=== PATIENT | female | born 1965 | race Caucasian/White ===

== ENCOUNTER 2017-12-28 12:05 | Outpatient (CLI) | payer OTHER | END 2017-12-28 12:06 | disposition home or self-care (01) | LOC: BICMAMMO 12:05 | PROVIDERS: ATTEND Family Medicine | DX: Z12.31 Encounter for screening mammogram for malignant neoplasm of breast (principal); R92.1 Mammographic calcification found on diagnostic imaging of breast | CPT/HCPCS: 77067 ==

== ENCOUNTER → 2018-02-04 | Day surgery (SDC) | payer OTHER ==
[2018-02-03 13:23] VITALS: BMI 43.4
[~2018-02-04] MED LIST: Lorazepam 1 MG TAB ONE
[2018-02-04 09:00] VITALS: TEMP 98.4
--- NOTE | 2018-02-04 09:45 | RAD ---
LATERAL NEUTRAL FLEXION AND EXTENSION RADIOGRAPHS LUMBAR SPINE: 02/04/2018 HISTORY: Lumbar radiculopathy. FINDINGS: A dorsal column stimulator is present, leads terminating over the T12 level. The neutral lateral ysabel ging demonstrates normal vertebral body height and alignment. At T12-L1, L1-L2, and L2-L3, there is disk space narrowing with mild anterior osteophyte formation. No anterolisthesis or retrolisthesis i s seen on the neutral, flexion, or extension lateral views. No acute osseous abnormality is noted. IMPRESSION: Degenerative changes. No anterolisthesis or retrolisthesis seen. POS: [facility]
--- NOTE | 2018-02-04 11:00 | RAD ---
LUMBAR SPINE MYELOGRAM: 02/04/2018 HISTORY: Lumbar radiculopathy. COMPARISON: None. EXPOSURE DATA: Fluoroscopic time 1.2 minutes with 367.1 mGy per m2. TECHNIQUE/FINDINGS: Informed consent for lumbar myelogram obtained prior to the procedure. The skin overlying the lumbar spine is prepped and draped in the normal sterile fashion. The skin at the L2-L3 level is anesthetized with 1% buffered Lidocaine. With intermittent fluoroscopic guidance , a 22 gauge spinal needle is advanced into the thecal sac, and removal of the stylet yields clear ce rebrospinal fluid. Approximately 10 mL of iodinated contrast media was injected, outlining the nerve roots of the cauda equina and filling the thecal sac. The needle was removed. The patient tolerated the procedure well. The patient was sent to the CT scanner for CT myelogram of the lumbar spine. IMPRESSION: Successful lumbar spine myelogram. POS: [facility]
--- NOTE | 2018-02-04 11:14 | CT ---
CT MYELOGRAM LUMBAR SPINE: 02/04/2018 HISTORY: Lumbar radiculopathy. COMPARISON: None. TECHNIQUE: Serial axial CT imaging at 2.5 mm intervals, from the lower thoracic spine through the lower sacrum, with iodinated intrathecal contrast media. Coronal and sagittal reformatted imaging obtained. FINDINGS: Incomplete assessment of the abdomen and pelvis demonstrates a gastric suture line. There are chino us stones within both kidneys. This includes stones measuring up to 8 mm on the right and 4 mm on th e left. Scattered atherosclerotic calcification of the infrarenal abdominal aorta noted. Dorsal column stimulators are present, inserted at the L1-L2 level, terminating at the T12-L1 level. T12-L1: No central canal or neural foraminal stenosis. L2-L3: Mild anterior osteophyte formation and vacuum disk formation. No central canal or neural for aminal stenosis. L3-L4: No significant central canal or neural foraminal stenosis. L4-L5: Mild bilateral facet hypertrophy and hypertrophy of the ligamentum flavum. No centra canal o r neural foraminal stenosis. L5-S1: Mild facet hypertrophy with no significant central canal or neural foraminal stenosis. No anterolisthesis or retrolisthesis. No focal bone lesion. No acute osseous abnormality. There is strength change involving the bilateral sacroiliac joints, left greater than right. IMPRESSION: 1. No significant central canal or neural foraminal stenosis within the lumbar spine. 2. Multiple bilateral nonobstructing renal calculi. POS: [facility]
== END ==
LOC: RAD 08:32
PROVIDERS: ATTEND Neurological Surgery
PROC: B01B1ZZ Fluoroscopy of Spinal Cord using Low Osmolar Contrast (ICD-10-PCS; principal; 2018-02-04)
DX: M54.16 Radiculopathy, lumbar region (principal); Z79.1 Long term (current) use of non-steroidal anti-inflammatories (NSAID); Z79.899 Other long term (current) drug therapy
CPT/HCPCS: 62304; 72100; 72132

== ENCOUNTER 2018-03-08 08:40 | Outpatient (CLI) | payer OTHER ==
[2018-03-08 09:40] LABS: Hemoglobin 10.5 g/dL (12.0-16.0); Mean Corpuscular HGB CONC 31.2 g/dL (32.0-36.0); Mean Corpuscular Hemoglobin 24.4 pg (27.0-31.0); Mean Corpuscular Volume 78.2 fl (81.0-99.0); Mean Platelet Volume 6.7 fL (7.4-10.4); Platelet Count 410 thou/uL (130-400)
[2018-03-08 10:00] LABS: Anion Gap 12 mmol/L (10-20); BUN (Urea Nitrogen) 14 mg/dL (9.8-20.1); Calc. Creatinine Clearance 0 mL/min (70-130); Calcium 9.3 mg/dL (7.8-10.44); Carbon Dioxide 24 mmol/L (22-29); Chloride 107 mmol/L (98-107); Estimated GFR-MDRD 72; Glucose 92 mg/dL (70-105); Sodium 139 mmol/L (136-145)
--- NOTE | 2018-03-08 15:50 | EKG ---
Test Reason : Blood Pressure : / mmHG Vent. Rate : 083 BPM Atrial Rate : 083 BPM P-R Int : 140 ms QRS Dur : 084 ms QT Int : 362 ms P-R-T Axes : 024 001 026 degrees QTc Int : 425 ms Normal sinus rhythm Possible Anterior infarct , age undetermined Abnormal ECG No previous ECGs available Confirmed by RANDY HIDALGO ([id number]) on 03/08/2018 3:49:54 PM Referred By: JUHI Confirmed By:RANDY HIDALGO
== END 2018-03-08 08:41 | disposition home or self-care (01) ==
LOC: LABBT 08:40
PROVIDERS: ATTEND Neurological Surgery
DX: Z01.818 Encounter for other preprocedural examination (principal)
CPT/HCPCS: 80048; 85027; 93005; 93010

== ENCOUNTER 2018-03-14 07:23 | Day surgery (SDC) | payer OTHER ==
[2018-03-08 09:00] VITALS: BMI 43.4
[2018-03-14] MEDS ORDERED: CEFAZOLIN/Water 2 GM/20 ML SYRINGE ONE (08:17)
[2018-03-14] MEDS ORDERED: Sodium Chloride 0.9% 10 ML ONE (09:17)
[2018-03-14] MEDS ORDERED: Bupivacaine HCl 0.5%/Epinephrine 1:200,000/PF 30 ml Vial ONE (09:17)
[2018-03-14] MEDS ORDERED: Fentanyl 100 MCG/2 ML VIAL ONE ×2 (09:37→12:00)
[2018-03-14] MEDS ORDERED: Midazolam HCl 2 mg/2 ml Vial ONE (10:30)
[2018-03-14] MEDS ORDERED: HYDROmorphone 0.5 MG/0.5 ML SYRINGE ONE ×3 (11:04→11:35)
[2018-03-14] MEDS ORDERED: Promethazine HCl 25 MG/ML VIAL ONE (11:22)
--- NOTE | 2018-03-14 12:03 | OP ---
DATE OF PROCEDURE: 03/14/2018 SURGEON: Dell Chrales M.D. [employer] OPERATOR: Radha Lui PROCEDURES PERFORMED: Removal of electrode paddle array spinal stimulator, removal of pulse generato r spinal stimulator. PROCEDURE IN DETAIL: The patient was brought into the operating room and intubated. She was rolled in the prone position on gel-filled chest rolls. Incision over the previous battery pack was reopene d and the battery pack easily removed. We then made the incision over the thoracolumbar fascia and i dentified the anchoring spots of the stimulator leads, removed the anchors. We then next explored th e leads down to the electrode paddle array and this was quite stuck in the epidural space. We did steele ve performed a small laminectomy and ultimately they were able to remove the instrumentation entirely . The wound was then extensively irrigated, immaculate hemostasis was secured. Vancomycin powder wa s applied and the wounds were closed in anatomic layers.
[2018-03-14] MEDS ORDERED: Morphine 4 MG/ML VIAL ONE (12:57)
[2018-03-14] MEDS ORDERED: HYDROcodone/Acetaminophen 5/325 mg Tablet ONE (13:58)
== END 2018-03-14 14:50 | disposition home or self-care (01) ==
LOC: SDC 07:23
PROVIDERS: ATTEND Neurological Surgery
PROC: 0JPT0MZ Removal of Stimulator Generator from Trunk Subcutaneous Tissue and Fascia, Open Approach (ICD-10-PCS; principal; 2018-03-14)
PROC: 00PU0MZ Removal of Neurostimulator Lead from Spinal Canal, Open Approach (ICD-10-PCS; principal; 2018-03-14)
DX: Z46.2 Encounter for fitting and adjustment of other devices related to nervous system and special senses (principal); G90.59 Complex regional pain syndrome I of other specified site; Z79.890 Hormone replacement therapy; Z79.1 Long term (current) use of non-steroidal anti-inflammatories (NSAID); Z79.899 Other long term (current) drug therapy
CPT/HCPCS: 76001; 96374; 96375; A4216; J0670; J1170; J2250; J2270; J2550; J3010; J3370; J3490

== ENCOUNTER 2018-04-08 15:41 | Outpatient (CLI) | payer MEDICAID ==
--- NOTE | 2018-04-08 16:27 | RAD ---
LEFT HIP TWO VIEWS: HISTORY: Left hip pain (M25.552). COMPARISON: None. FINDINGS: No fracture. No malalignment. Mild enthesopathic changes at the greater trochanter. Phleboliths in the pelvis. IMPRESSION: Mild degenerative changes. No acute abnormality. POS: [facility]
--- NOTE | 2018-04-08 16:28 | RAD ---
TWO VIEWS RIGHT HIP: HISTORY: Pain. COMPARISON: None. FINDINGS: The joint space is preserved. The contour of the femoral head is maintained. No fracture. The visu alized bony pelvis is unremarkable. IMPRESSION: Unremarkable two view right hip. POS: [facility]
== END 2018-04-08 15:42 | disposition home or self-care (01) ==
LOC: SCSRAD 15:41
PROVIDERS: ATTEND Family Medicine
DX: M25.552 Pain in left hip (principal)

== ENCOUNTER 2018-06-20 10:51 | Outpatient (CLI) | payer OTHER ==
[~2018-06-20 10:51] MED LIST changes: +Iopamidol 370 76% 100 ML VIAL ONE; -Lorazepam 1 MG TAB ONE
--- NOTE | 2018-06-20 16:23 | CT ---
CT ABDOMEN AND PELVIS WITH ORAL AND IV CONTRAST: History: 53-year-old female with left upper quadrant pain. Patient has had multiple surgeries includi ng gastric bypass, hysterectomy, appendectomy, cholecystectomy. Liver biopsy. Spinal stimulator leads placed and removed. FINDINGS: Lung bases are unremarkable. The liver, spleen, pancreas and adrenal glands are normal. There are pos t op changes of gastric bypass, cholecystectomy, hysterectomy, appendectomy, spinal stimulator leads removal. There are calculi in the kidneys on either side. Low density lesions are likely cyst. No hydrouretero nephrosis noted on the either side. No calculi noted in the ureters or urinary bladder. The small loops are not abnormally dilated. There are vascular calcifications without evidence of ane urysmal dilatation of the abdominal aorta. Degenerative changes are present in the spine. IMPRESSION: 1. Non obstructing bilateral renal calculi. 2. Post op changes in the abdomen and pelvis. POS: [facility]
== END 2018-06-20 10:52 | disposition home or self-care (01) ==
LOC: SCSCT 10:51
PROVIDERS: ATTEND Internal Medicine
DX: R10.12 Left upper quadrant pain (principal); D50.9 Iron deficiency anemia, unspecified; N20.0 Calculus of kidney; Z98.890 Other specified postprocedural states
CPT/HCPCS: 74177

== ENCOUNTER 2018-08-17 08:58 | Inpatient (IN) | payer OTHER ==
[2018-08-17 09:43] LABS: INR-International Normal Ratio 1.1; PTT 24.9 SEC (22.9-36.1); Prothrombin Time 13.9 SEC (12.0-14.7)
[2018-08-17 09:46] LABS: Hemoglobin 6.7 g/dL (12.0-16.0); Mean Corpuscular HGB CONC 31.3 g/dL (32.0-36.0); Mean Corpuscular Hemoglobin 24.7 pg (27.0-31.0); Mean Corpuscular Volume 79.1 fL (78.0-98.0); Mean Platelet Volume 7.3 fL (7.4-10.4); Platelet Count 418 thou/uL (130-400); RBC Distribution Width 16.4 % (11.5-14.5); Red Blood Cell (RBC) Count 2.72 mill/uL (4.20-5.40); White Blood Cell (WBC) Count 12.7 thou/uL (4.8-10.8)
[2018-08-17] MEDS ORDERED: Pantoprazole 40 MG VIAL ONE (09:59)
[2018-08-17 10:00] LABS: ALT (SGPT) 11 U/L (8-55); AST (SGOT) 14 U/L (5-34); Albumin 3.2 g/dL (3.5-5.0); Alkaline Phosphatase 73 U/L (40-150); Anion Gap 11 mmol/L (10-20); BUN (Urea Nitrogen) 36 mg/dL (9.8-20.1); Bilirubin, Total 0.3 mg/dL (0.2-1.2); Calc. Creatinine Clearance 0 mL/min (70-130); Calcium 8.3 mg/dL (7.8-10.44); Carbon Dioxide 22 mmol/L (22-29); Chloride 110 mmol/L (98-107); Estimated GFR-MDRD 68; Globulin 2.6 g/dL (2.4-3.5); Glucose 160 mg/dL (70-105); Lipase 26 U/L (8-78); Potassium 3.8 mmol/L (3.5-5.1); Protein, Total 5.8 g/dL (6.0-8.3); Sodium 139 mmol/L (136-145)
[2018-08-17 10:04] LABS: CKMB 0.6 ng/mL (0-6.6); Troponin I Less than 0.010 ng/mL (< 0.028)
[2018-08-17 10:15] LABS: Band 16 % (5-11); Lymphocytes 10 % (21-51); MDiff Complete? YES; Metamyelocyte 2 % (0-0); Myelocyte 1 % (0-0); Neutrophil 70 % (42-75); Reactive Lymphocytes 1 % (0-10)
--- NOTE | 2018-08-17 10:22 | RAD ---
AP CHEST: Indication: 53-year-old female with vomiting, diarrhea, and blackout episode yesterday. Comparison: None. FINDINGS: No consolidation is evident. There are vascular calcifications involving the thoracic aorta. Heart si ze is normal. No acute osseous abnormality is noted. IMPRESSION: No definite acute cardiopulmonary abnormality demonstrated. POS: [facility]
[2018-08-17 14:52] LABS: Bilirubin Negative (Negative); Blood, Urine Negative (Negative); Clarity CLEAR (Clear); Glucose, Urine (Dipstick) Negative (Negative); Leukocyte Negative (Negative); Nitrite Negative (Negative); Protein, Urine (Dipstick) Negative (Neg-Trace); Specific Gravity, Urine 1.012 (1.002-1.036); Urobilinogen 0.2 mg/dL (0.2-1.0)
[2018-08-17] MEDS ORDERED: Ondansetron PF 4 MG/2 ML Vial IVP PRN ×2 (15:16→17:59)
[2018-08-17] MEDS ORDERED: Acetaminophen 325 MG TAB PO PRN ×2 (15:16→17:59)
[2018-08-17] MEDS ORDERED: Ondansetron ODT 4 MG TAB SL PRN (15:16)
[2018-08-17] MEDS ORDERED: HYDROcodone/Acetaminophen 5/325 mg Tablet PO PRN ×2 (15:16)
[2018-08-17] MEDS ORDERED: Sodium Chloride 0.9% 1,000 ML IV SCH (15:30)
--- NOTE | 2018-08-17 17:17 | CON ---
DATE OF CONSULTATION: 08/17/2018 REASON FOR CONSULTATION: Severe anemia and passing out. HISTORY: Mrs. Perdomo is a 53-year-old female, who was brought to the emergency room after having a syncopal episode at home and a presenting hemoglobin of 6.7 g/dL. The patient has been followed by Dr. Barclay as an outpatient for workup of her iron deficiency anemia. She had a gastrojejunostomy bypass surgery in 2006 in [place]. Over the last 2 years , she has been having episodic severe upper abdominal pain associated with nausea and some dry heaves. These episodes are fairly short acting, however, they have been more frequent in the last several months. Yesterday, she had an intense episode of upper abdominal pain in a band-like distribution, but without any other radiation. She had severe nausea and some dry heavings. There was no altered bowel function. There was no fever. Because of severe pain, she missed her appointment to see a GI doctor. Later in the afternoon, she became more diaphoretic and very weak. She felt lightheaded and dizzy with positional change. In the evening, she reportedly passed out in her restroom with complete loss of consciousness. Early this morning, she began passing black tarry stool. Currently, she is without any abdominal pain. Her vitals is fairly stable at the present time. Her outpatient GI workup included EGD and colonoscopy in April of this year. Her colonoscopy was normal. EGD showed a small gastric pouch. A 100 cm of the jejunum was explored, although the enteroanastomosis was not reached. That exam was normal. She subsequently had a small bowel capsule study last month that was normal without any identifiable source of bleeding. Her hemoglobin last year was 12 g/dL. Earlier this year, it dropped down to 10 g/dL. This is the first time that she had evidence of GI bleeding. PAST MEDICAL HISTORY: 1. Hypertension. 2. Anxiety, depression. 3. Status post appendectomy. 4. Status post cholecystectomy. 5. Gastrojejunostomy, bariatric surgery. 6. . 7. Hysterectomy. 8. Status post left total knee replacement. ALLERGIES: None. MEDICATIONS: At home include losartan 50 mg q. day, amlodipine 5 mg q. day, nortriptyline 75 mg at bedtime, meloxicam 15 mg q. day, gabapentin 600 mg 2 tablets t.i.d., fluoxetine 20 mg q. day, and pantoprazole 40 mg q. day. SOCIAL HISTORY: Patient is , has 3 children, recently moved from [place] a year ago. Denies any tobacco or alcohol usage. FAMILY HISTORY: Negative for any known GI problem, liver disease, or GI malignancy. REVIEW OF SYSTEMS: Ten-point review of systems did not show any other pertinent positive or negative. PHYSICAL EXAMINATION: VITAL SIGNS: Temperature is 97.8, blood pressure 138/72, pulse of 110. GENERAL: She is alert, very pale, but in no severe distress. HEENT: Shows anicteric sclerae. Oropharynx clear. NECK: Supple. HEART: Normal S1, S2, regular rate and rhythm, slight tachycardic. CHEST: Shows breath sounds. ABDOMEN: Protuberant but soft, nontender to palpation. No distention, no tympany. She has active bowel sounds. EXTREMITIES: Shows no edema. LABORATORY DATA: WBC is 12.7, hemoglobin 6.7, hematocrit 21.5%, platelet count of 418. Electrolytes within normal range, creatinine 0.87, bilirubin 0.3, AST 14, ALT 11, alkaline phosphatase 73, lipase of 26. ASSESSMENT: 1. Acute on chronic anemia, acute drop is likely from gastrointestinal blood loss, manifesting as melenic stools. She did have a normal upper endoscopy with 100 cm jejunum explored in January of this year. However, at that time, she did not have any signs of bleeding. A small bowel capsule endoscopy last month was done revealing ulcer. 2. Periodic abdominal pain, reason and unknown. EGD/colonoscopy and CT in June of this year were normal. Suspect possible afferent loop syndrome or intermittent RECOMMENDATIONS: 1. Transfusion support today to hemoglobin above 7. 2. Once she feels better and clinically more stable, we will proceed with upper endoscopy. We will attempt to use longer scope suggest colonoscope to go further down if standard upper endoscope is unrevealing. 3. I have discussed this plan with patient. All questions answered. SHASHA
[2018-08-17 17:47] LABS: Hemoglobin 7.8 g/dL (12.0-16.0)
[2018-08-17] MEDS ORDERED: Ondansetron ODT 4 MG TAB PO PRN (17:59)
[2018-08-17] MEDS: Sodium Chloride 0.9% 1,000 ML IV SCH (18:34)
[2018-08-17] MEDS: Pantoprazole 80 MG, Admixture Fee 1 EACH in Sodium Chloride 0.9% 100 ML IVP SCH (19:24)
[2018-08-17] MEDS: Gabapentin 300 MG CAP PO SCH (20:16)
[2018-08-17] MEDS: Nortriptyline HCl 25 MG CAP PO SCH (20:17)
[2018-08-17] MEDS: HYDROcodone/Acetaminophen 5/325 mg Tablet PO PRN (20:17)
[2018-08-17] MEDS ORDERED: Heparin 1,000 UNITS/ML VIAL ONE (20:56)
[2018-08-17 21:42] LABS: Hemoglobin 7.5 g/dL (12.0-16.0)
--- NOTE | 2018-08-17 23:12 | HP ---
DATE OF ADMISSION: 08/17/2018 ADMITTING PHYSICIAN: Boni Keys MD HISTORY OF PRESENT ILLNESS: The patient is a 53-year-old female who apparently is a patient of Dr. Demarco smith. There was confusion in the ER, she apparently was admitted to the hospitalist service. Derek Keys has not been available. We are now resuming the care. The patient was in her normal state of health until she began developing weakness, dizziness. She st ates she passed out. She has been followed for chronic abdominal pain, apparently has been seen by Derek Barclay. She has had a status post gastric bypass surgery. She has developed episodic abdominal laurel n. She states she recently underwent EGD with capsule camera, reported all findings were normal. As noted today, she developed weakness, fainting, dizziness, developed melena. She was seen and evalua cyndie in the ER, found to have melena and a hemoglobin of 6.7. She has not noted any chest pain, short ness of breath, no nausea, vomiting, diarrhea, no fever has been reported. As noted, she had an EGD and colonoscopy in April of this year which was apparently normal by report a nd it was noted her hemoglobin approximately one year ago was 12 and apparently dropped down to 10 ea rlier this year. Otherwise, no other medical complaints are noted. ALLERGIES: She has no known allergies. CURRENT MEDICATIONS: Include losartan, amlodipine, nortriptyline, Meloxicam, gabapentin, fluoxetine, and pantoprazole. PAST MEDICAL HISTORY: Hypertension, depression. PAST SURGICAL HISTORY: Positive for appendectomy, cholecystectomy, gastric bypass, hysterectomy, lef t total knee replacement. SOCIAL/PERSONAL HISTORY: She is . She does not smoke. She drinks alcohol. REVIEW OF SYSTEMS: Otherwise negative. PHYSICAL EXAMINATION: VITAL SIGNS: Temperature 98.4, pulse 97, respirations 16, O2 sats 100%, blood pressure 163/91. GENERAL: She is alert, active, in no distress. HEENT: Normocephalic, atraumatic. Sclerae and conjunctivae clear. NECK: Supple, full range of motion, no masses. LUNGS: Clear. HEART: Regular rate and rhythm without murmurs, gallops or rubs. ABDOMEN: Soft, nontender, bowel sounds are present and active. No hepatosplenomegaly is noted. No evidence of rebound or guarding otherwise noted. EXTREMITIES: Reveal trace edema bilaterally, but no evidence of any venous stasis disease otherwise noted. Pulses are full and intact bilaterally. LABORATORY DATA: Her initial hemoglobin 6.7, hematocrit 21.5, white blood count of 12.7. Electrolyt es: Sodium 139, potassium 3.8, chloride 110, CO2 is 22, BUN 36, creatinine 0.87. Urinalysis clear. Repeat hemoglobin after 1 unit of blood is 7.8 and 24.1. IMPRESSION: This is a 53-year-old female with apparent gastrointestinal bleed. PLAN: 1. Apparently, GI has already been consulted to see her in the ER. There is a plan evidently to josette e her for EGD tomorrow. 2. She has been placed on IV Protonix. 3. We will check CBC in the morning. I do not feel she needs a transfusion tonight. Discussed the findings with the patient. We will notify Dr. Keys of admission.
[2018-08-18] MEDS: HYDROcodone/Acetaminophen 5/325 mg Tablet PO PRN ×2 (01:49→18:17)
[2018-08-18] MEDS: Sodium Chloride 0.9% 1,000 ML IV SCH ×2 (01:50→14:51)
[2018-08-18] MEDS: Pantoprazole 80 MG, Admixture Fee 1 EACH in Sodium Chloride 0.9% 100 ML IVP SCH ×2 (03:05→16:06)
[2018-08-18 05:10] LABS: Anion Gap 10 mmol/L (10-20); BUN (Urea Nitrogen) 16 mg/dL (9.8-20.1); Calc. Creatinine Clearance 147 mL/min (70-130); Calcium 8.4 mg/dL (7.8-10.44); Carbon Dioxide 19 mmol/L (22-29); Chloride 114 mmol/L (98-107); Estimated GFR-MDRD 82; Glucose 93 mg/dL (70-105); Potassium 3.9 mmol/L (3.5-5.1); Sodium 139 mmol/L (136-145)
[2018-08-18 05:12] LABS: #Basophils 0.1 thou/uL (0.0-0.2); #Eosinphils 0.3 thou/uL (0.0-0.7); #Lymphocytes 2.7 thou/uL (1.20-3.40); #Monocytes 0.7 thou/uL (0.11-0.59); #Neutrophils 4.1 thou/uL (1.40-6.50); %Basophils 0.8 % (0.0-1.0); %Eosinophils 3.7 % (0.0-10.0); %Lymphocytes 34.4 % (21.0-51.0); %Monocytes 9.1 % (0.0-10.0); %Neutrophils 52.1 % (42.0-75.0); Hemoglobin 7.5 g/dL (12.0-16.0); Mean Corpuscular HGB CONC 31.2 g/dL (32.0-36.0); Mean Corpuscular Hemoglobin 26.3 pg (27.0-31.0); Mean Corpuscular Volume 84.2 fL (78.0-98.0); Mean Platelet Volume 7.5 fL (7.4-10.4); Platelet Count 319 thou/uL (130-400); RBC Distribution Width 16.6 % (11.5-14.5); Red Blood Cell (RBC) Count 2.86 mill/uL (4.20-5.40); White Blood Cell (WBC) Count 7.9 thou/uL (4.8-10.8)
--- NOTE | 2018-08-18 08:02 | PRG ---
DATE OF SERVICE: 08/18/2018 HISTORY OF PRESENT ILLNESS: The patient denies any further bleeding overnight. She is currently n.p .o. awaiting EGD and possible colonoscopy to follow with Gastroenterology. The patient received 1 un it of PRBCs and denies any transfusion reaction. No acute complaints other than some lasting right k nee pain following her prior collapse prior to presenting to the hospital, currently taking [place] for pain. PHYSICAL EXAMINATION: VITAL SIGNS: Blood pressure 127/78, temperature of 97.6, pulse of 86, respiratory rate of 15, oxygen saturation of 98% on room air. LABORATORY: This a.m., white blood cell count 7.9, hemoglobin 7.5, platelet count of 319. INR from yesterday 1.1. Sodium 139, potassium of 3.9, chloride of 114, creatinine of 0.74, glucose of 93, monique cium of 8.4. Troponin yesterday of less than 0.01. Urinalysis is normal. Specific gravity 1.01. GENERAL: The patient is alert and oriented, in no acute distress. HEENT: Head is normocephalic, atraumatic. Extraocular movements are intact. Sclerae are clear. Or al mucosa is moist. HEART: Slightly tachycardic, but regular rate, no murmurs. LUNGS: Clear to auscultation bilaterally. No rubs or wheezes. ABDOMEN: General tenderness, without rebound or guarding. EXTREMITIES: Lower extremities without cyanosis or edema. NEUROLOGIC: The patient alert and oriented x3, no focal deficits. Speech is normal. ASSESSMENT AND PLAN: Gastrointestinal bleed, symptomatic anemia, chronic pain. The patient is curre ntly on Protonix drip following transfusion with appropriate rise in hemoglobin. The patient has no further episodes of bleeding, currently stable. Awaiting scope procedure with Gastroenterology. We will follow up with their recommendations. We will ensure the patient's discontinued all NSAIDs on a n outpatient basis including home Meloxicam for her chronic pain. Continuing gabapentin and nortript yline as per the patient's pain regimen from home. Continuing the patient's home blood pressure medi cations for hypertension, currently controlled this a.m. Sequential compression devices when the francisco ent in bed have been ordered. No anticoagulation secondary to gastrointestinal bleed.
[2018-08-18] MEDS ORDERED: Ondansetron HCl/PF 4 MG/2 ML Vial IVP PRN (11:59)
[2018-08-18] MEDS ORDERED: Promethazine HCl 25 MG/ML VIAL IM PRN (11:59)
[2018-08-18] MEDS ORDERED: Promethazine HCl 25 MG/ML VIAL SLOW IVP PRN (11:59)
[2018-08-18] MEDS ORDERED: Fentanyl 100 MCG/2 ML VIAL ONE ×2 (12:09→12:57)
[2018-08-18 12:10] LABS: Hemoglobin 8.1 g/dL (12.0-16.0)
--- NOTE | 2018-08-18 12:38 | OP ---
DATE OF PROCEDURE: 08/18/2018 SURGEON: Dr. Adam Blas PROCEDURE: Enteroscopy with control of hemorrhage. PREOPERATIVE DIAGNOSIS: Anemia of acute gastrointestinal blood loss PROCEDURE IN DETAIL: Informed consent was obtained from the patient. She was sedated with total int ravenous anesthesia. The bite block was placed and the colonoscope was advanced well into the jejunu m. The esophagus was normal. The GE junction was normal. The stomach pouch was unremarkable. Ther e were a few shallow 6 mm erosions at the gastrojejunostomy anastomosis. The small bowel mucosa appe ared normal. The colonoscope was advanced down to the jejunojejunal anastomosis and then advanced re trograde through the biliopancreatic limb up into the stomach remnant. There was a large amount of b lood clot in the stomach remnant which was fresh. There was a 3 cm ulcer around the area of the stap le line in the stomach remnant. There was an adherent clot in the base of this. Epinephrine 1:10,00 0 was injected in four quadrants with 4 mL. The clot was then dislodged with a gold probe. A large visible vessel was identified in the base of the ulcer. This was cauterized with a 10-[place] gold pr obe. Even after cautery there was still pulse dilatation of the raised area at the vessel site. A H emoclip was attempted to be placed over the site; however, this just slid over the fibrotic base of t he ulcer and would not hold adequately. The procedure was completed at this point and the air was peters ctioned from the stomach and duodenum. She has a hemoglobin of 7.5 following transfusion. However, due to transfusion reaction we were having trouble getting additional units of blood ready for immedi ate transfusion. Following the procedure, there is good hemostasis confirmed. However, I do think t his is a high risk for repeat bleeding. IMPRESSION: 1. Shallow 6 mm erosions at the gastrojejunostomy anastomosis. 2. The esophagus and stomach pouch were unremarkable. The small bowel mucosa was normal. 3. The scope was advanced retrograde into the biliopancreatic limb and into the gastric remnant. Th ere was a large 3 cm ulcer around an area of yg in the gastric remnant. There was a large visib le vessel in the base of this which was injected with epinephrine and cauterized with a 10-[place] gol d probe. Good hemostasis was confirmed at the end of the procedure; however, there was still a sligh t protrusion and pulsation of the cauterized area which is concerning for a high risk for repeat blee ding still. RECOMMENDATIONS: 1. Proton pump inhibitor drip. 2. Transfuse as soon as the blood is available. 3. If there are any further overt bleeding, then she will need surgery for resection of the stomach remnant.
[2018-08-18] MEDS ORDERED: Lidocaine 1% PF 5 ML VIAL ONE (12:55)
[2018-08-18] MEDS ORDERED: PHENYLEPHRINE-NS 100 MCG/ML 10 ML SYRINGE ONE (12:55)
[2018-08-18] MEDS ORDERED: PROPOFOL 200 MG/20 ML VIAL ONE (12:55)
[2018-08-18] MEDS: Gabapentin 300 MG CAP PO SCH ×4 (14:50→21:23)
[2018-08-18] MEDS: FLUoxetine HCl 20 MG CAP PO SCH (14:50)
--- NOTE | 2018-08-18 17:59 | RAD ---
ACUTE ABDOMINAL SERIES: 08/18/18 HISTORY: Vomiting and diarrhea. Blackout episode one day ago. Evaluate for perforation. CHEST X-RAY: The cardiac silhouette and pulmonary vasculature are within normal limits. The lungs are clear. Free intraperitoneal air is seen beneath the hemidiaphragms on this upright chest x-ray. The osseous struc tures are intact. Vascular calcifications are seen in the thoracic aorta. There has been no interval change from study on 08/17/18. DECUBITUS AND SUPINE VIEWS OF THE ABDOMEN: Postsurgical changes are seen in the epigastric region with radiopaque suture material and surgical c lips present. Surgical clips are also seen in the right upper quadrant as well as overlying the lower abdomen. There are calcifications overlying the renal shadows bilaterally related to multiple renal calculi which were seen on CT abdomen on 06/20/18. Multiple calcifications also overlie the pelvis shown to represent multiple phleboliths on prior CT e xam. Surgical clips also overlie the pelvis bilaterally. Bowel gas pattern is nonspecific. Decubitus views demonstrate no evidence of free intraperitoneal gas . Minimal degenerative changes are seen in the spine. IMPRESSION: 1. Nonspecific bowel gas pattern. 2. No free intraperitoneal gas is seen on the upright chest x-ray or on the decubitus views of t he abdomen. 3. Postsurgical changes of the abdomen and pelvis. 4. Bilateral nephrolithiasis. POS: [facility]
[2018-08-18 20:27] LABS: Bilirubin Negative (Negative); Blood, Urine Negative (Negative); Clarity CLEAR (Clear); Glucose, Urine (Dipstick) Negative (Negative); Leukocyte Negative (Negative); Nitrite Negative (Negative); Protein, Urine (Dipstick) Negative (Neg-Trace); Specific Gravity, Urine 1.007 (1.002-1.036); Urobilinogen 0.2 mg/dL (0.2-1.0)
[2018-08-18 20:28] LABS: Bacteria/HPF None Seen HPF (None Seen); Hyaline Casts/LPF 0-3 HYALINE CAST LPF (0-3 Hyaline); RBC/HPF None Seen HPF (0-3); Squamous Epithelial None Seen HPF (0-3); WBC/HPF 0-3 HPF (0-3)
[2018-08-18] MEDS: Nortriptyline HCl 25 MG CAP PO SCH (21:24)
[2018-08-18 21:45] LABS: Hemoglobin 10.2 g/dL (12.0-16.0)
--- NOTE | 2018-08-18 22:07 | CON ---
DATE OF CONSULTATION: 08/18/2018 CONSULTING PHYSICIAN: Dr. Adam Blas. REASON FOR CONSULTATION: Gastric ulcer. HISTORY OF PRESENT ILLNESS: Patient is a 53-year-old white female. She was admitted to the hospital yesterday apparently following a syncopal episode. When she was brought to the hospital, she was no cyndie to have a hemoglobin of 6.7. She had been evaluated over the past couple of months with an upper and lower endoscopy for evaluation of iron deficiency anemia and left upper abdominal pain. Upper a nd lower endoscopy as well as apparently a capsule endoscopy were all negative. The patient notes th at she began passing melena stools shortly before her admission. She has a history of an open Arsalan-en-Y gastric bypass about 2007 performed in [place]. This was a revisional surgery from an apparent vertical banded gastroplasty that was performed in the . I s uspect it was because of the revisional nature of her surgery that she had her operation performed as an open operation. Following her admission for bleeding, she was seen by Gastroenterology and an upper endoscopy was rec ommended today. This was performed by Dr. Blas. She was surprisingly able to pass the scope throug h her Arsalan limb and back up to biliary limb and into the gastric remnant at which point he saw a larg e amount of clot within the gastric remnant and was able to identify an ulcer with a significant visi ble vessel within the base of the ulcer. There were a lot of surgical yg around that outside as well. Interestingly, the patient had been taking daily Protonix at home before she presented. Following her endoscopy, she was brought to the intensive care unit. She is receiving her first unit of blood. She is hemodynamically stable with a pulse of 91, blood pressure of 143/98, oxygen satura tions 96-99%. PAST MEDICAL HISTORY: Significant for morbid obesity, hypertension, depression. PAST SURGICAL HISTORY: 1. Appendectomy. 2. Cholecystectomy. 3. Open vertical-banded gastroplasty in the . 4. Open Arsalan-en-Y gastric bypass 10 years ago in [place] 5. Hysterectomy. 6. Left total knee replacement. 7. Bilateral foot surgery. CURRENT MEDICATIONS: Include losartan, amlodipine, nortriptyline, meloxicam, gabapentin, fluoxetine and pantoprazole. ALLERGIES: No known drug allergies. PERSONAL AND SOCIAL HISTORY: She is with one child and her son is present at bedside. She does not smoke. She does drink alcohol, but uncommonly. She does not work secondary to disability. She states her disability is related to some nerve damage in her feet as well as back problems. REVIEW OF SYSTEMS: Otherwise unremarkable. FAMILY HISTORY: Noncontributory. PHYSICAL EXAMINATION: VITAL SIGNS: As mentioned, she is afebrile, pulse is 90-100, blood pressure 143/98. GENERAL: She is well-developed, well-nourished, moderately obese white female. She currently weighs about 230 pounds (she tells me she weighed 285 pounds prior to her gastric bypass). HEENT: Unremarkable. NECK: Supple. LUNGS: Clear to auscultation. CARDIAC: Regular rate and rhythm without murmur. ABDOMEN: Obese with well healed midline upper abdominal incision. She has mild discomfort diffusely without any acute abdominal findings. ASSESSMENT: Patient with a bleeding ulcer in her gastric remnant following gastric bypass surgery 10 years ago for Morbid obesity. This is an extraordinarily unusual problem. It is more unusual that this occurred in spite of her taking a proton pump inhibitor. I suspect she is going to require rese ction of this portion of her stomach. It seems like it is only a matter time before this starts blee ding again. I would like to avoid operating on her emergently during this time that she is being res uscitated and transfused secondary to increased risk of perioperative complications. I suspect that this operation will need to be performed as an open operation secondary to her two prior open gastric operations. I have discussed all this in detail with the patient, her son, and Dr. Blas. She will receive her 2 units of blood transfusion to be observed here in the ICU. I will continue to follow her. If she remains stable, then hopefully she will be prepared for an elective gastrectomy at the [facility] of this next week.
[2018-08-19] MEDS: Pantoprazole 80 MG, Admixture Fee 1 EACH in Sodium Chloride 0.9% 100 ML IVP SCH (00:40)
--- NOTE | 2018-08-19 01:47 | CON ---
DATE OF CONSULTATION: 08/18/2018 HISTORY OF PRESENT ILLNESS: Analia Perdomo is a very pleasant 53-year-old female who was admitted to critical care unit after she was in identifying is having a GI bleed. She has undergone endoscopy. PAST MEDICAL HISTORY: Remarkable for hypertension, depression. MEDICATIONS: Prior to admission, she was on losartan, amlodipine, nortriptyline , meloxicam, gabapentin, fluoxetine and Protonix. PAST SURGICAL HISTORY: Remarkable for appendectomy, cholecystectomy, gastric bypass, hysterectomy and knee replacement. SOCIAL HISTORY: She is nonsmoker, nondrinker. FAMILY HISTORY: Negative for lung disease in early age. REVIEW OF SYSTEMS: A 10-point review of system was completed, otherwise negative. She actually denies pain at this time. PHYSICAL EXAMINATION: GENERAL: Analia Perdomo is a very pleasant 53-year-old female. VITAL SIGNS: Afebrile, respiratory rate 16, heart rate is 88, oximetry is 99%, blood pressure 148/79. GENERAL: She is in no distress. HEENT: Pupils were equal. Sclerae anicteric. LUNGS: Clear. HEART: Regular rhythm. S1 and S2 are normal. ABDOMEN: Surprisingly nontender. EXTREMITIES: No clubbing, cyanosis, or edema. LABORATORY DATA: White count 7.9; hemoglobin 7.5 at 04:17 and at 11:58, it was 8.1; platelets 319. Electrolytes were unremarkable other than mild hyperchloremia, likely brought on by the IV fluids. IMPRESSION: Gastrointestinal blood loss, status post endoscopy. PLAN: Continue ICU observation with serial hemoglobin and hematocrits per Gastroenterology and General Surgery. I will be happy to follow along and no respiratory issues at this time. This is a 70 minute consult, with greater than 50% of time spent on unit with coordination of care. SHASHA
[2018-08-19] MEDS: HYDROcodone/Acetaminophen 5/325 mg Tablet PO PRN (02:10)
[2018-08-19 05:52] LABS: #Basophils 0.1 thou/uL (0.0-0.2); #Eosinphils 0.2 thou/uL (0.0-0.7); #Monocytes 1.1 thou/uL (0.11-0.59); #Neutrophils 8.3 thou/uL (1.40-6.50); %Basophils 0.5 % (0.0-1.0); %Eosinophils 2.1 % (0.0-10.0); %Lymphocytes 16.8 % (21.0-51.0); %Monocytes 9.6 % (0.0-10.0); %Neutrophils 71.1 % (42.0-75.0); Hemoglobin 9.4 g/dL (12.0-16.0); Mean Corpuscular HGB CONC 32.5 g/dL (32.0-36.0); Mean Corpuscular Hemoglobin 27.5 pg (27.0-31.0); Mean Corpuscular Volume 84.5 fL (78.0-98.0); Mean Platelet Volume 7.6 fL (7.4-10.4); Platelet Count 296 thou/uL (130-400); RBC Distribution Width 15.7 % (11.5-14.5); Red Blood Cell (RBC) Count 3.41 mill/uL (4.20-5.40); White Blood Cell (WBC) Count 11.7 thou/uL (4.8-10.8)
[2018-08-19 05:55] LABS: Anion Gap 9 mmol/L (10-20); BUN (Urea Nitrogen) 6 mg/dL (9.8-20.1); Calc. Creatinine Clearance 154 mL/min (70-130); Calcium 8.5 mg/dL (7.8-10.44); Carbon Dioxide 23 mmol/L (22-29); Chloride 109 mmol/L (98-107); Estimated GFR-MDRD 86; Glucose 94 mg/dL (70-105); Potassium 3.4 mmol/L (3.5-5.1); Sodium 138 mmol/L (136-145)
[2018-08-19] MEDS ORDERED: Fentanyl 250 MCG/5 ML VIAL ONE (07:03)
[2018-08-19] MEDS ORDERED: DOPamine 400 MG/D5W 250 ML 0 ML ONE (07:20)
--- NOTE | 2018-08-19 07:57 | RAD ---
CHEST 1 VIEW: HISTORY: Dyspnea. Followup. COMPARISON: 08/17/2018. FINDINGS: Cardiac silhouette is magnified by projection. Pulmonary vasculature unremarkable. Mediastinum midl ine. Right subclavian central venous catheter is in place with the tip overlying the superior vena c juan. No evidence of pneumothorax. IMPRESSION: Right subclavian central venous catheter is in good radiographic position. POS: [facility]
--- NOTE | 2018-08-19 08:01 | OP ---
DATE OF PROCEDURE: 08/19/2018 PREOPERATIVE DIAGNOSIS: Bleeding gastric ulcer. POSTOPERATIVE DIAGNOSIS: Bleeding gastric ulcer. PROCEDURE PERFORMED: Placement of right subclavian 7-Ukrainian triple-lumen central line. SURGEON: Valdemar Lea M.D. ANESTHESIA: A 1% lidocaine. INDICATION: The patient is a 53-year-old white female. She was found to have a bleeding ulcer in he r bypassed gastric segment yesterday. This morning, she developed severe acute onset of pain with hy potension. A central line was placed urgently in preparation for emergent operation. DESCRIPTION OF PROCEDURE: Informed consent was obtained. The patient was placed in Trendelenburg po sition in her bed in the Intensive Care Unit. Right periclavicular area was prepped with ChloraPrep and draped in sterile fashion. Local anesthetic was infiltrated. Large gauge needle was passed into the clavicle and subclavian vein. Guidewire was passed through the needle. The needle was removed, skin was incised, tract was dilated, and 7-Ukrainian triple-lumen catheter was passed over the wire. E ach of the 3 lumens aspirated blood freely and was flushed with heparinized saline. Catheter was sec ured to skin exit site with 3-0 silk suture. Sterile occlusive dressing was applied. There were no complications and chest x-ray shows good position of the catheter.
[2018-08-19] MEDS ORDERED: Dexamethasone 20 MG/5 ML VIAL ONE (09:51)
[2018-08-19] MEDS ORDERED: Succinylcholine Chloride 20 MG/ML 10 ml SYRINGE FS ONE (09:51)
[2018-08-19] MEDS ORDERED: Ondansetron PF 4 MG/2 ML Vial ONE (09:51)
[2018-08-19] MEDS ORDERED: Vecuronium 10 MG VIAL ONE (09:51)
[2018-08-19] MEDS ORDERED: PROPOFOL 200 MG/20 ML VIAL ONE (09:51)
[2018-08-19 10:03] LABS: #Eosinphils 0.1 thou/uL (0.0-0.7); #Lymphocytes 1.2 thou/uL (1.20-3.40); #Monocytes 0.7 thou/uL (0.11-0.59); %Eosinophils 0.5 % (0.0-10.0); %Lymphocytes 7.6 % (21.0-51.0); %Monocytes 4.2 % (0.0-10.0); %Neutrophils 87.7 % (42.0-75.0); Hemoglobin 9.9 g/dL (12.0-16.0); Mean Corpuscular HGB CONC 33.1 g/dL (32.0-36.0); Mean Corpuscular Hemoglobin 28.9 pg (27.0-31.0); Mean Corpuscular Volume 87.3 fL (78.0-98.0); Mean Platelet Volume 7.2 fL (7.4-10.4); Platelet Count 189 thou/uL (130-400); RBC Distribution Width 14.8 % (11.5-14.5); Red Blood Cell (RBC) Count 3.42 mill/uL (4.20-5.40)
[2018-08-19 10:04] LABS: INR-International Normal Ratio 1.2; PTT 25.2 SEC (22.9-36.1); Prothrombin Time 15.5 SEC (12.0-14.7)
[2018-08-19] MEDS ORDERED: Midazolam HCl 5 mg/5 ml Vial ONE (10:22)
[2018-08-19] MEDS ORDERED: HYDROmorphone 2 MG/ML VIAL ONE (10:23)
--- NOTE | 2018-08-19 11:07 | PRG ---
DATE OF SERVICE: 08/19/2018 Ms. Perdomo suddenly developed excruciating abdominal pain this morning and became hypotensive. She was put on scheduled go to the OR. Aggressive volume resuscitation was initiated and transfusions were ordered. PHYSICAL EXAMINATION: LUNGS: Her lungs are clear. HEART: Regular rhythm. ABDOMEN: She was tender in her epigastrium. EXTREMITIES: Unchanged. She had no edema. NEUROLOGIC: Nonfocal. LABORATORY DATA: White count 11.7 this morning, hemoglobin 9.4, platelets 296. Sodium 138, potassium 3.4, chloride 109, bicarbonate 23, BUN 6, creatinine 0.7. IMPRESSION: Gastrointestinal bleed, going emergently to the OR. PLAN: She will probably end up needing to be mechanically ventilated if this is complicated at all. We will continue to follow. Critical care time is 35 minutes. SHASHA
[2018-08-19] MEDS ORDERED: Ventilator Sedation Protocol 1 EACH FS ONE (11:08)
[2018-08-19] MEDS ORDERED: hydrALAZINE 20 MG/ML VIAL SLOW IVP PRN (11:08)
[2018-08-19] MEDS ORDERED: Promethazine HCl 25 MG/ML VIAL IM PRN (11:08)
[2018-08-19] MEDS ORDERED: Dextrose 50% Abboject 50 ML SYRINGE SLOW IVP PRN (11:08)
[2018-08-19] MEDS ORDERED: Dextrose 5% in Water 1,000 ML IV PRN (11:08)
[2018-08-19] MEDS ORDERED: Sodium Chloride 0.9% 1,000 ML IV SCH (11:15)
[2018-08-19] MEDS ORDERED: Fentanyl BOLUS 250 ML IVPB PRN (11:26)
[2018-08-19] MEDS ORDERED: DISCONTINUE PREVIOUS NARCOTIC PAIN MEDICATIONS AND BENZODIAZEPINES FS SCH (11:26)
[2018-08-19] MEDS ORDERED: Propofol BOLUS 1,000 MG/100 ML VIAL IV PRN (11:26)
[2018-08-19 11:27] LABS: Actual Bicarbonate (HCO3a) 18.7 mEq/L (22-28); Calcium, Ionized 1.07 mmol/L (1.12-1.30); Carboxyhemoglobin (COHb) 2.1 gm% (0.0-3.0); Hemoglobin (Hb) 12.1 g/dL (12.0-16.0); O2 Tension (PaO2) 103.4 mmHg (80.0-100.0); Potassium - ABG Lab 3.82 mmol/L (3.70-5.30); pH, Arterial 7.26 (7.35-7.45)
[2018-08-19 11:28] LABS: Puncture Site ALINE
[2018-08-19] MEDS: Propofol 1,000 MG/100 ML VIAL IV PRN ×4 (11:40→22:53)
[2018-08-19] MEDS: fentaNYL Citrate/PF 2,000 MCG in Sodium Chloride 0.9% 60 ML IV SCH (11:47)
[2018-08-19 12:03] LABS: Anion Gap 9 mmol/L (10-20); BUN (Urea Nitrogen) 9 mg/dL (9.8-20.1); Calc. Creatinine Clearance 179 mL/min (70-130); Calcium 6.8 mg/dL (7.8-10.44); Carbon Dioxide 19 mmol/L (22-29); Chloride 115 mmol/L (98-107); Estimated GFR-MDRD Greater than 90; Glucose 172 mg/dL (70-105); Lipase 216 U/L (8-78); Potassium 3.9 mmol/L (3.5-5.1); Sodium 139 mmol/L (136-145)
--- NOTE | 2018-08-19 12:53 | RAD ---
CHEST 1 VIEW: HISTORY: No ETT. Chest pain. COMPARISON: Radiographs same day. FINDINGS: The patient is intubated with enteric tube tip above the amy approximately 1.2 cm. The enteric tu be tip below the diaphragm is not well seen. There appears to be a drain over the left upper quadran t of the abdomen with multiple surgical yg. The intravenous catheter tip is similar. No pneumo thorax is appreciated. Mild atelectasis of both lower lobes. IMPRESSION: New endotracheal tube tip above the amy approximately 1.2 cm. POS: [facility]
[2018-08-19] MEDS ORDERED: Calcium Gluconate 4.6 MEQ in Sodium Chloride 0.9% 100 ML IVPB ONE (14:58)
--- NOTE | 2018-08-19 15:01 | PRG ---
DATE OF SERVICE: 08/19/2018 SUBJECTIVE: Ms. Perdomo had a repeat bleed this morning with hemodynamic instability. Dr. Leonora harvey ook her to surgery and did resection of the area of the stomach with the ulcer bleeding. She is doin g well now postoperatively sedated on the ventilator. IMPRESSION: 1. Ulcer of the gastric remnant with acute hemorrhage and anemia of acute blood loss. Status post s urgical resection. She also had some erosions of the gastrojejunostomy anastomosis; however, these w ere shallow and small and had no stigmata of recent bleeding. She should remain on proton pump inhib itor. 2. I will sign off for now. Dr. Allen will be available if needed over the weekend.
[2018-08-19] MEDS: Acetaminophen 1,000 MG in Premix Bag 1 BAG IVPB PRN ×2 (15:32→21:25)
[2018-08-19] MEDS: Potassium Chloride 20 MEQ in Lactated Ringer's 1,000 ML IV SCH ×2 (15:45→22:52)
[2018-08-19] MEDS: cefOXitin 2 GM in Sodium Chloride 0.9% 100 ML IVPB SCH (16:20)
--- NOTE | 2018-08-19 19:58 | PRG ---
DATE OF SERVICE: 08/19/2018 HISTORY OF PRESENT ILLNESS: The patient with abdominal pain, some distention and hypertension. Surgery was called to bedside, emergently taken back for surgery. The patient was transfused an additional I believe 4 units in the perioperative period, return to the ICU, still intubated and sedated with no plans to wean until tomorrow morning. I spoke with son at bedside. Ms. Perdomo is unable to complete review of systems or questions, but does open her eyes and squeeze fingers to commands. Nursing staff reported a 101 temperature and bladder which did have subsequently improved following removal of excess blankets. POSTOPERATIVE LABORATORY DATA: Sodium 139, potassium of 3.9, CO2 of 19, BUN of 9, creatinine of 0.6, glucose of 172, calcium of 6.8 prior to replacement. Lipase of 216, amylase of 91. PHYSICAL EXAMINATION: VITAL SIGNS: Formal review of vital signs: T-max 101.5, heart rate of 99, respiratory rate of 19, blood pressure 150/92. GENERAL: The patient is intubated, sedated with OG tube in place with some sanguinous material and tube. Central line placed subclavian. HEART: Tachycardic but regular rate. LUNGS: Coarse breath sounds bilaterally. ABDOMEN: Incision line abdominally intact. EXTREMITIES: Lower extremities with 2+ palpable pulses, dorsalis pedis bilaterally. Neurologic: The patient intubated, sedated, unable to obtain orientation. Otherwise, the patient is following commands and is arousable. SHELBIE drain intact with some output. Nursing staff states they have not had to empty in the postoperative period. The patient has had adequate urine out in the last several hours. ASSESSMENT AND PLAN: Gastrointestinal bleed, anemia of acute blood loss, chronic pain, bleeding gastric ulcer following up on postoperative management of surgery, critical care are following for respiratory management. Gastroenterology temporarily signing off per Dr. Blas's note in lieu of surgical management. The patient continued on antibiotics in the immediate postoperative period given a spike in temperature with may be a transfusion reaction versus early signs and symptoms of infection or anesthesia agents. The patient is continued on sedation protocol oral medications have been held at this point in time. Blood pressures remained stable in the postoperative period. The patient transitioned to IV morphine for pain control on top of fentanyl for sedation and propofol. We will sign out to Dr. Hays over the weekend. SHASHA
[2018-08-19] MEDS: Pantoprazole 40 MG VIAL IVP SCH (21:25)
[2018-08-19] MEDS: Famotidine/PF 20 mg/2ml Vial SLOW IVP SCH (21:25)
[2018-08-20] MEDS: fentaNYL Citrate/PF 2,000 MCG in Sodium Chloride 0.9% 60 ML IV SCH ×3 (00:22→23:08)
[2018-08-20] MEDS: cefOXitin 2 GM in Sodium Chloride 0.9% 100 ML IVPB SCH ×3 (00:39→16:33)
[2018-08-20] MEDS: Propofol 1,000 MG/100 ML VIAL IV PRN ×3 (02:55→16:33)
--- NOTE | 2018-08-20 03:47 | OP ---
DATE OF OPERATION: 08/19/2018 PREOPERATIVE DIAGNOSIS: Bleeding gastric ulcer in gastric remnant (prior gastric bypass). POSTOPERATIVE DIAGNOSIS: Bleeding gastric ulcer in gastric remnant (prior gastric bypass). OPERATION PERFORMED: Very difficult open subtotal gastrectomy with removal of the vast majority of h er gastric remnant, extensive lysis of perihepatic and perigastric adhesions. SURGEON: Dr. Valdemar Lea. ANESTHESIA: General endotracheal. INDICATIONS: Patient is a 53-year-old white female. She had presented to the hospital 1 day previou sly with a complaint of syncope and anemia. She was transfused with blood and resuscitated and stabi lized. When she underwent endoscopy per Dr. Blas yesterday, she was able to pass the scope up into the gastric remnant and able to visualize a penetrating ulcer in the apex of the gastric remnant with a large amount of blood and clot within the bypassed segment of the stomach. This morning, she had another episode of severe abdominal and back pain with a severe hypotensive episode with a systolic b lood pressure in the 40s-50s. This seemed to be obvious evidence that she was bleeding again and she was taken emergently down to the operating room. I have placed a right subclavian central line in h er bedside in the Intensive Care Unit. DESCRIPTION OF PROCEDURE: Informed consent was obtained, the patient was taken to the operating room where general endotracheal anesthesia was obtained with the patient in supine position. Abdomen was prepped with ChloraPrep and draped in sterile fashion. Dobbins catheter and arterial line were placed . Midline abdominal incision was created along the prior incision line and dissection was carried th rough skin and subcutaneous tissue down to the fascia. Prior fascial closure sutures were incised an d the fascia was opened to gain access into the abdominal cavity. There were some omental adhesions to the anterior abdominal wall around the area of the midline incision and these were taken down. Th ere were surprisingly minimal adhesions anywhere in the lower abdomen, but frankly none of this was e xplored. The patient had had a prior abdominoplasty, which limited the mobility of the abdominal wal l. I had to extend the incision to obtain appropriate access into the abdominal cavity. After the a nterior abdominal wall adhesions were lysed, Bookwalter retractor was utilized. Although it was not recognized upon entering, I had injured part of the left lobe of the liver which was densely adherent to the anterior abdominal wall and this was quickly controlled with electrocautery. What followed was a lengthy dissection to clarify the anatomy of the upper abdomen. Patient had a ve ry distended gastric remnant. Early in the operation, I had to place a pursestring suture and then c reate a gastrotomy to allow evacuation of the large amount of blood and clot within the gastric remna nt. This was entirely full and taut with blood. Surprisingly, after this was evacuated, the remnant did not seem to fill back up with blood during the course of the operation. This afforded me much m ore mobility in the upper abdomen. I had to mobilize the splenic flexure and this was done with electrocautery to reflect the colon down out of the way. I was able to clearly identify the Arsalan limb extending into the upper abdomen. Thi s of course tracked across the gastric remnant into the upper abdomen. The most difficult part of th e mobilization was dissecting the left lobe of the liver off of the gastric remnant and the Arsalan limb . Much of the liver seemed to be decapsuled during the course of this maneuver and there was bleedin g from the liver, but this was again controlled with electrocautery. Eventually, I was able to retra ct the liver using a blade with the Bookwalter retractor. I then began to mobilize the vascular supply to the greater curvature of the stomach. This was done using the LigaSure device. There were fairly dense adhesions to the posterior aspect of the stomach that seemed to involve the retroperitoneum and perhaps the pancreas. These were mobilized carefully using a combination of sharp dissection electrocautery. The dissection was carried superiorly. It w as difficult to discern the gastric pouch as a separate structure from the gastric remnant. At some point in the dissection, I decided to divide the stomach distally to allow greater flexibility and di ssecting up into the upper abdomen. I therefore cleared a segment of the lesser curvature and fired the TA 60 stapler across the stomach. This was proximal to the pylorus. Because of the scar tissue in that area could clearly demonstrate the pylorus, but my guess is that this is about 5 cm proximal to the pylorus. I then continued to mobilize the stomach in an ascending fashion, taking down to investing the lesser curvature and greater curvature and mobilizing the posterior aspect. With traction on the stomach a t some point, I pulled down on the remnant to the point that the penetrating ulcer which proved to be on the posterior aspect of the apex of the fundus tore off of the underlying tissue. At this point, the artery had been bleeding into the ulcer began briskly bleeding into the abdominal cavity. Initi ally, this was difficult to control with anything other than pressure, but eventually I was able to c ontrol with a couple of [id number] sutures of 2-0 Vicryl. This afforded me the ability to becky nue to dissect up towards this area. I eventually was able to dissect the Arsalan limb and identify its connection with the gastric pouch. With difficulty, I was able to separate the gastric pouch from t he gastric remnant. I mobilized the entire resected segment of the stomach up to the area of the penetrating ulcer and at this level, I placed a clamp across the retroperitoneal tissue to which the stomach was adherent and ulcerated into. The stomach was cut away from this and the tissue into which the stomach had ulcera cyndie was suture ligated with 2-0 silk suture. There was no evidence of bleeding. There was visualize d at the level that was resected the lumen of a significant vessel that appeared to be a couple of mi llimeters in diameter. I could not tell what this was because of the density of the scarring. It di d not appear to be the main splenic artery, but it could have been a branch or perhaps one of the guillermina rt gastric arteries. The specimen was passed off the field. At this point, the nasogastric tube was passed down through t he gastric pouch and into the Arsalan limb. I then insufflated the Arsalan limb and the pouch through the NG tube with the structures under water and there was no evidence of an air leak. The nasogastric tu be was positioned at this location. Because of the dissection down in the area of the pancreas, I decided to drain this area. I placed a 19-Armenian round fluted drain into the upper abdomen and brought it out through the left abdominal wa ll, was secured with a 3-0 nylon suture. The stapled end of the distal stomach was tagged with a cou ple of 2-0 Prolene sutures for future identification should further surgery be necessary. The abdominal cavity was then irrigated with 2 liters of irrigant and all irrigant was aspirated. Th ree sheaths of Seprafilm were placed underneath the fascia and the fascia was closed with running sut ure of looped #1 PDS. The wound was copiously irrigated and all irrigant was aspirated. Skin edges were approximated with skin yg. Dry gauze dressing was placed externally. There were no compli cations. She had remained hemodynamically stable during the course of the operation. I estimated in traoperative blood loss of about 500 mL. There was a much greater amount of blood that was removed f rom within the stomach that had bled before the patient was taken to the operating room. This was pr obably about 1500 mL. The patient was transfused with 4 units of packed red blood cells. Coags were checked towards the end of the case and found to be essentially normal. Her platelet count was norm al at 180. She was taken on the ventilator in stable condition back to the Intensive Care Unit.
[2018-08-20] MEDS: Acetaminophen 1,000 MG in Premix Bag 1 BAG IVPB PRN (03:50)
[2018-08-20 04:30] LABS: ALT (SGPT) 60 U/L (8-55); AST (SGOT) 49 U/L (5-34); Albumin 2.5 g/dL (3.5-5.0); Alkaline Phosphatase 62 U/L (40-150); Anion Gap 13 mmol/L (10-20); BUN (Urea Nitrogen) 13 mg/dL (9.8-20.1); Bilirubin, Total 0.9 mg/dL (0.2-1.2); Calc. Creatinine Clearance 124 mL/min (70-130); Calcium 7.9 mg/dL (7.8-10.44); Carbon Dioxide 17 mmol/L (22-29); Chloride 113 mmol/L (98-107); Estimated GFR-MDRD 67; Globulin 2.2 g/dL (2.4-3.5); Glucose 150 mg/dL (70-105); Lipase 89 U/L (8-78); Potassium 3.8 mmol/L (3.5-5.1); Protein, Total 4.7 g/dL (6.0-8.3); Sodium 139 mmol/L (136-145)
[2018-08-20] MEDS ORDERED: Sodium Chloride 0.9% 1,000 ML IV SCH (06:30)
[2018-08-20 06:57] LABS: Band 31 % (5-11); Hemoglobin 12.4 g/dL (12.0-16.0); Lymphocytes 3 % (21-51); MDiff Complete? YES; Mean Corpuscular HGB CONC 33.8 g/dL (32.0-36.0); Mean Corpuscular Hemoglobin 28.9 pg (27.0-31.0); Mean Corpuscular Volume 85.6 fL (78.0-98.0); Mean Platelet Volume 7.9 fL (7.4-10.4); Monocytes 6 % (0-10); Neutrophil 60 % (42-75); Platelet Count 255 thou/uL (130-400); RBC Distribution Width 15.3 % (11.5-14.5); Red Blood Cell (RBC) Count 4.29 mill/uL (4.20-5.40); White Blood Cell (WBC) Count 20.8 thou/uL (4.8-10.8)
[2018-08-20 07:11] LABS: Actual Bicarbonate (HCO3a) 17.2 mEq/L (22-28); Base Excess (BEa) -6.9 mEq/L (-2.0 to +3.0); CO2 Tension 30.3 mmHg (35.0-45.0); Calcium, Ionized 1.07 mmol/L (1.12-1.30); Carboxyhemoglobin (COHb) 1.3 gm% (0.0-3.0); Hemoglobin (Hb) 11.6 g/dL (12.0-16.0); O2 Tension (PaO2) 86.7 mmHg (80.0-100.0); Potassium - ABG Lab 3.83 mmol/L (3.70-5.30); pH, Arterial 7.37 (7.35-7.45)
[2018-08-20] MEDS: Lorazepam 2 MG/ML VIAL SLOW IVP PRN ×4 (07:44→16:33)
--- NOTE | 2018-08-20 07:44 | RAD ---
CHEST 1 VIEW: HISTORY: Dyspnea. Followup. COMPARISON: 08/19/2018. FINDINGS: Cardiac silhouette is magnified by projection. Pulmonary vasculature is accentuated by shallow inspi ration. Mediastinum is midline. Mild bibasilar atelectasis. Lines and tubes are unchanged in posit ion. No evidence of pneumothorax. IMPRESSION: Stable radiographic appearance of the chest. POS: [facility]
[2018-08-20] MEDS: Potassium Chloride 20 MEQ in Lactated Ringer's 1,000 ML IV SCH ×2 (07:48→16:32)
[2018-08-20 07:58] LABS: ALV-art Gradient 160.625 (0-20); Puncture Site ALINE
[2018-08-20] MEDS: Famotidine/PF 20 mg/2ml Vial SLOW IVP SCH ×2 (09:10→20:22)
[2018-08-20] MEDS: Enoxaparin Sodium 40 MG/0.4 ML SYRINGE SC SCH (09:55)
[2018-08-20] MEDS: Pantoprazole 40 MG VIAL IVP SCH ×2 (10:26→20:22)
--- NOTE | 2018-08-20 11:48 | PRG ---
DATE OF SERVICE: 08/20/2018 PULMONARY AND CRITICAL CARE PROGRESS NOTE Thirty-five minutes critical care time. SUBJECTIVE: The patient remains intubated on mechanical ventilation. She will wake up and shake and nod her head to questions. Her son was at the bedside. PHYSICAL EXAMINATION: VITAL SIGNS: Her temperature is 99.4 and her T-max was 102.2, pulse is running at 118-130, blood pre ssure 102/89. She is on no vasopressors. 24-hour intake 5086, output 1005. HEENT: Pupils reactive. Sclerae are icteric. Oropharynx, ET tube in place. NECK: No JVD. LUNGS: Clear to auscultation without wheezing. CARDIAC: S1, S2, tachycardic. ABDOMEN: Distended. Tender to palpation. She has bile coming out of her drain. EXTREMITIES: No clubbing, cyanosis or edema. LABORATORY DATA: PH 7.37, pCO2 of 30, pO2 of 86, that is on SIMV rate 18, tidal volume 500, PEEP 5, pressure support 10, FiO2 40%. White blood cell count 20.8, hematocrit 36.7, platelet count 255,000. Sodium 139, potassium 3.8, chloride 113, CO2 17, BUN 13, creatinine 0.8, glucose 150, albumin 2.5. Chest x-ray shows no acute mass, effusion or infiltrate. She has fairly low lung volumes. ET tube is about 1 cm above the amy. ASSESSMENT: 1. Status post laparotomy for treatment of bleeding from her gastric remnant from previous sleeve pr ocedure. 2. Acute respiratory failure requiring mechanical ventilation. In my opinion, she is not a candidat e for extubation at this time as she failed spontaneous breathing trial this morning. 3. Prerenal status with intravascular volume depletion. PLAN: 1. I spoke to the surgical service. They are going to give her some albumin. She got a bolus of IV fluids earlier this morning. 2. Recheck x-ray, labs in the morning. 3. Continue antibiotics. 4. Dr. Draper will take a closer look at the bilious drainage.
--- NOTE | 2018-08-20 13:25 | EKG ---
Test Reason : SYNCOPE Blood Pressure : / mmHG Vent. Rate : 108 BPM Atrial Rate : 108 BPM P-R Int : 142 ms QRS Dur : 076 ms QT Int : 322 ms P-R-T Axes : 050 011 070 degrees QTc Int : 431 ms Sinus tachycardia Otherwise normal ECG Confirmed by KASSIDY BERMAN ([id number]), purchasing expeditor MIKKI BROWN ([id number] on 08/20/2018 1:24:25 PM Referred By: Confirmed By:KASSIDY BERMAN
--- NOTE | 2018-08-20 14:26 | PRG ---
DATE OF SERVICE: 08/20/2018 SUBJECTIVE: The patient is sedated on the ventilator, postop day number 1 from open subtotal gastrec merly and removal of vast majority of her gastric remnant and lysis of adhesions. She remains on the vent. OBJECTIVE: VITAL SIGNS: Temperature 99.4, pulse of 127, blood pressure 104/82. I and O, 5086 in and 1005 out. GENERAL: She is sedated on the vent, appears to be in no acute distress. HEART: Regular rate and rhythm. LUNGS: Clear. EXTREMITIES: 2+ peripheral pulses bilaterally with no edema. LABORATORY DATA: White blood cell count 20,800, hemoglobin and hematocrit 12.4 and 36.7, platelets o f 255,000. ABG with a pH of 7.37, pCO2 of 30.3, pO2 of 86.7. Vent settings at IMV of 18, tidal volu me of 500, PEEP of 5, pressure support of 10. Sodium 139, potassium 3.8, chloride 113, CO2 17, BUN a nd creatinine 13 and 0.88. Serum glucose of 150. Lipase down from 216 to 89. Chest x-ray this morn ing revealed stable radiographic appearance. Lines and tubes in position. ASSESSMENT AND PLAN: 1. 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 Further plan per surgery and button buttonhole marker while in the ICU and on the vent. 2. Anemia, gastrointestinal bleed. Her H and H appears to be stable. We will continue to monitor c losely.
--- NOTE | 2018-08-20 15:07 | PRG ---
DATE OF SERVICE: 08/20/2018 SUBJECTIVE: I am seeing Ms. Perdomo, a 53-year-old woman on behalf of Dr. Lea, primary surgeon. The patient is postop day #1, status post open subtotal gastrectomy with removal of the gastric remn ant. She remains on mechanical ventilatory support. She moves all extremities when lying on sedatio n and follows commands. She has required fluid boluses to resuscitate transient hypotension. OBJECTIVE: VITAL SIGNS: Currently includes blood pressure 104/86, pulse 120, temperature 99.4 degrees Fahrenhei t, oxygen saturation 100%. HEART: Reveals regular rate with sinus tachycardia. No murmurs or gallops auscultated. LUNGS: Clear to auscultation bilaterally. Breathing regular and unlabored. ABDOMEN: Soft. Incision is intact, clean, and dry. A Jerman-Osman drain is in place and returns m oderate amount of bilious fluid. GENITOURINARY: Urinary output is marginal for this patient's weight at 30-40 mL per hour. PERTINENT LABORATORY DATA: Today includes a CBC with 20,800 white blood cells, hemoglobin and hemato crit are 12.4 and 36.7 respectively. Platelet count is 255,000. Metabolic profile: Sodium 139, pot assium 3.8, chloride is 113, bicarbonate is 17, BUN 13, creatinine 0.88, glucose 150. IMPRESSION: 1. Postoperative day #1, status post subtotal gastrectomy. 2. Postoperative respiratory failure. 3. Acute systemic inflammatory response. PLAN: Critical care management per Pulmonary and Critical Care Medicine. I applied resuscitative ef forts. There is no acute surgical indication for this patient at this time. General Surgery will co ntinue to follow along.
[2018-08-20] MEDS ORDERED: Acetaminophen 1,000 MG in Premix Bag 1 BAG IVPB PRN (21:01)
[2018-08-21] MEDS: Propofol 1,000 MG/100 ML VIAL IV PRN ×3 (01:01→16:52)
[2018-08-21] MEDS: Potassium Chloride 20 MEQ in Lactated Ringer's 1,000 ML IV SCH ×3 (01:01→16:53)
[2018-08-21] MEDS: cefOXitin 2 GM in Sodium Chloride 0.9% 100 ML IVPB SCH ×3 (01:01→16:52)
[2018-08-21] MEDS: Lorazepam 2 MG/ML VIAL SLOW IVP PRN ×4 (01:43→15:45)
[2018-08-21 04:06] LABS: ALT (SGPT) 24 U/L (8-55); AST (SGOT) 18 U/L (5-34); Albumin 2.3 g/dL (3.5-5.0); Alkaline Phosphatase 43 U/L (40-150); Anion Gap 11 mmol/L (10-20); BUN (Urea Nitrogen) 18 mg/dL (9.8-20.1); Bilirubin, Total 1.1 mg/dL (0.2-1.2); Calc. Creatinine Clearance 101 mL/min (70-130); Carbon Dioxide 18 mmol/L (22-29); Chloride 113 mmol/L (98-107); Estimated GFR-MDRD 53; Glucose 131 mg/dL (70-105); Protein, Total 4.3 g/dL (6.0-8.3); Sodium 138 mmol/L (136-145)
[2018-08-21 04:21] LABS: Band 17 % (5-11); Hypochromia SLIGHT = 6-15 cells (100X) (0-5/hpf); Lymphocytes 12 % (21-51); MDiff Complete? YES; Mean Corpuscular HGB CONC 33.6 g/dL (32.0-36.0); Mean Corpuscular Hemoglobin 29.6 pg (27.0-31.0); Mean Platelet Volume 7.7 fL (7.4-10.4); Monocytes 7 % (0-10); Neutrophil 64 % (42-75); PLT Morphology Comment Appears Adequate; Platelet Count 194 thou/uL (130-400); Polychromasia SLIGHT = 2-3 cells (100X) (0-2/hpf); RBC Distribution Width 15.7 % (11.5-14.5); Red Blood Cell (RBC) Count 3.04 mill/uL (4.20-5.40); White Blood Cell (WBC) Count 8.8 thou/uL (4.8-10.8)
[2018-08-21 07:36] LABS: Actual Bicarbonate (HCO3a) 19.2 mEq/L (22-28); Base Excess (BEa) -5.4 mEq/L (-2.0 to +3.0); CO2 Tension 34.2 mmHg (35.0-45.0); Calcium, Ionized 1.16 mmol/L (1.12-1.30); Carboxyhemoglobin (COHb) 2.1 gm% (0.0-3.0); O2 Tension (PaO2) 73.3 mmHg (80.0-100.0); Potassium - ABG Lab 4.09 mmol/L (3.70-5.30); pH, Arterial 7.37 (7.35-7.45)
--- NOTE | 2018-08-21 07:53 | RAD ---
CHEST 1 VIEW: HISTORY: Dyspnea. Followup. COMPARISON: 08/20/2018. FINDINGS: Cardiac silhouette is magnified by projection. Shallow inspiration accentuates pulmonary markings. Mediastinum is midline. Lines and tubes appear unchanged in position. Postoperative changes of the upper abdomen. IMPRESSION: Stable radiographic appearance of the chest. POS: [facility]
[2018-08-21 08:17] LABS: Puncture Site RBA
[2018-08-21] MEDS: Enoxaparin Sodium 40 MG/0.4 ML SYRINGE SC SCH (09:13)
[2018-08-21] MEDS: Pantoprazole 40 MG VIAL IVP SCH ×2 (09:14→20:34)
[2018-08-21] MEDS: Famotidine/PF 20 mg/2ml Vial SLOW IVP SCH ×2 (09:14→20:33)
--- NOTE | 2018-08-21 10:11 | PRG ---
DATE OF SERVICE: 08/21/2018 Postop day #2 for open gastrectomy due to bleeding gastric ulcer and gastric remnant with prior gastr ic bypass. SUBJECTIVE: The patient continuing to be sedated on the vent. She failed a breathing trial yesterda y. Surgery and Critical Care continue to follow the patient closely, as she remains in critical cond ition at this time. OBJECTIVE: VITAL SIGNS: Temperature 100.4, pulse of 120, respirations 14, blood pressure 96/58, pulse oximetry of 99% on ventilator. Vent settings, SIMV with pressure support, rate of 18, tidal volume of 500, pr essure support of 10 and PEEP of 5. Ins and outs, 1387 in and 2644 out. GENERAL: She is sedated on the vent. HEART: Tachycardic. LUNGS: Clear. ABDOMEN: SHELBIE drain with 505 mL out. Abdominal dressing in place. No bowel sounds. EXTREMITIES: Trace edema. LABORATORY DATA: White blood cell count 8,800, down from 20,800 yesterday; hemoglobin and hematocrit 9.0 and 26.8, down from 12.4 and 36.7 yesterday after transfusion; platelets of 194. ABG with a pH of 7.37, pCO2 of 34, pO2 of 73. Sodium 138, potassium 4.0, chloride 113, CO2 of 18, BUN and creatini ne 18 and 1.08, serum glucose of 131, albumin of 2.3. ASSESSMENT AND PLAN: This is a 53-year-old female patient, admitted for upper gastrointestinal bleed , now status post open gastrectomy due to bleeding ulcer and gastric remnant excision. 1. Anemia, seems to be dropping today. Surgery is following. May need another transfusion if she d rops below 8. We will continue to monitor closely. 2. Tachycardia. This is improved after her infusion of albumin yesterday. 3. Postoperative respiratory failure. I appreciate Dr. Thompson following, and him managing vent set tings.
[2018-08-21] MEDS: Albumin 25% 25 GM/100 ML BOT IVPB SCH ×2 (11:32→18:15)
--- NOTE | 2018-08-21 12:07 | CON ---
DATE OF CONSULTATION: 08/21/2018 Thirty-five minutes critical care time. HISTORY OF PRESENT ILLNESS: This patient remains intubated in the CCU. She is sedated on propofol a nd fentanyl. She was tried on spontaneous breathing trial and failed today because of low tidal volu mes. PHYSICAL EXAMINATION: VITAL SIGNS: Her temperature is 100.4. She had a T-max of 102 last night. Pulse is 134, blood pres sure 96/58, 24-hour intake 4031 mL, output 1387 mL. HEENT: Pupils reactive, sclerae icteric. Oropharynx clear. NECK: No JVD. LUNGS: Clear, but she has poor diaphragmatic excursion. CARDIOVASCULAR: S1, S2, tachycardic without murmur. ABDOMEN: Distended. Bowel sounds diminished. Wound sites look good. She is delivering copious teri unts of bile from her SHELBIE drain. EXTREMITIES: She has edema in her hands and feet. LABORATORY DATA: Sodium 138, potassium 4, chloride 113, CO2 of 18. The anion gap is 7, BUN 18, crea tinine 1.0, glucose 131, AST 18, ALT 24, total bilirubin 1.1, albumin 2.3. A pH 7.37, pCO2 of 34, pO 2 of 73 that is on SIMV rate 18, tidal rate 500, PEEP 5, pressure support 10, FiO2 40%. White blood cell count 8.8, hematocrit 26.8, platelet count 194. ASSESSMENT: 1. Abdominal sepsis. 2. Status post laparotomy for bleeding from the gastric remnant from previously sleeve procedure. 3. Bilious output from the drain probably serving as an irritant to the abdomen. 4. Acute respiratory failure requiring mechanical ventilation. 5. Significant intravascular volume depletion. PLAN: 1. I do not think she is weanable at the current time. She is currently on Mefoxin for her abdomina l sepsis. I am going to broaden her gram negative coverage with Levaquin. 2. Add several more doses of albumin and continue IV fluid resuscitation. 3. I have decreased her ventilator rate from 18 to 14, but again I do not think she is a candidate f or aggressive weaning at this time as I suspect she would do poorly given her abdominal situation.
[2018-08-21] MEDS ORDERED: Magnesium Sulfate 4 GM in Sodium Chloride 0.9% 250 ML 250 ML IVPB SCH (12:30)
[2018-08-21] MEDS: fentaNYL Citrate/PF 2,000 MCG in Sodium Chloride 0.9% 60 ML IV SCH (12:48)
--- NOTE | 2018-08-21 13:10 | PRG ---
DATE OF SERVICE: 08/21/2018 SUBJECTIVE: I have seen Ms. Perdomo on behalf of Dr. Lea, primary surgeon. The patient is posto perative day #2, status post subtotal gastrectomy. She is on mechanical ventilator support. She has required multiple boluses of fluid to support blood pressure on output. She awakens to voice, moves all extremities and follows commands. PHYSICAL EXAMINATION: VITAL SIGNS: This morning includes blood pressure 107/64, pulse is 128, respirations 18, temperature 99.8 degrees Fahrenheit, and oxygen saturation 98%. ABDOMEN: Soft and obese. Incision is intact, clean, dry. Jerman-Osman drain has returned. A 30 m L of bile-tinged fluid overnight. LABORATORY DATA: Today includes CBC with 8800 white blood cell, hemoglobin and hematocrit 9.0 and 26 .8 respectively. Platelet count is 194,000. Differential count as follows, segmented neutroph ils, 17 bands, 12 lymphocytes, and 7 monocytes. Metabolic profile: Sodium 138, potassium 4.0, chlor cathy is 113, bicarbonate is 18, BUN 18, creatinine is 1.08, glucose 131, magnesium is 0.9. AST and AL T 18 and 24 respectively. IMPRESSION: 1. Postop day #2, status post subtotal gastrectomy. 2. Acute postoperative respiratory failure. 3. Acute systemic inflammatory response syndrome. 4. Acute hypomagnesemia. PLAN: 1. Correct abnormal electrolytes. 2. There is no acute surgical indication for this patient at this time. 3. Ventilatory wean and other critical care management per Pulmonary and Critical Care Medicine.
[2018-08-22] MEDS: Albumin 25% 25 GM/100 ML BOT IVPB SCH ×2 (00:04→05:46)
[2018-08-22] MEDS: cefOXitin 2 GM in Sodium Chloride 0.9% 100 ML IVPB SCH ×3 (00:05→17:21)
[2018-08-22] MEDS: Potassium Chloride 20 MEQ in Lactated Ringer's 1,000 ML IV SCH ×3 (00:30→15:22)
[2018-08-22] MEDS: Propofol 1,000 MG/100 ML VIAL IV PRN ×3 (00:30→17:15)
[2018-08-22 04:25] LABS: ALT (SGPT) 16 U/L (8-55); AST (SGOT) 14 U/L (5-34); Albumin 3.1 g/dL (3.5-5.0); Alkaline Phosphatase 46 U/L (40-150); Anion Gap 11 mmol/L (10-20); BUN (Urea Nitrogen) 19 mg/dL (9.8-20.1); Bilirubin, Total 0.7 mg/dL (0.2-1.2); Calc. Creatinine Clearance 115 mL/min (70-130); Calcium 8.9 mg/dL (7.8-10.44); Carbon Dioxide 19 mmol/L (22-29); Chloride 113 mmol/L (98-107); Estimated GFR-MDRD 61; Glucose 105 mg/dL (70-105); Potassium 4.2 mmol/L (3.5-5.1); Protein, Total 5.1 g/dL (6.0-8.3); Sodium 139 mmol/L (136-145)
[2018-08-22 04:43] LABS: Band 4 % (5-11); Hemoglobin 7.2 g/dL (12.0-16.0); Hypochromia SLIGHT = 6-15 cells (100X) (0-5/hpf); Lymphocytes 23 % (21-51); MDiff Complete? YES; Mean Corpuscular Hemoglobin 29.6 pg (27.0-31.0); Mean Corpuscular Volume 89.5 fL (78.0-98.0); Mean Platelet Volume 7.7 fL (7.4-10.4); Monocytes 14 % (0-10); Neutrophil 59 % (42-75); Nucleated RBC 1 % (0); PLT Morphology Comment Appears Adequate; Platelet Count 194 thou/uL (130-400); RBC Distribution Width 15.3 % (11.5-14.5); Red Blood Cell (RBC) Count 2.44 mill/uL (4.20-5.40); White Blood Cell (WBC) Count 6.6 thou/uL (4.8-10.8)
[2018-08-22] MEDS: fentaNYL Citrate/PF 2,000 MCG in Sodium Chloride 0.9% 60 ML IV SCH ×2 (04:56→21:12)
[2018-08-22 06:59] LABS: Actual Bicarbonate (HCO3a) 19.8 mEq/L (22-28); Base Excess (BEa) -5.3 mEq/L (-2.0 to +3.0); CO2 Tension 36.9 mmHg (35.0-45.0); Calcium, Ionized 1.23 mmol/L (1.12-1.30); Carboxyhemoglobin (COHb) 2.1 gm% (0.0-3.0); Hemoglobin (Hb) 8.7 g/dL (12.0-16.0); O2 Tension (PaO2) 79.2 mmHg (80.0-100.0); Puncture Site RRA; pH, Arterial 7.35 (7.35-7.45)
[2018-08-22 07:00] LABS: ALV-art Gradient 159.875 (0-20)
[2018-08-22 08:56] LABS: Magnesium 2.1 mg/dL (1.6-2.6); Phosphorus 2.3 mg/dL (2.3-4.7)
--- NOTE | 2018-08-22 09:13 | RAD ---
PORTABLE SUPINE CHEST: HISTORY: Shortness of breath. On ventilator and CCU followup. COMPARISON: 08/21/2018. FINDINGS: ET tube, NG tube, and central lines are unchanged. Right basilar atelectasis or infiltrate. Overall poor inspiration limits exam. IMPRESSION: No acute change from yesterday. POS: [facility]
[2018-08-22] MEDS: Sodium Chloride 0.9% 1,000 ML IV SCH (09:26)
--- NOTE | 2018-08-22 09:32 | PRG ---
DATE OF SERVICE: 08/22/2018 HISTORY OF PRESENT ILLNESS: Ms. Perdomo is postoperative day #3 from a laparotomy and subtotal gastr ic resection (removal of gastric remnant). She had a posterior gastric ulcer at the fundus of the st omach eroding into vessels in the retroperitoneum. She was transfused with a total of 7 units of pac ked red blood cells before and during the surgery. She has thus far not been transfused with any sin ce the surgery. She remains on the ventilator in the Intensive Care Unit. Dr. Thompson did not feel that she was weanable over the weekend. She is sedated on the ventilator currently. PHYSICAL EXAMINATION: VITAL SIGNS: On examination, she is tachycardic with a heart rate that runs consistently over 100 us ually between 113 and 125. Her blood pressure has been stable and is currently 103/69. Her urine ou tput has been adequate with 900 mL yesterday and a good amount thus far today as well. Her drain out put is reportedly about 90 mL for yesterday. This is unfortunately bile tinged. She has negligible nasogastric output. LUNGS: Clear to auscultation anteriorly. CARDIAC: Regular rate and rhythm, but tachycardic. ABDOMEN: Obese, but soft. Incision is healing appropriately. There is no bowel sounds audible at t his time. LABORATORY STUDIES: Her electrolytes are stable. She has slight elevation of chloride and her CO2 i s a little bit low at 19. Her albumin this morning is 3.1. Yesterday both her phosphorus and magnes ium were low. These have not been tested again yet today. Her hemoglobin dropped from 9.0 yesterday , down to 7.2 today. I doubt that she has bleeding any place significantly and suspect that this is correction with lysis of transfused blood and fluid shifting intravascular. Chest x-ray still shows some haziness in the right hemithorax. Endotracheal tubes, central line, and oral gastric tube appeared to be in good position. ASSESSMENT: The patient who is postop day #3 from laparotomy and gastric resection. She is tachycar dic and in light of her anemia, I will transfuse 1 unit of packed red blood cells today. Her white b lood cell count is normal at 6.6 and she does not appear to have a left shift. She is currently on M efoxin and Levaquin. I will initiate TPN today as well as I am not certain when she will be able to start eating.
[2018-08-22] MEDS: Pantoprazole 40 MG VIAL IVP SCH ×2 (09:52→20:09)
[2018-08-22] MEDS: Famotidine/PF 20 mg/2ml Vial SLOW IVP SCH (09:52)
[2018-08-22] MEDS ORDERED: Enoxaparin Sodium 40 MG/0.4 ML SYRINGE SC SCH (10:45)
[2018-08-22] MEDS: Enoxaparin Sodium 40 MG/0.4 ML SYRINGE SC SCH (10:52)
[2018-08-22 10:57] LABS: Actual Bicarbonate (HCO3a) 19.1 mEq/L (22-28); Analyzer IN Cardio OR; Base Excess (BEa) -5.9 mEq/L (-2.0 to +3.0); CO2 Tension 35.4 mmHg (35.0-45.0); Calcium, Ionized 0.91 mmol/L (1.12-1.30); Carboxyhemoglobin (COHb) 1.9 gm% (0.0-3.0); Hemoglobin (Hb) 7.3 g/dL (12.0-16.0); O2 Tension (PaO2) 180.3 mmHg (80.0-100.0); Potassium - ABG Lab 3.47 mmol/L (3.70-5.30); pH, Arterial 7.35 (7.35-7.45)
[2018-08-22 10:58] LABS: Actual Bicarbonate (HCO3a) 16.5 mEq/L (22-28); Analyzer IN Cardio OR; Base Excess (BEa) -8.8 mEq/L (-2.0 to +3.0); Calcium, Ionized 0.97 mmol/L (1.12-1.30); Carboxyhemoglobin (COHb) 0.8 gm% (0.0-3.0); Hemoglobin (Hb) 9.7 g/dL (12.0-16.0); O2 Tension (PaO2) 173.4 mmHg (80.0-100.0); Potassium - ABG Lab 3.96 mmol/L (3.70-5.30); pH, Arterial 7.32 (7.35-7.45)
[2018-08-22 10:58] LABS: Analyzer IN Cardio OR; Base Excess (BEa) -10.7 mEq/L (-2.0 to +3.0); CO2 Tension 32.9 mmHg (35.0-45.0); Calcium, Ionized 0.81 mmol/L (1.12-1.30); Carboxyhemoglobin (COHb) 0.7 gm% (0.0-3.0); Hemoglobin (Hb) 10.9 g/dL (12.0-16.0); Potassium - ABG Lab 3.53 mmol/L (3.70-5.30); pH, Arterial 7.28 (7.35-7.45)
[2018-08-22 10:59] LABS: Puncture Site ALINE
[2018-08-22 11:00] LABS: Puncture Site ALINE
[2018-08-22 11:00] LABS: Puncture Site ALINE
[2018-08-22] MEDS: Acetaminophen 1,000 MG in Premix Bag 1 BAG IVPB PRN (13:51)
--- NOTE | 2018-08-22 14:01 | PRG ---
DATE OF SERVICE: 08/22/2018 HISTORY OF PRESENT ILLNESS: The patient remains intubated, sedated, failed weaning trial yesterday. Per home critical care, not optimistic for wean acutely. General Surgery has started TPN and 1 unit PRBC to be additionally transfused for continuing anemia trend down on blood work today. Nursing staff had no other acute complaints. The patient was arousable, follow commands, however, was unable to perform formal review of symptoms. LABORATORY WORK: White blood cell count of 6.6, hemoglobin dropped from 9.0 to 7.2 this a.m., platelet count of 194,000. Neutrophil percent currently normal at 59. Sodium at 139, potassium of 4.2, CO2 of 19, BUN of 19, creatinine 0.95, glucose of 105, calcium of 8.9, repeat phosphorus and magnesium at 2.3 and 2.1 respectively. AST of 14, ALT of 16, albumin of 3.1. Chest x-ray stable without infiltrates. PHYSICAL EXAMINATION: VITAL SIGNS: On review of vital signs, pulse remains tachycardic in 120s for the last 24 hours. Temperature profile, temperature of 100.5 at 0400 hours this morning, blood pressure of 101/66, respiratory rate of 16, oxygen saturation 96% on ventilator. Urine output in the last 24 hours listed at 955 mL by urinary catheter. SHELBIE put out 200 mL down from 500 the day before. GENERAL: The patient is arousable, can follow basic commands, but easily somnolent despite being intubated and sedated. HEENT: Extraocular movements are intact. Sclerae are white. Mucosa with good moisture. ET tube and OG tube in place. LUNGS: With coarse breath sounds bilaterally. HEART: Tachycardic, but regular rate and rhythm otherwise. ABDOMEN: Surgical incision not actively draining, SHELBIE intact, staple line intact w/o extending erythema or pallor. Abdomen is not distended or tense. EXTREMITIES: Lower extremities with some edema present, nonpitting. Dorsalis pedis pulses bilaterally 2+. Unable to assess orientation secondary to intubation and sedation. The patient is moving all extremities equally. ASSESSMENT AND PLAN: Gastrointestinal bleed, anemia of blood loss, fever, hypertension, chronic pain. The patient had met sepsis criteria and had been titrated up on Levaquin less than 24 hours at time of last fever. We will follow along with Pulmonary Critical Care and Surgery at this point in time given spike in white blood cell counts. We will continue to monitor. If additional fevers occur, may consider again surveillance cultures and recheck of urine. Last checked prior to the weekend and without concerns for infection. Chest x-ray remains without signs of overt infection. Wound line is intact. Low level fevers may be secondary to the patient's transfusions as well as element of irritation to the peritoneum. The patient is currently on cefotaxin and Levaquin, IV fluids, adding TPN for nutritional needs, on prophylaxis secondary to ET tube in place as well as gastrointestinal bleed. The patient is on IV Protonix b.i.d. 40 mg. The patient has been listed for starting of Lovenox tomorrow morning 40 mg for deep vein thrombosis prophylaxis. General Surgery feels comfortable. The patient is not significantly actively bleeding at this point in time. The patient's electrolytes regarding magnesium and calcium have appropriately been replaced. Since transition to the unit postoperative period, the patient's home medications have been held with p.r.n. hydralazine ordered for blood pressure control. The patient has required albumin and IV fluids to help maintain blood pressure in the acute postoperative period. The patient is currently postop day 3 of gastric remnant removal. We will continue to follow along. SHASHA
[2018-08-22] MEDS: SODIUM ACETATE IV SCH (14:55)
[2018-08-22] MEDS: [UNRECOGNIZED DRUG - OTHER] IV SCH (14:55)
[2018-08-22] MEDS: MULTIVITAMINS IV SCH (14:55)
[2018-08-22] MEDS: MAGNESIUM SULFATE IV SCH (14:55)
--- NOTE | 2018-08-22 19:46 | PRG ---
DATE OF SERVICE: 08/22/2018 SUBJECTIVE: Analia Perdomo remains mechanically ventilated and sedated. OBJECTIVE: VITAL SIGNS: Heart rates 114-130s. She had a temperature of 100.8 this morning. Blood pressure 101/65, respiratory rate is per mechanical ventilation. Intake and output +2545. She is positive over 9 liters last 3 days. LUNGS: Clear anteriorly. HEART: Regular rhythm. ABDOMEN: Soft and nontender. EXTREMITIES: Without clubbing, cyanosis, or edema. NEUROLOGIC: Cannot really be tested at this time because of his sedation. Chest radiograph today hazy at the right base, suspect this is a small effusion after surgery. IMPRESSION: 1. Status post laparotomy for gastrointestinal bleed. 2. Respiratory failure. Apparently, she has some type of neuropathy and is extremely sedentary according to the sister at the bedside . SHe has significant abdominal distention. At this point in time, I would not recommend extubation. A pH 7.35, CO2 36, pO2 79. Critical care time was 30 minutes. MTDD
[2018-08-23] MEDS: Acetaminophen 1,000 MG in Premix Bag 1 BAG IVPB PRN ×4 (00:01→20:55)
[2018-08-23] MEDS: Potassium Chloride 20 MEQ in Lactated Ringer's 1,000 ML IV SCH ×4 (00:06→15:09)
[2018-08-23] MEDS: cefOXitin 2 GM in Sodium Chloride 0.9% 100 ML IVPB SCH ×3 (00:12→18:16)
[2018-08-23] MEDS: Propofol 1,000 MG/100 ML VIAL IV PRN ×4 (00:20→20:50)
[2018-08-23 04:51] LABS: ALT (SGPT) 15 U/L (8-55); AST (SGOT) 18 U/L (5-34); Albumin 2.9 g/dL (3.5-5.0); Alkaline Phosphatase 63 U/L (40-150); Anion Gap 9 mmol/L (10-20); BUN (Urea Nitrogen) 19 mg/dL (9.8-20.1); Bilirubin, Total 0.7 mg/dL (0.2-1.2); Calc. Creatinine Clearance 137 mL/min (70-130); Calcium 8.6 mg/dL (7.8-10.44); Carbon Dioxide 22 mmol/L (22-29); Chloride 112 mmol/L (98-107); Estimated GFR-MDRD 69; Globulin 2.2 g/dL (2.4-3.5); Glucose 137 mg/dL (70-105); Protein, Total 5.1 g/dL (6.0-8.3); Sodium 139 mmol/L (136-145)
[2018-08-23 05:00] LABS: Band 7 % (5-11); Eosinophils 2 % (0-10); Hemoglobin 8.3 g/dL (12.0-16.0); Hypochromia SLIGHT = 6-15 cells (100X) (0-5/hpf); Lymphocytes 6 % (21-51); MDiff Complete? YES; Mean Corpuscular HGB CONC 32.5 g/dL (32.0-36.0); Mean Corpuscular Hemoglobin 29.3 pg (27.0-31.0); Mean Corpuscular Volume 90.1 fL (78.0-98.0); Mean Platelet Volume 7.9 fL (7.4-10.4); Monocytes 18 % (0-10); Neutrophil 67 % (42-75); Nucleated RBC 2 % (0); PLT Morphology Comment Appears Adequate; Platelet Count 239 thou/uL (130-400); RBC Distribution Width 14.9 % (11.5-14.5); Red Blood Cell (RBC) Count 2.82 mill/uL (4.20-5.40); White Blood Cell (WBC) Count 8.6 thou/uL (4.8-10.8)
[2018-08-23 06:18] LABS: Magnesium 1.9 mg/dL (1.6-2.6); Phosphorus 2.2 mg/dL (2.3-4.7)
[2018-08-23] MEDS: Enoxaparin Sodium 40 MG/0.4 ML SYRINGE SC SCH (07:36)
[2018-08-23] MEDS: Pantoprazole 40 MG VIAL IVP SCH ×2 (07:37→20:12)
[2018-08-23 07:56] LABS: Bilirubin Negative (Negative); Blood, Urine Trace (Negative); Clarity CLOUDY (Clear); Glucose, Urine (Dipstick) Negative (Negative); Leukocyte Negative (Negative); Nitrite Negative (Negative); Protein, Urine (Dipstick) 100 mg/dL (Neg-Trace); Specific Gravity, Urine 1.017 (1.002-1.036); Urobilinogen 0.2 mg/dL (0.2-1.0); pH, Urine 5.5 (5.0-9.0)
[2018-08-23 07:59] LABS: Bacteria/HPF None Seen HPF (None Seen); Squamous Epithelial 0-3 HPF (0-3); WBC/HPF 0-3 HPF (0-3)
[2018-08-23 08:12] LABS: Actual Bicarbonate (HCO3a) 22.3 mEq/L (22-28); Base Excess (BEa) -3.3 mEq/L (-2.0 to +3.0); CO2 Tension 42.6 mmHg (35.0-45.0); Calcium, Ionized 1.22 mmol/L (1.12-1.30); Carboxyhemoglobin (COHb) 2.2 gm% (0.0-3.0); Hemoglobin (Hb) 8.8 g/dL (12.0-16.0); O2 Tension (PaO2) 72.6 mmHg (80.0-100.0); Potassium - ABG Lab 3.94 mmol/L (3.70-5.30); pH, Arterial 7.34 (7.35-7.45)
[2018-08-23 08:16] LABS: Yeast-AUWi Flag 62.6 (0-25.0)
[2018-08-23 08:17] LABS: Pathc Cast-AUWi Flag 7.12 (0-2.49)
[2018-08-23 08:42] LABS: RBC/HPF 0-3 HPF (0-3)
--- NOTE | 2018-08-23 09:00 | RAD ---
PORTABLE CHEST: History: Ventilator. CCU follow up. Comparison: 08-22-18 FINDINGS/IMPRESSION: ET tube and NG tube remain in place. Poor inspiration with elevated right hemidiaphragm. Bibasilar at electasis. Mild vascular engorgement. No significant change from yesterday. POS: [facility]
[2018-08-23] MEDS ORDERED: Morphine 4 MG/ML VIAL SLOW IVP PRN (09:08)
[2018-08-23] MEDS ORDERED: Morphine 2 MG/ML SYRINGE SLOW IVP PRN (09:45)
[2018-08-23] MEDS ORDERED: Iopamidol 370 76% 50 ML VIAL FS ONE (09:47)
[2018-08-23] MEDS ORDERED: ISOVUE-370 76%-LOCM 1 ML ONE (09:47)
[2018-08-23] MEDS ORDERED: Dextrose 5% in Water 1,000 ML IV PRN (09:48)
[2018-08-23] MEDS: fentaNYL Citrate/PF 2,000 MCG in Sodium Chloride 0.9% 60 ML IV SCH ×2 (12:12→22:42)
--- NOTE | 2018-08-23 13:15 | PRG ---
DATE OF SERVICE: 08/23/2018. HISTORY OF PRESENT ILLNESS: The patient has continued to have fevers overnight with some reported abdominal distention by night nurse on handoff. CT abdomen has been ordered. The patient was taken here at lunch to CT, results are pending. The patient has continued to have fevers despite Tylenol being given, remains tachycardic, however, has not had any leukocytosis notably. Repeat cultures are pending. Chest x-ray without signs of pneumonia. The patient has been on TPN over the last 24 hours and has had some increase in urine output. No significant bilious output per SHELBIE drain per nursing staff. The patient remains intubated, sedated, unable to give history. REVIEW OF SYSTEMS: No family at bedside at time of exam. PHYSICAL EXAMINATION: VITAL SIGNS: Pulse 123, blood pressure 108/68, respiratory rate of 14, oxygen saturation 93%, intubated. Urine output last 24 hours, 1325. Drain output down to 35 from 200 yesterday. LABORATORY DATA: White blood cell count of 8.6, appropriate rise following transfusion of PRBC from 7.2 to 8.3 of hemoglobin. Platelet count of 239. Blood glucose is 128 to 159 range in the last 16 hours. Sodium of 139, potassium of 4.0, CO2 of 22, BUN of 19, creatinine of 0.8, AST of 18, ALT of 15 , albumin of 2.9. Repeat urinalysis, positive protein, positive trace of blood. Hyaline cast present. No leukocyte esterase. No bacteria found on microscopy. No red blood cells found on microscopy. Chest x-ray this a.m. with report, atelectasis forming. No other infiltrates are noted, mild vascular congestion present. Tubes in stable position. PHYSICAL EXAMINATION: GENERAL: The patient is intubated, sedated, not responding to commands. Today , he is able to open eyes to voice and touch. Extraocular movements are intact. Sclerae are white. Oral mucosa is moist. ET and OG tube are in place. CARDIOVASCULAR: Tachycardic. LUNGS: Regular rhythm. Coarse bronchial breath sounds bilaterally. Clear in bases, slightly diminished secondary to body habitus. ABDOMEN: Not tense. Incision line intact. Drain in place. Positive bowel sounds present. EXTREMITIES: Lower extremities with 2+ dorsalis pedis pulses bilaterally. No pitting edema currently. ASSESSMENT AND PLAN: Sepsis with acute respiratory failure. The patient remains intubated and on antibiotics. Cultures, repeat, pending. CT abdomen pending for any abscess formation following removal of gastric pouch from prior bariatric surgery and bleeding ulcer site. The patient's anemia of blood loss is improved following repeat transfusion. We will continue to follow along with trend. The patient is on GI and DVT prophylaxis at this point in time. Will start walking program. Order dulera inpt to optimize respiratory treatment. Maintain betalactam with augmentin and finish day 3 of high dose azithromycin MTDD
--- NOTE | 2018-08-23 13:58 | PRG ---
DATE OF SERVICE: 08/23/2018. Ms. Perdomo is postoperative day #4 from a laparotomy and subtotal gastric resection with the removal of gastric remnant after prior gastric bypass. She had a bleeding ulcer at the apex of the fundus o f her stomach at the time of surgery. She remains intubated. She is followed by Dr. Mathur who does not believe that she is weanable. She had remained persistently tachycardic with a pulse that was 120 to 130 most of the time. She spiked a temperature last night. This responded appropriately to Tylenol. She remains sedated and although she awakens, it is difficult to discern what her level of function is. PHYSICAL EXAMINATION: VITAL SIGNS: She is currently afebrile with temperature 99.7, pulse is 128, blood pressure is 105/68 . LUNGS: Clear to auscultation. ABDOMEN: Soft. Incision is healing nicely. There is no bowel sounds audible. The drain in the lef t abdomen has a scant output. It may still have a little bit of bile staining, but it does not look bilious. The drain output for the past 24 hours was 35 mL. LABORATORY STUDIES: Her ABG from this morning revealed a pH of 7.34, pCO2 of 42.6, and a pO2 of 72.6 . This is on 40% oxygen. Her CBC reveals a hemoglobin of 8.3. It was 7.2 yesterday and she was giv en 1 unit of packed red blood cells. Her white blood cell count is 8.6. Her differential is unremar kable. There is no left shift. Chemistries reveal essentially normal electrolytes. Her CO2 is slig htly elevated at 112, but this is down from 113 yesterday. Her BUN and creatinine are normal. Her p hosphorus is slightly low at 2.2 and her magnesium is normal at 1.9. Liver function tests are essent ially normal. ASSESSMENT AND PLAN: The patient who is not doing particularly well following her open gastrectomy a nd treatment of a bleeding gastric ulcer. It is uncertain why she is not doing well. With her havin g an elevated temperature, I have decided to obtain a CT scan today to rule out any intra-abdominal p roblems. This will be obtained with IV and oral contrast. For now, we will continue her on IV antib iotics, ventilator support, and TPN for nutrition.
[2018-08-23] MEDS: SODIUM ACETATE IV SCH (14:56)
[2018-08-23] MEDS: [UNRECOGNIZED DRUG - OTHER] IV SCH (14:56)
[2018-08-23] MEDS: MULTIVITAMINS IV SCH (14:56)
[2018-08-23] MEDS: MAGNESIUM SULFATE IV SCH (14:56)
--- NOTE | 2018-08-23 16:05 | CT ---
CT OF ABDOMEN AND PELVIS PERFORMED WITH IV CONTRAST ENHANCEMENT: Date: 08/23/18 HISTORY: Patient is status post bowel surgery, concern for a possible leak. COMPARISON: 06/20/18 study. FINDINGS: Small bilateral pleural effusions are noted. Bibasilar atelectatic lung changes and more infiltrative type pneumonic changes are seen in the lung bases. Exam detail is limited as the patient was unable to raise their arms for this exam. The liver and spl een appear unremarkable. The pancreas region is also unremarkable. The gallbladder has been removed. Right and left adrenal glands, and right and left kidneys are normal in size and not obstructed. Hoa l calculi are again demonstrated. There is no significant periaortic adenopathy. The patient has undergone a revision of the gastric surgery and what appears to be possibly a total g astrectomy or gastrectomy with a small pouch remaining. A NG tube passes through the region of possib le gastric pouch into the proximal small bowel related to a gastrojejunostomy. There is a staple line involving the afferent limb seen in the right upper quadrant just medial to the gallbladder fossa. E xtending from this level inferiorly is a loculated anterior fluid collection loculated along the ante rior abdominal wall measuring approximately 4.0 cm in depth and 17.0 cm in transverse dimension. This extends to near the umbilicus region. There is also more of a loculated appearing fluid collection i n the right paracolic gutter region and loculated fluid seen within the pelvis. There are some air co llections seen associated with this, which could just be related to fairly recent surgery. IMPRESSION: Postoperative changes of the stomach with either total or subtotal gastrectomy with a small gastric p ouch. Surgical drains are in place. There is loculated fluid within the abdomen suggesting a peritoni tis type picture. The fluid is predominantly loculated along the anterior abdominal wall, but also lo culated fluid in the right paracolic gutter and pelvis region. The source of this is unclear. It coul d potentially be from a leak related to the anastomotic suture line of the afferent limb or possibly related to area of the stomach. There is not a definitive source for this fluid. POS: [facility]
--- NOTE | 2018-08-23 18:02 | PRG ---
DATE OF SERVICE: 08/23/2018 SUBJECTIVE: Ms. Perdomo still has resting tachycardia. OBJECTIVE: VITAL SIGNS: Blood pressure is stable 123/75, respiratory rates in the teens. She is sedated. LUNGS: Clear. HEART: Regular rhythm. ABDOMEN: Distended and silent. EXTREMITIES: Without clubbing, cyanosis, or edema. She moves all extremities spontaneously when sedation is decreased. LABORATORY DATA: White count 8.6, hemoglobin 8.3, platelets 239. Sodium 139, potassium 4, chloride 112, bicarbonate 22, BUN 19, creatinine 0.86, glucose 137. A pH of 7.34, CO2 of 42, pO2 of 72. Chest radiograph shows atelectasis at her lung bases. IMPRESSION: Persistent tachycardia and ileus. She has had bilious drainage out of her abdominal drains, but this is decreased. An abdomen and pelvis CT was ordered today. I met with the son and answered all of his questions. She is not weanable and has a very guarded prognosis as I have explained to him for multiple reasons. Deconditioning is probably the biggest factor. Critical care time was 30 minutes. [facility]
[2018-08-24] MEDS: Insulin Regular 300 UNITS/3 ML VIAL SC PRN ×3 (00:17→17:45)
[2018-08-24] MEDS: cefOXitin 2 GM in Sodium Chloride 0.9% 100 ML IVPB SCH ×3 (02:52→16:31)
[2018-08-24] MEDS: Acetaminophen 1,000 MG in Premix Bag 1 BAG IVPB PRN ×3 (02:58→23:05)
[2018-08-24] MEDS: Propofol 1,000 MG/100 ML VIAL IV PRN ×3 (02:59→17:55)
[2018-08-24 05:01] LABS: ALT (SGPT) 13 U/L (8-55); AST (SGOT) 22 U/L (5-34); Albumin 2.6 g/dL (3.5-5.0); Alkaline Phosphatase 72 U/L (40-150); Anion Gap 9 mmol/L (10-20); BUN (Urea Nitrogen) 19 mg/dL (9.8-20.1); Bilirubin, Total 0.6 mg/dL (0.2-1.2); Calc. Creatinine Clearance 124 mL/min (70-130); Calcium 8.4 mg/dL (7.8-10.44); Carbon Dioxide 25 mmol/L (22-29); Chloride 109 mmol/L (98-107); Estimated GFR-MDRD 59; Globulin 2.2 g/dL (2.4-3.5); Glucose 146 mg/dL (70-105); Potassium 3.9 mmol/L (3.5-5.1); Protein, Total 4.8 g/dL (6.0-8.3); Sodium 139 mmol/L (136-145)
[2018-08-24 05:08] LABS: Hemoglobin 8.3 g/dL (12.0-16.0); Mean Corpuscular HGB CONC 31.8 g/dL (32.0-36.0); Mean Corpuscular Hemoglobin 29.1 pg (27.0-31.0); Mean Corpuscular Volume 91.3 fL (78.0-98.0); Mean Platelet Volume 7.8 fL (7.4-10.4); Platelet Count 252 thou/uL (130-400); RBC Distribution Width 15.2 % (11.5-14.5); Red Blood Cell (RBC) Count 2.85 mill/uL (4.20-5.40); White Blood Cell (WBC) Count 10.6 thou/uL (4.8-10.8)
[2018-08-24 05:16] LABS: Band 32 % (5-11); Eosinophils 4 % (0-10); Lymphocytes 14 % (21-51); MDiff Complete? YES; Metamyelocyte 1 % (0-0); Monocytes 10 % (0-10); Neutrophil 39 % (42-75); PLT Morphology Comment Appears Adequate
[2018-08-24 06:22] LABS: Phosphorus 3.7 mg/dL (2.3-4.7)
[2018-08-24 06:35] LABS: Actual Bicarbonate (HCO3a) 24.2 mEq/L (22-28); Base Excess (BEa) -1.7 mEq/L (-2.0 to +3.0); CO2 Tension 46.7 mmHg (35.0-45.0); Carboxyhemoglobin (COHb) 2.3 gm% (0.0-3.0); Hemoglobin (Hb) 8.3 g/dL (12.0-16.0); O2 Tension (PaO2) 79.3 mmHg (80.0-100.0); Potassium - ABG Lab 3.69 mmol/L (3.70-5.30); pH, Arterial 7.33 (7.35-7.45)
[2018-08-24 06:42] LABS: ALV-art Gradient 218.825 (0-20); Puncture Site LR
[2018-08-24] MEDS: Pantoprazole 40 MG VIAL IVP SCH ×2 (08:28→21:57)
--- NOTE | 2018-08-24 08:55 | RAD ---
PORTABLE CHEST: History: Ventilator. CCU follow up. Comparison: 08-23-18 FINDINGS/IMPRESSION: ET tube and NG tube remain in place. Poor inspiration. Patchy bilateral infiltrates and vascular chelita estion again noted. Central line is unchanged. Chest does not appear significantly changed from yeste rday. POS: [facility]
[2018-08-24] MEDS: fentaNYL Citrate/PF 2,000 MCG in Sodium Chloride 0.9% 60 ML IV SCH ×2 (08:58→19:28)
[2018-08-24 09:14] LABS: INR-International Normal Ratio 1.1; PTT 30.8 SEC (22.9-36.1); Prothrombin Time 14.5 SEC (12.0-14.7)
[2018-08-24] MEDS ORDERED: Vecuronium 10 MG VIAL ONE (09:23)
[2018-08-24] MEDS ORDERED: Vecuronium 10 MG VIAL IV PRN (09:30)
[2018-08-24] MEDS ORDERED: Sterile Water 10 ML VIAL FS PRN (09:50)
[2018-08-24] MEDS: Potassium Chloride 20 MEQ in Lactated Ringer's 1,000 ML IV SCH ×2 (11:43→15:28)
[2018-08-24] MEDS: Enoxaparin Sodium 40 MG/0.4 ML SYRINGE SC SCH (11:43)
[2018-08-24] MEDS: MULTIVITAMINS IV SCH (15:18)
[2018-08-24] MEDS: MAGNESIUM SULFATE IV SCH (15:18)
[2018-08-24] MEDS: [UNRECOGNIZED DRUG - OTHER] IV SCH (15:18)
[2018-08-24] MEDS: SODIUM ACETATE IV SCH (15:18)
--- NOTE | 2018-08-24 15:53 | CT ---
CT GUIDED INTRAPERITONEAL ABSCESS DRAINAGE: Date: 08/24/18 HISTORY: 53-year-old female status post abdominal surgery for intra-abdominal hemorrhage, with fluid collectio ns within the abdominal cavity and pelvic cavity. TECHNIQUE: Proxy signed informed consent obtained. Patient placed supine on CT table. No IV contrast given. Scan performed from level of thoracolumbar junction to iliac crests. Right anterolateral skin surface pre pared and draped in the usual sterile fashion. 25 gauge needle used to apply buffered lidocaine super ficially. 5 Polish, 6 cm Yueh catheter with stylette advanced at an angle of 30 degrees from horizont al, piercing the right anterior abdominal wall 8 cm lateral to midline, and into the broad, large int raperitoneal fluid collection in the ventral aspect of the abdominal cavity, broadly abutting the dylon tral peritoneal surface. Stylette removed. 0.035 short, stiff Amplatz wire placed through Yueh cat heter, into the fluid collection. Yueh catheter exchanged over the guidewire for an 8 Polish dilator, then for an 8 Polish Uresil general purpose drainage catheter with stylette. Catheter advanced over stylette. Stylette and guidewire removed. A syringe full of opaque, brown pus was aspirated, and sent to laboratory for culture & sensitivity. Pigtail loop of catheter formed and locked into place. Drai nage catheter attached to external drainage bag via a three way stopcock. Additional aspiration with 20 mL syringe. Total of approximately 600 mL of pus drained into the bag and then emptied from bag. N ext, three 10 mL syringes with normal saline were injected into the drainage catheter via the stopcoc k for flushes. Partial return of the injected normal saline. The rest of the injected saline probable travels down to the fluid collection within the pelvic cavity. The catheter was sutured into place. The patient tolerated the procedure well. No complications. FINDINGS: Initial scan demonstrates residual enteric contrast material in the ascending and transverse colon fr om yesterday's CT. Subsequent step CT images demonstrate the Yueh catheter advancing into the ventral intraperitoneal fluid collection, then the 8 Polish drainage catheter within the fluid collection, w ith distal portion to the left of midline. Postprocedure scan performed from mid aortic arch through entire pelvis demonstrates extensive patchy, moderately severe air space densities heterogeneously di stributed in the bilateral upper lobes, and to a lesser degree bilateral lower lobes and right middle lobe. In the dependent posterior aspects of bilateral lower lobes, there are confluent air space den sities with air bronchograms, which could represent aspiration, pneumonia, or atelectasis. Suture joselo e along a narrowed, very small volume stomach and anastomosed small bowel loop. NG tube through esoph aguila with distal tip in the small bowel loop anastomosed to the gastric remnant. Surgical drainage ca theter enters the left anterolateral mid abdominal wall, ascends along a left paracolic path, and is looped in the left upper quadrant anterior to the spleen. Multiple bilateral small and moderate size renal calculi. No hydronephrosis. Small amount of free fluid around the liver. The ventral intraperit rebolledo fluid collection is much smaller now, and contains the pigtail drainage catheter. The large vol ume of fluid within the pelvic cavity has not greatly changed. IMPRESSION: 1. Successful percutaneous drainage of ventral intraperitoneal abscess fluid collection. A total of 600 mL of opaque, brown, purulent fluid was drained, and that collection has collapsed now. 2. 8 Polish pigtail drainage catheter was left in place. This should be flushed with 10 mL of normal saline three times per day. 3. Somewhat severe bilateral pulmonary infiltrates, at least some of which are suspected to represen t pneumonia. 4. Large collection of fluid within the pelvic cavity, probably communicates with the drained ventra l intraperitoneal abscess fluid collection, but may not drain because of gravity. 5. Bilateral moderate nephrolithiasis. POS: [facility]
--- NOTE | 2018-08-24 17:55 | PRG ---
DATE OF SERVICE: 08/24/2018 SUBJECTIVE: Ms. Perdomo is stable overnight. She still has resting tachycardia. She is tentatively on schedule today for her percutaneous drainage of this fluid collection in her abdomen. She is sedated for ventilation. PHYSICAL EXAMINATION: LUNGS: Remarkable for coarse equal breath sounds. HEART: Regular rhythm, rapid rate. No gallop is heard. ABDOMEN: Soft, distended, silent. EXTREMITIES: Without asymmetry. IMAGING DATA: Her CT yesterday was reviewed. She had bilateral small effusions as expected after laparotomy showed nephrolithiasis. I would refer a reviewer CT report, it is extensive, but the fluid was predominantly loculated along the anterior abdominal wall in the right pericolic gutter and the pelvis. Again, this to be drained today. LABORATORY DATA: White count is 10.6, hemoglobin 8.3, platelets 252. She has 32% bands on her peripheral smear. Sodium 139, potassium 3.9, chloride 109, bicarbonate 25, BUN 19, creatinine 0.98 , pH 7.33, pCO2 46, pO2 79. Venous cultures from yesterday are negative. IMPRESSION: 1. Status post laparotomy for gastrointestinal bleeding. 2. ? leak that has resolved with an intraabdominal fluid collection that is to be drained today. 3. History of multiple abdominal surgeries. 4. History of severe deconditioning per family. I was making rounds and the sister asked me to talk to another son. She happened to be talking to on the phone as I was walking by. I declined to do that at this time. I have explained to her that I would update her on a daily basis, but I could not spend time with each individual family member each day plus contact the ones that are out of town. I will depend on them to contact the ones that are out of town. I do believe that she is critically ill enough that the family that is away from here should travel here to be with her at least for a while. I am still concerned that she may not survive this over the long haul. She is currently on Mefoxin and Levaquin. I think we should consult Infectious Disease for antibiotic recommendations. There is certainly a possibility there could be a fungal component to this fluid collection and will be a while for cultures are ready. Critical care time was 30 minutes. [facility]
[2018-08-24] MEDS: Micafungin 100 MG in Sodium Chloride 0.9% 100 ML IVPB SCH (18:44)
[2018-08-24] MEDS: MEROPENEM 1 GM/50 ML 1 GM in Premix Bag 1 BAG IVPB SCH (21:58)
[2018-08-24] MEDS: Gabapentin 300 MG CAP PO SCH (22:18)
[2018-08-24] MEDS: FLUoxetine HCl 20 MG CAP PO SCH (22:18)
--- NOTE | 2018-08-24 23:07 | CON ---
DATE OF CONSULTATION: 08/24/2018 REASON FOR CONSULTATION: Peritonitis with intraabdominal abscess, sepsis. HISTORY OF PRESENT ILLNESS: A 53-year-old with history of hypertension and prior gastric bypass surgery and was admitted with gastrointestinal bleed. She was seen by Dr. Kenny on 08/17/2018. Impression was likely gastrointestinal blood loss. The patient underwent EGD by Dr. Blas on 08/18/2018 and this demonstrated shallow 6 mm erosions at the gastrojejunostomy anastomosis. There was a large 3 cm ulcer around the area of the yg in the gastric remnant with a large visible vessel and the base of this which was injected with epinephrine and cauterized. She had a repeat bleeding and had to go for exploratory laparotomy. Dr. Lea performed it on 08/19/2018. Procedure was reviewed. The midline abdominal incision was created. The fascia was opened. There were some omental adhesions which were taken down. Incision had to be extended. There was some injury to the left lobe of the liver which was densely adherent, this was controlled with electrocautery. A limited dissection was carried out. There was a very distended gastric remnant and a large amount of blood and was evacuated through a gastrotomy and clots evacuated as well. The Arsalan limb was identified and vascular supply to the greater curvature of the stomach was identified. Dissection carried superiorly , the area where the ulcer was located with the pulsating artery was identified and the artery restarted bleeding again briskly, eventually this was controlled and the Arsalan limb was identified and the connection with the gastric pouch. This segment of the involved stomach was removed. A drain was left in place in the area of the pancreas and the cavity irrigated. Over the next few days following procedure, the patient continues to start having temperature elevation up to 102. She had been on broad spectrum coverage with cefoxitin and levofloxacin. Two sets of blood cultures were obtained yesterday thus far no growth as well as a urine culture and patient had abdomen and pelvis CT yesterday which demonstrated small bilateral pleural effusions, bibasilar atelectatic lung changes. There was a loculated anterior fluid collection along the anterior abdominal wall measuring about 4 x 17 cm extending to near the umbilicus region. There is also another fluid collection in the right pericolic gutter and loculated fluid seen within the pelvis. The patient had a percutaneous drainage procedure done by Radiology, this was successful and 600 mL of opaque brown purulent fluid drained connected to a pigtail drainage catheter left in place. This was felt to communicate with a large collection of fluid within the pelvic cavity. Currently, Ms. Perdomo is intubated and sedated on the unit. She has a right subclavian central line, Dobbins catheter. PAST MEDICAL AND SURGICAL HISTORY: Includes hypertension, depression, prior gastric bypass surgery, left knee replacement, hysterectomy, appendectomy, and cholecystectomy. SOCIAL HISTORY: Never smoker, drinks intermittently. CURRENT MEDICATION LIST: Cefoxitin, enoxaparin, fentanyl, glucagon, hydralazine , levofloxacin, promethazine, patient has been receiving this since 08/19/2018. PHYSICAL EXAMINATION: Latest temperature 99.7, blood pressure 110/65, pulse 124 , O2 sat 96%. I's and O's had been positive over the past few days except for today where she is negative 1300. Urine output ranges from 6430-0101 over the past 48 hours. SHELBIE drain in the left side with initial drainage at 500 and is steadily going down to 10 mL percutaneous drain with thus far 600 mL for today. LABORATORY DATA: White cell count is down from 16 went up to 28,000, now is down to 10.6; hemoglobin 8.3; platelets 252; 39% neutrophils, 32% bands. Sodium 139, creatinine 0.98 with normal liver profile, albumin 2.6, globulin 2.2. Urinalysis was fairly unremarkable. ASSESSMENT: Prior gastric bypass with an ulcer in the gastric remnant which bled required resection of most of the remaining stomach tissue. The patient has developed a postop area of leakage most likely has a large area of abscess formation, which was percutaneously drained at this time. DISCUSSION: The origin of this abscess could be from a leak at the staple line following the gastrectomy, it is the more likely scenario. The extent of this leakage is not clear at this point in time. The percutaneous drainage procedure has been quite successful thus far. There is quite a bit of fluid inside her abdomen extending from the upper segments of the abdomen into the pelvis and we will continue monitoring the drainage output and the results of the cultures submitted from the sample. We will switch her to meropenem to increase the spectrum of coverage for anaerobes as well as resistant gram negative rods and add antifungal coverage as well. SABRAD
--- NOTE | 2018-08-25 00:22 | PRG ---
DATE OF SERVICE: 08/24/2018 HISTORY OF PRESENT ILLNESS: The patient underwent percutaneous drainage, confirmed abscess formation in retroperitoneal area following surgery to remove gastric remnant following a GI bleed with Dr. Rouqe. Patient remained afebrile and on antibiotics. Answered questions at bedside the family memamisha potter I spoke with one of the 2 patient's son's Jonathan on phone, answered all questions regarding curren t care and direction of care. We are hopeful that with drainage of abscess, the antibiotics will dec rease patient's heart rate and fever profile and the patient would be a candidate for extubation; how ever, not at this time, given continued sepsis criteria. Nursing staff without acute complaints for patient other than fevers. Pulse 120s to 130s, respiratory rate 18, intubated, oxygen saturation 97% , blood pressure 118/70. Urine output 2084 yesterday, partial today 1045 mL. LABORATORY DATA: White blood cell count of 10.6, hemoglobin stable at 8.3 following transfusion 2 da ys ago now. Blood glucose is 178-146 range last 16 hours. Sodium of 139, potassium of 3.9, creatini ne of 0.98, phosphorus of 3.7, magnesium at 2.0, AST of 22, ALT of 13, albumin of 2.6. Repeat urine culture. Blood culture currently negative at 24 hours. Bacterial culture of aspirate of right retro peritoneal abscess pending. The patient is intubated, sedated, unable for further history. PHYSICAL EXAMINATION: The patient is intubated and sedated. ET tube and OG tube in place. SHELBIE drain and retroperitoneal drain in place Dobbins catheter in place. Patient able to open eyes, but not curr ently following commands, well under sedation. HEENT: Sclerae are clear. Oral mucosa is moist. HEART: Tachycardic, regular rate. LUNGS: Coarse bronchial breath sounds bilaterally. No wheezes. ABDOMEN: Protuberant, nontense, surgical incision intact. Positive bowel sounds. EXTREMITIES: Lower extremities with trace pitting edema. ASSESSMENT AND PLAN: Sepsis with retroperitoneal abscess, status post drainage, resolved gastrointes tinal bleed following removal of gastric pouch. The respiratory failure secondary to sepsis, continu ation of antibiotics, IV fluids, IV Tylenol, TPN to allow bowel rest for healing post-surgery, Loveno x prophylaxis, proton pump inhibitor IV b.i.d. We will continue to follow along to potentially updat e antibiotic coverage following abscess culture. Dr. Ozuna has been consulted. Currently change pat ient to meropenem and micafungin.
[2018-08-25 04:39] LABS: Hemoglobin 8.1 g/dL (12.0-16.0); Mean Corpuscular Hemoglobin 29.2 pg (27.0-31.0); Mean Corpuscular Volume 91.3 fL (78.0-98.0); Mean Platelet Volume 7.8 fL (7.4-10.4); Platelet Count 315 thou/uL (130-400); RBC Distribution Width 15.2 % (11.5-14.5); Red Blood Cell (RBC) Count 2.77 mill/uL (4.20-5.40); White Blood Cell (WBC) Count 14.3 thou/uL (4.8-10.8)
[2018-08-25 04:40] LABS: Band 20 % (5-11); Dohle Bodies SLIGHT; Eosinophils 2 % (0-10); Lymphocytes 6 % (21-51); MDiff Complete? YES; Monocytes 13 % (0-10); Neutrophil 59 % (42-75); Nucleated RBC 1 % (0); PLT Morphology Comment Appears Adequate; Toxic Granulation SLIGHT
[2018-08-25] MEDS: Propofol 1,000 MG/100 ML VIAL IV PRN ×3 (04:40→22:12)
[2018-08-25 05:11] LABS: ALT (SGPT) 14 U/L (8-55); AST (SGOT) 25 U/L (5-34); Albumin 2.4 g/dL (3.5-5.0); Alkaline Phosphatase 90 U/L (40-150); Anion Gap 10 mmol/L (10-20); BUN (Urea Nitrogen) 20 mg/dL (9.8-20.1); Bilirubin, Total 0.5 mg/dL (0.2-1.2); Calc. Creatinine Clearance 159 mL/min (70-130); Calcium 8.3 mg/dL (7.8-10.44); Carbon Dioxide 26 mmol/L (22-29); Chloride 107 mmol/L (98-107); Estimated GFR-MDRD 78; Globulin 2.4 g/dL (2.4-3.5); Glucose 155 mg/dL (70-105); Magnesium 1.8 mg/dL (1.6-2.6); Phosphorus 3.4 mg/dL (2.3-4.7); Potassium 3.4 mmol/L (3.5-5.1); Protein, Total 4.8 g/dL (6.0-8.3); Sodium 140 mmol/L (136-145)
[2018-08-25] MEDS: fentaNYL Citrate/PF 2,000 MCG in Sodium Chloride 0.9% 60 ML IV SCH ×2 (05:40→18:57)
[2018-08-25] MEDS: MEROPENEM 1 GM/50 ML 1 GM in Premix Bag 1 BAG IVPB SCH ×3 (05:51→20:54)
[2018-08-25] MEDS: Insulin Regular 300 UNITS/3 ML VIAL SC PRN ×4 (06:01→22:21)
[2018-08-25] MEDS: Potassium Chloride 20 MEQ in Lactated Ringer's 1,000 ML IV SCH ×2 (06:08→20:02)
[2018-08-25 07:53] LABS: Actual Bicarbonate (HCO3a) 25.1 mEq/L (22-28); CO2 Tension 43.4 mmHg (35.0-45.0); Calcium, Ionized 1.17 mmol/L (1.12-1.30); Carboxyhemoglobin (COHb) 2.3 gm% (0.0-3.0); Hemoglobin (Hb) 6.1 g/dL (12.0-16.0); O2 Tension (PaO2) 61.2 mmHg (80.0-100.0); Potassium - ABG Lab 3.56 mmol/L (3.70-5.30); pH, Arterial 7.38 (7.35-7.45)
[2018-08-25 08:03] LABS: Puncture Site LRA
--- NOTE | 2018-08-25 08:30 | RAD ---
PORTABLE CHEST: HISTORY: Respiratory distress. FINDINGS: Endotracheal and NG tubes remain in satisfactory position. Right subclavian line is unchanged. Poor inspiration is again noted. Parenchymal lung changes are stable. IMPRESSION: Stable exam. POS: [facility]
[2018-08-25] MEDS: Pantoprazole 40 MG VIAL IVP SCH ×2 (08:50→20:54)
[2018-08-25] MEDS: Acetaminophen 1,000 MG in Premix Bag 1 BAG IVPB PRN (08:53)
[2018-08-25] MEDS: Enoxaparin Sodium 40 MG/0.4 ML SYRINGE SC SCH (09:00)
--- NOTE | 2018-08-25 10:28 | PRG ---
DATE OF SERVICE: 08/25/2018 HISTORY OF PRESENT ILLNESS: Ms. Perdomo is postoperative day #6 from a laparotomy and subtotal gastr ic resection with removal of gastric remnant after prior gastric bypass. She has remained on the dylon tilator in the Intensive Care Unit since her surgery. She began running a fever and has been tachyca rdic since her surgery. CT scan on 08/23/2018 revealed a significant fluid collection within her abd omen. This was drained percutaneously by Radiology yesterday with removal of 600 mL of fluid. This had the appearance of a brownish purulent type material. Initial cultures appear to be consistent wi th Enterococcus. The source of any leak is not apparent based on the CT scan. I spent several minut es explaining this to the patient's son and mother yesterday. I told them that depending upon CT fin dings that there was a chance that I would recommend exploratory laparotomy to inspect for a source o f any problems. At this point, given the findings and the drainage results, I have recommended a rep eat exploratory laparotomy. This is scheduled for today. PHYSICAL EXAMINATION: VITAL SIGNS: She remains sedated on the ventilator. Her bladder temperature this morning is 102.2. Her pulse currently is 119, blood pressure 130/83. LUNGS: Clear to auscultation anteriorly. ABDOMEN: The abdomen has a nicely healed incision, but no significant bowel sounds are audible. She has a percutaneous drain in the right upper abdomen. There is the drain that I placed at the time o f surgery in her left lateral abdomen. LABORATORY STUDIES: White blood cell count has gone up to 14.3, hemoglobin is 8.1, platelet count is 315. She has 20% bandemia. Chemistry profile reveals her electrolytes are more or less normal. Po tassium is down a little bit to 3.4. Kidney function remains normal. Glucose levels between 146-160 while receiving TPN. Her albumin level is a little bit low at 2.4. Liver function tests are normal . ASSESSMENT: Patient with a fluid collection within her abdomen and fever following a prior surgery a nd gastrectomy. I recommend exploratory laparotomy to assess the source. This could potentially be from the staple line from her gastrectomy. I would recommend washout, exploration, repair and draina ge as appropriate. I have discussed this with the patient's son and mother. They agree to proceed.
[2018-08-25] MEDS ORDERED: Albumin 5% 500 ML ONE (12:39)
[2018-08-25] MEDS ORDERED: Fentanyl 100 MCG/2 ML VIAL ONE ×2 (12:39→14:01)
--- NOTE | 2018-08-25 12:42 | PQF ---
DATE: 08-25-18 ATTN: DR. SOL CABALLERO Please exercise your independent, professional judgment in responding to the clarification form. Clinical indicators are provided on the bottom of this form for your review Diagnosis: SEPSIS Present on Admission (POA): [ ] Yes [ x ] No [ ] Unable to determine Coding guidelines require hospitals to identify whether a diagnosis was present on admission (POA) or not. To accurately assign the appropriate POA indicator, this information must be clearly documented within the medical record. CLINICAL INDICATORS - SIGNS / SYMPTOMS / LABS HR: ER: 108, 99, 97, 99, 98 WBC: 08-17-18: 12.7 08-19-18: 11.7, 16.0 08-20-18: 20.8 08-25-18: 14.3 BANDS: 08-17-18: 16 08-20-18: 31 08-21-18: 17 08-25-18: 20 Attending PN 08/19: Davi in temp may be transfusion reaction vs early s/s of infection or anesthesia agents. Pulm PN 08/21: Abdominal Sepsis Attending PN 08/22: Met Sepsis criteria PN DR. CABALLERO 08-23-18: SEPSIS WITH ACUTE RESPIRATORY FAILURE RISK FACTORS: Attending PN 08/19: Davi in temp may be transfusion reaction vs early s/s of infection or anesthesia agents. ER: WEAKNESS, WORSENING PAIN TREATMENT: ER: IVF BOLUS MAR: 08-19-18: MEFOXIN, 08-21-18: LEVAQUIN, 08-19-18 : IVF, 08-24-18: MREPENEM (This form is maintained as a part of the permanent medical record) 2014 [employer]. All Rights Reserved [email or web address] Office: [phone] [facility] CENTERDerek
[2018-08-25] MEDS ORDERED: Vancomycin HCl 1 GM in Premix Bag 1 BAG IVPB SCH (13:00)
--- NOTE | 2018-08-25 13:18 | PQF ---
DATE: 08-25-18 ATTN: DR. SOL CABALLERO Please exercise your independent, professional judgment in responding to the clarification form. Clinical indicators are provided on the bottom of this form for your review Please check appropriate box(s): [ ] Acute respiratory failure following a procedure [ x ] Respiratory failure not related to surgical procedure [ x] Acute [ ] Chronic [ ] Acute on chronic [ ] Acute respiratory insufficiency due to a procedure [ ] Acute respiratory insufficiency NOT due to a procedure - please specify cause: [ ] Length of Ventilator management as a part of normal recovery, usual and customary for procedure [ ] Other diagnosis [ ] Unable to determine In addition, please specify: Present on Admission (POA): [ ] Yes [ x ] No [ ] Unable to determine For continuity of documentation, please document condition throughout progress notes and discharge summary. Thank You. CLINICAL INDICATORS - SIGNS / SYMPTOMS / LABS Pulm PN 10: Acute Respiratory Failure GS ( DR. PIERSON ) PN 08/20 & 7: Postop Respiratory Failure. DR. MCCABE 08-24-18: SHE REMAINS INTUBATED. SHE IS FOLLOWED BY DR. LUQUE WHO DOES NOT BELIEVE THAT SHE IS WEANABLE. RISKS FACTORS: PN DR. PIERSON 08-20-18: POSTOP DAY 1, S/P SUBTOTAL GASTRECTOMY , POSTOPERATIVE RESPIRATORY FAILURE ER: RECENT EGD/COLONOSCOPY AND PILL FOLLOW THROUGH WITH NO DIAGNOSIS, WEAKNESS REPORTED TREATMENT: DR. LUQUE ( PULMONARY) 08-24-18: SHE IS NOT WEANABLE AND HAS VERY GUARDED PROGNOSIS, DECONDITIONING IS PROBABLY THE BIGGEST FACTOR (This form is maintained as a part of the permanent medical record) 2015 [employer]. All Rights Reserved [email or web address] [email or web address] Office: [phone] [facility]
[2018-08-25] MEDS ORDERED: Vecuronium 10 MG VIAL ONE (15:26)
[2018-08-25] MEDS: [UNRECOGNIZED DRUG - OTHER] IV SCH (16:54)
[2018-08-25] MEDS: SODIUM ACETATE IV SCH (16:54)
[2018-08-25] MEDS: MULTIVITAMINS IV SCH (16:54)
[2018-08-25] MEDS: MAGNESIUM SULFATE IV SCH (16:54)
[2018-08-25 16:57] LABS: Actual Bicarbonate (HCO3a) 21.6 mEq/L (22-28); Base Excess (BEa) -2.2 mEq/L (-2.0 to +3.0); Calcium, Ionized 1.07 mmol/L (1.12-1.30); Carboxyhemoglobin (COHb) 1.9 gm% (0.0-3.0); Hemoglobin (Hb) 9.1 g/dL (12.0-16.0); O2 Tension (PaO2) 94.1 mmHg (80.0-100.0); Potassium - ABG Lab 3.68 mmol/L (3.70-5.30); pH, Arterial 7.43 (7.35-7.45)
[2018-08-25 17:01] LABS: Puncture Site ALINE
[2018-08-25] MEDS: Micafungin 100 MG in Sodium Chloride 0.9% 100 ML IVPB SCH (17:18)
--- NOTE | 2018-08-25 20:15 | PRG ---
DATE OF SERVICE: 08/25/2018 SUBJECTIVE: Analia Perdomo was evaluated this morning. Her cultures were reviewed. She has grown E nterococcus out of her drainage fluid from yesterday. Vancomycin was added today. Dr. Lea has h ad plans to continue to take her back to the OR today. OBJECTIVE: VITAL SIGNS: Heart rate was in the 120s, respiratory rate was in the 20s, blood pressures have been in the 140s. LUNGS: Remarkable for rhonchi bilaterally. HEART: Regular rhythm, rapid rate. No gallops heard. ABDOMEN: Soft and very distended. EXTREMITIES: Without asymmetry. Drainage is purulent. LABORATORY DATA: White count 14.3, hemoglobin 8.1, platelets 315,000. Sodium 140, potassium 3.4, ch loride 107, bicarbonate 26, BUN 20, creatinine 0.77. Blood gas this morning 7.38, CO2 of 43, pO2 of 61, this afternoon 7.43, CO2 of 33, pO2 of 94. She was switched to bilevel ventilation this afternoo n. Chest radiograph shows patchy bilateral alveolar infiltrates. IMPRESSION: 1. Status post laparotomy for gastrointestinal bleed. 2. History of multiple abdominal surgeries. 3. Intra-abdominal abscess. 4. Status post abdominal washout today. 5. Clinical sepsis. 6. Adult respiratory distress syndrome. 7. Severe peripheral neuropathy with extreme deconditioning. I met with the sister today and I have explained how important it is for the family to be aware that she may not survive this illness. She has twin boys that are out of state. I have suggested that e asked them to when they have time, drive down here even if it is just for a day or two. I do not anticipate an eminent passing of Mr. Perdomo, but I also firmly believe that there is a high likelihood that she will be in a healthcare environment for several months and a high likelihood amy t she will end up with a tracheostomy to facilitate weaning from mechanical ventilation given her deg ree of deconditioning. According to the sister, she is almost nonambulatory prior to this admission. We will continue to follow and continue to update them on a daily basis. Critical care time 40 minutes.
--- NOTE | 2018-08-25 21:04 | PRG ---
DATE OF SERVICE: 08/25/2018 The patient underwent exploratory surgery with Dr. Lea following removal of purulent fluid with percutaneous drainage yesterday by CT. Current culture showing Enterococcus with susceptibilities pending. Dr. Ozuna has been brought on board and has modulated antibiotics. The patient remains intubated, sedated, unable to answer questions, has been fighting, biting tube and has been increased sedation, is no longer currently following commands, which has been intermittent for the last 2 days and her status continues with tachycardia and fevers. PHYSICAL EXAMINATION: VITAL SIGNS: Pulse of 133, blood pressure of 143/68, respiratory rate of 24, oxygen saturation 91% on mechanical ventilation, temperature 102.2. GENERAL: The patient is intubated, sedated, opens eyes, placed on a bite- juany, withdraws to pain, not formally responding to commands. HEENT: Head is normocephalic, atraumatic. ET and OG tube in place. HEART: Tachycardic. No murmurs auscultated. LUNGS: Regular rhythm. Coarse breath sounds bilaterally. ABDOMEN: Wound prior to exploratory laparotomy today was intact. No exudates. Percutaneous drain and SHELBIE drain are intact. EXTREMITIES: Lower extremities without cyanosis or edema. Dorsalis pedis pulses 2+ bilaterally. Unable to assess orientation, withdraws to pain. LABORATORY DATA: White blood cell count of 14.3, hemoglobin of 8.1, platelet count of 315. Sodium 140, potassium of 3.4, BUN of 20, creatinine 0.7, glucose of 155-185. Last 16 hours, calcium of 8.3, magnesium of 1.8, AST of 25, ALT of 14, albumin of 2.4. ASSESSMENT AND PLAN: 1. Sepsis secondary to enterococcal infection. 2. Respiratory failure secondary to sepsis as above. 3. Anemia with blood loss, currently stable. We will follow up on patient's postoperative status later today or tomorrow morning, clinical documentation review. The patient was not septic on admission. The patient did require continued ventilatory management as per normal recovery of procedure; however, in addition secondary to metabolic acidosis with sepsis has not been able to be weaned. [facility]
[2018-08-25] MEDS ORDERED: Acetaminophen 1,000 MG in Premix Bag 1 BAG IVPB PRN (21:55)
[2018-08-26] MEDS: Vancomycin HCl 1.75 GM in Sodium Chloride 0.9% 500 ML IVPB SCH ×2 (00:03→13:25)
[2018-08-26] MEDS: Potassium Chloride 20 MEQ in Lactated Ringer's 1,000 ML IV SCH ×3 (00:03→18:12)
[2018-08-26] MEDS ORDERED: Pantoprazole 40 MG VIAL ONE (08:54)
[2018-08-26] MEDS ORDERED: Enoxaparin Sodium 40 MG/0.4 ML SYRINGE ONE (08:54)
--- NOTE | 2018-08-26 10:27 | OP ---
DATE OF PROCEDURE: 08/25/2018 PREOPERATIVE DIAGNOSIS: Peritonitis with intra-abdominal fluid collection following prior subtotal g astrectomy. POSTOPERATIVE DIAGNOSIS: Peritonitis with intra-abdominal fluid collection following prior subtotal gastrectomy. OPERATION PERFORMED: Exploratory laparotomy with partial resection of distal stomach, extensive intr a-abdominal washout, placement of intra-abdominal drain x2. SURGEON: Dr. Valdemar Lea. ANESTHESIA: General endotracheal. INDICATIONS: The patient is a 53-year-old obese white female. She had undergone 2 prior open [facility] surgeries, the last of which was an open gastric bypass in 2007. When she presented to the [facility] at this time, she had aggressive bleeding from a penetrating ulcer at the superior posterior aspe ct of the fundus of her gastric remnant. Six days ago, she was taken to the operating room for subto dedrick gastrectomy with removal of almost all of the gastric remnant. She has remained intubated since that surgery. She began running in the low grade fever and a CT scan revealed an intra-abdominal flu id collection. When this was drained, there appeared to be Enterococcus within the fluid and it was brownish in color, concerning for possible leak. She is taken to the operating room at this time for exploration. OPERATIVE PROCEDURE IN DETAIL: Informed consent was obtained. The patient was taken to the operatin g room where general endotracheal anesthesia obtained with the patient in supine position. Abdomen w as prepped with Betadine, draped in sterile fashion. There were two drains within her abdomen to beg in the operation, one of these was a large fluted drain coming out of the left abdomen and ascending into the upper abdomen. The other was the percutaneous CT guided drain entering from the right side and then positioned in the anterior abdomen. The yg were removed and the subcutaneous wound was opened. This was all healed very appropriate ly. The fascia was entirely intact. The sutures were removed and entry was gained into the abdomina l cavity. A brownish mucoid appearing fluid was aspirated. There was no foul smell. All intra-abdo xiomara fluid was suctioned out of the abdomen including both upper quadrants and the pelvis. Postoperative adhesions following her last operation were carefully broken down to allow reflection o f the colon inferiorly. The splenic flexure of the colon had migrated into the left upper quadrant. I was able to mobilize it inferiorly. I placed a Bookwalter retraction device and retracted the col on inferiorly giving the access to the upper abdomen. I identified all relevant anatomy including th e stapled end of the distal stomach. Initially, there was no obvious leak or perforation that I coul d discern. The nasogastric tube within the gastric pouch and the upper Arsalan limb of the small bowel was confirmed and another leak test was performed involving the Arsalan limb. There was still no leakag e here. On further inspection of the gastric remnant staple line, I was able to identify a small pun ctate leak adjacent to the staple line on the greater curvature. I decided to resect this corner of the staple line. A ANA 55 stapler was used for this purpose and the segment was resected and passed off the field. I then inverted the new staple line and as much of the old staple line as I could wit h a series of interrupted Lembert sutures of 2-0 silk. Both ends of the closure of the stomach was t agged with a 2-0 Prolene suture. I then ran the small bowel throughout finding no other abnormality. I checked the colon to the exten t possible. There was no evidence of any concerning abnormality involving any of these areas. I the n irrigated the abdominal cavity with 7-8 liters of warm saline. I carefully aspirated fluid from al l areas. I placed a #19 round fluted drain exiting the left abdomen into the upper abdomen with part of it near the gastric staple line. I then placed another #19 round fluted drain exiting the right abdomen down into the pelvis. Each of these drains were secured with 3-0 nylon suture. The wound wa s then closed with a running suture of loop #1 PDS. The subcutaneous tissue was packed with dry gauz e after it was irrigated once again. There were no complications. The patient remained stable throu ghout the operation and was taken back to the Intensive Care Unit, still on the ventilator.
--- NOTE | 2018-08-26 11:04 | PRG ---
DATE OF SERVICE: 08/26/2018 Ms. Perdomo remains sedated for ventilation. She is not in any way weanable, so we have not done a sedation holiday this morning. Her hemodynamics remain stable. She still has mild resting tachycardia. PHYSICAL EXAMINATION: LUNGS: Her lungs are Clear. HEART: Regular rhythm. ABDOMEN: Abdomen is distended. EXTREMITIES: With asymmetry. She will spontaneously move all of her extremities. LABORATORY: There is no lab available yet, the computer system is down. IMPRESSION: 1. Status post 2 laparotomies. The first for GI bleeding complicated by lysis of massive adhesions, a bile leak from the liver and then eventually an intraabdominal abscess that required a percutaneous drainage and then an abdominal washout yesterday. 2. Status post multiple abdominal surgeries. 3. Severe deconditioning secondary to severe peripheral neuropathy. PLAN: Continue current supportive care. More family is coming in from out of state I am told today. She is not weanable. Critical care time is 35 minutes. MTDD
[2018-08-26] MEDS: Enoxaparin Sodium 40 MG/0.4 ML SYRINGE SC SCH (11:27)
[2018-08-26] MEDS: MEROPENEM 1 GM/50 ML 1 GM in Premix Bag 1 BAG IVPB SCH ×3 (11:27→21:27)
[2018-08-26] MEDS: Pantoprazole 40 MG VIAL IVP SCH ×2 (11:28→21:27)
--- NOTE | 2018-08-26 11:53 | RAD ---
PORTABLE CHEST: Date: 08/26/18 HISTORY: Ventilator and CCU follow-up. Dyspnea. COMPARISON: 08/25/18. FINDINGS/IMPRESSION: Poor inspiration. Cardiomegaly with vascular congestion. Bilateral lung infiltrates could represent e alyssia or inflammatory process. Probable small effusion with elevated right hemidiaphragm. These lung f indings do not appear significantly changed from yesterday. POS: [facility]
--- NOTE | 2018-08-26 12:15 | PRG ---
DATE OF SERVICE: 08/25/2018 SUBJECTIVE: Ms. Perdomo had repeat washout of the abdominal cavity and she had two SHELBIE drains left in place, I do not see a transcribed report yet, but she is in the ICU and is not on pressors however. PHYSICAL EXAMINATION: VITAL SIGNS: Temperature max 100.6 a while ago and blood pressure 107/68, pulse 126, respiratory rate 24, O2 sat at 95% with 40% FI02. GENERAL: She keeps her eyes open and she looks looks around. She seems to understand questions. She has symmetric air entry without major crackles or wheezing. HEART: S1, S2, regular rate. ABDOMEN: With dressing, drains - one SHELBIE drain at each side, though each side with serosanguineous drainage quite clear. EXTREMITIES: She is able to move extremities. LABORATORY DATA: White cell count is up to 14.3, hemoglobin 8.1, platelets 315 , 20% bands, 59% neutrophils, and 13% monocytes. Chemistry with a creatinine 0.77, glucose 155. Liver profile normal. Albumin 2.4, globulin 2.4. MICROBIOLOGY: We have Enterococcus species with susceptible organism. The patient most likely has all other pathogens as well. ASSESSMENT AND DISCUSSION: Gastric bypass in the past with ulcer in gastric remnant with bleeding, status post resection of the area, doing a complex procedure, now with leakage in abscess, quite extensive abscess with peritonitis , status post initially percutaneous drainage with persistence of purulence and now repeat washout with two JPs were placing the percutaneous drainage. Vancomycin has been given one dose. We will continue vancomycin until final results of cultures. Continue meropenem and micafungin as well. Patient is on TPN. With sstable kidney and pulmonary status as well. MTDD
[2018-08-26 12:40] LABS: ALT (SGPT) 22 U/L (8-55); AST (SGOT) 40 U/L (5-34); Albumin 2.3 g/dL (3.5-5.0); Alkaline Phosphatase 77 U/L (40-150); Anion Gap 11 mmol/L (10-20); BUN (Urea Nitrogen) 22 mg/dL (9.8-20.1); Bilirubin, Total 0.8 mg/dL (0.2-1.2); Calc. Creatinine Clearance 155 mL/min (70-130); Calcium 7.7 mg/dL (7.8-10.44); Carbon Dioxide 26 mmol/L (22-29); Chloride 107 mmol/L (98-107); Estimated GFR-MDRD 77; Globulin 2.1 g/dL (2.4-3.5); Glucose 192 mg/dL (70-105); Magnesium 1.8 mg/dL (1.6-2.6); Phosphorus 3.2 mg/dL (2.3-4.7); Potassium 3.9 mmol/L (3.5-5.1); Protein, Total 4.4 g/dL (6.0-8.3); Sodium 140 mmol/L (136-145)
[2018-08-26 13:14] LABS: Actual Bicarbonate (HCO3a) 23.9 mEq/L (22-28); Base Excess (BEa) 0.2 mEq/L (-2.0 to +3.0); CO2 Tension 34.8 mmHg (35.0-45.0); Calcium, Ionized 1.07 mmol/L (1.12-1.30); Carboxyhemoglobin (COHb) 1.8 gm% (0.0-3.0); Hemoglobin (Hb) 9.1 g/dL (12.0-16.0); O2 Tension (PaO2) 76.5 mmHg (80.0-100.0); pH, Arterial 7.45 (7.35-7.45)
[2018-08-26 13:15] LABS: Puncture Site ALINE
[2018-08-26] MEDS ORDERED: SODIUM ACETATE IV SCH (14:00)
[2018-08-26] MEDS ORDERED: POTASSIUM CHLORIDE IV SCH (14:00)
[2018-08-26] MEDS ORDERED: [UNRECOGNIZED DRUG - OTHER] IV SCH (14:00)
[2018-08-26 15:12] LABS: Band 20 % (5-11); Eosinophils 1 % (0-10); Hemoglobin 8.9 g/dL (12.0-16.0); Lymphocytes 10 % (21-51); MDiff Complete? YES; Mean Corpuscular HGB CONC 31.1 g/dL (32.0-36.0); Mean Corpuscular Hemoglobin 28.4 pg (27.0-31.0); Mean Corpuscular Volume 91.3 fL (78.0-98.0); Mean Platelet Volume 8.3 fL (7.4-10.4); Metamyelocyte 4 % (0-0); Monocytes 9 % (0-10); Neutrophil 56 % (42-75); PLT Morphology Comment Appears Adequate; Platelet Count 400 thou/uL (130-400); RBC Distribution Width 15.2 % (11.5-14.5); Red Blood Cell (RBC) Count 3.12 mill/uL (4.20-5.40); White Blood Cell (WBC) Count 15.6 thou/uL (4.8-10.8)
[2018-08-26] MEDS: fentaNYL Citrate/PF 2,000 MCG in Sodium Chloride 0.9% 60 ML IV SCH (15:35)
[2018-08-26] MEDS: Micafungin 100 MG in Sodium Chloride 0.9% 100 ML IVPB SCH (18:18)
[2018-08-26] MEDS ORDERED: Insulin Regular 300 UNITS/3 ML VIAL ONE (19:04)
[2018-08-26] MEDS: Insulin Regular 300 UNITS/3 ML VIAL SC PRN (19:05)
--- NOTE | 2018-08-26 21:31 | PRG ---
DATE OF SERVICE : 08/26/2018 HISTORY OF PRESENT ILLNESS: Patient successfully underwent re-exploration and evaluation of bowel by Dr. Lea, found to have only mild area of concern that was resected. The patient currently may n eed some wound VAC to appropriate abdomen wall given patient's low reserve and healing capacity. She has a stabilized respiratory effort following increase need of FIO2 in a postoperative period. The patient remains with some element of tachycardia; however, this is improved slightly with improved se dation and removal of purulent fluid following CT-guided drainage of the abscess, found to have Enter ococcus, which is sensitive to current antibiotics. Patient's blood pressure remained stable. I dis cussed the patient's condition and outlook with family at bedside and answered all questions at the [employer], patient remains intubated and sedated, unable to do full review of systems. She is following co mmands today. Urine output yesterday of 2175. New laboratory work, white blood cell count of 15.6, hemoglobin of 8.9, platelet count of 400, blood glucose is 161 to 202 range in the last 12 hours. So dium 140, potassium of 3.9, CO2 of 22, creatinine 0.78, phosphorus of 3.2, calcium 7.7, AST of 40, AL T of 22, albumin of 2.3. Enterococcus sensitive to all species except for intermediate to erythromyc in organism to under further evaluation. Chest x-ray today, poor inspiratory efforts, bilateral lung infiltrate, inflammatory edema or process likely overwhelmingly unchanged from yesterday. Given the patient's deconditioning prior to admission, pulmonary states she is not amenable at this point in [employer]. PHYSICAL EXAMINATION: VITAL SIGNS: Given down time, last temperature at 2000 hours last night of 101.1. However, no tempe rature reported at bedside nursing staff this afternoon that was high. Heart rate of 108, blood pres sure of 114/68, saturation 99%, intubated and mechanically ventilated. GENERAL: The patient is intubated and sedated, following commands. HEENT: Head is normocephalic, atraumatic. ET tube and OG tube in place. HEART: Tachycardic, regular rhythm. No murmurs auscultated. LUNGS: Coarse breath sounds bilaterally. ABDOMEN: Not taunt. Positive bowel sounds, although hypoactive. Dressing intact overlying explorat ory laparotomy incision. SHELBIE and a CT guided drain in place. EXTREMITIES: Without pitting edema, 2+ dorsalis pedis pulses bilaterally. The patient is able to mo ve extremities to command today with sedation changes. ASSESSMENT AND PLAN: Following surgery, the patient does not appear to continue to have any bleeding episodes, regarding abscess and peritonitis and the patient appears to be on adequate antibiotics; h owever, followup second organism indicated on culture. Dr. Ozuna has been following for antibiotic r ecommendations. The patient is not amenable per Pulmonary Critical Care and agree with the patient l ikely needs further stabilization regarding infection prior to wean. This was discussed with family at bedside much more reasonable probably outlook will be along the lines of next Wednesday unless patien t has dramatic turnaround in next 24 hours. The patient's family verbalized understanding regarding this outlook. The patient's family also verbalized understanding of possible wound VAC placement to assist in the wound closure of the abdomen. Given patient's low reserves, patient is continued on TP N for nutritional status.
--- NOTE | 2018-08-26 21:53 | PRG ---
DATE OF SERVICE: 08/26/2018 SUBJECTIVE: Ms. Perdomo is in the Intensive Care Unit. She is sedated and ventilated. She is unabl e to interact significantly. She has been stable since her surgery yesterday. She is postoperative day #7 from the initial laparotomy and subtotal gastrectomy with removal of her gastric remnant. She is postoperative day #1 from a repeat laparotomy with drainage of intra-abdominal fluid collection a nd repair of a small perforation at the staple line following her gastrectomy. At the time of surger y yesterday I resected the segment that was leaking and oversewed this as well. She seems to have stabilized since surgery. Although she has still been febrile with temperature of about 100.6 to 101. Her tachycardia has markedly improved. Prior to surgery, she was in the 130s-14 0s and today heart rate is less than 110. She remained hemodynamically stable with a blood pressure of 114/62. Her urine output has been excellent. Her 2 indwelling abdominal drains are draining appr opriate serosanguineous fluid without any bilious appearance or any purulent appearance. PHYSICAL EXAMINATION LUNGS: Clear to auscultation anteriorly. CARDIAC: Regular rate and rhythm. ABDOMEN: Has no bowel sounds. She does have a wound VAC on her midline incision. As mentioned, she has two drains intact, one on the right, going into the lower abdomen and one in left going into the upper abdomen. LABORATORY DATA: Her CBC reveals hemoglobin of 8.9. This is up from 8.1 yesterday, her white blood cell count is 15.6. Her electrolytes are essentially normal. BUN and creatinine are likewise essent ially normal. Her blood sugars are slightly elevated between 150 and 200. Magnesium and phosphorus are normal. Albumin is slightly low at 2.3. ASSESSMENT AND PLAN: The patient is stable following 2 laparotomies. She is certainly requiring Cri tical Care and ventilator assistance, but she seems stable with the support. She will continue with mechanical ventilation, intravenous antibiotics, including meropenem and micafungin. She will contin ue with TPN for nutritional support and wound care using the wound VAC. I anticipate that she will m victorino progress and eventually be able to be extubated depending on the time course of that she may or m ay not require tracheostomy prior to extubation. This has all been discussed in detail with all thre e of her sons.
[2018-08-27] MEDS: Potassium Chloride 20 MEQ in Lactated Ringer's 1,000 ML IV SCH ×2 (00:07→23:33)
[2018-08-27] MEDS: Vancomycin HCl 1.75 GM in Sodium Chloride 0.9% 500 ML IVPB SCH (00:07)
[2018-08-27] MEDS: fentaNYL Citrate/PF 2,000 MCG in Sodium Chloride 0.9% 60 ML IV SCH ×3 (01:41→21:48)
[2018-08-27] MEDS: Acetaminophen 1,000 MG in Premix Bag 1 BAG IVPB PRN ×2 (04:27→17:26)
[2018-08-27] MEDS: Propofol 1,000 MG/100 ML VIAL IV PRN ×4 (04:28→20:10)
[2018-08-27 04:38] LABS: ALT (SGPT) 24 U/L (8-55); AST (SGOT) 39 U/L (5-34); Albumin 2.1 g/dL (3.5-5.0); Alkaline Phosphatase 86 U/L (40-150); Anion Gap 11 mmol/L (10-20); BUN (Urea Nitrogen) 28 mg/dL (9.8-20.1); Bilirubin, Total 0.7 mg/dL (0.2-1.2); Calc. Creatinine Clearance 164 mL/min (70-130); Calcium 7.5 mg/dL (7.8-10.44); Carbon Dioxide 27 mmol/L (22-29); Chloride 108 mmol/L (98-107); Estimated GFR-MDRD 82; Globulin 2.4 g/dL (2.4-3.5); Glucose 133 mg/dL (70-105); Magnesium 1.8 mg/dL (1.6-2.6); Potassium 3.8 mmol/L (3.5-5.1); Protein, Total 4.5 g/dL (6.0-8.3); Sodium 142 mmol/L (136-145)
[2018-08-27 05:16] LABS: #Eosinphils 0.3 thou/uL (0.0-0.7); #Lymphocytes 1.8 thou/uL (1.20-3.40); #Monocytes 2.4 thou/uL (0.11-0.59); %Basophils 0.2 % (0.0-1.0); %Eosinophils 1.4 % (0.0-10.0); %Lymphocytes 9.6 % (21.0-51.0); %Monocytes 13.1 % (0.0-10.0); %Neutrophils 75.6 % (42.0-75.0); Hemoglobin 7.4 g/dL (12.0-16.0); Mean Corpuscular HGB CONC 31.4 g/dL (32.0-36.0); Mean Corpuscular Hemoglobin 28.8 pg (27.0-31.0); Mean Corpuscular Volume 91.7 fL (78.0-98.0); Mean Platelet Volume 8.1 fL (7.4-10.4); PLT Morphology Comment Appears Increased; Platelet Count 437 thou/uL (130-400); RBC Distribution Width 15.1 % (11.5-14.5); Red Blood Cell (RBC) Count 2.58 mill/uL (4.20-5.40); White Blood Cell (WBC) Count 18.5 thou/uL (4.8-10.8)
[2018-08-27] MEDS: MEROPENEM 1 GM/50 ML 1 GM in Premix Bag 1 BAG IVPB SCH ×3 (05:50→21:37)
[2018-08-27 07:45] LABS: Base Excess (BEa) 3.6 mEq/L (-2.0 to +3.0); CO2 Tension 41.8 mmHg (35.0-45.0); Calcium, Ionized 1.07 mmol/L (1.12-1.30); Carboxyhemoglobin (COHb) 3.1 gm% (0.0-3.0); Hemoglobin (Hb) 7.3 g/dL (12.0-16.0); Potassium - ABG Lab 3.85 mmol/L (3.70-5.30); pH, Arterial 7.44 (7.35-7.45)
[2018-08-27 07:51] LABS: O2 Tension (PaO2) 59.4 mmHg (80.0-100.0); Puncture Site RB
--- NOTE | 2018-08-27 08:15 | RAD ---
SEMIUPRIGHT PORTABLE CHEST 1 VIEW: Date: 08/27/18 HISTORY: 53-year-old female with history of respiratory insufficiency. COMPARISON: 08/26/18. FINDINGS: Life support tubes in place and stable. Monitor leads overlie the chest. Poor inspiratory effort with patchy interstitial and alveolar nodular parenchymal changes bilaterally, stable from prior study. IMPRESSION: Stable, fairly extensive patchy alveolar nodular and interstitial parenchymal changes. Continue short -term follow-up for clearing. POS: [facility]
[2018-08-27] MEDS: Pantoprazole 40 MG VIAL IVP SCH ×2 (08:39→20:09)
[2018-08-27] MEDS: Enoxaparin Sodium 40 MG/0.4 ML SYRINGE SC SCH (08:39)
[2018-08-27] MEDS: Vancomycin HCl 1.25 GM in Sodium Chloride 0.9% 250 ML 250 ML IVPB SCH ×2 (10:40→23:49)
[2018-08-27] MEDS ORDERED: Furosemide 40 MG/4 ML VIAL SLOW IVP SCH (12:15)
--- NOTE | 2018-08-27 12:22 | PRG ---
DATE OF SERVICE: 08/27/2018 SERVICE: Pulmonary Medicine. INTERVAL HISTORY: The patient is doing poorly from a respiratory standpoint. Her ins and outs are positive once again. Her oxygen requirements are actually going up. She is already on bilevel ventilation. She cannot provide any additional elements of the history. She requires heavy sedation. Any time we wean it, she starts biting on the tube and does not follow any commands. That being said, she is moving all 4 extremities, but without purpose. PHYSICAL EXAMINATION: VITAL SIGNS: Afebrile currently with a T-max of 100.6. Pulse 96, blood pressure 98/60, respirations 18, saturation 99% on 60% FiO2 and a PEEP of 10. GENERAL: Patient is intubated and sedated. HEENT: Normocephalic, atraumatic. Sclerae are white, conjunctivae pink. Oral and nasal mucosa is moist without lesions. LUNGS: Rhonchi and crackles predominate. There is a minimally prolonged expiratory phase, but I do not hear any wheezing. HEART: Normal rate, regular. ABDOMEN: Soft, nontender, nondistended. Bowel sounds are positive. MUSCULOSKELETAL: No cyanosis or clubbing. There is diffuse pitting throughout. GENITOURINARY: Dobbins catheter in place. NEUROLOGIC: Grossly nonfocal. LABORATORY DATA: WBC 18.5, hemoglobin 7.4, platelets 437,000. PH 7.44, pCO2 of 41, pO2 of 60, corresponding to saturation of almost 92%. Basic metabolic profile and liver function studies are essentially unremarkable. Magnesium and phosphorus fall within the normal limits. Enterococcus species as well as gram- negative jhoana are growing in the abdominal aspirate. Blood cultures x3 remain unremarkable. IMAGING: Chest x-ray demonstrates low lung volumes. There are bilateral interstitial opacifications. ASSESSMENT: 1. Acute hypoxic respiratory failure. 2. Acute blood loss anemia, secondary to gastrointestinal bleed, stable. 3. Status post laparotomy for gross peritonitis. 4. Severe sepsis. 5. Deconditioning. DISCUSSION AND PLAN: The patient cannot be weaned from mechanical ventilation, as she has high oxygen requirements. We do not have much room to give her more oxygen. As such, we will minimize her fluids moving forward. I will put her on a D5 drip to prevent hypernatremia. Also, schedule frequent doses of Lasix through time. Pulmonary Critical Care will continue to follow along. If we cannot get a significant amount of volume off with this, we will be looking at dialysis in 1-2 days. CRITICAL CARE TIME: 30 minutes. MTDD
[2018-08-27] MEDS: Dextrose 5% in Water 1,000 ML IV SCH (12:41)
--- NOTE | 2018-08-27 13:12 | PRG ---
DATE OF SERVICE: 08/27/2018 SUBJECTIVE: She is intubated. She is not on pressors, sedated. Ocular movements are not testable at this time. Pupillary reactions are equal. Oral tracheal intubation line is the same in the right subclavian location. Dobbins catheter in place. I's and O's were positive 1700 yesterday and thus far are negative at -330 after Lasix. SHELBIE in left abdomen, output 40 mL, right abdomen 70 mL. Output Dobbins, 1700 over the past 24 hours and thus far at 330. The patient has a midline negative pressure dressing in the two SHELBIE exit sites. The right and left side with no abnormalities. SHELBIE fluid drainage is in the small amount and serous in appearance. OBJECTIVE: LUNGS: Symmetric clear breath sounds. HEART: S1, S2, regular rate. ABDOMEN: Moderately distended. LABORATORY DATA AND IMAGING: White cell count at 18.5, hemoglobin 7.4, platelets 437. Differential shows 75% neutrophils, bands were not quantified. Chemistry with a creatinine 0.74, and bilirubin was 0.7, AST down to 39, ALT 24 , alkaline phosphatase is 86, albumin 2.1. Fluid amylase was 2100. Microbiology with Enterococcus species and a second organism which was a gram negative jhoana. Staph susceptibility testing for that one was not offered. Her temperature is still oscillating up to 100.6. We have a chest x-ray for this morning with the same life support tubes in place, patchy interstitial alveolar nodular parenchymal changes, stable. ASSESSMENT AND DISCUSSION: Gastric bypass in the past with ulcer in the gastric remnant and bleeding, which required surgical intervention with resection of the area following a complex procedure. The patient developed likely leakage with extensive inflammatory fluid collections in the peritoneal cavity with peritonitis, status post percutaneous drainage and then an open drainage with washout and two SHELBIE drains left in place. SHELBIE drain quality has improved and decreased in amount, still with elevated leukocyte count, but I trust that the bands are decreasing. Thus far, the antimicrobial regimen is suitable for the microbiology obtained from the fluid. MTDD
[2018-08-27] MEDS: SODIUM ACETATE IV SCH (13:21)
[2018-08-27] MEDS: [UNRECOGNIZED DRUG - OTHER] IV SCH (13:21)
[2018-08-27] MEDS: POTASSIUM CHLORIDE IV SCH (13:21)
--- NOTE | 2018-08-27 13:51 | PRG ---
DATE OF SERVICE: 08/27/2018 SUBJECTIVE: The patient remained stable following repeat exploratory laparotomy with Dr. Lea, heart rate remains in better range. He has had several low-lying temperatures drain output has been nonconcerning. No additional concerns per nursing staff. The patient still difficult to turn desaturating, continuation of IV Tylenol has been requested and granted this so far. I had a large family discussion at bedside yesterday. No family at bedside today. They verbalized understanding, likely no respiratory changes over the weekend and will likely look at progress for ventilation weaning trials towards Wednesday. We will follow with Pulmonary recommendations, however. No identification of second organism on aspiration. The patient continued on IV antibiotics. LABORATORY DATA: White blood cell count 18.5, hemoglobin of 7.4, platelet count of 437. Sodium 142, potassium 3.8, creatinine of 0.74, blood glucose range 130-192. Albumin of 2.1. REVIEW OF SYSTEMS: The patient is intubated and sedated. No further history or review of systems can be had. No family at bedside today. OBJECTIVE: VITAL SIGNS: Heart rate 102, temperature of 100.9, blood pressure 144/72, oxygen saturation 98% on mechanical ventilation. HEENT: Normocephalic, atraumatic. ET and OG tubes in place. LUNGS: With coarse breath sounds bilaterally. CARDIOVASCULAR: Heart tachycardic, but regular rhythm. No murmurs. ABDOMEN: With drains in place. Dressing intact. EXTREMITIES: Lower extremities without pitting edema. Dorsalis pedis pulses 2 + intact. Unable to assess orientation secondary to sedation; however, the patient has been withdrawing to pain on bilateral bases. ASSESSMENT AND PLAN: The patient with continued signs and symptoms of sepsis secondary to peritonitis, status post CT guided drainage following laparotomy for washout as well as bowel running, continues to require mechanical ventilation for acute hypoxic respiratory failure. The patient's blood loss has largely been stabilized; however, is postoperative again given deconditioning the day prior to hospitalization. He attempts to wean over weekend unlikely per reading. Pulmonary notation have already initiated some conversations with family about potential need for tracheostomy in the next week or so. Given Enterococcus on culture, Dr. Ozuna has started vancomycin and the patient has continued on micafungin given prior history of oropharyngeal fungal infection as well as continued on meropenem. The patient continued on IV Tylenol. The patient started on Lasix and reduced fluid load to attempt to reduce burden on ventilation, continued on TPN for nutrition. The patient on enoxaparin for DVT prophylaxis as well as continued on IV proton pump b.i.d. with no reports of bleeding. We will continue to follow along. SHASHA
[2018-08-27] MEDS ORDERED: Sodium Chloride 0.9% 15 ML NEB ONE (14:27)
--- NOTE | 2018-08-27 16:32 | PRG ---
DATE OF SERVICE: 08/27/2018 SUBJECTIVE: Ms. Perdomo is seen for Dr. Lea today, Wednesday. The patient is on the ventilator. She is NG tube in place. Attempts to wean her from the vent today did not go well and her ventilati on rate has been increased. PHYSICAL EXAMINATION: VITAL SIGNS: 104 heart rate, 87/50, 100.8 degrees. LUNGS: Clear to auscultation. CARDIAC: Regular rate and rhythm without murmur or gallop. ABDOMEN: Soft. SHELBIE drainage 40 from one drain and 70 from the other. LABORATORY DATA: 15.6 white count and hemoglobin 8.9. Basic metabolic profile: Sodium 142, potassi um 3.8, BUN 28, creatinine 0.74, GFR 82. Accu-Cheks 130. Patient is on TPN. ASSESSMENT AND PLAN: 1. Dr. Lewis has started diuresis. TPN continued. We will start tube feedings per NG tube at a l ow rate of 10 and keep it at that rate. 2. Respiratory failure, wean per Pulmonary.
[2018-08-27] MEDS: Micafungin 100 MG in Sodium Chloride 0.9% 100 ML IVPB SCH (17:00)
[2018-08-27] MEDS ORDERED: Furosemide 20 MG/2 ML VIAL SLOW IVP SCH (18:00)
[2018-08-28] MEDS: Propofol 1,000 MG/100 ML VIAL IV PRN ×3 (01:40→19:23)
[2018-08-28] MEDS: Acetaminophen 1,000 MG in Premix Bag 1 BAG IVPB PRN ×2 (01:43→20:32)
[2018-08-28] MEDS ORDERED: Labetalol HCl 100 MG/20 ML VIAL ONE (05:19)
[2018-08-28] MEDS: Furosemide 40 MG/4 ML VIAL SLOW IVP SCH ×2 (05:21→13:21)
[2018-08-28] MEDS: MEROPENEM 1 GM/50 ML 1 GM in Premix Bag 1 BAG IVPB SCH ×3 (05:22→21:59)
[2018-08-28 06:59] LABS: ALT (SGPT) 26 U/L (8-55); AST (SGOT) 50 U/L (5-34); Albumin 2.1 g/dL (3.5-5.0); Alkaline Phosphatase 119 U/L (40-150); Anion Gap 8 mmol/L (10-20); BUN (Urea Nitrogen) 33 mg/dL (9.8-20.1); Bilirubin, Total 0.5 mg/dL (0.2-1.2); Calc. Creatinine Clearance 153 mL/min (70-130); Calcium 7.6 mg/dL (7.8-10.44); Carbon Dioxide 30 mmol/L (22-29); Chloride 103 mmol/L (98-107); Estimated GFR-MDRD 74; Globulin 2.6 g/dL (2.4-3.5); Glucose 290 mg/dL (70-105); Magnesium 1.9 mg/dL (1.6-2.6); Phosphorus 3.7 mg/dL (2.3-4.7); Potassium 3.9 mmol/L (3.5-5.1); Protein, Total 4.7 g/dL (6.0-8.3); Sodium 137 mmol/L (136-145)
[2018-08-28 07:23] LABS: Band 16 % (5-11); Eosinophils 3 % (0-10); Hemoglobin 6.9 g/dL (12.0-16.0); Lymphocytes 9 % (21-51); MDiff Complete? YES; Mean Corpuscular HGB CONC 31.7 g/dL (32.0-36.0); Mean Corpuscular Hemoglobin 29.4 pg (27.0-31.0); Mean Corpuscular Volume 92.8 fL (78.0-98.0); Mean Platelet Volume 8.4 fL (7.4-10.4); Metamyelocyte 2 % (0-0); Monocytes 9 % (0-10); Neutrophil 61 % (42-75); PLT Morphology Comment Appears Adequate; Platelet Count 462 thou/uL (130-400); RBC Distribution Width 15.2 % (11.5-14.5); Red Blood Cell (RBC) Count 2.36 mill/uL (4.20-5.40); White Blood Cell (WBC) Count 17.6 thou/uL (4.8-10.8)
[2018-08-28] MEDS: fentaNYL Citrate/PF 2,000 MCG in Sodium Chloride 0.9% 60 ML IV SCH ×2 (07:27→17:35)
--- NOTE | 2018-08-28 07:56 | PRG ---
DATE OF SERVICE: 08/28/2018 SUBJECTIVE: Analia Perdomo is doing well today. She is on ventilator. She was tolerating low rate tube feedings per NG tube. OBJECTIVE: VITAL SIGNS: 119/65, 83. LUNGS: Clear to auscultation. CARDIAC: Regular rate and rhythm without murmur or gallop. ABDOMEN: Soft, nontender. LABORATORY: Urine output 4210 in the last 24 hours. CBC done today, basic metabolic pending. ASSESSMENT AND PLAN: The patient did well. 1. Respiratory failure, weaned per pulmonary, unsuccessful yesterday. 2. Tube feedings per NG tube. Increased to 15 per hour.
[2018-08-28 07:57] LABS: Actual Bicarbonate (HCO3a) 29.1 mEq/L (22-28); Base Excess (BEa) 3.8 mEq/L (-2.0 to +3.0); Calcium, Ionized 1.08 mmol/L (1.12-1.30); Carboxyhemoglobin (COHb) 1.5 gm% (0.0-3.0); Potassium - ABG Lab 3.55 mmol/L (3.70-5.30)
[2018-08-28 07:58] LABS: O2 Tension (PaO2) 51.4 mmHg (80.0-100.0); Puncture Site RR
[2018-08-28] MEDS: Pantoprazole 40 MG VIAL IVP SCH ×2 (08:39→20:31)
[2018-08-28 10:12] LABS: Vancomycin, Trough 24.9 ug/mL
[2018-08-28] MEDS ORDERED: Magnesium Sulfate 2 GM in Sodium Chloride 0.9% 100 ML IVPB SCH (11:30)
[2018-08-28] MEDS ORDERED: Potassium Chloride 40 MEQ in Premix Bag 1 BAG IVPB SCH (11:30)
[2018-08-28] MEDS ORDERED: Magnesium 2 GM/50 ML 2 GM in Premix Bag 1 BAG IVPB SCH (11:45)
[2018-08-28] MEDS: Enoxaparin Sodium 40 MG/0.4 ML SYRINGE SC SCH (12:20)
[2018-08-28] MEDS: Dextrose 5% in Water 1,000 ML IV SCH (12:39)
[2018-08-28] MEDS: Calcium Gluc 4.6 MEQ/10 ML (100 MG/ML) SLOW IVP SCH ×2 (12:51→17:05)
--- NOTE | 2018-08-28 13:05 | PRG ---
DATE OF SERVICE: 08/28/2018 SERVICE: Pulmonary Medicine. INTERVAL HISTORY: The patient is doing okay from a respiratory standpoint. She was a little hypoxemic this morning with her lower PEEP settings. Ultimately, we had to go back up on her oxygen settings. We increased her FiO2. Her tachypnea settled down after we did that. That being said, she continues to look increasingly pale. Her hemoglobins are dropping off a little bit. She cannot provide any additional elements of the history. 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 PHYSICAL EXAMINATION: VITAL SIGNS: T-max 101.7, pulse 98, blood pressure 113/70, respirations 22, saturation 95% on 60% FiO2 and a PEEP of 10. GENERAL: Patient is intubated and sedated. HEENT: Normocephalic, atraumatic. Sclerae are white, conjunctival pale. LUNGS: Good air entry. There is no prolonged expiratory phase. Crackles are extensive throughout bilateral lung cerda. There is also some rhonchi. No wheezing is present. HEART: Normal rate, regular. ABDOMEN: Soft, nontender, nondistended. Bowel sounds are positive. MUSCULOSKELETAL: No cyanosis or clubbing. There is diffuse pitting throughout. Roughly 2-3+. GENITOURINARY: Dobbins in place. NEUROLOGIC: Grossly nonfocal. LABORATORY DATA: WBC 17.6, hemoglobin 6.9, platelets 462,000. Band count has improved. Band count is roughly stable at 16%. INR 1.1. A pH 7.40, pCO2 48, pO2 51. Creatinine 0.81, BUN 33, anion gap 8, bicarbonate 30. Basic metabolic profile is otherwise unremarkable. ASSESSMENT: 1. Acute hypoxic respiratory failure. 2. Acute blood loss anemia secondary to gastrointestinal bleed. 3. Status post laparotomy for gross peritonitis. 4. Severe sepsis. 5. Deconditioning. DISCUSSION AND PLAN: It is a little alarming that her blood counts are falling off again. I am not certain if this represents an active bleed or whether or not her blood bank blood is lysing. Either way, we will give her 2 units of blood and recheck hemoglobin this afternoon. I am going to replace her calcium , potassium, and magnesium. She will remain on mechanical ventilation while we continue to diurese her. Our goal is for her to be negative 2-3 liters over the next 24 hours. I will give her a dose of acetazolamide this evening as she is developing a little bit of an alkalosis. I will decrease her D5 water down to 25 mL per hour. She will certainly remain in the ICU. Critical Care will continue to follow as this patient is extremely sick. There is a possibility she will not survive this hospital stay. CRITICAL CARE TIME: 30 minutes. MTDD
[2018-08-28] MEDS: SODIUM ACETATE IV SCH (14:08)
[2018-08-28] MEDS: [UNRECOGNIZED DRUG - OTHER] IV SCH (14:08)
[2018-08-28] MEDS: POTASSIUM CHLORIDE IV SCH (14:08)
[2018-08-28] MEDS: Micafungin 100 MG in Sodium Chloride 0.9% 100 ML IVPB SCH (17:01)
[2018-08-28] MEDS: Vancomycin HCl 1 GM in Premix Bag 1 BAG IVPB SCH (17:48)
[2018-08-28 17:50] LABS: Hemoglobin 9.3 g/dL (12.0-16.0)
--- NOTE | 2018-08-28 18:01 | PRG ---
DATE OF SERVICE: 08/28/2018 SUBJECTIVE: Intubated, not on pressors. Drain outputs are still okay. The I's and O's are negative for the past 24 hours -1500; and left SHELBIE with 10 mL output and right SHELBIE with 50 mL output, both less than previous outputs. OBJECTIVE: VITAL SIGNS: Temperature max still with elevation up to 101.7, currently 100.9; BP 140/100; pulse 99 ; and respirations 21. GENERAL: She appears to be awake. She is able to open her eyes. LUNGS: Symmetric air entry. HEART: S1, S2 regular rate. The FiO2 is at 60 with a PEEP of 10. ABDOMEN: Slightly distended. Bilateral drains in midline, negative pressure dressing. 2+ edema. LABORATORY DATA: White cell count is at 17.6, hemoglobin 6.9, MCV 92. Hemoglobin has dropped from 8 .9 to 6.9 in 2 days. Platelets are up to 462 with 16% bands, which is less than prior level. Creati nine stable at 0.81. Liver profile with AST of 50, which is higher than previous level. ALT is with in normal limits and alkaline phosphatase is normal as well. Albumin is 2.1. Microbiology: We have Enterococcus species, Enterobacter cloacae with a broad susceptibility profile and yeast. Two sets of blood cultures, no growth. No imaging studies. ASSESSMENT AND DISCUSSION: Gastric bypass, ulcer in the gastric remnant, bleeding, status post resec tion of the area following a complex procedure, and development of inflammatory fluid collection at t he peritoneal cavity with initial percutaneous drainage and then open drainage with 2 JPs. Still wit h quite a bit of inflammatory process. She appears to be on the right antimicrobial regimen and prob ably repeat imaging in the next few days depending on clinical progress. Concern with persistence of leakage is one of the main ones.
[2018-08-28] MEDS ORDERED: Furosemide 40 MG/4 ML VIAL SLOW IVP SCH (20:00)
[2018-08-28] MEDS: Insulin Regular 300 UNITS/3 ML VIAL SC PRN (22:11)
[2018-08-29] MEDS: Propofol 1,000 MG/100 ML VIAL IV PRN ×5 (00:24→22:45)
[2018-08-29] MEDS: Acetaminophen 1,000 MG in Premix Bag 1 BAG IVPB PRN ×4 (04:26→18:02)
[2018-08-29] MEDS: Vancomycin HCl 1 GM in Premix Bag 1 BAG IVPB SCH ×2 (05:16→17:32)
[2018-08-29] MEDS: MEROPENEM 1 GM/50 ML 1 GM in Premix Bag 1 BAG IVPB SCH ×3 (05:16→21:01)
[2018-08-29] MEDS: Furosemide 40 MG/4 ML VIAL SLOW IVP SCH (05:17)
[2018-08-29 06:36] LABS: Band 13 % (5-11); Hemoglobin 10.2 g/dL (12.0-16.0); Lymphocytes 9 % (21-51); MDiff Complete? YES; Mean Corpuscular HGB CONC 31.7 g/dL (32.0-36.0); Mean Corpuscular Hemoglobin 27.7 pg (27.0-31.0); Mean Corpuscular Volume 87.6 fL (78.0-98.0); Mean Platelet Volume 8.1 fL (7.4-10.4); Monocytes 7 % (0-10); Myelocyte 1 % (0-0); Neutrophil 70 % (42-75); PLT Morphology Comment Appears Increased; Platelet Count 475 thou/uL (130-400); Red Blood Cell (RBC) Count 3.66 mill/uL (4.20-5.40)
[2018-08-29 06:42] LABS: ALT (SGPT) 30 U/L (8-55); AST (SGOT) 49 U/L (5-34); Albumin 2.3 g/dL (3.5-5.0); Alkaline Phosphatase 147 U/L (40-150); Anion Gap 12 mmol/L (10-20); BUN (Urea Nitrogen) 33 mg/dL (9.8-20.1); Bilirubin, Total 0.9 mg/dL (0.2-1.2); Calc. Creatinine Clearance 161 mL/min (70-130); Carbon Dioxide 30 mmol/L (22-29); Chloride 101 mmol/L (98-107); Estimated GFR-MDRD 79; Globulin 3.2 g/dL (2.4-3.5); Glucose 149 mg/dL (70-105); Potassium 3.3 mmol/L (3.5-5.1); Protein, Total 5.5 g/dL (6.0-8.3); Sodium 140 mmol/L (136-145)
[2018-08-29 06:52] LABS: Actual Bicarbonate (HCO3a) 32.9 mEq/L (22-28); Calcium, Ionized 1.11 mmol/L (1.12-1.30); Carboxyhemoglobin (COHb) 1.4 gm% (0.0-3.0); Hemoglobin (Hb) 10.5 g/dL (12.0-16.0); O2 Tension (PaO2) 96.7 mmHg (80.0-100.0); Potassium - ABG Lab 3.25 mmol/L (3.70-5.30)
[2018-08-29 06:54] LABS: Puncture Site LRA
--- NOTE | 2018-08-29 07:32 | PRG ---
DATE OF SERVICE: 08/28/2018. HISTORY OF PRESENT ILLNESS: The patient has had intermittent episodes of tachycardia and has intermi ttent episodes done in the 90s in regards to tachycardia, max into the 120s to 130s; however, overarc hingly over the last 48-72 hours following drainage of abscess and repeat exploratory laparotomy of a bdomen. The patient's heart rate has trended down. The patient has continued with light temperature s; however, trending down, last recorded fever 08/27/2018 at 6:00 p.m. of 101.1, since then has been afebrile, coincides following drainage of abscess and change of antibiotics with Dr. Ozuna's aid. Th e patient remains intubated, sedated, nonverbal given increased sedation to prevent patient from biti ng on ET tube. The patient is not responsive to commands at bedside today. Wound VAC has been place d following repeat exploratory laparotomy and with good report as per nursing staff. Drains without any concerning discharge in character. The patient has been transitioned to OG feeds from TPN and in crease late yesterday and tolerated over the evening hours and into the morning without difficulty pe r nursing staff's report. Last documented pulse 95, blood pressure 105/65, oxygen saturation 97% on mechanical ventilation, 70% FIO2. Urine output with anglican of Lasix 4810 up from 1700 to 2000 on the patient's average last week. Review of laboratory work, white blood cell count of 17.8, hemoglobin trended down following repeat exploratory laparotomy to 6.9, platelet count of 462, neutrophils 61%. Chemistry: 137 sodium, potassium of 3.9, CO2 of 30, BUN of 33, creatinine of 0.81, and glucose is 2 92, 127 range, average 145, calcium of 7.6, phosphorus of 3.7, magnesium 1.9, AST of 50, ALT of 26, a lbumin of 2.1. Vancomycin trough on 08/26/2018 of 25, repeat trough pending later this afternoon. S usceptibilities on second species from drainage found to be Enterobacter resistant to cefotaxime the patient was on prior to antibiotic change. Current antibiotic regimen with meropenem, vancomycin, mi cafungin. The patient's organisms are susceptible to. PHYSICAL EXAMINATION: GENERAL: The patient is intubated and sedated. HEENT: Normocephalic, atraumatic. Sclerae are white. ET tube and OG tube in place. CARDIOVASCULAR: The patient developing systolic murmur, it was not present on admission. Still wilder ins tachycardic, regular rate. LUNGS: With coarse bronchial breath sounds. ABDOMEN: With wound VAC in place. Drains intact. Abdomen is protuberant, nontense. Bowel sounds p ositive, but hypoactive. EXTREMITIES: Lower extremities without pitting edema, 2+ dorsalis pedis pulses, remained steady. Un able to assess orientation secondary to sedation. The patient will withdraw from pain. per nursing staff. ASSESSMENT AND PLAN: Sepsis markers including temperature and heart rate appeared to be improving. The patient is on adeq uate antibiotics for Enterobacter and Enterococcus. I agree with fungal coverage given patient's sonia or history with ENT documentation of pharyngeal anish. The patient started to show some signs of v olume overload given systolic murmur, new on this admission; we will get echocardiogram and agree wit h Dr. Lewis's coverage of Lasix. The patient has appropriate urine output, anemia, multifactorial, but included gastrointestinal bleed this hospital admission as well as postoperative changes and poo r nutrition, which was present prior to hospitalization secondary to patient's deconditioning and chr onic pain, neuropathy. The patient is appropriately being fed and is tolerating tube feeds at this p oint in time. The patient ____ receive 2 units of PRBCs with continued Lasix coverage. Goal 9-10 he moglobin. The patient has dipped under 7 with increased use of FIO2 on mechanical ventilation. I fe el anemia is contributing to patient's respiratory failure in this acute setting. I do feel patient' s infection is under better control. If any specific findings, continue following proper replacement of the patient's hemoglobin and continued diuresis. May consider Cardiology consult. Follow up on echo report. We will check a.m. cortisol to see if patient is appropriately responding with mineral and glucocorticoids. Current blood sugars are largely controlled at this point in time on feeds.
[2018-08-29] MEDS: fentaNYL Citrate/PF 2,000 MCG in Sodium Chloride 0.9% 60 ML IV SCH ×2 (07:56→22:33)
[2018-08-29] MEDS: Enoxaparin Sodium 40 MG/0.4 ML SYRINGE SC SCH (08:46)
[2018-08-29] MEDS: Pantoprazole 40 MG VIAL IVP SCH ×2 (08:47→20:41)
[2018-08-29] MEDS: Dextrose 5% in Water 1,000 ML IV SCH (11:50)
[2018-08-29] MEDS ORDERED: Magnesium 2 GM/NS 0.9% 100 ML 2 GM in Premix Bag 1 BAG IVPB PRN (12:22)
[2018-08-29] MEDS ORDERED: Potassium Chloride 20 MEQ TAB PO PRN (12:22)
[2018-08-29] MEDS ORDERED: Potassium Chloride 40 MEQ in Sodium Chloride 0.9% 250 ML 250 ML IVPB PRN (12:22)
[2018-08-29] MEDS ORDERED: CCU ELECTROLYTE REPLACEMENT PROTOCOL FS PRN (12:22)
[2018-08-29] MEDS ORDERED: Magnesium Oxide 400 MG TAB PO PRN ×2 (12:22)
[2018-08-29] MEDS ORDERED: Potassium Phosphate 12 MMOL in Sodium Chloride 0.9% 250 ML 250 ML IV PRN (12:22)
[2018-08-29] MEDS ORDERED: Potassium Phosphate 9 MMOL in Sodium Chloride 0.9% 100 ML IVPB PRN (12:22)
[2018-08-29] MEDS ORDERED: Potassium Chloride 40 MEQ in Premix Bag 1 BAG IVPB PRN (12:22)
[2018-08-29] MEDS ORDERED: Potassium Phosphate 15 MMOL in Sodium Chloride 0.9% 250 ML 250 ML IV PRN (12:22)
--- NOTE | 2018-08-29 13:30 | PRG ---
DATE OF SERVICE: 08/29/2018 HISTORY OF PRESENT ILLNESS: The patient back down to 50% FiO2 following 2 units of PRBCs, is able to tolerate with less agitation weaning process this morning. If Pulmonary gives clearance, would pote ntially try weaning trial; however, we have already discussed with family that she may require trache ostomy for her slow progress. We will continue to follow Pulmonary's recommendations. Susceptibilit ies did show yeast species on CT aspirate. The patient is on appropriate antibiotics for Enterobacte r, Enterococcus and yeast species under the purview of Dr. Ozuna. The patient's vancomycin trough ye was 24.9. The patient's tachycardia and temperature profile are both improved; however, the patient continued to have a fever, last of which was 101.1 at 1200 hours today. Post-transfusion hem oglobin of 10.2, up from 6.9. The patient with resolved systolic murmur. Echocardiogram with preser edwin ejection fraction. Unable to assess diastolic function given current condition and limitations w ith technical performance of the study. No family at bedside this morning to speak to. The patient remains tolerant of OG tube feeds with supplemental partial nutrition through IV of D5, I believe. W ound VAC is in place and functional. PHYSICAL EXAMINATION: VITAL SIGNS: Heart rate of 89, blood pressure 106/56, respiratory rate of 20, oxygen saturation 97%, 50% FIO2. GENERAL: The patient is intubated, sedated. OG and ET tube in place. HEENT: Extraocular movements are intact, but not to command. Sclerae are clear. CARDIOVASCULAR: No longer with harsh systolic murmur following transfusion. Regular rate at the manuel e of exam. LUNGS: Coarse bronchial breath sounds bilaterally. ABDOMEN: Protuberant, nontense. Positive bowel sounds. Wound VAC and drains in place. EXTREMITIES: Lower extremities without cyanosis or edema. Dorsalis pedis pulses 2+ intact. The pat ient wiggles feet with light touch, although not formally on command. ASSESSMENT AND PLAN: Continued respiratory failure secondary to deconditioning and sepsis. The francisco ent continues to have symptomatic anemia limiting extubation potential following repeat exploratory l aparotomy, likely some postsurgical changes, which are expected as well as secondary to lysis with co ntinued infection. The patient is on appropriate antibiotics under purview of Dr. Ozuna. Deferring current surgical management to General Surgery and respiratory management to Pulmonary Critical Care. The patient appears to be appropriately responding to cortisol and does not appear to be in fulmina nt congestive heart failure at this point in time. We will continue to follow along.
[2018-08-29] MEDS: POTASSIUM CHLORIDE IV SCH (13:56)
[2018-08-29] MEDS: SODIUM ACETATE IV SCH (13:56)
[2018-08-29] MEDS: [UNRECOGNIZED DRUG - OTHER] IV SCH (13:56)
[2018-08-29] MEDS: SODIUM CHLORIDE IV SCH (13:56)
--- NOTE | 2018-08-29 14:48 | PRG ---
DATE OF SERVICE: 08/29/2018 OBJECTIVE: GENERAL: Conor is a morbidly obese 53-year-old female. VITALS: BMI of over 50, intubated, vented, sedated, multiple laps peritonitis. Pulse 88, blood pres sure 135/73, sats are 98%, respirations 21. I's and O's are 3318 in and 4870 out. CHEST: Bilateral rhonchi and crackles. CARDIAC: Sinus tachycardia. ABDOMEN: Distended. LABORATORY DATA: White count 20,000, H&H 10 and 32, platelet count 470. PO2 is 96, pCO2 of 54, pH 7 .4, AC pressure control ventilation. At a rate of 21, 60% FiO2. Electrolytes are normal. BUN is 36. Bicarb is 30. Multiple organisms from the abdominal aspirate including Enterococcus. IMPRESSION: 1. Abdominal sepsis. 2. Respiratory failure. 3. Adult respiratory distress syndrome. 4. Morbid obesity. 5. Severe deconditioning. PLAN: She is not weanable. Vent is being adjusted. Continue antibiotics per Infectious Disease, supportive PT. One-half hour critical care time.
--- NOTE | 2018-08-29 15:52 | PRG ---
DATE OF SERVICE: 08/29/2018 SUBJECTIVE: Ms. Perdomo is awake, eyes are open. She is not on pressors. PHYSICAL EXAMINATION: VITAL SIGNS: Showed T-max of 101.7, blood pressure 108/58, pulse 83, respiratory rate 20, O2 sat 96%. Subclavian central line in the right side. Dobbins catheter. I's and O's are negative -500 over the past 24 hours, left SHELBIE 15 mL. Middle abdomen, negative pressure drainage 50, right side 65. Output 4300. CHEST: Symmetric air entry. HEART: S1, S2, regular rate. ABDOMEN: Moderately distended. MUSCULOSKELETAL: Able to move extremities. LABORATORY DATA AND IMAGING DATA: White cell count 20,000, hemoglobin 10.2, platelets 475 with 13% bands, creatinine 0.76, AST 49, ALT 30, alkaline phosphatase 147. Echocardiogram LV function of 55%. ASSESSMENT AND DISCUSSION: Gastric bypass ulcer and gastric remnant with bleeding, then resection of the area following complex procedure, developed inflammatory fluid collection in the peritoneal cavity followed by percutaneous drainage and then open drainage. The SHELBIE drainage is serous and appears well in small amounts. Continues to have fever, but bands are decreasing. We will continue current broad spectrum coverage plus supportive care. Resubmit blood cultures. MTDD
--- NOTE | 2018-08-29 16:40 | PRG ---
DATE OF SERVICE: 08/29/2018 SUBJECTIVE: Ms. Perdomo is postoperative day #10 from her initial laparotomy and subtotal gastrectom y with removal of her gastric remnant. She is postoperative day 4 from her repeat laparotomy with dr hernandez of intra-abdominal fluid collection and resection of part of the staple line from her gastrect dulce from which there was a gastric leak. She has been stable over the weekend. She continues to have a low-grade fever which is much better t mario. Her maximum temperature today is 99.1. Her pulse rate has dropped from well over 100 down to 81-83. Her blood pressure has been stable at 120s/70s. Her oxygenation is good on 45% FIO2. 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 Davenport, does not feel she is weanable and feels that she will require a tracheostomy to assist with weaning from the ventilator. Low volume tube feeds were started per her nasogastric tube over the weekend, and she seems to be ganga erating this. She has had a large bowel movement earlier. PHYSICAL EXAMINATION: VITAL SIGNS: As mentioned, she is afebrile, pulse is 83, blood pressure is currently 108/58. LUNGS: Clear to auscultation anteriorly. CARDIAC: Regular rate and rhythm. ABDOMEN: Soft. She has a wound VAC in the midline. She has clear serous fluid draining from the ri ght-sided pelvic drain. There is no evidence of any enteric or purulent drainage from the upper abdo xiomara drain on the left side. The left-sided drain output has dropped off and was only 15 mL for yes terday. Incidentally, amylase level from that was 130. Bowel sounds are intact and appeared to be n ormoactive. ASSESSMENT AND PLAN: The patient who is hemodynamically stable following gastrectomy and repair of s ubsequent gastric leak. Her medical deconditioning is contributing to the slow recovery of function. She, however, appears to be stable with her current nutrition (using TPN), IV antibiotics (receivin g meropenem, micafungin, and vancomycin). We will plan to place a tracheostomy tomorrow. I have dis cussed this with her son and [id number].
[2018-08-29] MEDS: Micafungin 100 MG in Sodium Chloride 0.9% 100 ML IVPB SCH (17:31)
[2018-08-29] MEDS: Insulin Regular 300 UNITS/3 ML VIAL SC PRN (21:48)
[2018-08-30] MEDS: Propofol 1,000 MG/100 ML VIAL IV PRN ×5 (00:57→23:55)
[2018-08-30] MEDS: Acetaminophen 1,000 MG in Premix Bag 1 BAG IVPB PRN ×3 (01:01→14:45)
[2018-08-30 04:52] LABS: Mean Corpuscular HGB CONC 31.4 g/dL (32.0-36.0); Mean Corpuscular Hemoglobin 27.7 pg (27.0-31.0); Mean Corpuscular Volume 88.4 fL (78.0-98.0); Mean Platelet Volume 8.1 fL (7.4-10.4); Platelet Count 499 thou/uL (130-400); RBC Distribution Width 16.6 % (11.5-14.5); Red Blood Cell (RBC) Count 3.24 mill/uL (4.20-5.40); White Blood Cell (WBC) Count 17.1 thou/uL (4.8-10.8)
[2018-08-30 05:12] LABS: ALT (SGPT) 26 U/L (8-55); AST (SGOT) 41 U/L (5-34); Albumin 2.1 g/dL (3.5-5.0); Alkaline Phosphatase 154 U/L (40-150); Anion Gap 11 mmol/L (10-20); BUN (Urea Nitrogen) 30 mg/dL (9.8-20.1); Bilirubin, Total 0.6 mg/dL (0.2-1.2); Calc. Creatinine Clearance 185 mL/min (70-130); Carbon Dioxide 29 mmol/L (22-29); Chloride 102 mmol/L (98-107); Estimated GFR-MDRD Greater than 90; Globulin 3.1 g/dL (2.4-3.5); Glucose 143 mg/dL (70-105); Magnesium 1.8 mg/dL (1.6-2.6); Potassium 3.6 mmol/L (3.5-5.1); Protein, Total 5.2 g/dL (6.0-8.3); Sodium 138 mmol/L (136-145)
[2018-08-30 05:32] LABS: Vancomycin, Trough 17.1 ug/mL
[2018-08-30 05:43] LABS: #Basophils 0.1 thou/uL (0.0-0.2); #Eosinphils 0.2 thou/uL (0.0-0.7); #Lymphocytes 1.7 thou/uL (1.20-3.40); #Monocytes 1.9 thou/uL (0.11-0.59); #Neutrophils 13.2 thou/uL (1.40-6.50); %Basophils 0.4 % (0.0-1.0); %Eosinophils 1.3 % (0.0-10.0); %Lymphocytes 9.8 % (21.0-51.0); %Monocytes 11.1 % (0.0-10.0); %Neutrophils 77.5 % (42.0-75.0); Anisocytosis SLIGHT = 6-15 cells (100X) (0-5/hpf); MDiff Complete? YES
[2018-08-30] MEDS: MEROPENEM 1 GM/50 ML 1 GM in Premix Bag 1 BAG IVPB SCH ×3 (05:44→22:06)
[2018-08-30] MEDS: Vancomycin HCl 1 GM in Premix Bag 1 BAG IVPB SCH ×2 (05:45→17:20)
[2018-08-30 06:58] LABS: Actual Bicarbonate (HCO3a) 32.9 mEq/L (22-28); Base Excess (BEa) 7.2 mEq/L (-2.0 to +3.0); CO2 Tension 50.2 mmHg (35.0-45.0); Calcium, Ionized 1.12 mmol/L (1.12-1.30); Carboxyhemoglobin (COHb) 1.5 gm% (0.0-3.0); Hemoglobin (Hb) 9.5 g/dL (12.0-16.0); O2 Tension (PaO2) 62.5 mmHg (80.0-100.0); Potassium - ABG Lab 3.57 mmol/L (3.70-5.30); pH, Arterial 7.44 (7.35-7.45)
[2018-08-30 07:30] LABS: Puncture Site LRA
--- NOTE | 2018-08-30 07:42 | PRG ---
DATE OF SERVICE: 08/30/2018 HISTORY OF PRESENT ILLNESS: The patient remains intubated and sedated, not fully responsive to comma nds; however, on light sedation the patient is responsive to light stimulus. The patient remains wit h much improved heart rate, although has continued to spike fevers in the last 24 hours, although fev er pattern is greatly improved from last week. No other apparent interval changes. No reports of bl eeding following transfusion. PHYSICAL EXAMINATION: VITAL SIGNS: Pulse of 77, blood pressure 133/87, respiratory rate of 20. The patient mechanically v entilated down to 45% FiO2. Last temperature 99.0. LABORATORY DATA: White blood cell count slightly improved to 17.1, hemoglobin slightly dilute and de creased to 9.0, platelet count of 499. Neutrophil percent 77.5. Sodium 138, potassium of 3.6, CO2 o f 29, BUN of 30, creatinine of 0.6, glucose 121-157 range last 12 hours, calcium 8.0, magnesium 1.8, AST of 41, ALT 26, alkaline phosphatase of 154, albumin of 2.1. GENERAL: The patient is intubated, sedated, not able to give interval history or responsive to comma nds. ET tube and OG tube in place. HEART: Regular rate and rhythm. No murmurs auscultated. LUNGS: With coarse bronchial breath sounds bilaterally. ABDOMEN: With wound VAC intact, as well as SHELBIE drains. Positive bowel sounds, slightly hypoactive. EXTREMITIES: Lower extremities without cyanosis or edema. Dorsalis pedis pulses 2+ intact. The pat ient responds to light stimuli to all extremities. ASSESSMENT AND PLAN: Respiratory failure secondary to deconditioning and sepsis following a prior GI bleed which now has been stabilized. Postoperative the patient is hemodynamically stable following transfusion of 2 units PRBC. The patient continues on vancomycin, meropenem and micafungin. Continu ed on proton pump inhibitor and Lovenox. The patient remains on TPN. The patient has not been able to safely be weaned very much regarding FiO2. We will continue to follow along default to Pulmonary' s recommendations for any need for tracheostomy in the near future.
[2018-08-30] MEDS: Pantoprazole 40 MG VIAL IVP SCH ×2 (07:59→20:01)
[2018-08-30] MEDS: fentaNYL Citrate/PF 2,000 MCG in Sodium Chloride 0.9% 60 ML IV SCH (08:41)
[2018-08-30] MEDS: Dextrose 5% in Water 1,000 ML IV SCH ×2 (08:46→08:48)
[2018-08-30] MEDS: Enoxaparin Sodium 40 MG/0.4 ML SYRINGE SC SCH (08:47)
--- NOTE | 2018-08-30 09:06 | PRG ---
DATE OF SERVICE: 08/30/2018 Ms. Perdomo remains intubated and sedated in the Intensive Care Unit. She is postoperative day #11 f or initial laparotomy and subtotal gastrectomy with removal of her gastric remnant. She is postopera tive day #5 from repeat laparotomy with resection of the leaking gastrectomy staple line. She has re mained stable on the ventilator overnight. She has never required pressor support. She, however, steele s been difficult to wean from the ventilator. Accordingly, her drilling engineer requested placement of a tracheostomy. PHYSICAL EXAMINATION: VITAL SIGNS: She has a low grade temperature elevation of 100.9. Her pulse is in the 80s and regula r. Blood pressure is stable at 120/78. Her urine output for yesterday was 2700 mL. The 2 drains in her abdomen are draining small amounts of fluid. The right side is clear serous, the left side appe ars to be sort of mucoid, but it is only 10 mL per day. Bowel sounds are present and normoactive. CHEST: Her chest is clear to auscultation. ABDOMEN: Soft and nontender. Her midline incision has a wound VAC in it. Bowel sounds are present and normoactive. LABORATORY STUDIES: CBC reveals that her white blood cell count has dropped from 20-17. Her hemoglo bin dropped from 10 to 9, platelet count is elevated at 499. Electrolytes are normal. BUN and creat inine is unremarkable. Albumin is low at 2.1. Liver function tests are essentially normal. ASSESSMENT: The patient remains stable recuperating from her 2 laparotomies. She has respiratory fa ilure that is multifactorial. PLAN: Plan to place a tracheostomy tube today to assist with her ventilator management and eventual weaning. As she has had a gastrectomy she and cannot have a PEG tube placed. I would therefore cont inue with tube feeds through a nasogastric tube.
--- NOTE | 2018-08-30 11:47 | PRG ---
DATE OF SERVICE: 08/30/2018 SUBJECTIVE: This morning, vented and sedated, and is going for trach today. OBJECTIVE: VITAL SIGNS: Pulse 86, blood pressure 134/91, sats are 99%, respirations 21. She is sedated. I's and O's have been 3945 in and 4470 out. CHEST: Revealed bilateral rhonchi and crackles. CARDIAC: Sinus tachycardia. ABDOMEN: Soft. NEUROLOGICAL: Sedated. LABORATORY DATA: White count 17,000, H and H is 9 and 28, platelet count is normal. PO2 is 62, pCO2 50 on a rate of 20, 45% and PEEP of 7, sats are 99%. Electrolytes are normal. Bicarbonate is 30. IMPRESSION: 1. Respiratory failure. 2. Adult respiratory distress syndrome. 3. Abdominal sepsis, status post laparoscopy. PLAN: Not weanable. Trach today. Antibiotics, TPN nutrition, PT. Wean post trach. [id number] critical care time. MTDD
[2018-08-30] MEDS ORDERED: Bupivacaine/Epinephrine 0.25% 30 ML VIAL ONE (12:04)
[2018-08-30] MEDS ORDERED: Fentanyl 100 MCG/2 ML VIAL ONE (12:27)
[2018-08-30] MEDS ORDERED: Midazolam HCl 2 mg/2 ml Vial ONE (12:27)
[2018-08-30] MEDS: SODIUM ACETATE IV SCH (14:55)
[2018-08-30] MEDS: POTASSIUM CHLORIDE IV SCH (14:55)
[2018-08-30] MEDS: [UNRECOGNIZED DRUG - OTHER] IV SCH (14:55)
[2018-08-30] MEDS: SODIUM CHLORIDE IV SCH (14:55)
--- NOTE | 2018-08-30 15:36 | RAD ---
CHEST ONE VIEW: 08/30/18 HISTORY: New tracheostomy. COMPARISON: Radiograph 08/27/18. FINDINGS: Tracheostomy tube is in place. Tracheostomy is well positioned. Central venous catheter is in good po sition. Mild increased pulmonary edema. Small effusions. Patient is rotated to the left. Enteric tube side po rt is in the gastric body. IMPRESSION: Uncomplicated tracheostomy placement. POS: [facility]
[2018-08-30] MEDS ORDERED: PHENYLEPHRINE-NS 100 MCG/ML 10 ML SYRINGE ONE (16:21)
[2018-08-30] MEDS ORDERED: Esmolol 100 MG/10 ML VIAL ONE (16:21)
[2018-08-30] MEDS ORDERED: PROPOFOL 200 MG/20 ML VIAL ONE (16:21)
[2018-08-30] MEDS: Insulin Regular 300 UNITS/3 ML VIAL SC PRN (16:45)
[2018-08-30] MEDS: Micafungin 100 MG in Sodium Chloride 0.9% 100 ML IVPB SCH (17:57)
[2018-08-30] MEDS: Acetaminophen 500 MG TAB PER TUBE PRN (19:56)
[2018-08-31] MEDS: Propofol 1,000 MG/100 ML VIAL IV PRN ×6 (02:15→23:11)
--- NOTE | 2018-08-31 02:18 | OP ---
DATE OF PROCEDURE: 08/30/2018 PREOPERATIVE DIAGNOSIS: Respiratory failure. POSTOPERATIVE DIAGNOSIS: Respiratory failure. OPERATION PERFORMED: Placement of a #8 Shiley tracheostomy tube. SURGEON: Valdemar Lea M.D. SSDS MK 2 ADVANCED OPERATOR: Larry Sanchez ANESTHESIA: General endotracheal. INDICATIONS: The patient is a 53-year-old obese female. She has undergone 2 prior laparotomies and has been unable to wean from the ventilator. Tracheostomy is requested for assistance with weaning f rom the ventilator and for airway management. DESCRIPTION OF PROCEDURE: Informed consent was obtained. She was taken to the operating where gener al endotracheal anesthesia was maintained with the patient in supine position. A shoulder roll was p laced to distract the neck. Neck was prepped with ChloraPrep and draped in sterile fashion. Local a nesthetic infiltrated using 0.25% Marcaine with epinephrine. A curvilinear low collar incision was c reated and dissection was carried through skin and subcutaneous tissue. Platysma was divided. Anter ior jugular veins were divided between clamps and 3-0 silk ties. Subplatysmal flaps were raised supe riorly and inferiorly. Strap muscles were in the midline. The strap muscles were dissecte d off the underlying thyroid. The thyroid was overlying the area of concern and had to be divided at the isthmus using electrocautery. The second and third tracheal rings were identified. A stay sutu re of 3-0 Prolene was placed in the second tracheal ring on each side of midline. The oxygen concent ration was decreased to 30% and entry was gained into the trachea, removing a small segment of the se cond tracheal cartilage. The opening was dilated. The airway was suctioned and there was essentiall y no purulence within the airway. The #8 Shiley tracheostomy tube was advanced into the trachea unev entfully. The inner cannula was placed and tracheostomy was secured to the ventilator circuit using the Dwayne adapter. All retractors from within the wound were removed. There was no bleeding from within the wound. The skin edges were then closed with interrupted sutures of 3-0 nylon with l ateral sutures attached to the flange of the tracheostomy tube. Tracheostomy dressing and straps wer e placed. The two stay sutures were secured to the anterior chest wall with a Tegaderm dressing. Th ere were no complications. The patient tolerated the procedure well. I was returned to the intensiv e care unit in stable condition.
[2018-08-31] MEDS: fentaNYL Citrate/PF 2,000 MCG in Sodium Chloride 0.9% 60 ML IV SCH ×2 (03:22→14:24)
[2018-08-31 04:20] LABS: Hemoglobin 10.5 g/dL (12.0-16.0); Mean Corpuscular HGB CONC 31.9 g/dL (32.0-36.0); Mean Corpuscular Hemoglobin 28.4 pg (27.0-31.0); Mean Platelet Volume 8.3 fL (7.4-10.4); Platelet Count 448 thou/uL (130-400); RBC Distribution Width 16.4 % (11.5-14.5); Red Blood Cell (RBC) Count 3.68 mill/uL (4.20-5.40)
[2018-08-31 04:40] LABS: ALT (SGPT) 28 U/L (8-55); AST (SGOT) 40 U/L (5-34); Albumin 2.3 g/dL (3.5-5.0); Alkaline Phosphatase 173 U/L (40-150); Anion Gap 15 mmol/L (10-20); BUN (Urea Nitrogen) 30 mg/dL (9.8-20.1); Bilirubin, Total 0.5 mg/dL (0.2-1.2); Calc. Creatinine Clearance 194 mL/min (70-130); Calcium 8.2 mg/dL (7.8-10.44); Carbon Dioxide 27 mmol/L (22-29); Chloride 102 mmol/L (98-107); Estimated GFR-MDRD Greater than 90; Globulin 3.6 g/dL (2.4-3.5); Glucose 126 mg/dL (70-105); Potassium 4.4 mmol/L (3.5-5.1); Protein, Total 5.9 g/dL (6.0-8.3); Sodium 140 mmol/L (136-145)
[2018-08-31] MEDS: MEROPENEM 1 GM/50 ML 1 GM in Premix Bag 1 BAG IVPB SCH ×3 (05:19→21:08)
[2018-08-31] MEDS: Vancomycin HCl 1 GM in Premix Bag 1 BAG IVPB SCH ×2 (05:20→18:10)
[2018-08-31] MEDS: Acetaminophen 500 MG TAB PER TUBE PRN ×2 (05:20→12:20)
[2018-08-31 05:27] LABS: Band 7 % (5-11); Eosinophils 3 % (0-10); Lymphocytes 8 % (21-51); MDiff Complete? YES; Monocytes 12 % (0-10); Neutrophil 70 % (42-75); PLT Morphology Comment Appears Increased
--- NOTE | 2018-08-31 07:58 | PRG ---
DATE OF SERVICE: 08/30/2018 SUBJECTIVE: The patient continues to have intermittent temperature elevation up to 101.3 and a blood pressure 101/59, pulse 96, respirations 20, O2 sat 98%, FiO2 40, PEEP of 7. The patient had a tracheostomy tube placed. She continues with nasoenteric feedings since the gastrostomy cannot be inserted due to the reduced gastric remnant. LUNGS: Coarse breath sounds. HEART: S1, S2, regular rate. ABDOMEN: With midline negative pressure dressing. The SHELBIE output 15 on the left side. The output from the middle negative pressure dressing 50 and right abdomen 65. I's and O's are slightly positive. White cell count is 17.1, hemoglobin 9, platelets 489, 77% neutrophils. Creatinine 0.64, AST 40, ALT 28, alkaline phosphatase 173. Microbiology: Negative blood cultures from 08/29/2018. Chest x-ray with pulmonary edema, small effusions. 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 and then open drainage. The patient still has two JPs and has had a tracheostomy placed. It looks like there is some steady improvement in the inflammatory process. No new microbiology information is significant at this point in time. Probably will need a follow up imaging study of the abdominal area. SHASHA
[2018-08-31] MEDS: Enoxaparin Sodium 40 MG/0.4 ML SYRINGE SC SCH (08:44)
[2018-08-31] MEDS: Pantoprazole 40 MG VIAL IVP SCH ×2 (08:44→20:41)
--- NOTE | 2018-08-31 09:35 | RAD ---
CHEST 1 VIEW: Date: 08/31/18 INDICATION: Intubation. COMPARISON: Prior exam dated 08/30/18. FINDINGS: Right subclavian central venous catheter, tracheostomy tube, and gastric catheter are unchanged. Pulm onary vascular congestion and bilateral air space opacities are similar appearing. Small bilateral pl eural effusions are similar appearing. No pneumothorax is evident. IMPRESSION: Stable exam. POS: [facility]
--- NOTE | 2018-08-31 10:44 | PRG ---
DATE OF SERVICE: 08/31/2018 SUBJECTIVE: A morbidly obese female who remains intubated on the vent, sedated on Diprivan and fentanyl. OBJECTIVE: VITAL SIGNS: Pulse is 96, blood pressure 101/59, respiration is 20. I's & O's have been ok. CHEST: Revealed bilateral rhonchi and crackles. CARDIAC: Sinus tachycardia. ABDOMEN: Distended soft_. EXTREMITIES: Trace edema. LABORATORY DATA: White count 23,000, H&H is 10 and 32, platelet count 488. Electrolytes are normal. IMPRESSION: 1. Acute respiratory distress syndrome. 2. Respiratory failure. 3. Abdominal sepsis. 4. Encephalopathy. PLAN: She is not weanable. She is on 3 different antibiotics by Infectious Disease. I have started low dose steroids for her ARDS. Switch over to Precedex. Hopefully, we can wean. One-half hour critical care time. MTDD
[2018-08-31] MEDS: Dextrose 5% in Water 1,000 ML IV SCH (12:02)
[2018-08-31] MEDS ORDERED: risperiDONE 0.25 MG TAB PO SCH ×2 (12:15→21:00)
[2018-08-31] MEDS: Insulin Regular 300 UNITS/3 ML VIAL SC PRN ×2 (13:19→17:25)
[2018-08-31] MEDS: POTASSIUM CHLORIDE IV SCH (15:06)
[2018-08-31] MEDS: SODIUM CHLORIDE IV SCH (15:06)
[2018-08-31] MEDS: SODIUM ACETATE IV SCH (15:06)
[2018-08-31] MEDS: [UNRECOGNIZED DRUG - OTHER] IV SCH (15:06)
[2018-08-31] MEDS: Lorazepam 2 MG/ML VIAL SLOW IVP PRN ×2 (16:32→22:48)
[2018-08-31 17:37] LABS: Vancomycin, Trough 16.3 ug/mL
[2018-08-31] MEDS: Micafungin 100 MG in Sodium Chloride 0.9% 100 ML IVPB SCH (18:05)
--- NOTE | 2018-08-31 19:53 | PRG ---
DATE OF SERVICE: 08/31/2018 HISTORY OF PRESENT ILLNESS: The patient successfully underwent tracheostomy placement yesterday afternoon, has successfully been titrated down on FiO2, however, has had subsequent increase in respiratory rate, remains with borderline temperatures over the last 24 hours. Pulse remains improved. The patient remains intubated via tracheostomy and sedated, unable to respond to commands, but is responsive to light touch still. The patient was initiated on steroid therapy. Per speaking with nursing staff, Pulmonary is not optimistic for weaning to trach collar until likely next week. PHYSICAL EXAMINATION: VITAL SIGNS: Formal review of vital signs, temperature of 100.4 at 1430 hours, 160/88 blood pressure, 81 heart rate, oxygen saturation 96% on 35% FiO2. Patient with negative fluid balance 650 today so far. Drain outputs total of 60 collectively. Urine output yesterday of 2.275 liters, 775 today. GENERAL: The patient is intubated via tracheostomy, sedated, on TPN, propofol. HEENT: Head is normocephalic, atraumatic. Extraocular movements are intact, but the patient is not clearly tracking. Sclerae are clear. HEART: Regular rate and rhythm. No murmurs auscultated. LUNGS: Coarse breath sounds bilaterally. ABDOMEN: With wound VAC in place. Drains intact. EXTREMITIES: Lower extremities without cyanosis or edema. Dorsalis pedis pulses 2+. Unable to assess orientation. The patient is moving all extremities. LABORATORY DATA: White blood cell count of 23, hemoglobin 10.5, platelet count of 448,000. Sodium of 140, potassium of 4.4, BUN of 30, creatinine of 0.6. Blood sugars 122-180 range. Calcium 8.2, AST 40, ALT of 28, alkaline phosphatase 173, albumin of 2.3. IMAGING: Chest x-ray remained stable, largely unchanged. ASSESSMENT AND PLAN: Respiratory failure, sepsis with peritonitis, metabolic encephalopathy status post gastrointestinal bleed and anemia of acute blood loss , status post laparotomy x2. General Surgery following for surgical management. The patient not able to have PEG tube, will be fed through OG or NG tube and TPN combination, which the patient has been on for days regarding encephalopathy. The patient has been at that baseline for approximately a week. Per Pulmonology, not optimistic for any attempts at real weaning to a trach collar likely until next week secondary to deconditioning and per Dr. Davenport note possible ARDS w/AA gradient not favorable, started steroids. The patient's cortisol was 17, recently checked. The patient appears to be stabilized regarding anemia and bleeding. Continue on proton pump inhibitor and DVT prophylaxis. Continue on intravenous antibiotics for fungal and bacterial infections. We will continue to follow along. SHASHA
[2018-09-01] MEDS: Propofol 1,000 MG/100 ML VIAL IV PRN ×5 (03:26→20:18)
[2018-09-01] MEDS: fentaNYL Citrate/PF 2,000 MCG in Sodium Chloride 0.9% 60 ML IV SCH (04:09)
[2018-09-01] MEDS: Lorazepam 2 MG/ML VIAL SLOW IVP PRN ×2 (04:32→14:14)
[2018-09-01] MEDS: Insulin Regular 300 UNITS/3 ML VIAL SC PRN ×3 (04:53→17:03)
[2018-09-01 05:25] LABS: ALT (SGPT) 27 U/L (8-55); AST (SGOT) 30 U/L (5-34); Albumin 2.3 g/dL (3.5-5.0); Alkaline Phosphatase 157 U/L (40-150); Anion Gap 15 mmol/L (10-20); BUN (Urea Nitrogen) 43 mg/dL (9.8-20.1); Bilirubin, Total 0.4 mg/dL (0.2-1.2); Calc. Creatinine Clearance 195 mL/min (70-130); Calcium 8.4 mg/dL (7.8-10.44); Carbon Dioxide 26 mmol/L (22-29); Chloride 105 mmol/L (98-107); Estimated GFR-MDRD Greater than 90; Globulin 3.6 g/dL (2.4-3.5); Glucose 188 mg/dL (70-105); Potassium 4.5 mmol/L (3.5-5.1); Protein, Total 5.9 g/dL (6.0-8.3); Sodium 141 mmol/L (136-145)
[2018-09-01] MEDS: MEROPENEM 1 GM/50 ML 1 GM in Premix Bag 1 BAG IVPB SCH ×3 (05:34→21:19)
[2018-09-01] MEDS: Vancomycin HCl 1 GM in Premix Bag 1 BAG IVPB SCH ×2 (05:34→17:08)
[2018-09-01 05:40] LABS: Band 2 % (5-11); Hemoglobin 9.2 g/dL (12.0-16.0); Hypochromia SLIGHT = 6-15 cells (100X) (0-5/hpf); Lymphocytes 7 % (21-51); MDiff Complete? YES; Mean Corpuscular HGB CONC 31.3 g/dL (32.0-36.0); Mean Corpuscular Hemoglobin 27.7 pg (27.0-31.0); Mean Corpuscular Volume 88.4 fL (78.0-98.0); Monocytes 6 % (0-10); Neutrophil 85 % (42-75); PLT Morphology Comment Appears Increased; Platelet Count 611 thou/uL (130-400); RBC Distribution Width 15.9 % (11.5-14.5); Red Blood Cell (RBC) Count 3.31 mill/uL (4.20-5.40); White Blood Cell (WBC) Count 13.1 thou/uL (4.8-10.8)
[2018-09-01] MEDS ORDERED: risperiDONE 0.25 MG TAB PO SCH (08:09)
--- NOTE | 2018-09-01 08:10 | PRG ---
DATE OF SERVICE: 09/01/2018 SUBJECTIVE: Ms. Perdomo remains in the Intensive Care Unit, sedated and on the ventilator. She is p ostoperative day #13 from her initial laparotomy and subtotal gastrectomy secondary to bleeding ulcer from her gastric remnant. She is postoperative day #7 from repeat laparotomy with resection of leak ing gastrectomy staple line. She is postoperative day #2 from her tracheostomy. Although she has been hemodynamically stable, her chest x-ray shows fairly dense process consistent w ith ARDS. She has accordingly been persistently slow to wean from the ventilator, although she is cu rrently on 30% FIO2 with her ventilator. PHYSICAL EXAMINATION: VITAL SIGNS: She is afebrile with a maximum temperature of 99.0. Her pulse is 74 and regular. Her blood pressure is 140/70, oxygen saturation is 96% on 30% FIO2. Her urine output for yesterday was 2 200 mL. HER-2 intra-abdominal drains are draining scant amounts of fluid with clear serous fluid tarun ining from the inferior draining and only 15 mL of fluid from the upper drain. She seems to be krissy ating tube feeds at 20 mL per hour. LUNGS: Clear to auscultation anteriorly. CARDIAC: Regular rate and rhythm. ABDOMEN: Obese, but soft. Wound VAC is over the midline wound. Bowel sounds are present, normoacti ve diffusely. LABORATORY STUDIES: Her electrolytes are normal. BUN has gone up somewhat from 30 yesterday to 43. Her creatinine remains normal at 0.65. Blood sugars are relatively stable between 150 and 180. Trisha er function tests are essentially normal. Albumin is stable at 2.3. Chest x-ray continues to show g round glass changes within both lungs, typical of ARDS. ASSESSMENT AND PLAN: Patient is hemodynamically stable following her laparotomies. The tracheostomy is functioning appropriately. She continues to receive support with TPN and tube feeds. I will adj ust her TPN according to nutrition's recommendation. I will slowly advance her tube feeds. We will continue to await improvement in her pulmonary function to where she can be weaned off the ventilator . She continues to receive IV antibiotics, receiving meropenem, micafungin, and vancomycin.
--- NOTE | 2018-09-01 08:13 | PRG ---
DATE OF SERVICE: 09/01/2018 HISTORY OF PRESENT ILLNESS: The patient remains intubated, sedated with IV antibiotics, tube feeds T PN as backup nutritional support. Remains responsive, but not formally to commands. No family at be dside this morning. Nursing staff stated that the patient's family did not have any questions yester day. They had talked with Dr. Lea and Dr. Tucker. No interval changes overnight at shift change here with nursing staff. VITAL SIGNS: Pulse 76, blood pressure of 100/53, respiratory rate of 32, oxygen saturation 96% on me chanical ventilation, 30% FiO2. Temperature of 98.4, total drain output 3 mL, Dobbins output 2235 mL. LABORATORY DATA: White blood cell count improved to 13, hemoglobin stable at 9.2, neutrophils 85 fol lowing initiation of steroids. Sodium 141, potassium of 4.5, CO2 26, BUN of 43, creatinine of 0.65. Blood glucoses last 16 hours 155-188, calcium 8.4, total bilirubin 0.4, AST of 30, ALT of 27, alkali ne phosphatase 157, total protein 5.9, albumin of 2.3. Vancomycin trough history of 16.3. Still no identification of yeast species formally. PHYSICAL EXAMINATION: GENERAL: The patient is mechanically ventilated through a tracheostomy and sedated. Moving all extr emities; however, not to command. HEENT: Head is normocephalic, atraumatic. Sclerae are white. The patient has had the NG tube. ABDOMEN: Wound VAC to abdomen and intact with SHELBIE drains in place. HEART: Regular rate and rhythm. No murmurs auscultated. LUNGS: Clear to auscultation bilaterally. No rubs or wheezes. ABDOMEN: Protuberant, positive bowel sounds. EXTREMITIES: Lower extremities without cyanosis or edema to the shins. Good dorsalis pedis pulses 2 +. ASSESSMENT AND PLAN: Respiratory failure, metabolic encephalopathy, deconditioning, resolving sepsis secondary to multifactorial infection status post gastrectomy with exploratory laparotomy, drainage of abscess formation causing peritonitis. The patient is continued on current therapy including PPI, Lovenox for DVT prophylaxis, initiated on steroid therapy over the last several days, initiated on r isperidone for issues with agitation, transitioning from the ET tube to tracheostomy ventilation. Th e patient's FiO2 has greatly improved over the last several days; however, again sedation has been an issue, appears to be controlled on propofol this morning. The patient is continued on micafungin, v ancomycin, meropenem. Per Pulmonology's expectations, patient is not likely weanable until next week some time. We will continue to follow along. The patient appears stable from prior surgical episod es. Drain with low output. No signs of reaccumulation of fluid or worsening infection. The patient 's vital signs slowly trending more towards normal.
[2018-09-01] MEDS: Enoxaparin Sodium 40 MG/0.4 ML SYRINGE SC SCH (08:39)
[2018-09-01] MEDS: Pantoprazole 40 MG VIAL IVP SCH ×2 (08:40→20:18)
[2018-09-01] MEDS: risperiDONE 0.25 MG TAB PO SCH ×2 (09:10→20:19)
--- NOTE | 2018-09-01 09:57 | RAD ---
PORTABLE CHEST: Date: 09/01/18 HISTORY: Respiratory distress. COMPARISON: Prior day's exam. FINDINGS: Tracheostomy tube is in satisfactory position. NG tube below the hemidiaphragm. Interstitial alveolar lung changes appear stable. Right subclavian line is unchanged. IMPRESSION: Stable exam. POS: [facility]
--- NOTE | 2018-09-01 09:58 | PRG ---
DATE OF SERVICE: 09/01/2018 SUBJECTIVE: intubated in the vent. X-ray shows diffuse pulmonary infiltrates consistent with acute respiratory distress syndrome. OBJECTIVE: VITAL SIGNS: Pulse is 68, blood pressure is 111/61, sats are 95% on a bilevel PEEP of 10, 30% FIO2, respiration 22. GENERAL: She opens her eyes with verbal communication. I's and O's are 3479 in, 2275 out. CHEST: Bilateral rhonchi and crackles. CARDIAC: Sinus tachycardia. ABDOMEN: Distended, but soft. LABORATORY DATA: Her electrolytes are normal. BUN is 43. Albumin is 2.3. Vancomycin is 16.3. Whi te count 13,000. IMPRESSION: Acute respiratory distress syndrome, status post laparoscopic, metabolic encephalopathy. PLAN: She is not weanable at this stage. She is on nutrition, PT. TPN was started, low dose steroi ds for ARDS. One-half hour critical care time.
[2018-09-01] MEDS: Dextrose 5% in Water 1,000 ML IV SCH (11:03)
[2018-09-01] MEDS ORDERED: SODIUM CHLORIDE IV SCH (14:00)
[2018-09-01] MEDS ORDERED: POTASSIUM CHLORIDE IV SCH (14:00)
[2018-09-01] MEDS ORDERED: SODIUM ACETATE IV SCH (14:00)
[2018-09-01] MEDS ORDERED: [UNRECOGNIZED DRUG - OTHER] IV SCH (14:00)
[2018-09-01] MEDS: Micafungin 100 MG in Sodium Chloride 0.9% 100 ML IVPB SCH (17:02)
[2018-09-02] MEDS: Propofol 1,000 MG/100 ML VIAL IV PRN ×6 (00:04→22:20)
[2018-09-02 03:53] LABS: #Eosinphils 0.1 thou/uL (0.0-0.7); #Lymphocytes 1.5 thou/uL (1.20-3.40); #Monocytes 1.1 thou/uL (0.11-0.59); #Neutrophils 10.6 thou/uL (1.40-6.50); %Basophils 0.2 % (0.0-1.0); %Eosinophils 0.5 % (0.0-10.0); %Lymphocytes 11.3 % (21.0-51.0); %Monocytes 8.3 % (0.0-10.0); %Neutrophils 79.7 % (42.0-75.0); Mean Corpuscular HGB CONC 32.6 g/dL (32.0-36.0); Mean Corpuscular Hemoglobin 28.3 pg (27.0-31.0); Mean Platelet Volume 7.5 fL (7.4-10.4); Platelet Count 660 thou/uL (130-400); RBC Distribution Width 15.9 % (11.5-14.5); Red Blood Cell (RBC) Count 3.16 mill/uL (4.20-5.40); White Blood Cell (WBC) Count 13.2 thou/uL (4.8-10.8)
[2018-09-02 04:12] LABS: ALT (SGPT) 62 U/L (8-55); AST (SGOT) 63 U/L (5-34); Albumin 2.3 g/dL (3.5-5.0); Alkaline Phosphatase 156 U/L (40-150); Anion Gap 14 mmol/L (10-20); BUN (Urea Nitrogen) 43 mg/dL (9.8-20.1); Bilirubin, Total 0.3 mg/dL (0.2-1.2); Calc. Creatinine Clearance 205 mL/min (70-130); Calcium 8.4 mg/dL (7.8-10.44); Carbon Dioxide 24 mmol/L (22-29); Chloride 106 mmol/L (98-107); Estimated GFR-MDRD Greater than 90; Globulin 3.4 g/dL (2.4-3.5); Glucose 177 mg/dL (70-105); Phosphorus 4.4 mg/dL (2.3-4.7); Protein, Total 5.7 g/dL (6.0-8.3); Sodium 139 mmol/L (136-145)
[2018-09-02] MEDS: Insulin Regular 300 UNITS/3 ML VIAL SC PRN ×2 (04:30→17:00)
[2018-09-02] MEDS: MEROPENEM 1 GM/50 ML 1 GM in Premix Bag 1 BAG IVPB SCH ×3 (05:10→21:11)
[2018-09-02] MEDS: Vancomycin HCl 1 GM in Premix Bag 1 BAG IVPB SCH ×2 (05:10→17:50)
[2018-09-02] MEDS: fentaNYL Citrate/PF 2,000 MCG in Sodium Chloride 0.9% 60 ML IV SCH (05:14)
--- NOTE | 2018-09-02 08:28 | RAD ---
PORTABLE AP CHEST XRAY: DATE: 09/02/2018. HISTORY: On ventilator. Followup evaluation. COMPARISON: 09/01/2018. FINDINGS: The right subclavian central venous catheter, tracheostomy tube, and nasogastric tube remain in place and unchanged in position. There are diffuse increased interstitial and alveolar opacities througho ut the lungs bilaterally, but there has been improvement in aeration within the lungs bilaterally com pared to the prior exam. No other interval change. IMPRESSION: Persistent interstitial and alveolar opacities which have improved when compared to the prior exam. POS: [facility]
--- NOTE | 2018-09-02 08:39 | PRG ---
DATE OF SERVICE: 09/02/2018 She is a 53-year-old morbidly obese female status post trach, adult respiratory distress syndrome. X -ray shows some improvement, oxygenation is still pretty poor. I's & O's have been 3278 in, 2290 out . PHYSICAL EXAMINATION: VITAL SIGNS: Blood pressure 129/63, pulse 83, sats are 95%, respirations 20. CHEST: Chest revealed bilateral rhonchi and crackles. CARDIAC: Normal S1, S2, no gallops. ABDOMEN: Massive. EXTREMITIES: Trace edema. LABORATORY: BNP is 921, elevated. Albumin is 2.3. White count 13,000, platelet count is normal. IMPRESSION: 1. Abdominal sepsis. 2. Respiratory failure. 3. Adult respiratory distress syndrome. 4. Probably diastolic dysfunction. 5. Elevated beta natriuretic peptide. PLAN: Continue steroids, neb treatments, antibiotics, a trial of Diamox. She is still not weanable. Vent will be adjusted. One-half hour critical care time.
[2018-09-02] MEDS: Pantoprazole 40 MG VIAL IVP SCH ×2 (08:54→21:10)
[2018-09-02] MEDS: Enoxaparin Sodium 40 MG/0.4 ML SYRINGE SC SCH (08:55)
[2018-09-02] MEDS: acetaZOLAMIDE Sodium 500 mg Vial IVP SCH (08:59)
--- NOTE | 2018-09-02 08:59 | PRG ---
DATE OF SERVICE: 09/02/2018 Ms. Perdomo remains in the Intensive Care Unit, sedated on the ventilator. She is postoperative day #14 from her initial laparotomy with subtotal gastrectomy secondary to bleeding ulcer from her gastri c remnant. She is postoperative day #8 from repeat laparotomy with resection of a leaking gastrectom y staple line. She is postoperative day #3 from her tracheostomy. There have been no significant ch anges with her care in the Intensive Care Unit. Her chest x-ray today shows improvement in the appar ent adult respiratory distress syndrome. She continues to have a ventilator managed by Pulmonary. S he continues on 30% FiO2. She continues to tolerate tube feeds which are currently running at 30 mL per hour. She still requires fairly significant ongoing sedation. PHYSICAL EXAMINATION: VITAL SIGNS: She is afebrile with a temperature of 98.4. Pulse is regular at 84. Current blood pre ssure is 109/69. She has had no significant episodes of hypotension or hypertension. Urine output f or yesterday was 2600 mL. There is negligible output from her drains. LUNGS: Clear to auscultation anteriorly. CARDIAC: Regular rate and rhythm. ABDOMEN: Soft with no apparent tenderness. She has normoactive bowel sounds. Drain exit sites are clean and intact and the wound VAC is on the midline abdominal wound. LABORATORY STUDIES: Chemistry panel reveals normal electrolytes. Her potassium is trending upwards at 5.0. Her BUN is stable at 43 and her creatinine is normal at 0.6. Her blood sugars range from 15 0-170. Her transaminases have trended up slightly and both of them are 63 today. Bilirubin remains normal. Albumin is stable at 2.3. Her beta natriuretic peptide checked yesterday was 929. ASSESSMENT: She remains hemodynamically stable. She is tolerating tube feeds. She continues to rec eive antibiotics with micafungin, meropenem and vancomycin. Ventilator weaning is as per Kathrin gee. Hopefully, since her lungs appear to be improved on chest x-ray we will be able to begin wea ashlyn her in the near future. TPN will be discontinued today as we should be able to advance the tube feeds to 40 mL per hour and both of her drains will be removed as well.
[2018-09-02] MEDS: risperiDONE 0.25 MG TAB PO SCH ×2 (09:00→21:11)
--- NOTE | 2018-09-02 09:03 | PRG ---
DATE OF SERVICE: 09/01/2018 SUBJECTIVE: The patient seems to be improving with still a good quality of the output coming out of the drains. The FiO2 is down to 30 with minimal pressure support and the temperature curve is decreased to T-max 99 for the past 24 hours. BP 140/68 and pulse 91. I's and O's are slightly positive yesterday and now they are negative again, about the same amount and the SHELBIE output left side is 15 and the right side is 14, so they are steadily decreasing. OBJECTIVE: The exam shows symmetric air entry. S1, S2, regular rate. There is a central line, tracheostomy, nasoenteric tube and negative pressure dressing in the midline. She seems to be able to move all extremities. Does follow some commands. LABORATORY DATA: The white cell count is down to 13,000, hemoglobin 9, platelets 611,000 with 85% neutrophils. Bands are markedly down to 2%. Chemistry is not particularly remarkable. Albumin is 2.3. BNP is 921. No new microbiology information. IMAGING: The chest x-ray was okay except for congestive changes. ASSESSMENT AND DISCUSSION: Gastric bypass with ulcer in the gastric remnant and subsequent bleeding, inflammatory fluid collection peritonitis, treated with drainage. The patient is steadily improving and the inflammatory markers are clearly improving. She does have polymicrobial veda as expected from the drainage fluid. We will continue on broad spectrum coverage until there is resolution of inflammatory process and it seems that the source control has been achieved. MTDD
[2018-09-02] MEDS: Dextrose 5% in Water 1,000 ML IV SCH (11:00)
[2018-09-02] MEDS: Micafungin 100 MG in Sodium Chloride 0.9% 100 ML IVPB SCH (17:06)
[2018-09-02 17:44] LABS: Vancomycin, Trough 18.9 ug/mL
[2018-09-03] MEDS: Propofol 1,000 MG/100 ML VIAL IV PRN ×6 (01:22→21:22)
[2018-09-03] MEDS: fentaNYL Citrate/PF 2,000 MCG in Sodium Chloride 0.9% 60 ML IV SCH ×2 (02:02→22:02)
[2018-09-03] MEDS: Insulin Regular 300 UNITS/3 ML VIAL SC PRN ×2 (04:28→16:19)
[2018-09-03] MEDS: MEROPENEM 1 GM/50 ML 1 GM in Premix Bag 1 BAG IVPB SCH ×3 (05:07→21:22)
[2018-09-03 05:22] LABS: ALT (SGPT) 123 U/L (8-55); AST (SGOT) 83 U/L (5-34); Albumin 2.3 g/dL (3.5-5.0); Alkaline Phosphatase 174 U/L (40-150); Anion Gap 10 mmol/L (10-20); BUN (Urea Nitrogen) 46 mg/dL (9.8-20.1); Bilirubin, Total 0.4 mg/dL (0.2-1.2); Calc. Creatinine Clearance 181 mL/min (70-130); Calcium 8.2 mg/dL (7.8-10.44); Carbon Dioxide 24 mmol/L (22-29); Chloride 108 mmol/L (98-107); Estimated GFR-MDRD 90; Globulin 3.2 g/dL (2.4-3.5); Glucose 165 mg/dL (70-105); Potassium 4.8 mmol/L (3.5-5.1); Protein, Total 5.5 g/dL (6.0-8.3); Sodium 137 mmol/L (136-145)
[2018-09-03 05:34] LABS: #Eosinphils 0.1 thou/uL (0.0-0.7); #Lymphocytes 1.7 thou/uL (1.20-3.40); #Monocytes 1.2 thou/uL (0.11-0.59); #Neutrophils 10.9 thou/uL (1.40-6.50); %Basophils 0.3 % (0.0-1.0); %Eosinophils 0.6 % (0.0-10.0); %Lymphocytes 12.1 % (21.0-51.0); %Monocytes 8.8 % (0.0-10.0); %Neutrophils 78.1 % (42.0-75.0); Band 6 % (5-11); Hemoglobin 8.6 g/dL (12.0-16.0); Lymphocytes 13 % (21-51); MDiff Complete? YES; Mean Corpuscular HGB CONC 31.5 g/dL (32.0-36.0); Mean Corpuscular Hemoglobin 27.9 pg (27.0-31.0); Mean Corpuscular Volume 88.5 fL (78.0-98.0); Mean Platelet Volume 7.8 fL (7.4-10.4); Monocytes 2 % (0-10); Neutrophil 79 % (42-75); PLT Morphology Comment Appears Increased; Platelet Count 702 thou/uL (130-400); RBC Distribution Width 15.7 % (11.5-14.5); RBC Morphology Normal; Red Blood Cell (RBC) Count 3.08 mill/uL (4.20-5.40); White Blood Cell (WBC) Count 13.9 thou/uL (4.8-10.8)
[2018-09-03] MEDS: Vancomycin HCl 1 GM in Premix Bag 1 BAG IVPB SCH ×2 (05:50→18:15)
[2018-09-03 06:29] LABS: Actual Bicarbonate (HCO3a) 20.9 mEq/L (22-28); Base Excess (BEa) -3.6 mEq/L (-2.0 to +3.0); CO2 Tension 35.1 mmHg (35.0-45.0); Calcium, Ionized 1.15 mmol/L (1.12-1.30); O2 Tension (PaO2) 97.7 mmHg (80.0-100.0); Potassium - ABG Lab 4.29 mmol/L (3.70-5.30); Puncture Site RRA; pH, Arterial 7.39 (7.35-7.45)
[2018-09-03 06:30] LABS: ALV-art Gradient 72.325 (0-20)
[2018-09-03] MEDS ORDERED: Sterile Water 10 ML ONE (09:36)
[2018-09-03] MEDS: acetaZOLAMIDE Sodium 500 mg Vial IVP SCH (09:38)
[2018-09-03] MEDS: Enoxaparin Sodium 40 MG/0.4 ML SYRINGE SC SCH (09:38)
[2018-09-03] MEDS: Pantoprazole 40 MG VIAL IVP SCH ×2 (09:38→20:04)
[2018-09-03] MEDS: risperiDONE 0.25 MG TAB PO SCH ×2 (09:53→20:04)
--- NOTE | 2018-09-03 09:58 | RAD ---
FRONTAL VIEW CHEST: COMPARISON: Previous day. INDICATION: Ventilated patient followup. FINDINGS: Supportive lines and tubes are grossly similar. There are extrinsic artifacts limiting detail. Diff use bilateral opacification remains. IMPRESSION: Stable chest. POS: [facility]
--- NOTE | 2018-09-03 12:22 | PRG ---
DATE OF SERVICE: 09/03/2018 SUBJECTIVE: The patient apparently is stable. No changes per the nurse. She is tolerating her tube feedings well. She has had a bowel movement. PHYSICAL EXAMINATION: VITAL SIGNS: Her pulse is 80, blood pressure 113/60, she is afebrile. GENERAL: She is sedated on the vent. She got tube feedings going in through her NG tube. ABDOMEN: Obese, soft. She has got a wound VAC in the midline. LABORATORY DATA: Her white count is 13.9, H and H 8.6 and 27, platelet count 702. ASSESSMENT: She is stable. PLAN: Continue critical care.
[2018-09-03] MEDS: Dextrose 5% in Water 1,000 ML IV SCH (12:32)
--- NOTE | 2018-09-03 13:58 | PRG ---
DATE OF SERVICE: 09/03/2018 SUBJECTIVE: Remains intubated on the vent, sedated. X-ray still shows pretty impressive bilateral i nfiltrates. OBJECTIVE: VITAL SIGNS: Sats are 100% today on a bilevel, PEEP of 10; pulse 82; blood pressure is 97/52; respir ations 15. I's and O's have been 3890 out. CHEST: Reveals bilateral rhonchi and crackles. CARDIAC: Sinus tachycardia. ABDOMEN: Soft, no masses. LABORATORY DATA: Her pO2 is 97, pCO2 is , rate of 18, 30%. White count 13,000, H and H 8 and 27, platelet count 72. IMPRESSION: 1. Abdominal sepsis. 2. Respiratory failure, probably some element of fluid overload. 3. Acute respiratory distress syndrome. PLAN: Continue to wean slowly. Minimize sedation. PT and supportive care. [id number] critical care time.
[2018-09-03] MEDS: Micafungin 100 MG in Sodium Chloride 0.9% 100 ML IVPB SCH (17:14)
[2018-09-04] MEDS: Propofol 1,000 MG/100 ML VIAL IV PRN ×3 (02:50→17:33)
[2018-09-04 05:01] LABS: #Eosinphils 0.1 thou/uL (0.0-0.7); #Lymphocytes 2.1 thou/uL (1.20-3.40); #Monocytes 1.8 thou/uL (0.11-0.59); %Basophils 0.3 % (0.0-1.0); %Eosinophils 0.6 % (0.0-10.0); %Lymphocytes 13.9 % (21.0-51.0); %Neutrophils 73.2 % (42.0-75.0); Hemoglobin 8.9 g/dL (12.0-16.0); Mean Corpuscular Hemoglobin 28.1 pg (27.0-31.0); Mean Corpuscular Volume 87.9 fL (78.0-98.0); Mean Platelet Volume 7.6 fL (7.4-10.4); Platelet Count 726 thou/uL (130-400); Red Blood Cell (RBC) Count 3.17 mill/uL (4.20-5.40); White Blood Cell (WBC) Count 15.1 thou/uL (4.8-10.8)
[2018-09-04 05:07] LABS: ALT (SGPT) 112 U/L (8-55); AST (SGOT) 45 U/L (5-34); Albumin 2.5 g/dL (3.5-5.0); Alkaline Phosphatase 190 U/L (40-150); Anion Gap 9 mmol/L (10-20); BUN (Urea Nitrogen) 40 mg/dL (9.8-20.1); Bilirubin, Total 0.4 mg/dL (0.2-1.2); Calc. Creatinine Clearance 179 mL/min (70-130); Calcium 8.1 mg/dL (7.8-10.44); Carbon Dioxide 23 mmol/L (22-29); Chloride 111 mmol/L (98-107); Estimated GFR-MDRD 90; Globulin 3.2 g/dL (2.4-3.5); Glucose 146 mg/dL (70-105); Potassium 4.2 mmol/L (3.5-5.1); Protein, Total 5.7 g/dL (6.0-8.3); Sodium 139 mmol/L (136-145)
[2018-09-04] MEDS: Vancomycin HCl 1 GM in Premix Bag 1 BAG IVPB SCH ×2 (05:09→17:33)
[2018-09-04 06:28] LABS: Actual Bicarbonate (HCO3a) 19.1 mEq/L (22-28); Base Excess (BEa) -4.8 mEq/L (-2.0 to +3.0); CO2 Tension 31.2 mmHg (35.0-45.0); Calcium, Ionized 1.18 mmol/L (1.12-1.30); Hemoglobin (Hb) 9.7 g/dL (12.0-16.0); O2 Tension (PaO2) 77.2 mmHg (80.0-100.0); Potassium - ABG Lab 3.73 mmol/L (3.70-5.30); pH, Arterial 7.41 (7.35-7.45)
[2018-09-04 06:33] LABS: Puncture Site RRA
[2018-09-04] MEDS: Pantoprazole 40 MG VIAL IVP SCH ×2 (08:14→20:17)
[2018-09-04] MEDS: Enoxaparin Sodium 40 MG/0.4 ML SYRINGE SC SCH (08:14)
[2018-09-04] MEDS: risperiDONE 0.25 MG TAB PO SCH ×2 (08:14→20:16)
[2018-09-04] MEDS: acetaZOLAMIDE Sodium 500 mg Vial IVP SCH (08:14)
--- NOTE | 2018-09-04 09:57 | PRG ---
DATE OF SERVICE: 09/04/2018 SUBJECTIVE: The patient is starting to wake up a little bit, still very weak. She is starting to pa ss flatus. OBJECTIVE: VITAL SIGNS: She is afebrile, pulse is 88, blood pressure 106/55, 98% sat. She has good urine outpu t and her edema is better. ABDOMEN: Soft, nondistended, nontender. LABORATORY DATA: White count 13.9, hemoglobin and hematocrit of 8.6 and 27, platelet count of 702. Electrolytes showed chloride is elevated at 111, BUN of 40, glucose of 146, LFTs have come down a lit tle, her AST is 45, ALT of 112, alkaline phosphatase 190. ASSESSMENT: Improved. PLAN: Per Dr. Lea.
[2018-09-04] MEDS: Dextrose 5% in Water 1,000 ML IV SCH (10:53)
--- NOTE | 2018-09-04 11:00 | RAD ---
FRONTAL VIEW CHEST: COMPARISON: Previous day. INDICATION: Ventilated patient, followup. FINDINGS: Supportive lines and tubes are stable. Diffuse bilateral pulmonary parenchymal opacification remains . No significant interval change. IMPRESSION: 1. Stable chest. 2. Persistent bilateral pulmonary parenchymal opacities remain which may relate to edema and/or pneu monitis. Recommend continued imaging followup. POS: [facility]
--- NOTE | 2018-09-04 12:28 | PRG ---
DATE OF SERVICE: 09/04/2018 SUBJECTIVE: This morning, she is awake, alert, responsive. She is less encephalopathic, less agitat ed. She was extubated. X-ray shows improvement in the CHF. She is being dialyzed. PHYSICAL EXAMINATION: VITAL SIGNS: Blood pressure is 170/70, pulse 105, respiration rate 18, sats 98%. CHEST: No wheezing. CARDIAC: Normal S1 and S2. No gallops. ABDOMEN: Without mass. LABORATORY DATA: White count 13,000, hemoglobin and hematocrit 9 and 30, platelet count is normal. Electrolytes are normal and creatinine 5.9. IMPRESSION: Respiratory failure, encephalopathy, possibly urinary tract infection. PLAN: Continue dialysis, continue p.r.n. Haldol for encephalopathy. We will follow.
--- NOTE | 2018-09-04 12:29 | PRG ---
DATE OF SERVICE: 09/04/2018 SUBJECTIVE: This morning, she is slightly more responsive. Sedation is being gradually weaned off, low dose fentanyl, off Diprivan. She is on risperidone 1 mg twice a day, much more calm and no longe r agitated. OBJECTIVE: VITAL SIGNS: Respirations 25, pulse 92, blood pressure 142/80, sats 90%. CHEST: Decreased breath sounds without any wheezing. CARDIAC: Normal S1, S2. No gallops. ABDOMEN: Soft. No masses. X-RAY FINDINGS: X-ray shows ARDS. LABORATORY DATA: Shows BUN and creatinine normal. Bicarbonate is 23. PO2 is 77, pCO2 on a ra te of 16. White count is 15,000, H&H is 9 and 27, platelet count normal. IMPRESSION: Abdominal sepsis, respiratory failure, acute respiratory distress syndrome, encephalopat hy. PLAN: Continue present treatment. Probably start decreasing the risperidone tomorrow to 0.5 twice a day. Otherwise, nutrition as per Surgery, antibiotics as per Infectious Disease. Continue steroids for ARDS. One-half hour critical care time.
[2018-09-04] MEDS: Insulin Regular 300 UNITS/3 ML VIAL SC PRN (15:53)
[2018-09-04] MEDS: Micafungin 100 MG in Sodium Chloride 0.9% 100 ML IVPB SCH (19:25)
[2018-09-05] MEDS: fentaNYL Citrate/PF 2,000 MCG in Sodium Chloride 0.9% 60 ML IV SCH (04:27)
[2018-09-05 05:35] LABS: ALT (SGPT) 81 U/L (8-55); AST (SGOT) 28 U/L (5-34); Albumin 2.6 g/dL (3.5-5.0); Alkaline Phosphatase 189 U/L (40-150); Anion Gap 11 mmol/L (10-20); BUN (Urea Nitrogen) 34 mg/dL (9.8-20.1); Bilirubin, Total 0.3 mg/dL (0.2-1.2); Calc. Creatinine Clearance 179 mL/min (70-130); Calcium 8.2 mg/dL (7.8-10.44); Carbon Dioxide 20 mmol/L (22-29); Chloride 114 mmol/L (98-107); Estimated GFR-MDRD Greater than 90; Globulin 3.2 g/dL (2.4-3.5); Glucose 163 mg/dL (70-105); Potassium 3.7 mmol/L (3.5-5.1); Protein, Total 5.8 g/dL (6.0-8.3); Sodium 141 mmol/L (136-145)
[2018-09-05 06:08] LABS: #Basophils 0.1 thou/uL (0.0-0.2); #Eosinphils 0.1 thou/uL (0.0-0.7); #Lymphocytes 1.9 thou/uL (1.20-3.40); #Monocytes 1.5 thou/uL (0.11-0.59); #Neutrophils 12.7 thou/uL (1.40-6.50); %Basophils 0.4 % (0.0-1.0); %Eosinophils 0.8 % (0.0-10.0); %Lymphocytes 11.6 % (21.0-51.0); %Monocytes 9.1 % (0.0-10.0); %Neutrophils 78.2 % (42.0-75.0); Hemoglobin 9.2 g/dL (12.0-16.0); Hypochromia SLIGHT = 6-15 cells (100X) (0-5/hpf); Lymphocytes 16 % (21-51); MDiff Complete? YES; Mean Corpuscular HGB CONC 31.5 g/dL (32.0-36.0); Mean Corpuscular Hemoglobin 27.7 pg (27.0-31.0); Mean Corpuscular Volume 87.9 fL (78.0-98.0); Mean Platelet Volume 7.4 fL (7.4-10.4); Monocytes 3 % (0-10); Neutrophil 81 % (42-75); PLT Morphology Comment Appears Increased; Platelet Count 702 thou/uL (130-400); RBC Distribution Width 16.3 % (11.5-14.5); White Blood Cell (WBC) Count 16.2 thou/uL (4.8-10.8)
[2018-09-05] MEDS: Vancomycin HCl 1 GM in Premix Bag 1 BAG IVPB SCH (06:08)
[2018-09-05] MEDS: Propofol 1,000 MG/100 ML VIAL IV PRN ×2 (06:09→22:47)
[2018-09-05 07:24] LABS: Actual Bicarbonate (HCO3a) 18.3 mEq/L (22-28); Base Excess (BEa) -5.6 mEq/L (-2.0 to +3.0); Carboxyhemoglobin (COHb) 1.1 gm% (0.0-3.0); Hemoglobin (Hb) 9.2 g/dL (12.0-16.0); O2 Tension (PaO2) 97.5 mmHg (80.0-100.0); Potassium - ABG Lab 3.55 mmol/L (3.70-5.30)
[2018-09-05 07:29] LABS: Puncture Site LR
--- NOTE | 2018-09-05 07:47 | PRG ---
DATE OF SERVICE: 09/05/2018 HISTORY OF PRESENT ILLNESS: The patient remains mechanically ventilated through a tracheostomy, marita cyndie, fed by NG tube feeds. Vital signs regarding pulse and temperature remained stable over the week end. The patient remains catheterized with a Dobbins catheter with good urine output. The patient flu id negative over 4 pounds over the weekend with diuresis to aid with pulmonary congestion. The patie nt is unable to give additional history. No acute events reported per nursing staff. LABORATORY DATA: White blood cell count of 16.2, hemoglobin 9.2, platelet count of 703. Neutrophil percent 78, bands 12. Sodium 141, potassium of 3.7, chloride of 114, CO2 of 20, BUN of 34, creatinin e of 0.67, glucose of 116-163 in the last 24 hours. AST of 28, ALT 81, alkaline phosphatase of 189, albumin of 2.6. Last vancomycin trough 09/02/2018 was 18.9. No further transfusions over the weeken d. Chest x-ray yesterday 09/04/2018; pneumonitis versus pulmonary edema, stable. PHYSICAL EXAMINATION: VITAL SIGNS: Temperature of 98.3, pulse of 83, blood pressure 136/81, oxygen saturation 99% on 30% F iO2. GENERAL: The patient is intubated, sedated, responding to light stimuli. Moving all extremities. N G tube in place. Tracheostomy in place. Wound VAC in place. HEART: Regular rate and rhythm. No murmurs auscultated. LUNGS: With coarse bronchial breath sounds bilaterally, diminished at bases. ABDOMEN: With positive bowel sounds. EXTREMITIES: Lower extremities without cyanosis or edema, 2+ dorsalis pedis pulses bilaterally. ASSESSMENT AND PLAN: Respiratory failure secondary to prior sepsis. The patient no longer meeting s epsis criteria. The patient is maintained deep venous thrombosis prophylaxis. Lovenox 40 mg and GI prophylaxis with Protonix 40 mg IV b.i.d. The patient with improved agitation with risperidone. Pul monology plans to attempt to wean to 0.5 b.i.d. The patient is maintained on vancomycin, micafungin, sliding scale insulin, methylprednisolone 20 mg IV b.i.d., meropenem discontinued on the . The patient has no further fevers or tachycardia since, appears to be battling possible adult respiratory distress syndrome per Pulmonary's note. The patient did have elevated BNP; however, echo over a wee k ago now showed preserved systolic ejection fraction. The patient was treated with a diuretic trial again following Lasix and to Diamox, does not appear to be on diuretics this a.m., but did have good diuresis over the weekend. The patient continues with some element of metabolic encephalopathy; how ever, course is improving. The patient made slow progress. We will default to Pulmonary for any rec ommendations for weaning. The patient is stable from a surgical standpoint, wound VAC in place to he lp secondary healing of the exploratory laparotomy incision. The patient appears to be tolerating fe eds well. Once the patient appears to be a candidate for transition towards [facility], would cons ider initiating rehab referral.
[2018-09-05] MEDS: Enoxaparin Sodium 40 MG/0.4 ML SYRINGE SC SCH (09:34)
[2018-09-05] MEDS: acetaZOLAMIDE Sodium 500 mg Vial IVP SCH (09:35)
[2018-09-05] MEDS: Pantoprazole 40 MG VIAL IVP SCH ×2 (09:35→21:10)
--- NOTE | 2018-09-05 09:35 | RAD ---
AP VIEW CHEST: Date: 09/05/18 HISTORY: Ventilator-dependent patient. FINDINGS: Comparison made to previous exam from 09/04/18. AP view of chest demonstrates tracheostomy tube in place. Nasogastric tube is in place. There is a ri ght subclavian central line, distal tip overlying right atrium. Pulmonary vascular congestion seen. D iffuse bilateral air space opacities seen. No evidence of pleural effusions or pneumothorax. IMPRESSION: Stable AP view of chest with pulmonary vascular congestion and diffuse air space opacities seen bilat erally. No significant interval change is seen since the previous exam from 1 day earlier. POS: [facility]
[2018-09-05] MEDS: risperiDONE 0.25 MG TAB PO SCH ×2 (09:47→21:10)
--- NOTE | 2018-09-05 10:04 | PRG ---
DATE OF SERVICE: 09/05/2018 Ms. Perdomo remains in the Intensive Care Unit on the ventilator per her tracheostomy. She is still sedated with propofol. She is postoperative day #17 from her initial laparotomy with subtotal gastre ctomy and postoperative day #11 for repeat laparotomy with resection of a leaking gastrectomy staple line. She is postoperative day #6 from her tracheostomy. There appeared to have been no significant changes with her care over the weekend. It appears that h er meropenem was discontinued and she is now on micafungin and vancomycin. She continues to tolerate her tube feeds and apparently had a couple of bowel movements yesterday. She is still on significan t sedation and remains on 30% FiO2 per her ventilator. PHYSICAL EXAMINATION: VITAL SIGNS: She remains afebrile. Her maximum temperature has been 98.6 over the past couple of da ys. Pulse is currently 78 and regular, blood pressure is 123/65, oxygen saturation is 100% on 30% Fi O2. Her urine output yesterday was 3900 mL. LUNGS: Clear to auscultation anteriorly. CARDIAC: Regular rate and rhythm. ABDOMEN: Soft. A wound VAC is in her midline abdominal wound. She has excellent normoactive bowel sounds. There is no drainage from either drain site that I can see. LABORATORY STUDIES: Her hemoglobin level remained stable at 9.2, white blood cell count is trending upwards of 16.2. Platelet count is elevated at 702. Chemistry reveals that her chloride is elevated at 114, CO2 was low at 20. Creatinine remained stable at 0.67. Blood sugars remain slightly elevat ed about 150-160. Liver function test show slight improvement and her albumin level is rising a gopi le bit at 2.6. X-RAYS: Her chest x-ray reveals continued changes typical of adult respiratory distress syndrome. A ll lines appeared to be intact. ASSESSMENT AND PLAN: The patient remains hemodynamically stable following a couple of laparotomies. Her only current concern is her respiratory failure. Her ABG from today shows significantly improve d oxygenation with a pO2 of 97.5. Hopefully, she will be able to wean from her sedation on the venti lator dependence over the next few days. This will be per Pulmonary.
[2018-09-05] MEDS: Lorazepam 2 MG/ML VIAL SLOW IVP PRN (13:39)
--- NOTE | 2018-09-05 13:52 | PRG ---
DATE OF SERVICE: 09/05/2018 Tracheostomy, intubated with FIO2 of 30. PHYSICAL EXAMINATION: VITAL SIGNS: Vital signs show a normal temperature, BP 106/66, pulse 79, I's and O's have been negat ricardo for the past few days. SHELBIE with 0 output. HEENT: Ocular movements are open. She does not seem to establish eye contact. Pupils are equal. NECK: Supple. LUNGS: Symmetric air entry. ABDOMEN: The abdomen with drains in the midline, negative pressure dressing. LABORATORY DATA: White cell count 16,000, hemoglobin 9.2, platelets 702. Creatinine 0.67, ALT 81, w hich is decreasing. AST has normalized at this time. Alkaline phosphatase is down to 189. No new m icrobiology information. Chest x-ray with stable view, diffuse airspace opacities. 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 Thi s corresponds with a 12-day of antimicrobial therapy and I believe we have adequate source control an d we should be able to discontinue antimicrobials. She still has leukocytosis with now normalized ba nd percentage. It is probably secondary to the methylprednisolone administered. We will go ahead an d discontinue antimicrobial therapy at this point in time.
[2018-09-05 14:15] LABS: Actual Bicarbonate (HCO3a) 18.5 mEq/L (22-28); Base Excess (BEa) -3.6 mEq/L (-2.0 to +3.0); Calcium, Ionized 1.19 mmol/L (1.12-1.30); Carboxyhemoglobin (COHb) 0.8 gm% (0.0-3.0); Hemoglobin (Hb) 11.1 g/dL (12.0-16.0); O2 Tension (PaO2) 72.5 mmHg (80.0-100.0); Potassium - ABG Lab 3.25 mmol/L (3.70-5.30); pH, Arterial 7.49 (7.35-7.45)
[2018-09-05 14:16] LABS: Puncture Site LR
--- NOTE | 2018-09-05 15:02 | PRG ---
DATE OF SERVICE: 09/05/2018 SUBJECTIVE: Ms. Perdomo has made very little progress in the last week. Course has been reviewed. She is still encephalopathic, but I am told she is better than she was last week. OBJECTIVE: VITALS: Blood pressure 106/66, heart rate 79, respiratory rates in the low 20s to 30. LUNGS: She has mild rhonchi bilaterally. HEART: Regular rhythm. ABDOMEN: Soft, distended. LABORATORY DATA: White count is 15.1, hemoglobin 8.9, platelets essentially unchanged. Sodium 141, potassium 3.7, chloride 114, bicarbonate 20, BUN 34, creatinine 0.67. PH 7.9, CO2 of 25, pO2 of 72. She is on bilevel 27/5 with mechanical rate of 10. Blood cultures from the did not grow any bacteria. Multiple organisms and yeast grew out of her abscess drainage. IMPRESSION: 1. Status post presentation with acute GI bleed requiring emergent surgery. 2. Intraabdominal abscess, status post drainage and repeat exploration and washout. 3. Extreme deconditioning, that was an issue prior to this admission. PLAN: Continue slow weaning. At some point, she will need an evaluation for long-term acute care. I would not anticipate that she will wean quickly from mechanical ventilation. SHASHA
[2018-09-05] MEDS: Dextrose 5% in Water 1,000 ML IV SCH (17:54)
[2018-09-06] MEDS: Lorazepam 2 MG/ML VIAL SLOW IVP PRN (00:42)
[2018-09-06] MEDS: Propofol 1,000 MG/100 ML VIAL IV PRN (04:21)
[2018-09-06 04:37] LABS: #Basophils 0.1 thou/uL (0.0-0.2); #Eosinphils 0.1 thou/uL (0.0-0.7); #Monocytes 1.1 thou/uL (0.11-0.59); #Neutrophils 13.5 thou/uL (1.40-6.50); %Basophils 0.3 % (0.0-1.0); %Eosinophils 0.4 % (0.0-10.0); %Lymphocytes 6.5 % (21.0-51.0); %Monocytes 7.1 % (0.0-10.0); %Neutrophils 85.7 % (42.0-75.0); Hemoglobin 8.6 g/dL (12.0-16.0); Mean Corpuscular Hemoglobin 28.2 pg (27.0-31.0); Mean Corpuscular Volume 88.1 fL (78.0-98.0); Mean Platelet Volume 7.6 fL (7.4-10.4); Platelet Count 599 thou/uL (130-400); RBC Distribution Width 16.2 % (11.5-14.5); Red Blood Cell (RBC) Count 3.07 mill/uL (4.20-5.40); White Blood Cell (WBC) Count 15.8 thou/uL (4.8-10.8)
[2018-09-06 05:06] LABS: ALT (SGPT) 57 U/L (8-55); AST (SGOT) 20 U/L (5-34); Albumin 2.5 g/dL (3.5-5.0); Alkaline Phosphatase 172 U/L (40-150); Anion Gap 12 mmol/L (10-20); BUN (Urea Nitrogen) 29 mg/dL (9.8-20.1); Bilirubin, Total 0.4 mg/dL (0.2-1.2); Calc. Creatinine Clearance 183 mL/min (70-130); Carbon Dioxide 18 mmol/L (22-29); Chloride 113 mmol/L (98-107); Estimated GFR-MDRD Greater than 90; Globulin 2.9 g/dL (2.4-3.5); Glucose 176 mg/dL (70-105); Potassium 3.4 mmol/L (3.5-5.1); Protein, Total 5.4 g/dL (6.0-8.3); Sodium 140 mmol/L (136-145)
[2018-09-06] MEDS: Insulin Regular 300 UNITS/3 ML VIAL SC PRN ×2 (05:54→22:18)
[2018-09-06 07:19] LABS: Actual Bicarbonate (HCO3a) 18.6 mEq/L (22-28); Base Excess (BEa) -5.6 mEq/L (-2.0 to +3.0); CO2 Tension 31.3 mmHg (35.0-45.0); Carboxyhemoglobin (COHb) 1.2 gm% (0.0-3.0); Hemoglobin (Hb) 9.2 g/dL (12.0-16.0); O2 Tension (PaO2) 99.9 mmHg (80.0-100.0); Potassium - ABG Lab 3.49 mmol/L (3.70-5.30); pH, Arterial 7.39 (7.35-7.45)
[2018-09-06 07:23] LABS: ALV-art Gradient 74.875 (0-20); Puncture Site RB
[2018-09-06] MEDS ORDERED: CCU Electrolyte Replacement 1 EACH FS ONE (07:33)
[2018-09-06] MEDS: Enoxaparin Sodium 40 MG/0.4 ML SYRINGE SC SCH (09:18)
[2018-09-06] MEDS: Pantoprazole 40 MG VIAL IVP SCH ×2 (09:18→21:58)
[2018-09-06] MEDS: risperiDONE 0.25 MG TAB PO SCH ×2 (09:18→21:58)
--- NOTE | 2018-09-06 09:42 | RAD ---
PORTABLE CHEST: History: Dyspnea. Ventilator. CCU follow up. Comparison: 09-05-18 FINDINGS/IMPRESSION: Heart size is upper normal. Diffuse vascular and interstitial congestion suggests edema. No consolida tion or significant effusion. No significant change from yesterday. POS: [facility]
--- NOTE | 2018-09-06 11:17 | PRG ---
DATE OF SERVICE: 09/06/2018 SUBJECTIVE: Ms. Perdomo remains in the intensive care unit on the ventilator per her tracheostomy. Her sedation has been weaned and she is currently off propofol and only on fentanyl. She is somewhat more responsive than she formerly was. There is no significant interaction, but she does seem to re cognize me and smiles and reportedly follows some commands. She is postoperative day #18 from her in itial laparotomy with subtotal gastrectomy on postoperative day #12 from repeat laparotomy with resec tion of leaking gastrectomy staple line. She is postoperative day #7 from her tracheostomy. There have been no significant changes with her care in the last 24 hours. She tolerated tube feeds. She has had 2 large liquid bowel movements already this morning. Her ventilator settings have been decreased and she is only on an IMV rate of 8 currently. PHYSICAL EXAMINATION: VITAL SIGNS: She is afebrile, but with a maximum temperature of 100.2 last ni ght. Her pulse has varied from 76 up to 112. Her heart rate goes up when she coughs or suction. Bl ood pressure is currently 154/94. Her urine output was 2 liters yesterday. LABORATORY STUDIES: Her white blood cell count is 15.8 and relatively stable, hemoglobin is 8.6, maisha telet count 599. Chemistries reveal potassium is a little low at 3.4, CO2 is little low at 18. Hoa l function is stable. Her chest reveal slow resolution of the ARDS changes. ASSESSMENT AND PLAN: She is relatively stable, but making slow progress. She is slowly being weaned from the ventilator by Dr. Mathur. Dr. Ozuna discontinued the antimicrobials yesterday. She is no l onger on her meropenem, vancomycin, or micafungin. There are no substantial changes to be made at th is point. Continue with nutrition and weaning the ventilator. She continues to have wound care with a wound VAC of her midline abdominal wound.
[2018-09-06] MEDS: Dextrose 5% in Water 1,000 ML IV SCH (14:11)
--- NOTE | 2018-09-06 14:45 | PRG ---
DATE OF SERVICE: 09/06/2018 SUBJECTIVE: Ms. Perdomo is somnolent. We switched her off bilevel ventilation back to volume ventil ation today. OBJECTIVE: VITAL SIGNS: Respiratory rates in the 20s, blood pressure is 118/75, heart rates 102. LUNGS: Remarkable for mild rhonchi anteriorly. HEART: Regular rhythm. ABDOMEN: Soft and nontender. EXTREMITIES: Without asymmetry. She moves all extremities spontaneously. LABORATORY DATA: White count 15.8, hemoglobin 8.6, platelets 599. Sodium 140, potassium 3.4, chlori de 113, bicarbonate 18, BUN 29, creatinine 0.65, pH 7.39, CO2 of 31, pO2 of 99. IMPRESSION: Respiratory failure secondary to several laparotomies starting with a gastrointestinal b leed and then followed by percutaneous drainage of an abscess, then abdominal washout. Because of a peripheral neuropathy, she had severe deconditioning prior to all this. We will try swi tching her to Precedex, wean her off the propofol and work towards getting her to a trach collar. Critical care time was 30 minutes.
--- NOTE | 2018-09-06 15:02 | PRG ---
DATE OF SERVICE: 09/06/2018 HISTORY OF PRESENT ILLNESS: Nursing staff reports no interval concerns overnight. Per Dr. Ozuna' recommendation, we discontinued antibiotics Leukocytosis likely secondary to steroid use. The patient has successfully diuresed over the weekend and is possibly eligible for a slow weaning process per Pulmonology note. The patient has had no further reported bleeds, tolerating tube feeds well. Wound VAC without issues reportedly. Pulse of 92, blood pressure 135/85, respiratory rate of 30, oxygen saturation 94%, mechanically ventilated via tracheostomy. LABORATORY DATA: White blood cell count 15.8, hemoglobin of 8.6, platelet count of 599. Neutrophil percent 85. Sodium 140, potassium 3.4, CO2 of 18, BUN of 29, creatinine 0.65, blood glucose 95-176 range in last 12 hours. Albumin of 2.5. Chest x-ray continue to have signs of pulmonary congestion such as edema. No interval changes. Nursing staff performing rectal tube change. Limited exam available. Patient mechanically ventilated via tracheostomy and sedated, unable to give ancillary history. No family at bedside or in waiting room. PHYSICAL EXAM: GEN: sedated, not agitated HEENT: NGT inplace, sclera white NECK: tracheostomy inplace w/ventilation support ABDOMEN: wound vac intact EXTREMITIES: no cyanosis or edema Neurologic: moving all ext to stimuli, unable to asses orientation. ASSESSMENT AND PLAN: Status post removal of gastric remnant secondary to gastrointestinal bleed, appears stable. Patient currently tolerating feeds. Respiratory failure exacerbated by pulmonary edema, deconditioning instigated by sepsis with metabolic encephalopathy. Patient's course is improving. Wean ventilator as per Pulmonology's recommendations. Regarding sepsis profile, Dr. Ozuna following with Infectious Disease, recommended to discontinue antibiotics after appropriate course. Will follow up for tachycardia and tachypnea and fevers. The patient is currently on Protonix IV b.i.d. and prophylactic Lovenox for DVT/PE. Once patient is successfully weaned to trach collar would be appropriate for rehabilitation discussions. SHASHA
[2018-09-07] MEDS: Insulin Regular 300 UNITS/3 ML VIAL SC PRN ×2 (04:40→16:17)
[2018-09-07 04:51] LABS: #Eosinphils 0.1 thou/uL (0.0-0.7); #Lymphocytes 1.1 thou/uL (1.20-3.40); #Neutrophils 11.1 thou/uL (1.40-6.50); %Basophils 0.3 % (0.0-1.0); %Eosinophils 0.7 % (0.0-10.0); %Lymphocytes 8.4 % (21.0-51.0); %Monocytes 7.2 % (0.0-10.0); %Neutrophils 83.4 % (42.0-75.0); Hemoglobin 8.4 g/dL (12.0-16.0); Mean Corpuscular Hemoglobin 28.1 pg (27.0-31.0); Mean Corpuscular Volume 87.9 fL (78.0-98.0); Mean Platelet Volume 7.7 fL (7.4-10.4); Platelet Count 559 thou/uL (130-400); RBC Distribution Width 15.9 % (11.5-14.5); Red Blood Cell (RBC) Count 2.98 mill/uL (4.20-5.40); White Blood Cell (WBC) Count 13.3 thou/uL (4.8-10.8)
[2018-09-07 05:15] LABS: ALT (SGPT) 42 U/L (8-55); AST (SGOT) 14 U/L (5-34); Albumin 2.6 g/dL (3.5-5.0); Alkaline Phosphatase 156 U/L (40-150); Anion Gap 12 mmol/L (10-20); BUN (Urea Nitrogen) 25 mg/dL (9.8-20.1); Bilirubin, Total 0.4 mg/dL (0.2-1.2); Calc. Creatinine Clearance 187 mL/min (70-130); Calcium 8.2 mg/dL (7.8-10.44); Carbon Dioxide 19 mmol/L (22-29); Chloride 113 mmol/L (98-107); Estimated GFR-MDRD Greater than 90; Globulin 3.1 g/dL (2.4-3.5); Glucose 174 mg/dL (70-105); Potassium 3.7 mmol/L (3.5-5.1); Protein, Total 5.7 g/dL (6.0-8.3); Sodium 140 mmol/L (136-145)
[2018-09-07] MEDS: risperiDONE 0.25 MG TAB PO SCH ×2 (09:46→20:55)
[2018-09-07] MEDS: Enoxaparin Sodium 40 MG/0.4 ML SYRINGE SC SCH (09:46)
[2018-09-07] MEDS: Pantoprazole 40 MG VIAL IVP SCH ×2 (09:46→20:55)
[2018-09-07] MEDS: Dextrose 5% in Water 1,000 ML IV SCH (10:45)
--- NOTE | 2018-09-07 15:44 | PRG ---
DATE OF SERVICE: 09/07/2018 Analia Perdomo will awaken and nod today. PHYSICAL EXAMINATION: VITAL SIGNS: She is not as tachypneic or agitated. Blood pressure 118/64, heart rate is 84, respira tory rate is in the 20s. LUNGS: Clear anteriorly. HEART: Regular rhythm. ABDOMEN: Soft and distended. EXTREMITIES: Without asymmetry. LABORATORY DATA: White count 13.3, hemoglobin 8.4, platelets 559. Sodium 140, potassium 3.7, chlor cathy 113, bicarbonate 19, BUN 25, creatinine 0.62. PH 7.39, CO2 of 31, pO2 of 99. We discontinued blood gases today. IMPRESSION: 1. Respiratory failure after multiple abdominal procedures, who presented with gastrointestinal blee ding. 2. 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 PLAN: Continue supportive care. We will decrease her IMV to 4. Hopefully tomorrow we can cut her r espiratory rate to just bilevel pressure support and then a trach collar. We will continue to follow with her in the Critical Care Unit. She will remain stable, but critically ill. Her intake and outputs negative 136 mL. Critical care time was 30 minutes.
--- NOTE | 2018-09-07 18:25 | PRG ---
DATE OF SERVICE: 09/07/2018 SUBJECTIVE: Ms. Perdomo remains ventilated in the Intensive Care Unit per her tracheostomy. She is waking up slowly while on the ventilator. She is postoperative day #19 from her initial laparotomy, postoperative day #13 from her second laparotomy, and postoperative day #8 from her tracheostomy. To day, she slowly follows commands, but not much. She continues to tolerate her tube feeds. Her venti lator is being weaned per Dr. Mathur. OBJECTIVE: VITAL SIGNS: Her temperature is 98.2. Her pulse is in the 80s and regular, blood pressure is 113/66 . LUNGS: Clear to auscultation. ABDOMEN: Soft with a wound VAC in her midline abdominal wound. Bowel sounds are present and normoac tive. Her urine output for yesterday was about 2 liters. She has had 1 bowel movement today. LABORATORY STUDIES: Her white blood cell count has dropped from 15.8 yesterday to 13.3 today. Her h emoglobin is relatively stable at 8.4 and her platelet count is dropping and currently 559. Her chem istry profile reveals mild electrolyte abnormalities. Her blood sugars were slightly elevated betwee n 127 and 174. Her albumin is slowly going up and is at 2.6 currently. ASSESSMENT: She seems to be stable following her abdominal surgeries. She is very deconditioned and is therefore very slowly weaning off the ventilator. She still appears to have some degree of encep halopathy and is waking up slowly after stopping all of her sedation. Continue care per Pulmonary Me burgos at this point.
--- NOTE | 2018-09-07 22:31 | PRG ---
DATE OF SERVICE: 09/07/2018 HISTORY OF PRESENT ILLNESS: The patient has undergone less sedation, is able to follow commands, kael etimes attempts to talk although tracheostomy preventing patient from verbalizing self. No further s igns of encephalopathy. On exam, family member at bedside verbalized understanding regarding efforts to diurese patient over the last several days to week along with steroid. They improved lung functi on. PHYSICAL EXAMINATION: VITAL SIGNS: Pulse of 80, respiratory rate 38, oxygen saturation 93%, mechanically ventilated via tr acheostomy. Blood pressure 106/59, temperature 98.7. Fluid balance negative 127. LABORATORY DATA: White blood cell count of 13.3, hemoglobin 8.4, blood glucose 127-174 last 16 hours . Sodium 140, potassium of 3.7, CO2 of 19, BUN of 25, creatinine 0.6, albumin of 2.6, total bilirubi n 0.4. PHYSICAL EXAMINATION: GENERAL: The patient is alert, mechanically ventilated via tracheostomy, NG tube in place with tube feeds running. HEENT: Normocephalic, atraumatic. Extraocular movements are intact. Sclerae are white. HEART: Regular rate and rhythm. No murmurs auscultated. LUNGS: Coarse bronchial breath sounds bilaterally. ABDOMEN: Soft. Wound VAC in place. Mildly tender in the left side per patient's wincing. Unable t o move bilateral upper and lower extremities on command with good strength. Dorsalis pedis pulses 2+ . No pitting edema to lower extremities. ASSESSMENT AND PLAN: Respiratory failure with pulmonary congestion and continuing to improve when pe r Pulmonology's recommendations, status post tracheostomy. The patient is stable regarding prior gas trointestinal bleed and exploratory gastric remnant removal. The patient's sepsis is resolved, metab olic encephalopathy resolved. Being fed via NG tube. On prophylaxis for DVT, PE on Lovenox and any further bleeding on proton pump inhibitor, IV Protonix b.i.d. Coming off antibiotic therapy. The pat ient remained afebrile and without tachycardia. Patient making slow progress.
[2018-09-08] MEDS: Insulin Regular 300 UNITS/3 ML VIAL SC PRN ×2 (04:37→17:15)
[2018-09-08 05:38] LABS: #Lymphocytes 1.2 thou/uL (1.20-3.40); #Monocytes 0.8 thou/uL (0.11-0.59); #Neutrophils 10.8 thou/uL (1.40-6.50); %Basophils 0.2 % (0.0-1.0); %Eosinophils 0.2 % (0.0-10.0); %Lymphocytes 9.2 % (21.0-51.0); %Monocytes 6.1 % (0.0-10.0); %Neutrophils 84.3 % (42.0-75.0); Hemoglobin 8.6 g/dL (12.0-16.0); Mean Corpuscular Hemoglobin 27.8 pg (27.0-31.0); Mean Corpuscular Volume 86.8 fL (78.0-98.0); Mean Platelet Volume 7.9 fL (7.4-10.4); Platelet Count 561 thou/uL (130-400); RBC Distribution Width 15.6 % (11.5-14.5); Red Blood Cell (RBC) Count 3.11 mill/uL (4.20-5.40); White Blood Cell (WBC) Count 12.8 thou/uL (4.8-10.8)
[2018-09-08 05:39] LABS: Anisocytosis SLIGHT = 6-15 cells (100X) (0-5/hpf); MDiff Complete? YES; Ovalocytes SLIGHT = 2-5 cells (100X) (0-1/hpf); PLT Morphology Comment Appears Increased
[2018-09-08 05:41] LABS: ALT (SGPT) 38 U/L (8-55); AST (SGOT) 17 U/L (5-34); Albumin 2.6 g/dL (3.5-5.0); Alkaline Phosphatase 157 U/L (40-150); Anion Gap 11 mmol/L (10-20); BUN (Urea Nitrogen) 23 mg/dL (9.8-20.1); Bilirubin, Total 0.4 mg/dL (0.2-1.2); Calc. Creatinine Clearance 189 mL/min (70-130); Calcium 8.3 mg/dL (7.8-10.44); Carbon Dioxide 22 mmol/L (22-29); Chloride 114 mmol/L (98-107); Estimated GFR-MDRD Greater than 90; Globulin 3.2 g/dL (2.4-3.5); Glucose 182 mg/dL (70-105); Potassium 3.7 mmol/L (3.5-5.1); Protein, Total 5.8 g/dL (6.0-8.3); Sodium 143 mmol/L (136-145)
[2018-09-08] MEDS: Enoxaparin Sodium 40 MG/0.4 ML SYRINGE SC SCH (08:59)
[2018-09-08] MEDS: Pantoprazole 40 MG VIAL IVP SCH ×2 (08:59→21:43)
[2018-09-08] MEDS: risperiDONE 0.25 MG TAB PO SCH ×2 (09:28→21:53)
[2018-09-08] MEDS: Dextrose 5% in Water 1,000 ML IV SCH (09:50)
--- NOTE | 2018-09-08 13:22 | PRG ---
DATE OF SERVICE: 09/08/2018 PHYSICAL EXAMINATION: VITAL SIGNS: Ms. Perdomo is afebrile. She is more alert. Her blood pressure 122/70, respiratory rates in the low 20s. LUNGS: Clear anteriorly. HEART: Regular rhythm. ABDOMEN: Soft. LABORATORY DATA: White count 12.8, hemoglobin 8.6, platelets 561. Sodium 143, potassium 3.7, chloride 114, bicarbonate 22, BUN 23, creatinine 0.62. Albumin is 2.6. IMPRESSION: 1. Respiratory failure associated with multiple laparotomies 2. Critical illness myopathy and deconditioning. 3. Deconditioning prior to this admission. 4. History of multiple abdominal weight loss surgeries. 5. Anemia associated with blood loss with this admission. PLAN: Discontinue volume ventilation. Switch her to pressure support of 5 and PEEP 5. I would recommend placing her on a trach collar in the morning. Critical care time is 35 minutes. MTDD
--- NOTE | 2018-09-08 13:47 | PRG ---
DATE OF SERVICE: 09/08/2018 HISTORY OF PRESENT ILLNESS: The patient remains alert while on mechanical ventilation through trache ostomy. She is able to nod head yes and no, participate in conversation, fully follow commands, even smiled today. The patient is being fed through NG tube, Dobbins catheter in place. Wound VAC in plac e to the abdomen. She has deep venous thrombosis prophylaxis with Lovenox 40 mg b.i.d. IV Protonix, sliding scale insulin. Risperidone for agitation, currently on Precedex for light sedation. Fluid balance negative 520, stable vital signs. No tachycardia or fevers. Respiratory rate around 30. LABORATORY DATA: White blood cell count 12.8, hemoglobin of 8.6. Sodium 143, potassium of 3.7, crea tinine 0.62, blood glucose range 120-182 the last 16 hours. Albumin of 2.6. PHYSICAL EXAMINATION: GENERAL: The patient is alert, responsive, following commands. NG tube in place. Tracheostomy in p lace, wound VAC in place. HEART: Regular rate and rhythm. No murmurs auscultated. LUNGS: Coarse bronchial breath sounds bilaterally, secretions causing mucous plugging affect. EXTREMITIES: Lower extremities without cyanosis or edema, 2+ dorsalis pedis pulses bilaterally. The patient moving all extremities equally. Not currently on restraints on minimal sedation. ASSESSMENT AND PLAN: Respiratory failure, deconditioning, open abdomen wound. Continuing current care, weaning per Pulmonology Services. Once the patient is successfully weaned, would be looking a candidate for transfer to rehab. We will continue to follow.
[2018-09-09 05:26] LABS: #Eosinphils 0.1 thou/uL (0.0-0.7); #Lymphocytes 1.2 thou/uL (1.20-3.40); #Monocytes 0.8 thou/uL (0.11-0.59); %Basophils 0.3 % (0.0-1.0); %Eosinophils 0.4 % (0.0-10.0); %Lymphocytes 9.1 % (21.0-51.0); %Monocytes 5.9 % (0.0-10.0); %Neutrophils 84.3 % (42.0-75.0); Mean Corpuscular HGB CONC 32.1 g/dL (32.0-36.0); Mean Corpuscular Hemoglobin 27.8 pg (27.0-31.0); Mean Corpuscular Volume 86.5 fL (78.0-98.0); Mean Platelet Volume 7.4 fL (7.4-10.4); Platelet Count 530 thou/uL (130-400); RBC Distribution Width 15.4 % (11.5-14.5); Red Blood Cell (RBC) Count 3.24 mill/uL (4.20-5.40)
[2018-09-09 05:49] LABS: ALT (SGPT) 49 U/L (8-55); AST (SGOT) 25 U/L (5-34); Albumin 2.8 g/dL (3.5-5.0); Alkaline Phosphatase 165 U/L (40-150); Anion Gap 12 mmol/L (10-20); BUN (Urea Nitrogen) 20 mg/dL (9.8-20.1); Bilirubin, Total 0.5 mg/dL (0.2-1.2); Calc. Creatinine Clearance 196 mL/min (70-130); Calcium 8.5 mg/dL (7.8-10.44); Carbon Dioxide 22 mmol/L (22-29); Chloride 111 mmol/L (98-107); Estimated GFR-MDRD Greater than 90; Globulin 3.3 g/dL (2.4-3.5); Glucose 165 mg/dL (70-105); Potassium 3.7 mmol/L (3.5-5.1); Protein, Total 6.1 g/dL (6.0-8.3); Sodium 141 mmol/L (136-145)
--- NOTE | 2018-09-09 07:21 | PRG ---
DATE OF SERVICE: 09/09/2018 Ms. Perdomo remains on the ventilator per her tracheostomy in the Intensive Care Unit. Her ventilato r settings have been weaned substantially. I believe she is on CPAP using her ventilator. I believe there is a tentative plan to attempt a trial of trach collar later today. She is more alert each da y when I walked in to see her. She moves her head easier and has better strength in her arms when sh e squeezes my hands. She follows commands easily now. PHYSICAL EXAMINATION: VITAL SIGNS: She is afebrile, pulse is 70s, blood pressure is 130/80. LUNGS: Clear to auscultation. ABDOMEN: Benign with a wound VAC in her midline incision. She continues to have good urine output a nd her bowels are moving regularly. She has a rectal tube in currently. LABORATORY: Her hemoglobin is stable at 9.0. White blood cell count 13, platelet count 530. Chemis try profile reveals electrolytes that are essentially normal. Her liver function tests are likewise close to normal. Her alkaline phosphatase is just a little elevated at 165. Her albumin continues t o slowly go up and is now 2.8. PLAN: In summary, she is doing well following her 2 laparotomies and her tracheostomy. She is decon ditioned and weak and will clearly require lengthy course of rehabilitation. Hopefully, she can be w eaned off the ventilator in the near future. She has had a central line since her initial surgery wh ich is now about 3 weeks ago. I will consider placement of a PICC line just to minimize the chances of a line infection as she is now making substantial progress. She is currently on no antibiotics.
[2018-09-09] MEDS: Insulin Regular 300 UNITS/3 ML VIAL SC PRN ×2 (07:24→18:43)
--- NOTE | 2018-09-09 08:33 | PRG ---
DATE OF SERVICE: 09/09/2018 PRIMARY CARE PHYSICIAN: Dr. Boni Keys SUBJECTIVE: The patient is awake and alert. She opens her eyes and follows commands. She continues on mechanical ventilation with just pressure support to 5 via her tracheostomy. She is tolerating h er tube feeds. OBJECTIVE: VITAL SIGNS: Temperature 98.8, pulse of 81-100, respirations 22-26, blood pressure 121/73, O2 via tr ach collar. HEART: Regular rate and rhythm. LUNGS: Clear anteriorly. ABDOMEN: Positive bowel sounds, soft. EXTREMITIES: No edema. She moves all extremities on command. LABORATORY DATA: White blood cell count 13,000, hemoglobin and hematocrit 9.0 and 28.0, yesterday wa s 8.6 and 27, platelets of 530. Sodium 141, potassium 3.7, chloride 111, CO2 of 22, BUN and creatini ne 20 and 0.6, serum glucose of 165. AST and ALT are normal. Alkaline phosphatase of 165, albumin 2 .8. ASSESSMENT AND PLAN: 1. 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 2. Respiratory failure, improved, weaning per Pulmonary Services. 3. Postop care per Surgery. 4. Disposition: Hopefully transfer to rehab when able.
--- NOTE | 2018-09-09 08:37 | PRG ---
DATE OF SERVICE: 09/09/2018 The patient is doing well. She is on trach collar this morning. PHYSICAL EXAMINATION: VITAL SIGNS: Temperature is 98.8, pulse 81, blood pressure 120/73. 24 hour intake 1801, output 2700 . HEENT: Unremarkable. NECK: No adenopathy or JVD. Trach in good position. LUNGS: Clear anteriorly. CARDIOVASCULAR: S1 and S2 regular, without murmur. ABDOMEN: Midline wound VAC appears to be a well healed wound. EXTREMITIES: Trace edema. LABORATORY DATA: Sodium 141, potassium 3.7, chloride 111, CO2 20, BUN 20, creatinine 0.6, glucose 16 5. White blood cell count 13, hematocrit 28, platelet count 530. ASSESSMENT: 1. Respiratory failure requiring mechanical ventilation. 2. Critical illness myopathy and deconditioning. 3. History of multiple laparotomies. PLAN: 1. Continue trach collar. 2. Appears mainly be a rehabilitative issue at this point.
[2018-09-09] MEDS: Enoxaparin Sodium 40 MG/0.4 ML SYRINGE SC SCH (09:40)
[2018-09-09] MEDS: Pantoprazole 40 MG VIAL IVP SCH ×2 (09:40→21:34)
[2018-09-09] MEDS ORDERED: risperiDONE 1 MG TAB PO SCH ×2 (11:00→21:00)
[2018-09-09] MEDS: risperiDONE 0.25 MG TAB PO SCH (12:52)
[2018-09-09] MEDS: Dextrose 5% in Water 1,000 ML IV SCH (21:33)
[2018-09-10] MEDS: Dextrose 5% in Water 1,000 ML IV SCH (01:20)
[2018-09-10 06:05] LABS: #Lymphocytes 1.4 thou/uL (1.20-3.40); #Monocytes 1.2 thou/uL (0.11-0.59); #Neutrophils 10.9 thou/uL (1.40-6.50); %Basophils 0.2 % (0.0-1.0); %Eosinophils 0.2 % (0.0-10.0); %Lymphocytes 10.5 % (21.0-51.0); Hemoglobin 8.9 g/dL (12.0-16.0); Mean Corpuscular HGB CONC 30.9 g/dL (32.0-36.0); Mean Corpuscular Hemoglobin 26.8 pg (27.0-31.0); Mean Corpuscular Volume 86.7 fL (78.0-98.0); Mean Platelet Volume 7.7 fL (7.4-10.4); Platelet Count 510 thou/uL (130-400); RBC Distribution Width 15.3 % (11.5-14.5); Red Blood Cell (RBC) Count 3.33 mill/uL (4.20-5.40); White Blood Cell (WBC) Count 13.6 thou/uL (4.8-10.8)
[2018-09-10] MEDS: Insulin Regular 300 UNITS/3 ML VIAL SC PRN (06:08)
[2018-09-10 06:27] LABS: ALT (SGPT) 61 U/L (8-55); AST (SGOT) 25 U/L (5-34); Albumin 2.8 g/dL (3.5-5.0); Alkaline Phosphatase 161 U/L (40-150); Anion Gap 12 mmol/L (10-20); BUN (Urea Nitrogen) 19 mg/dL (9.8-20.1); Bilirubin, Total 0.3 mg/dL (0.2-1.2); Calc. Creatinine Clearance 192 mL/min (70-130); Calcium 8.3 mg/dL (7.8-10.44); Carbon Dioxide 24 mmol/L (22-29); Chloride 111 mmol/L (98-107); Estimated GFR-MDRD Greater than 90; Globulin 3.2 g/dL (2.4-3.5); Glucose 175 mg/dL (70-105); Potassium 3.5 mmol/L (3.5-5.1); Sodium 143 mmol/L (136-145)
[2018-09-10] MEDS: Pantoprazole 40 MG VIAL IVP SCH ×2 (09:22→20:11)
[2018-09-10] MEDS: Enoxaparin Sodium 40 MG/0.4 ML SYRINGE SC SCH (09:22)
--- NOTE | 2018-09-10 09:24 | PRG ---
DATE OF SERVICE: 09/10/2018 SUBJECTIVE: Ms. Perdomo is on trach collar. She is awake. She does not answer questions very brisk ly for me, but does indicate that she is not in pain and noted that she was still on a Precedex drip when I saw her this morning. OBJECTIVE: VITAL SIGNS: Temperature is 98.7, pulse 87, blood pressure 116/70, O2 sat 100%. HEENT: Unremarkable. NECK: Trach in good position. CARDIAC: S1 and S2 regular. ABDOMEN: Soft, nontender. LUNGS: Clear. EXTREMITIES: No edema. LABORATORY DATA: Sodium 143, potassium 3.5, chloride 111, CO2 24, BUN 19, creatinine 0.6, glucose 16 8. White blood cell count 13.6, hematocrit 28.8, platelet count 510. ASSESSMENT: 1. Acute respiratory failure requiring mechanical ventilation and trach placement. 2. Critical illness myopathy and deconditioning. 3. History of multiple laparotomies. PLAN: 1. I will try to stop the Precedex and see how she does. 2. Decrease Risperidone to nightly only. 3. Continue supportive care.
--- NOTE | 2018-09-10 11:14 | PRG ---
DATE OF SERVICE: 09/10/2018 PRIMARY CARE PHYSICIAN: Dr. Boni Keys. SUBJECTIVE: Patient is awake and alert. She is following commands and opens her eyes. She is off m echanical ventilation and on trach collar. Denies pain and seems relatively comfortable. OBJECTIVE: VITAL SIGNS: Temperature 98.7, pulse of 96, respirations 25-30, blood pressure 142/85, pulse ox is 9 9% on trach collar. GENERAL: She is awake and alert, in no acute distress. HEENT: Mucosa is moist. NECK: Supple. HEART: Regular rate and rhythm. LUNGS: With upper respiratory sounds. Occasional rhonchi clearing with cough. ABDOMEN: Soft, positive bowel sounds. Wound with wound VAC in place. EXTREMITIES: 2+ peripheral pulses bilaterally. DISCHARGE LABORATORY DATA: White blood cell count 13.6 thousand, hemoglobin and hematocrit 8.9 and 2 8.8, platelets of 510. Accu-Cheks of 116, 168, 137. Sodium 143, potassium 3.5, chloride 111, CO2 of 24, BUN and creatinine 19 and 0.61. AST of 25, ALT of 61, alkaline phosphatase of 161, albumin 2.8. ASSESSMENT AND PLAN: This is a 53-year-old female patient status post subtotal gastrectomy and remov al of gastric remnants secondary to gastrointestinal bleed with subsequent respiratory failure, prolo nged mechanical ventilation. 1. Respiratory failure, weaned off of mechanical ventilation. Further care as per pulmonary service s. 2. Postop followed by surgery. 3. Hypertension remains stable. 4. Hyperglycemia. Continue insulin sliding scale. 5. Deep venous thrombosis prophylaxis initiated. 6. Gastrointestinal prophylaxis on Protonix. DISPOSITION: To rehab when okay with critical care time.
--- NOTE | 2018-09-10 12:15 | SPC ---
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 Severe anemia. TECHNIQUE: After informed consent was obtained, the left upper extremity was meticulously prepped and draped in the usual sterile fashion. An appropriate access site was determined with ultrasound guidance. The sk in and subcutaneous tissues overlying the intended puncture site were infiltrated with buffered 1% li docaine for local anesthesia. The left basilic vein was accessed utilizing micropuncture technique an d concurrent real-time ultrasound guidance. A 5 Scottish peel-away sheath was placed. The catheter was measured and cut to the appropriate length. The catheter was placed over the guidewi re with the tip positioned overlying the cavoatrial junction. The guidewire and peel-away sheath were removed. Each port on the double lumen PICC line was accessed and aspirated/flushed easily. The cath eter was secured to the skin utilizing a StatLock device, and a dry, sterile dressing was placed. The patient tolerated the procedure well and without immediate complication. FINDINGS: Technically successful placement of a double lumen 5 Scottish 39.5 cm PICC line via the left basilic ve in. The tip of the catheter overlies the cavoatrial junction. Chest x-ray was obtained, confirming placement of the PICC line, with diffuse perihilar interstitial opacities seen on the chest x-ray with tracheostomy device and nasogastric tube in place. IMPRESSION: Technically successful left upper extremity PICC line placement. POS: [facility]
--- NOTE | 2018-09-10 13:29 | PRG ---
DATE OF SERVICE: 09/10/2018 SUBJECTIVE: The patient is doing well. Mental status is diminished. She is not interactive bowel o therwise are open spontaneously. She is moving. OBJECTIVE: VITALS: 151/90, heart rate 93. LUNGS: Clear to auscultation. CARDIAC: Regular rate and rhythm without murmur or gallop. ABDOMEN: Soft. Mild tenderness. Wound VAC in place. EXTREMITIES: Unremarkable. : The patient is having regular stools on tube feedings. LABORATORY DATA: White count 13, stable from yesterday; hemoglobin 8.9, stable from yesterday. Basi c metabolic profile is normal. The patient is on tube feedings and having bowel movements. ASSESSMENT AND PLAN: Doing well, continue physical therapy mobility for conditioning. GI tract is w orking. Continue tube feedings until she is able to eat and mental status is improved. Dr. Thompson and Dr. Rodney Hays are following her. ARDS is improved. Trach in place.
[2018-09-10] MEDS ORDERED: Labetalol HCl 100 MG/20 ML VIAL SLOW IVP PRN (16:16)
[2018-09-10] MEDS: risperiDONE 1 MG TAB PO SCH (20:11)
[2018-09-11 05:47] LABS: #Basophils 0.1 thou/uL (0.0-0.2); #Lymphocytes 1.6 thou/uL (1.20-3.40); #Monocytes 1.3 thou/uL (0.11-0.59); #Neutrophils 12.2 thou/uL (1.40-6.50); %Basophils 0.4 % (0.0-1.0); %Eosinophils 0.2 % (0.0-10.0); %Lymphocytes 10.3 % (21.0-51.0); %Monocytes 8.8 % (0.0-10.0); %Neutrophils 80.4 % (42.0-75.0); Hemoglobin 9.1 g/dL (12.0-16.0); Mean Corpuscular HGB CONC 31.9 g/dL (32.0-36.0); Mean Corpuscular Hemoglobin 27.7 pg (27.0-31.0); Mean Corpuscular Volume 86.9 fL (78.0-98.0); Mean Platelet Volume 7.9 fL (7.4-10.4); Platelet Count 448 thou/uL (130-400); RBC Distribution Width 15.3 % (11.5-14.5); Red Blood Cell (RBC) Count 3.29 mill/uL (4.20-5.40); White Blood Cell (WBC) Count 15.2 thou/uL (4.8-10.8)
[2018-09-11 06:10] LABS: ALT (SGPT) 54 U/L (8-55); AST (SGOT) 17 U/L (5-34); Alkaline Phosphatase 161 U/L (40-150); Anion Gap 12 mmol/L (10-20); BUN (Urea Nitrogen) 19 mg/dL (9.8-20.1); Bilirubin, Total 0.4 mg/dL (0.2-1.2); Calc. Creatinine Clearance 198 mL/min (70-130); Calcium 8.6 mg/dL (7.8-10.44); Carbon Dioxide 24 mmol/L (22-29); Chloride 109 mmol/L (98-107); Estimated GFR-MDRD Greater than 90; Globulin 3.3 g/dL (2.4-3.5); Glucose 172 mg/dL (70-105); Potassium 3.4 mmol/L (3.5-5.1); Protein, Total 6.3 g/dL (6.0-8.3); Sodium 142 mmol/L (136-145)
[2018-09-11] MEDS: Insulin Regular 300 UNITS/3 ML VIAL SC PRN ×2 (06:17→18:59)
[2018-09-11] MEDS: Enoxaparin Sodium 40 MG/0.4 ML SYRINGE SC SCH (09:09)
[2018-09-11] MEDS: Pantoprazole 40 MG VIAL IVP SCH ×2 (09:09→21:56)
--- NOTE | 2018-09-11 10:41 | PRG ---
DATE OF SERVICE: 09/11/2018 SUBJECTIVE: She remains on trach collar. She is in no distress. PHYSICAL EXAMINATION: VITAL SIGNS: Temperature is 99.1, pulse 111, blood pressure 133/99, O2 sat 99%. Intake 1439, output 2035. HEENT: Unremarkable. NECK: Trach in good position. LUNGS: Clear. CARDIAC: S1 and S2 regular. ABDOMEN: Soft. EXTREMITIES: Trace edema. LABORATORY DATA: White blood cell count 15.2, hematocrit 28.6, platelet count 448. Sodium 142, pota ssium 3.4, BUN 19, creatinine 0.6, glucose 172. ASSESSMENT: Acute respiratory failure requiring mechanical ventilation and tracheostomy placement - the patient is now weaned. Her principal issue is critical illness myopathy and deconditioning. PLAN: She is off the Precedex. We will try to get her up in a chair and see how she does.
--- NOTE | 2018-09-11 11:06 | PRG ---
DATE OF SERVICE: 09/11/2018 SUBJECTIVE: The patient is more awake and alert. She has good eye movement. She responds with faci al gestures and eye movements. Denies pain, tolerating being off mechanical ventilation and continue s with oxygen via trach collar. She seems comfortable in bed. OBJECTIVE: VITAL SIGNS: Temperature 99.1, pulse of 102-111, respirations 25-32, blood pressure 133/99, pulse ox is 99%. GENERAL: She is awake and alert, in no apparent distress. HEART: Regular rate and rhythm. LUNGS: Clear anteriorly. ABDOMEN: Soft with bowel sounds. EXTREMITIES: No edema. 2+ peripheral pulses bilaterally. LABORATORY DATA: White blood cell count 15.2 thousand, hemoglobin and hematocrit 9.1 and 28.6, plate lets of 448. Accu-Cheks of 163, 172, 144, and 145. Blood cultures have been negative. ASSESSMENT AND PLAN: This is a 53-year-old female patient status post subtotal gastrectomy and remov al of gastric remnants secondary to gastrointestinal bleed. She has had a subsequent respiratory sosa lure secondary to acute respiratory distress syndrome prolonged mechanical ventilation. 1. Respiratory failure. She has been able to wean off of mechanical ventilation. Further plan as p er Pulmonary. 2. Postoperative care from gastrectomy, followed by Surgery, seems to be tolerating NG feeds. 3. Hypertension, stable. Started labetalol for elevation in blood pressure once the sedation was de creased. 3. Hypoglycemia. Continue insulin sliding scale.
[2018-09-11] MEDS: Dextrose 5% in Water 1,000 ML IV SCH (14:30)
[2018-09-11] MEDS ORDERED: Labetalol HCl 100 MG/20 ML VIAL SLOW IVP PRN (19:43)
--- NOTE | 2018-09-11 21:06 | PRG ---
DATE OF SERVICE: 09/11/2018 SUBJECTIVE: Ms. Perdomo is in ICU. OBJECTIVE: VITAL SIGNS: Heart rate is 110 to 120. She has a trach collar. LUNGS: Clear to auscultation and rhonchi at base. CARDIAC: Sinus tachycardia. ABDOMEN: Soft. The patient is tolerating her tube feedings. She is having bowel movements and pass ing flatus. LABORATORY DATA: White count 15, hemoglobin 9.1. Sodium 142, potassium 3.4. ASSESSMENT AND PLAN: Deconditioning. The patient will need mobility. She has not gotten out of bed today because of lack of neuro chair in our ICU. Continue tube feedings. Continue physical therapy . Continue respiratory care.
[2018-09-11] MEDS: risperiDONE 1 MG TAB PO SCH (21:56)
[2018-09-12] MEDS: Insulin Regular 300 UNITS/3 ML VIAL SC PRN ×2 (05:12→16:41)
[2018-09-12 05:42] LABS: #Basophils 0.1 thou/uL (0.0-0.2); #Lymphocytes 1.5 thou/uL (1.20-3.40); #Monocytes 1.3 thou/uL (0.11-0.59); #Neutrophils 14.7 thou/uL (1.40-6.50); %Basophils 0.3 % (0.0-1.0); %Eosinophils 0.2 % (0.0-10.0); %Lymphocytes 8.5 % (21.0-51.0); %Monocytes 7.2 % (0.0-10.0); %Neutrophils 83.9 % (42.0-75.0); Hemoglobin 9.1 g/dL (12.0-16.0); Mean Corpuscular HGB CONC 30.9 g/dL (32.0-36.0); Mean Corpuscular Hemoglobin 26.8 pg (27.0-31.0); Mean Corpuscular Volume 86.8 fL (78.0-98.0); Mean Platelet Volume 8.2 fL (7.4-10.4); Platelet Count 447 thou/uL (130-400); RBC Distribution Width 15.3 % (11.5-14.5); Red Blood Cell (RBC) Count 3.41 mill/uL (4.20-5.40); White Blood Cell (WBC) Count 17.5 thou/uL (4.8-10.8)
[2018-09-12 06:01] LABS: ALT (SGPT) 42 U/L (8-55); AST (SGOT) 15 U/L (5-34); Alkaline Phosphatase 152 U/L (40-150); Anion Gap 9 mmol/L (10-20); BUN (Urea Nitrogen) 22 mg/dL (9.8-20.1); Bilirubin, Total 0.3 mg/dL (0.2-1.2); Calc. Creatinine Clearance 175 mL/min (70-130); Calcium 8.7 mg/dL (7.8-10.44); Carbon Dioxide 27 mmol/L (22-29); Chloride 107 mmol/L (98-107); Estimated GFR-MDRD Greater than 90; Globulin 3.3 g/dL (2.4-3.5); Glucose 185 mg/dL (70-105); Protein, Total 6.3 g/dL (6.0-8.3); Sodium 139 mmol/L (136-145)
--- NOTE | 2018-09-12 08:40 | PRG ---
DATE OF SERVICE: 09/12/2018 HISTORY OF PRESENT ILLNESS: The patient has successfully been weaned off the ventilator, remains on a trach collar with blow by oxygen support. Slightly tachypneic; however, has not spiked any tachyca rdia or fevers. The patient is alert, following commands, able to nod head yes and no to questions t his morning. VITAL SIGNS: Pulse of 95, oxygen saturation 100% on trach collar. Blood pressure 160/98, respirator y rate of 28. LABORATORY DATA: White blood count 17.5, hemoglobin of 9.1, platelet count of 447. Sodium 139, pota ssium of 4.0, CO2 of 27, creatinine 0.6, glucose 132 to 185 range last 16 hours. AST of 15, ALT of 4 2, alkaline phosphatase 152. Albumin 3.0. PHYSICAL EXAMINATION: GENERAL: The patient is alert, responding to commands, in no acute distress. HEENT: Head is normocephalic, atraumatic. Extraocular movements are intact. Sclerae are clear. Or al mucosa is moist. NG tube in place. Tracheostomy in place with blow by oxygen. HEART: Regular rate and rhythm at time of exam. No murmurs are auscultated. LUNGS: Clear to auscultation bilaterally. Wound VAC in place. ABDOMEN: Positive bowel sounds, soft otherwise. EXTREMITIES: Without cyanosis or edema. Dorsalis pedis pulses 2+ intact. The patient cannot comple te full orientation, but is following commands, moving all extremities equally. ASSESSMENT AND PLAN: Resolved gastrointestinal bleed following resection of gastric remnant, status post wound VAC, currently on tube feeds. Resolved sepsis, on antibiotics and remains with some leuko cytosis following some steroid use last week to help wean the patient. No current signs of infection noted. We will reculture the patient if anything worsens and physical deconditioning. The patient will have slow recovery. Consulting PT, OT and Speech along with case management for disposition [facility]. Status post respiratory failure, currently on trach collar, blow by oxygen. The patient was successfully weaned over the weekend, making slow progress. The patient with resolved peritonitis, h as not been significantly mobilized still has rectal tube, a Dobbins catheter, NG tube in place. Hyper tension, coming off sedation the patient's blood pressure has risen. The patient with p.r.n. labetal ol. Would look towards re-adding home medications and titrating. Given prior agitation the patient has been on risperidone. Metabolic encephalopathy has been resolved; however, the patient currently on Protonix and Lovenox for replete prophylaxis and deep venous thrombosis prophylaxis. We will cont inue to follow along.
[2018-09-12] MEDS: Pantoprazole 40 MG VIAL IVP SCH ×2 (09:59→20:24)
[2018-09-12] MEDS: Enoxaparin Sodium 40 MG/0.4 ML SYRINGE SC SCH (09:59)
--- NOTE | 2018-09-12 10:49 | PRG ---
DATE OF SERVICE: 09/12/2018 HISTORY OF PRESENT ILLNESS: Ms. Perdomo remains in the Intensive Care Unit. She is no longer being ventilated. She has been on a trach collar with blow by oxygen over the past 24-48 hours. She appea rs to be breathing comfortably and is not tachypneic. Her oxygen saturation is 99%. She remains lis rt and interactive. She, however, is very weak and has trouble even lifting her arms off the bed to grasp my hand. She is still being fed per nasogastric tube using tube feeds at 40 mL per hour. She is having regular bowel movements and has a rectal tube in place. She has been off all antibiotics f or about a week now. PHYSICAL EXAMINATION: VITAL SIGNS: She is afebrile with a maximum temperature of 99.8. Her pulse is 102 and regular. She has been more tachycardic since she was taken off the ventilator, as expected. Her blood pressure i s a little elevated at 150/92. Her urine output appears to have been only 1300 mL yesterday. LUNGS: Clear to auscultation. ABDOMEN: Benign with a wound VAC intact. LABORATORY STUDIES: White blood cell count is trending up with a level of 17.[address] able at 9.1, platelet count is 447. Chemistry profile reveals electrolytes are normal. BUN and crea tinine are normal. Her glucose levels were a little elevated between 130 and 180. Her albumin is up to 3.0 today as she appears to be benefiting from her tube feeds. ASSESSMENT: She is stable and making progress. She would be a perfect candidate for long-term acute care facility, but I am told that her insurance will not permit this. She will therefore have to re main in the Intensive Care Unit for now. Physical Therapy, Occupational Therapy, and Speech Therapy have all been ordered and hopefully at some point will be able to transition her to oral intake. Since it has been over a week since we put in her tracheostomy tube, could probably change out her tr acheostomy at this time and converted it to a fenestrated tube. Could also consider removing her micky ogastric tube and replacing it with a more comfortable Dobbhoff tube. She has a PICC line for IV acc ess and her central line was removed. Given her long-term Dobbins catheter dependence, she is at risk for a urinary tract infection.
[2018-09-12 11:51] LABS: Bilirubin Negative (Negative); Blood, Urine Large (Negative); Clarity CLEAR (Clear); Glucose, Urine (Dipstick) Negative (Negative); Leukocyte Small (Negative); Nitrite Positive (Negative); Protein, Urine (Dipstick) Negative (Neg-Trace); Specific Gravity, Urine 1.015 (1.002-1.036); Urobilinogen 0.2 mg/dL (0.2-1.0)
[2018-09-12 11:55] LABS: Bacteria/HPF 4+ HPF (None Seen); Hyaline Casts/LPF 0-3 HYALINE CAST LPF (0-3 Hyaline); Pathc Cast-AUWi Flag 0.29 (0-2.49); RBC/HPF GREATER THAN 50-TNTC HPF (0-3); Squamous Epithelial 0-3 HPF (0-3)
[2018-09-12 12:00] LABS: Renal Epithelial None Seen HPF (0-3); Transitional Epithelial NONE SEEN HPF (0-3)
[2018-09-12] MEDS: Dextrose 5% in Water 1,000 ML IV SCH (12:32)
[2018-09-12] MEDS: Acetaminophen 650 MG/20.3 ML UDCUP PER TUBE PRN ×2 (12:42→20:32)
--- NOTE | 2018-09-12 16:23 | RAD ---
UPRIGHT PORTABLE CHEST ONE VIEW: 09/12/18 HISTORY: 53-year-old female with history of elevated white blood cell count. COMPARISON: 09/06/18 FINDINGS: Tracheostomy tube is in place. Left PICC line. Dobhoff catheter has been placed with the tip extendin g down into the region of the upper stomach. Fairly extensive interstitial and reticulonodular parenc hymal changes noted bilaterally, overall stable. Left pleural effusion. Very poor inspiration. IMPRESSION: Left PICC line. Tracheostomy tube in place. Dobhoff tube with the tip in the region of the upper sto mach. Bilateral vascular congestion with interstitial and linear reticulonodular parenchymal changes bilaterally, stable. Left pleural effusion. POS: [facility]
--- NOTE | 2018-09-12 16:34 | PRG ---
DATE OF SERVICE: 09/12/2018 SUBJECTIVE: Analia Perdomo was weaned off from mechanical ventilation over the weekend. She is on a trach collar. Dr. Lea is contemplating placing a fenestrated trach. She is receiving enteral n utrition. OBJECTIVE: GENERAL: She is in no distress. LUNGS: Clear. HEART: Regular rhythm. ABDOMEN: Soft. EXTREMITIES: Without asymmetry. LABORATORY DATA: White count 17.5, hemoglobin 9.1, platelets 447. Sodium 139, potassium 4, chloride 107, bicarb 27, BUN 22, creatinine 0.6. Blood cultures from the 15th were negative at 5 days. She had a C. diff study done on 09/06/2018 which showed no C. diff. IMPRESSION AND PLAN: Respiratory failure after a gastrointestinal bleed followed by a laparotomy fol lowed by a percutaneous drainage of an abscess followed by abdominal washout. She now has a trach in place. She appears to be clinically stable. Biggest issue moving forward will be a nutritional and deconditioning.
[2018-09-12] MEDS: risperiDONE 1 MG TAB PO SCH (20:24)
[2018-09-13] MEDS: Dextrose 5% in Water 1,000 ML IV SCH (06:23)
[2018-09-13 06:54] LABS: #Monocytes 1.7 thou/uL (0.11-0.59); #Neutrophils 15.8 thou/uL (1.40-6.50); %Basophils 0.1 % (0.0-1.0); %Eosinophils 0.1 % (0.0-10.0); %Lymphocytes 10.2 % (21.0-51.0); %Monocytes 8.6 % (0.0-10.0); %Neutrophils 80.9 % (42.0-75.0); Hemoglobin 9.3 g/dL (12.0-16.0); Mean Corpuscular Hemoglobin 27.1 pg (27.0-31.0); Mean Corpuscular Volume 87.5 fL (78.0-98.0); Mean Platelet Volume 7.6 fL (7.4-10.4); Platelet Count 416 thou/uL (130-400); RBC Distribution Width 15.3 % (11.5-14.5); Red Blood Cell (RBC) Count 3.44 mill/uL (4.20-5.40); White Blood Cell (WBC) Count 19.6 thou/uL (4.8-10.8)
[2018-09-13 07:12] LABS: ALT (SGPT) 37 U/L (8-55); AST (SGOT) 13 U/L (5-34); Albumin 3.1 g/dL (3.5-5.0); Alkaline Phosphatase 145 U/L (40-150); Anion Gap 14 mmol/L (10-20); BUN (Urea Nitrogen) 20 mg/dL (9.8-20.1); Bilirubin, Total 0.3 mg/dL (0.2-1.2); Calc. Creatinine Clearance 179 mL/min (70-130); Calcium 8.9 mg/dL (7.8-10.44); Carbon Dioxide 24 mmol/L (22-29); Chloride 105 mmol/L (98-107); Estimated GFR-MDRD Greater than 90; Globulin 3.3 g/dL (2.4-3.5); Glucose 160 mg/dL (70-105); Potassium 3.9 mmol/L (3.5-5.1); Protein, Total 6.4 g/dL (6.0-8.3); Sodium 139 mmol/L (136-145)
--- NOTE | 2018-09-13 08:12 | PRG ---
DATE OF SERVICE: 09/13/2018 Analia Perdomo each day becomes more interactive. PHYSICAL EXAMINATION: VITAL SIGNS: Heart rate is in the 80s, blood pressure 158/99, respiratory rate 20, oximetry is 98% o n trach collar. LUNGS: Clear. HEART: Regular rhythm. ABDOMEN: Soft. EXTREMITIES: With asymmetry. LABORATORY DATA: White count 19.6, hemoglobin 9.3, platelets 416. Sodium 139, potassium 3.9, chloride 105, bicarbonate 24, BUN 20, creatinine 0.62. IMPRESSION: Status post trach and PEG after GI bleeding and 2 laparotomies as well as percutaneous d rainage of an abdominal abscess. She continues to be clinically stable.
[2018-09-13] MEDS: Pantoprazole 40 MG VIAL IVP SCH ×2 (08:54→20:56)
[2018-09-13] MEDS: Enoxaparin Sodium 40 MG/0.4 ML SYRINGE SC SCH (08:54)
[2018-09-13] MEDS: MEROPENEM 1 GM/50 ML 1 GM in Premix Bag 1 BAG IVPB SCH (17:26)
--- NOTE | 2018-09-13 17:34 | PRG ---
DATE OF SERVICE: 09/13/2018 HISTORY OF PRESENT ILLNESS: The patient remains on blood by oxygen on trach collar, able to nod head yes and no, moves all extremities, but communication is limited. The patient remains on rectal tube with watery diarrhea and on Dobbins catheter, remains with NG tube feeds at a time exam at lunch. No attempts have been made to transition to possible smaller [place] Dobbhoff tube. However, this may be further in the works with Dr. Lea and possible trait out of tracheostomy to a fenestrated tube per reading his note from yesterday. Nursing staff reports clear urine being output, but noticed increased leukocytosis despite being continued on steroids and tachycardia spike in the last 24 hours. Urinalysis was performed with culture as well as blood culture and urine found to have gram negative rods. The patient restarted on meropenem and micafungin per General Surgery, agree with this. I have not had a report of formal fever, highest last night was 100.2 on record at 20:00 hours. PHYSICAL EXAMINATION: VITAL SIGNS: Today 99.7 temperature, pulse of 95, blood pressure 139/77, oxygen saturation 98% on blow-by trach collar. Gen: Alert, no acute distress EYES: sclera white, EOMI HEENT: NG tube in place, NECK: Trach collar in place CARDIAC: RRR, no murumurs RESPIRATORY: CTAB ABDOMEN: Wound vac in place, soft EXT: no cyanosis or edema NEUROLOGIC: moving ext to command equally upper and lower LABORATORY DATA: White blood cells at 19.6, hemoglobin at 9.3, platelet count of 416. Sodium of 139, potassium of 3.9, CO2 24, creatinine of 0.6, glucose of 160-137 range in the last 12 hours. AST of 13, ALT of 37, albumin of 3.1, gram negative rods on urine specimen. Repeat Clostridium difficile toxin assay pending. ASSESSMENT AND PLAN: Respiratory failure, multifactorial, currently on trach collar, slow progress secondary to deconditioning. The patient unable to participate much with speech, OT and PT therapies per case management placement likely will be in senior care once stable and cleared. UTI apparent, agree with antibiotics as above. We will follow up on culture as available. Patient continued on tube feeding. Deep venous thrombosis prophylaxis as well as gastrointestinal prophylaxis. Continue with Lovenox and Protonix. Follow up on C. diff toxin assay x2 given continued diarrhea. The patient is still on rectal tube MTDD
[2018-09-13] MEDS: Micafungin 100 MG in Sodium Chloride 0.9% 100 ML IVPB SCH (17:54)
--- NOTE | 2018-09-13 18:36 | PRG ---
DATE OF SERVICE: 09/13/2018 SUBJECTIVE: Ms. Perdomo remains in the Intensive Care Unit. She remains off the ventilator, receivi ng oxygen per tracheostomy collar. She remains essentially stable. [facility] She does not really respond very much when I speak to her, although her family tells me that she is interacting. She still appears to be incredibly weak. PHYSICAL EXAMINATION: VITAL SIGNS: She is afebrile. Her maximum temperature is 100.2 last night. Her pulse remained some what elevated between 95 and 110. Her blood pressure is 150/98. LUNGS: Clear to auscultation anteriorly. ABDOMEN: Soft with normoactive bowel sounds. Wound VAC is present on her midline wound. LABORATORY STUDIES: Her white blood cell continues to go up, it is 19.6 today. Hemoglobin is 9.3. Chemistry profile reveals normal electrolytes and her albumin is up to 3.1. Her liver function tests are normal. Urinalysis from yesterday revealed elevated white blood cell count and 4+ bacteria. Th e initial culture shows greater than 1000 gram-negative jhoana. Dr. Ozuna has empirically started her on meropenem and micafungin. ASSESSMENT: She remains stable. She is tolerating tube feeds and her nutritional status is improvin g. She is phenomenally deconditioned and for this reason, she is not able to begin eating. It is di fficult to tell she may have some degree of encephalopathy also. It is hard to tell if this is metab olic or functional or related to her weakness. Continue current care for now.
--- NOTE | 2018-09-13 19:11 | CON ---
DATE OF CONSULTATION: 09/13/2018 HISTORY OF PRESENT ILLNESS: Ms. Perdomo continues in the ICU. She has an NG tube in place, had been fed empirically. The drains have been removed. There has been recrudescence of temperature elevati on up to 100.2 max and blood pressure 160/100, pulse is 104 at this time, O2 sat 98%. She is looking around, opens her eyes establishes eye contact but it is not clear to get an answer from her. She d oes not seem to nod to questions. She has the same central line. Still having loose stools but more typical of enteric feeding stools and C. diff stool. PHYSICAL EXAMINATION: LUNGS: Symmetric, clear breath sounds. HEART: S1, S2, regular rate. ABDOMEN: Soft. Drain sites with very mild erythema noted. LABORATORY DATA: White cell count is up to 19.6, hemoglobin 9.3, platelets 416 with 80% neutrophils. Urinalysis with 11-20 wbc's. There is a gram-negative jhoana in urine Dobbins catheter culture, greater than 100,000 CFUs. C. difficile antigen and toxin negative. Last blood cultures drawn on 8. Imaging study will have a chest x-ray which showed a left-sided PICC line. Tracheostomy tube in place. Dobbhoff tube with the tip in the region of the upper stoma vascular congestion. 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 The patient improved with a 12-day course of broad spectrum coverage. She also is having a steady recrudescence of inflammatory process with worsening neutrophilia and low-gr tee temperature elevation. Differential diagnosis includes an intra-abdominal abscess, invasive UTI, or colonization of the PICC line is less likely. Repeat blood cultures and consider repeat CT of abdomen and pelvis with contra st. May have to resume broad spectrum antimicrobial coverage.
[2018-09-13] MEDS: risperiDONE 1 MG TAB PO SCH (20:56)
[2018-09-13] MEDS: Insulin Regular 300 UNITS/3 ML VIAL SC PRN (21:10)
[2018-09-14] MEDS: MEROPENEM 1 GM/50 ML 1 GM in Premix Bag 1 BAG IVPB SCH ×3 (00:35→16:41)
[2018-09-14 04:26] LABS: #Basophils 0.1 thou/uL (0.0-0.2); #Eosinphils 0.1 thou/uL (0.0-0.7); #Lymphocytes 1.7 thou/uL (1.20-3.40); #Monocytes 1.6 thou/uL (0.11-0.59); #Neutrophils 14.1 thou/uL (1.40-6.50); %Basophils 0.3 % (0.0-1.0); %Eosinophils 0.4 % (0.0-10.0); %Lymphocytes 9.6 % (21.0-51.0); %Monocytes 9.2 % (0.0-10.0); %Neutrophils 80.4 % (42.0-75.0); Mean Corpuscular HGB CONC 31.5 g/dL (32.0-36.0); Mean Corpuscular Hemoglobin 27.6 pg (27.0-31.0); Mean Corpuscular Volume 87.5 fL (78.0-98.0); Platelet Count 374 thou/uL (130-400); RBC Distribution Width 15.2 % (11.5-14.5); Red Blood Cell (RBC) Count 3.27 mill/uL (4.20-5.40); White Blood Cell (WBC) Count 17.6 thou/uL (4.8-10.8)
[2018-09-14 04:41] LABS: ALT (SGPT) 30 U/L (8-55); AST (SGOT) 11 U/L (5-34); Albumin 3.1 g/dL (3.5-5.0); Alkaline Phosphatase 130 U/L (40-150); Anion Gap 12 mmol/L (10-20); BUN (Urea Nitrogen) 23 mg/dL (9.8-20.1); Bilirubin, Total 0.3 mg/dL (0.2-1.2); Calc. Creatinine Clearance 179 mL/min (70-130); Calcium 8.8 mg/dL (7.8-10.44); Carbon Dioxide 27 mmol/L (22-29); Chloride 105 mmol/L (98-107); Estimated GFR-MDRD Greater than 90; Globulin 3.3 g/dL (2.4-3.5); Glucose 189 mg/dL (70-105); Potassium 3.6 mmol/L (3.5-5.1); Protein, Total 6.4 g/dL (6.0-8.3); Sodium 140 mmol/L (136-145)
[2018-09-14] MEDS: Enoxaparin Sodium 40 MG/0.4 ML SYRINGE SC SCH (09:25)
[2018-09-14] MEDS: Pantoprazole 40 MG VIAL IVP SCH ×2 (09:41→22:04)
--- NOTE | 2018-09-14 10:07 | PRG ---
DATE OF SERVICE: 09/14/2018 HISTORY OF PRESENT ILLNESS: The patient successfully had a Dobbhoff tube placed in lieu of NG tube, continues on tube feeds without reported residuals. The patient does have some abdomen pain when pressed. Dr. Ozuna had ordered an abdomen CT to ensure any resolution of prior abscess. The patient did have a temperature of 100.2 greater than 24 hours ago. Urine culture did grow Citrobacter. The patient was started on meropenem. Has not gone for a CT scan with questions by nursing staff for how much oral contrast Dr. Lea would prefer. The patient unable to fully respond to complex questions; however, is alert, responding to commands, nods head yes or no to questions basically. OBJECTIVE: VITAL SIGNS: Temperature of 99.1, pulse 103, respiratory rate 25, oxygen saturation 100% on trach collar blow by oxygen. Blood pressure 148/68. The patient had negative fluid balance of 300 in the last 24 hours. GENERAL: The patient is alert, responding appropriately. HEENT: Head is normocephalic, atraumatic. Extraocular movements are intact. Sclerae are clear and white. Dobbhoff tube in place to right nare. NECK: Supple. Tracheostomy in place with blow by oxygen. HEART: Regular rate and rhythm at time of exam. No murmurs on auscultation. LUNGS: Clear to auscultation bilaterally. The patient with some thick secretions noted and she is able to currently clear with cough. ABDOMEN: Slightly tender, remained soft. Wound VAC in place. EXTREMITIES: Lower extremities without cyanosis or edema. Patient moving extremities on command and equally upper and lower. LABORATORY DATA: White blood cell count slightly improved to 17.6, hemoglobin of 9.0, platelet count of 374. Sodium of 140, potassium of 3.6, CO2 27, creatinine of 0.6, blood glucose ranged from 189-124 in the last 16 hours, calcium 8.8, total bilirubin 0.3, AST of 11, ALT of 30, albumin of 3.1. Urine culture from 09/12/2018 shows Citrobacter sensitive except for intermediate to Macrobid. ASSESSMENT AND PLAN: Deconditioning, urinary tract infection, diarrhea, hypertension. The patient continued on meropenem and Dr. Ozuna is following. We will follow up with Dr. Lea's recommendations for how much contrast the patient can tolerate looking for resolution of any abscesses in the abdomen. PT , OT and speech have been consulted along with case management for disposition planning, likely will ultimately end up in residential. The patient has limited participation, but did get transferred to chair. Currently C. diff toxin has been negative. I have not seen a repeat check yet. We will continue to follow along. Blood pressures remained adequate at this point in time. We will adjust the medications as needed. The patient remains on deep venous thrombosis and gastrointestinal prophylaxis. MTDD
[2018-09-14] MEDS: Dextrose 5% in Water 1,000 ML IV SCH (12:18)
--- NOTE | 2018-09-14 12:38 | CT ---
CT ABDOMEN AND PELVIS WITH ORAL AND IV CONTRAST: HISTORY: A 53-year-old female with peritonitis, fever, laparotomy, and gastric stapling surgery three years ag o, with recent reversal of bypass. COMPARISON: 08/23/2018 FINDINGS: There has been interval resolution of the right-sided pleural effusion. There is a moderate left ple ural effusion, which has increased in size since the previous study. There are patchy infiltrates in the anteriorly visualized lung cerda. The fluid collections in the abdomen and pelvis, noted on the previous exam, have resolved in the int erim. Residual free fluid is, however, seen in the upper abdomen. There is also suggestion of fluid in the anterior abdominal wall midline skin defect. Postop changes in the upper abdomen are again noted. Nonobstructing bilateral renal calculi are agai n seen. The small bowel loops are not abnormally dilated. A Dobbins catheter is present in the urinar y bladder. There is a tiny amount of air in the left anterior abdominal wall. Diffuse soft tissue densities are also seen in the subcutaneous fat of the anterior abdominal wall, left more than right. IMPRESSION: 1. Interval resolution of fluid collections in the abdomen and pelvis with residual fluid in the upp er abdomen since 08/23/2018. 2. Moderate left pleural effusion with bilateral infiltrates. POS: [facility]
[2018-09-14] MEDS: Insulin Regular 300 UNITS/3 ML VIAL SC PRN (17:02)
[2018-09-14] MEDS: Micafungin 100 MG in Sodium Chloride 0.9% 100 ML IVPB SCH (17:32)
--- NOTE | 2018-09-14 18:22 | PRG ---
DATE OF SERVICE: 09/14/2018 SUBJECTIVE: Ms. Perdomo has been stable. She has some mild abdominal discomfort. OBJECTIVE: VITAL SIGNS: She is afebrile, heart rate 77, blood pressure 135/92. LUNGS: Clear. HEART: Regular rhythm. ABDOMEN: Soft. LABORATORY DATA: White count 17.6, hemoglobin 9, platelets 374. Sodium 140, potassium 3.6, chloride 105, bicarbonate 27, BUN 23, creatinine 0.6. Unfortunately, her wound VAC starting to look like tube feeds this morning. Abdomen and pelvis CT done show no abscess. She is now n.p.o. Hopefully, this will resolve with a prolonged period of nutritional support intravenously and being n.p.o. She is having no respiratory issues at this time. SHASHA
[2018-09-14] MEDS: risperiDONE 1 MG TAB PO SCH (21:57)
[2018-09-15] MEDS: MEROPENEM 1 GM/50 ML 1 GM in Premix Bag 1 BAG IVPB SCH ×3 (00:12→17:49)
--- NOTE | 2018-09-15 00:19 | PRG ---
DATE OF SERVICE: 09/14/2018 HISTORY OF PRESENT ILLNESS: Ms. Perdomo remains in the intensive care unit. She is breathing on her own with a trach collar. She is maintaining oxygen saturation and has no evidence of dyspnea or tac hypnea. She seems to be little more alert each day and now is mouthing some words. Unfortunately, katherine mueller today, some drainage was noted on her midline wound that appeared similar to tube feeds. A CT scan was obtained today, which demonstrated no definite evidence of leak up into the abdominal wound ; however, it seems certain that is what this is. There is no evidence of significant intra-abdomina l abscess. I changed out her tracheostomy uneventfully to a 6 fenestrated. She tolerated this procedure well. There have been no other significant changes. PHYSICAL EXAMINATION: VITAL SIGNS: She remains afebrile. Her pulse is in the 80s and regular this evening. Blood pressur e is within normal limits. LUNGS: Clear to auscultation. ABDOMEN: Soft and nontender with normoactive bowel sounds. EXTREMITIES: Unremarkable. LABORATORY STUDIES: Her white blood cell count has dropped from 19.6 yesterday to 7.6 today. Her he moglobin stable at 9, platelet count is 374,000. Chemistry profile reveals normal electrolytes. Alb umin is stable at 3.1. Liver function tests are normal. 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 In sp ite of this, she remained stable currently. For now, I will discontinue her tube feeds. I will rein itiate TPN. Since the leak appears to be superior, this may be along the Arsalan limb of her small phuong l, which should not have significant enteric drainage from it. I am not certain how she developed th is leak or why this developed 3 weeks after her last laparotomy. An attempted exploration and possib le repair would almost certainly be disastrous at this point and I would therefore recommend a course of conservative management. She remains on steroids and I would hope these can be discontinued, whi ch will help with wound healing.
--- NOTE | 2018-09-15 00:48 | PRG ---
DATE OF SERVICE: 09/14/2018 SUBJECTIVE: Ms. Perdomo tolerated being transferred to the neuro chair with very alert and establishes eye contact. OBJECTIVE: VITAL SIGNS: T-max 99.7, it has defervesced since. Blood pressure 140/78, pulse 106, respirations ranging from 20-26, O2 sat 100, trach collar. GENERAL: Awake and oriented. LUNGS: Symmetric air entry. HEART: S1, S2, regular rate. ABDOMEN: The midline negative pressure dressing and at the upper edge of the dressing, there is a fluid collection under the plastic cover which has the same color as the enteric feedings. NEUROLOGIC: The neuro exam is unchanged. LABORATORY DATA: White cell count is at 17.6, hemoglobin 9, platelets 374 with 80% neutrophils. Creatinine 0.62, glucose 170. Sodium 140. Liver profile normal. Albumin 3.1. The Citrobacter species retrieved from urine culture are greater than 100,000 CFUs, a fairly broad susceptible organism. CT of abdomen and pelvis with resolution of the right-sided pleural effusion, moderate left pleural effusion which is increased in size, patchy infiltrates anteriorly. The fluid collections have resolved in the interim. There is residual free fluid; however, in the upper abdomen and also suggestive of fluid in the anterior abdominal wall midline skin defect. There is a small amount of air in the left anterior abdominal wall. ASSESSMENT AND DISCUSSION: Gastric bypass with ulcer resection of the gastric remnant ulcer with inflammatory process with peritonitis and fluid collections, percutaneous and then open drainage. Marked improvement, but now there has been some recrudescence of inflammatory process and this is likely a small leak which is being extravasating through the skin in the upper segment of the wound. Apparently, the patient is going to have TPN started and the enteric feedings will be discontinued. Continue antimicrobial therapy as currently for the time being. Their hope is that leak will seal with the changes. MTDD
[2018-09-15 04:43] LABS: #Lymphocytes 1.3 thou/uL (1.20-3.40); #Monocytes 0.6 thou/uL (0.11-0.59); #Neutrophils 10.1 thou/uL (1.40-6.50); %Basophils 0.3 % (0.0-1.0); %Eosinophils 0.2 % (0.0-10.0); %Lymphocytes 10.5 % (21.0-51.0); %Monocytes 4.9 % (0.0-10.0); %Neutrophils 84.1 % (42.0-75.0); Hemoglobin 9.9 g/dL (12.0-16.0); Mean Corpuscular HGB CONC 31.1 g/dL (32.0-36.0); Mean Corpuscular Hemoglobin 27.3 pg (27.0-31.0); Mean Corpuscular Volume 87.8 fL (78.0-98.0); Mean Platelet Volume 7.8 fL (7.4-10.4); Platelet Count 334 thou/uL (130-400); RBC Distribution Width 15.3 % (11.5-14.5); Red Blood Cell (RBC) Count 3.64 mill/uL (4.20-5.40)
[2018-09-15 05:36] LABS: ALT (SGPT) 27 U/L (8-55); AST (SGOT) 12 U/L (5-34); Albumin 3.1 g/dL (3.5-5.0); Alkaline Phosphatase 134 U/L (40-150); Anion Gap 14 mmol/L (10-20); BUN (Urea Nitrogen) 21 mg/dL (9.8-20.1); Bilirubin, Total 0.3 mg/dL (0.2-1.2); Calc. Creatinine Clearance 162 mL/min (70-130); Calcium 9.1 mg/dL (7.8-10.44); Carbon Dioxide 24 mmol/L (22-29); Chloride 102 mmol/L (98-107); Estimated GFR-MDRD Greater than 90; Globulin 3.3 g/dL (2.4-3.5); Glucose 245 mg/dL (70-105); Magnesium 1.7 mg/dL (1.6-2.6); Phosphorus 3.8 mg/dL (2.3-4.7); Protein, Total 6.4 g/dL (6.0-8.3); Sodium 136 mmol/L (136-145)
--- NOTE | 2018-09-15 09:45 | PRG ---
DATE OF SERVICE: 09/15/2018 SUBJECTIVE: Ms. Analia Perdomo remains clinically unchanged. She will awaken. She has a fenestrate d trach now. OBJECTIVE: LUNGS: Clear. HEART: Regular rhythm. ABDOMEN: Soft and nontender. She still has purulent drainage versus tube feeds coming out of her wound VAC. EXTREMITIES: Without clubbing, cyanosis, or edema. LABORATORY DATA: White count 12.0, hemoglobin 9.9, platelets 334. Sodium 136, potassium 4, chloride 102, bicarbonate 24, BUN 21, creatinine 0.65. IMPRESSION: Enterocutaneous fistula. No abscess was identified on CT. PLAN: Continue supportive care.
--- NOTE | 2018-09-15 10:06 | PRG ---
DATE OF SERVICE: 09/15/2018 SUBJECTIVE: Ms. Perdomo remains in the Intensive Care Unit. She is still on the trach collar. Her tracheostomy was changed out for a fenestrated trach yesterday. She appears to be comfortable in bed. Yesterday, her tube feeds were stopped as there was copious drainage within her wound that w as felt to be consistent with tube feeds. This was not confirmed on CT scan. She still has some tarun inage around her wound VAC that is either purulent or tube feeds. There was no foul smell associated with the drainage yesterday. PHYSICAL EXAMINATION: VITAL SIGNS: She remains afebrile, pulse is between 74 and 100, blood pressure is 160/80. LUNGS: Cl ear to auscultation. ABDOMEN: Soft and nontender. Wound VAC is present within the wound, but there is a significant amou nt of fluid around the sponge in the upper wound, which of most of the drainage. LABORATORY STUDIES: White blood cell count has dropped down to 12 from 17 yesterday. Hemoglobin is stable at 9.9. Chemistry panel is unremarkable. ASSESSMENT: Patient with severe deconditioning following a couple laparotomies and the tracheostomy. I am not certain if she has an enterocutaneous fistula at this time. It was not clearly demonstrat ed on CT scan yesterday. I will therefore have her tube feeds resumed with blue dye and see if blue dye shows open in the wound. This would definitively confirm that there is some form of an enterocut aneous fistula. TPN has not yet been started for reasons that I am not certain. Hopefully, we can a lso wean off the steroids starting today.
[2018-09-15] MEDS: Pantoprazole 40 MG VIAL IVP SCH ×2 (11:45→21:03)
[2018-09-15] MEDS: Enoxaparin Sodium 40 MG/0.4 ML SYRINGE SC SCH (11:45)
[2018-09-15] MEDS: Dextrose 5% in Water 1,000 ML IV SCH (11:46)
--- NOTE | 2018-09-15 14:16 | RAD ---
AP VIEW CHEST: HISTORY: Tracheostomy tube. Intubated patient. FINDINGS: AP view chest is obtained on 09/15/2018. Comparison is made to previous exam from 09/12/2018. AP view chest demonstrates a Dobbhoff tube in place, distal tip overlying the gastroesophageal juncti on. A left upper extremity PICC line is seen. A tracheostomy tube is in place. The lungs demonstrate suboptimal inspiratory effort. No evidence of effusions, pneumonia, or pneumot horax is seen. IMPRESSION: Unremarkable AP view chest with lines and tubes in good position. POS: [facility]
--- NOTE | 2018-09-15 14:17 | PRG ---
DATE OF SERVICE: 09/15/2018 The patient remains on trach collar, unable to fully communicate, but does nod yes and no to basic qu estions and is moving all her extremities. She is alert. The patient nodded head in understanding t o possible purulent discharge from wound VAC, which had been replaced with some dishwater-like consis tency output today, thought to be more purulent discharge rather than tube feeds as possible initial outlook prior to changing the wound VAC and holding tube feeds over the last 24 hours. The patient s cheduled to start TPN later today and undergo a contrast trial through Dobbhoff to look for any extra vasation of contrast in the abdomen. Abdomen and pelvis CT performed yesterday afternoon showed inte rval resolution of prior abscess, moderate left pleural effusion. No signs of additional abscess col lection or of significant leakage. REVIEW OF VITAL SIGNS: Temperature of 98.2, pulse of 92, blood pressure 137/80, respiratory rate of 25, oxygen saturation 100% on trach collar with blow-by oxygen. LABORATORY DATA: White blood cells improved to 12.0, hemoglobin 9.9, platelet count of 334. Sodium of 136, potassium of 4.0, CO2 of 24, creatinine of 0.65, blood glucose 94-245 the last 12 hours, albu min of 3.1. PHYSICAL EXAMINATION: GENERAL: The patient is alert, in no acute distress. HEENT: Head is normocephalic, atraumatic. Extraocular movements are intact. Sclerae are white. Do bbhoff tube in place. Tracheostomy collar in place. LUNGS: Clear to auscultation bilaterally. HEART: Regular rate and rhythm at time of exam. No murmurs auscultated. Wound VAC still in place a t time of exam. ABDOMEN: Positive bowel sounds. EXTREMITIES: Lower extremities without cyanosis or edema. The patient moving all extremities on com francisco. ASSESSMENT AND PLAN: Urinary tract infection, diarrhea, purulent discharge from abdomen wound, decon ditioning, status post tracheostomy, resolved gastrointestinal bleed, anemia of chronic disease, reso lved acute blood loss, hypertension as per HPI. We will follow along with Surgery's recommendations for evaluation for cause of purulent discharge. Patient's vital signs and cell counts are much impro edwin following initiation of antibiotics for urinary tract infection, patient appears to be responding well to. We will continue to follow along. The patient on deep venous thrombosis and gastrointesti nal prophylaxis still.
[2018-09-15] MEDS: SODIUM CHLORIDE IV SCH (14:25)
[2018-09-15] MEDS: [UNRECOGNIZED DRUG - OTHER] IV SCH (14:25)
[2018-09-15] MEDS: POTASSIUM CHLORIDE IV SCH (14:25)
[2018-09-15] MEDS: Micafungin 100 MG in Sodium Chloride 0.9% 100 ML IVPB SCH (17:50)
[2018-09-15] MEDS: Insulin Regular 300 UNITS/3 ML VIAL SC PRN (18:42)
[2018-09-15] MEDS: risperiDONE 1 MG TAB PO SCH (21:04)
[2018-09-16] MEDS: MEROPENEM 1 GM/50 ML 1 GM in Premix Bag 1 BAG IVPB SCH ×3 (02:12→19:51)
[2018-09-16 05:21] LABS: #Basophils 0.1 thou/uL (0.0-0.2); #Eosinphils 0.2 thou/uL (0.0-0.7); #Lymphocytes 2.5 thou/uL (1.20-3.40); #Monocytes 1.8 thou/uL (0.11-0.59); %Basophils 0.6 % (0.0-1.0); %Lymphocytes 19.9 % (21.0-51.0); %Monocytes 14.5 % (0.0-10.0); %Neutrophils 62.9 % (42.0-75.0); Hemoglobin 9.2 g/dL (12.0-16.0); Mean Corpuscular HGB CONC 31.2 g/dL (32.0-36.0); Mean Corpuscular Hemoglobin 28.7 pg (27.0-31.0); Mean Corpuscular Volume 92.1 fL (78.0-98.0); Mean Platelet Volume 8.2 fL (7.4-10.4); Platelet Count 329 thou/uL (130-400); RBC Distribution Width 15.5 % (11.5-14.5); Red Blood Cell (RBC) Count 3.21 mill/uL (4.20-5.40); White Blood Cell (WBC) Count 12.7 thou/uL (4.8-10.8)
[2018-09-16 05:37] LABS: ALT (SGPT) 23 U/L (8-55); AST (SGOT) 13 U/L (5-34); Albumin 2.9 g/dL (3.5-5.0); Alkaline Phosphatase 110 U/L (40-150); Anion Gap 13 mmol/L (10-20); BUN (Urea Nitrogen) 28 mg/dL (9.8-20.1); Bilirubin, Total 0.2 mg/dL (0.2-1.2); Calc. Creatinine Clearance 116 mL/min (70-130); Calcium 8.7 mg/dL (7.8-10.44); Carbon Dioxide 22 mmol/L (22-29); Chloride 100 mmol/L (98-107); Estimated GFR-MDRD 64; Globulin 3.6 g/dL (2.4-3.5); Potassium 6.2 mmol/L (3.5-5.1); Protein, Total 6.5 g/dL (6.0-8.3); Sodium 129 mmol/L (136-145)
[2018-09-16 05:43] LABS: Glucose 833 mg/dL (70-105)
[2018-09-16 06:14] LABS: Anion Gap 13 mmol/L (10-20); BUN (Urea Nitrogen) 29 mg/dL (9.8-20.1); Calc. Creatinine Clearance 170 mL/min (70-130); Calcium 8.7 mg/dL (7.8-10.44); Carbon Dioxide 24 mmol/L (22-29); Chloride 105 mmol/L (98-107); Estimated GFR-MDRD Greater than 90; Glucose 132 mg/dL (70-105); Potassium 3.7 mmol/L (3.5-5.1); Sodium 138 mmol/L (136-145)
[2018-09-16] MEDS: Enoxaparin Sodium 40 MG/0.4 ML SYRINGE SC SCH (09:19)
[2018-09-16] MEDS: Pantoprazole 40 MG VIAL IVP SCH ×2 (09:20→21:06)
[2018-09-16] MEDS: Morphine 2 MG/ML SYRINGE SLOW IVP PRN ×3 (09:37→21:11)
--- NOTE | 2018-09-16 11:09 | PRG ---
DATE OF SERVICE: 09/16/2018 SUBJECTIVE: The patient appears to be doing better. The patient has been started on TPN and enteric feedings have been held. Food coloring has been added to the enteric feedings before they were disc ontinued and there was no apparent transmission of the color added fluid towards the upper fluid cathie ection that had been draining from the superior segment of the incision. The character of the fluid had a more purulent exudate character. Cultures were submitted and they are reviewed below. OBJECTIVE: VITAL SIGNS: T-max 98.4, blood pressure 140/90, pulse 103, respirations 22, O2 sats 100 on 6 liter t [place] collar. GENERAL: Awake, follows commands. Midline negative pressure dressing. PICC line. Dobbins catheter a nd I's and O's are negative -300. HEENT: Ocular movements conjugate. Sclerae white. Pupils are equal and reactive. Oral cavity is m oist. Tracheostomy exit site appears normal. LUNGS: Symmetric, clear breath sounds. CARDIOVASCULAR: S1, S2, regular rate without murmurs. ABDOMEN: Not distended. Bowel sounds are diminished. She is able to move all extremities. LABORATORY DATA: White cell count 12.7, hemoglobin 9.2, platelets 329 with 62% neutrophils. Sodium 138, creatinine 0.62 with a normal liver profile, albumin 2.9. Microbiology with a fluid drainage wi th a gram negative jhoana with pending identification and susceptibility testing. The Gram stain demons trated many WBCs and seen. ASSESSMENT AND DISCUSSION: Gastric bypass with ulcer development in the remnant and then resection w ith subsequent inflammatory process with peritonitis and fluid collections. Initially a percutaneous drainage and then open drainage with marked improvement, then some recrudescence of inflammatory pro cess in this drainage in the superior segment of the incision. No clear cut leakage has been identif ied so this could represent just an abscess from the residual inflammatory process. The patient is b ack on broad spectrum antimicrobial coverage to be continued for a longer period of time. I do not t hink there is any planned intervention at this point in time. The patient is on TPN and the steroids have been discontinued, which is helpful for healing.
[2018-09-16] MEDS: Dextrose 5% in Water 1,000 ML IV SCH (13:58)
[2018-09-16] MEDS: [UNRECOGNIZED DRUG - OTHER] IV SCH (14:00)
[2018-09-16] MEDS: SODIUM CHLORIDE IV SCH (14:00)
[2018-09-16] MEDS: POTASSIUM CHLORIDE IV SCH (14:00)
--- NOTE | 2018-09-16 14:29 | PRG ---
DATE OF SERVICE: 09/16/2018 HISTORY OF PRESENT ILLNESS: Ms. Perdomo remains in the Intensive Care Unit. She appears to continue to make progress. She got a speaking valve on her tracheostomy yesterday and she is now able to spe ak to me in full sentences. She appears to be alert and interactive. She notes she has abdominal pa in. There is clearly purulent material underneath the superior aspect of her wound VAC. Yesterday, I ran blue dye along with her tube feeds and there is no evidence of any blue dye coming o ut into the abdominal wound. I therefore suspected that material draining through her upper wound is in fact a puss rather than tube feeds. Cultures were obtained yesterday and these are still pending , but her initial cultures show a few gram negative rods. These may not grow because she is already on intravenous antibiotics. PHYSICAL EXAMINATION: VITAL SIGNS: She is afebrile. Her pulse is 110. Blood pressure is 130/80. LUNGS: Clear to auscultation. ABDOMEN: Soft, diffusely. There is significant purulent material draining from a pinpoint opening o f her upper abdominal incision. I bluntly digitally dilated this area and a cavity that really was n ot very big. I am able to palpate a suture from her fascial closure. I could express no more purule nce into the wound after I did open this tract. On the abdominal wound, there were a couple of areas where it looked like there was a small amount of purulent material. I probed through each of these and entered a tract that extended down to the suture at the fascia. Wound VAC will be reapplied over these. Bowel sounds are present and normoactive. LABORATORY STUDIES: Her basic metabolic panel reveals normal electrolytes, BUN and creatinine. Her glucose levels have been between 117 and 130 today. Her CBC reveals white blood cell count of 12.7, hemoglobin of 9.2. ASSESSMENT: She continues to improve. She is on IV antibiotics now per Dr. Ozuna. Hopefully, with digitally opening these areas, this will resolve the superficial infection. She has an area of some induration over near her SHELBIE drainage tract in the left abdomen, but this does not appear to be fluctu ant. I elected not to open at this time. I will continue with tube feeds per her Dobbhoff tube as w ell as antibiotics and wound care and physical therapy. Hopefully, she will progress to be stable to transfer out of the ICU soon.
--- NOTE | 2018-09-16 18:50 | PRG ---
DATE OF SERVICE: 09/16/2018 HISTORY OF PRESENT ILLNESS: The patient is more upright today, has been able to communicate via coRank e board to speak with family at bedside today. Family at bedside verbalized understanding regarding current predicament with wound VAC with a localized infection as no abscess was found on CT confirmin g with nursing staff, the contrast and tube feeds did not come through wound VAC that this appea rs to be localized infection, not communicating with the GI tract at this point in time. Per nursing staff, Dr. Lea plans to do a bedside examination of wound and possibly packet prior to return to the Wound VAC. Patient has been transitioned to TPN at this point in time for feedings, is continue on antibiotics for UTI and wound infection. LABORATORY: White blood count of 12.7, hemoglobin 9.2, platelet count of 329, following looks like p oor draw near TPN line this morning. Repeat lab draw this a.m., sodium 138, potassium of 3.7, BUN of 29, creatinine of 0.62, blood glucose 113-132 last 12 hours. Albumin 2.9. [facility] culture from [facility] revealed gram negative rods, susceptibilities pending identification pending. PHYSICAL EXAMINATION: VITAL SIGNS: Pulse of 100, blood pressure 132/87, oxygen saturation of 100% on trach collar with blo w by oxygen. Temperature of 98.4. GENERAL: The patient is alert, communicating via white board. No acute distress. HEENT: Normocephalic, atraumatic. Extraocular movements are intact. Sclerae are white. Trach cathie ar in place. Dobbhoff tube in place. HEART: Regular rate and rhythm at time of exam. No murmurs auscultated. LUNGS: Clear to auscultation bilaterally. No rubs or wheezes. ABDOMEN: Soft, positive bowel sounds, slightly tender around the wound area, but no formal guarding or rebound symptoms. EXTREMITIES: Lower extremities without cyanosis or edema. ASSESSMENT AND PLAN: Physical deconditioning status post tracheostomy, urinary tract infection, abdo men wound infection, anemia, hypertension. The patient continued on TPN until GI tract cleared by Dr Quin Lea regarding wound track forming a fistula versus not continued on meropenem, micafungin for a ntibiotic coverage of wound and Citrobacter and urine. Fungal culture has not formally been returned back from positive several weeks ago. The patient continued on risperidone from prior agitation whi le intubated. The patient with breathing treatments to trach collar, p.r.n. oxygen and therapy consu ltations with limited participation given ICU status and still with dependency on tube feeds, TPN, an d bladder and bowel control. Patient is continued on Protonix and Lovenox for deep venous thrombosis and gastrointestinal prophylaxis. We will continue to follow along and see how the patient's wound progresses.
[2018-09-16] MEDS: Micafungin 100 MG in Sodium Chloride 0.9% 100 ML IVPB SCH (19:50)
[2018-09-16] MEDS: risperiDONE 1 MG TAB PO SCH (21:06)
[2018-09-17] MEDS: MEROPENEM 1 GM/50 ML 1 GM in Premix Bag 1 BAG IVPB SCH ×3 (01:18→17:11)
[2018-09-17] MEDS: Morphine 2 MG/ML SYRINGE SLOW IVP PRN ×2 (01:26→10:19)
[2018-09-17 05:04] LABS: #Basophils 0.1 thou/uL (0.0-0.2); #Eosinphils 0.2 thou/uL (0.0-0.7); #Lymphocytes 2.1 thou/uL (1.20-3.40); #Monocytes 1.5 thou/uL (0.11-0.59); %Basophils 0.6 % (0.0-1.0); %Eosinophils 1.9 % (0.0-10.0); %Lymphocytes 17.6 % (21.0-51.0); %Monocytes 12.8 % (0.0-10.0); %Neutrophils 67.1 % (42.0-75.0); Hemoglobin 9.3 g/dL (12.0-16.0); Mean Corpuscular HGB CONC 30.7 g/dL (32.0-36.0); Mean Corpuscular Hemoglobin 26.9 pg (27.0-31.0); Mean Corpuscular Volume 87.4 fL (78.0-98.0); Mean Platelet Volume 7.6 fL (7.4-10.4); Platelet Count 321 thou/uL (130-400); RBC Distribution Width 14.9 % (11.5-14.5); Red Blood Cell (RBC) Count 3.45 mill/uL (4.20-5.40); White Blood Cell (WBC) Count 11.9 thou/uL (4.8-10.8)
[2018-09-17 05:17] LABS: ALT (SGPT) 24 U/L (8-55); AST (SGOT) 12 U/L (5-34); Albumin 3.3 g/dL (3.5-5.0); Alkaline Phosphatase 143 U/L (40-150); Anion Gap 11 mmol/L (10-20); BUN (Urea Nitrogen) 22 mg/dL (9.8-20.1); Bilirubin, Total 0.2 mg/dL (0.2-1.2); Calc. Creatinine Clearance 180 mL/min (70-130); Calcium 8.8 mg/dL (7.8-10.44); Carbon Dioxide 27 mmol/L (22-29); Chloride 104 mmol/L (98-107); Estimated GFR-MDRD Greater than 90; Globulin 3.2 g/dL (2.4-3.5); Glucose 157 mg/dL (70-105); Potassium 3.7 mmol/L (3.5-5.1); Protein, Total 6.5 g/dL (6.0-8.3); Sodium 138 mmol/L (136-145)
[2018-09-17] MEDS: Enoxaparin Sodium 40 MG/0.4 ML SYRINGE SC SCH (09:32)
[2018-09-17] MEDS: Pantoprazole 40 MG VIAL IVP SCH ×2 (09:32→20:12)
--- NOTE | 2018-09-17 10:31 | PRG ---
DATE OF SERVICE: 09/17/2018 SUBJECTIVE: The patient is awake. She is on a neuro chair. She states her pain is about the same. She is able to vocalize with the speaking trach. The nurse reports there has been really no change. She is tolerating tube feedings. PHYSICAL EXAMINATION: VITAL SIGNS: Temperature is 98.0, pulse 112, blood pressure is 159/90. GENERAL: She is awake and alert. ABDOMEN: Soft. She is diffusely tender, but apparently that is stable. LABORATORY DATA: Her white count is 11.9, H&H is 9.3 and 30, platelet count 321, glucose 157, creati nine 0.59. ASSESSMENT: Stable PLAN: Continue current treatment.
[2018-09-17] MEDS: Dextrose 5% in Water 1,000 ML IV SCH (11:26)
--- NOTE | 2018-09-17 11:33 | PRG ---
DATE OF SERVICE: 09/17/2018 SUBJECTIVE: Nurses report, the patient continues to improve slowly. She sat up in a chair this morn ing and is now back in bed, tired. Able to converse with speech device. OBJECTIVE: VITAL SIGNS: Temperature 98.9, pulse ox 100%, respiratory rate 24, blood pressure 159/90. GENERAL: The patient is resting comfortably. HEART: Regular rate and rhythm. LUNGS: Clear. ABDOMEN: Soft. LABORATORY DATA: White count 11.9, H and H 9.3 and 30.2. Electrolytes normal. Creatinine 0.59, BUN 22, blood sugars . ASSESSMENT: 1. Status post gastric bypass with ulcer development and resection with subsequent peritonitis and a bscess formation. The patient appears to be improving slowly. 2. Wound infection, presently being irrigated and under wound VAC. PLAN: 1. Continue tube feeds. 2. Continue antibiotic treatment. 3. Continue to monitor cultures. 4. Continue to increase activity. 5. We will continue to follow.
--- NOTE | 2018-09-17 12:22 | PRG ---
DATE OF SERVICE: 09/16/2018 SUBJECTIVE: Analia Perdomo is able to converse in short sentences. She is extremely weak. Her speaking valve was placed on a tracheostomy tube this morning. She did reasonably well with that for a short period of time. OBJECTIVE: LUNGS: Clear. HEART: Regular rhythm. ABDOMEN: Soft. She still has purulence/cloudy fluid coming out of the superior margin of her incision. EXTREMITIES: Without asymmetry. LABORATORY DATA: White count 12.7, hemoglobin 9.2, platelets 329. Sodium 129, potassium reported at 6.2 at 1st draw. Repeat labs showed a sodium 138, potassium 3.7. ASSESSMENT AND PLAN: I suppose this was a hemolyzed specimen. The glucose was 833, which makes no sense unless this was drawn above TPN line or it was blood from another patient,.Second lab is most likely the correct lab. We will continue with wound care issues per General Surgery. From a pulmonary standpoint, she is stable. [facility]
[2018-09-17] MEDS: Morphine 4 MG/ML VIAL IV PRN ×2 (12:40→18:46)
[2018-09-17] MEDS: Micafungin 100 MG in Sodium Chloride 0.9% 100 ML IVPB SCH (17:30)
--- NOTE | 2018-09-17 18:25 | PRG ---
DATE OF SERVICE: 09/17/2018 SUBJECTIVE: Ms. Perdomo has had no new problems. Dr. Lea manually explored the upper part of her wound yesterdayI am told. OBJECTIVE: VITAL SIGNS: He is afebrile, heart rates 112, blood pressure is 159/90, respiratory rate 24. LUNGS: Clear. HEART: Regular rhythm. ABDOMEN: Soft. LABORATORY DATA: White count 11.9, hemoglobin 9.3, platelets 321. Sodium 138, potassium 3.7, chloride 104, bicarbonate 27, BUN 22, creatinine 0.5. IMPRESSION: 1. Status post multiple abdominal procedures, clinically stable. 2. Enterocutaneous fistula, clinically stable. [facility]TDD
[2018-09-17] MEDS: risperiDONE 1 MG TAB PO SCH (20:12)
[2018-09-18] MEDS: MEROPENEM 1 GM/50 ML 1 GM in Premix Bag 1 BAG IVPB SCH ×3 (00:22→17:23)
[2018-09-18] MEDS: Morphine 4 MG/ML VIAL IV PRN ×7 (00:29→20:56)
[2018-09-18 05:29] LABS: #Basophils 0.1 thou/uL (0.0-0.2); #Eosinphils 0.3 thou/uL (0.0-0.7); #Lymphocytes 1.7 thou/uL (1.20-3.40); #Monocytes 1.4 thou/uL (0.11-0.59); #Neutrophils 6.3 thou/uL (1.40-6.50); %Basophils 0.6 % (0.0-1.0); %Eosinophils 3.2 % (0.0-10.0); %Lymphocytes 17.4 % (21.0-51.0); %Neutrophils 64.7 % (42.0-75.0); Hemoglobin 9.2 g/dL (12.0-16.0); Mean Corpuscular HGB CONC 31.2 g/dL (32.0-36.0); Mean Corpuscular Hemoglobin 27.1 pg (27.0-31.0); Mean Corpuscular Volume 86.9 fL (78.0-98.0); Mean Platelet Volume 7.7 fL (7.4-10.4); Platelet Count 284 thou/uL (130-400); RBC Distribution Width 14.8 % (11.5-14.5); Red Blood Cell (RBC) Count 3.39 mill/uL (4.20-5.40); White Blood Cell (WBC) Count 9.7 thou/uL (4.8-10.8)
[2018-09-18 05:42] LABS: ALT (SGPT) 97 U/L (8-55); AST (SGOT) 63 U/L (5-34); Albumin 3.2 g/dL (3.5-5.0); Alkaline Phosphatase 406 U/L (40-150); Anion Gap 11 mmol/L (10-20); BUN (Urea Nitrogen) 16 mg/dL (9.8-20.1); Bilirubin, Total 0.5 mg/dL (0.2-1.2); Calc. Creatinine Clearance 179 mL/min (70-130); Calcium 8.9 mg/dL (7.8-10.44); Carbon Dioxide 26 mmol/L (22-29); Chloride 102 mmol/L (98-107); Estimated GFR-MDRD Greater than 90; Globulin 3.1 g/dL (2.4-3.5); Glucose 125 mg/dL (70-105); Potassium 3.9 mmol/L (3.5-5.1); Protein, Total 6.3 g/dL (6.0-8.3); Sodium 135 mmol/L (136-145)
[2018-09-18] MEDS: Pantoprazole 40 MG VIAL IVP SCH ×2 (09:27→20:02)
[2018-09-18] MEDS: traMADol HCl 50 MG TAB PO SCH ×3 (10:40→20:02)
[2018-09-18] MEDS: Dextrose 5% in Water 1,000 ML IV SCH (12:19)
[2018-09-18] MEDS: Acetaminophen 650 MG/20.3 ML UDCUP PER TUBE PRN (13:48)
[2018-09-18] MEDS: Ondansetron PF 4 MG/2 ML Vial IVP PRN ×2 (13:55→20:56)
[2018-09-18] MEDS: Enoxaparin Sodium 40 MG/0.4 ML SYRINGE SC SCH (13:56)
[2018-09-18] MEDS ORDERED: Iopamidol 370 76% 100 ML VIAL ONE (14:37)
[2018-09-18] MEDS ORDERED: Iopamidol 370 76% 50 ML VIAL FS ONE (14:37)
--- NOTE | 2018-09-18 17:40 | PRG ---
DATE OF SERVICE: 09/18/2018 SUBJECTIVE: Ms. Perdomo is complaining of discomfort all over. She says, she has had pain all over for years and wanted more pain medicine. I have added tramadol around the clock but I am hesitant to start ramping up opiates. She is extremely weak still but her voice is stronger and she is talking more with a speaking valve o n. OBJECTIVE: VITALS: Heart rate is 102, respiratory rate is 22, oximetry is 100% on a trach collar, blood pressur e 125/74. LUNGS: Clear. HEART: Regular rhythm. ABDOMEN: Soft. LABORATORY DATA: White count 9.7, hemoglobin 9.2, platelets 284. Sodium 135, potassium 3.9, chlorid e 102, bicarb 26, BUN 16, creatinine 0.59. IMPRESSION: 1. Enterocutaneous fistula, now n.p.o. 2. Status post multiple abdominal surgeries as mentioned. 3. History of multiple abdominal surgeries in the past. 4. Extreme deconditioning prior to this admission. PLAN: Continue supportive care.
[2018-09-18] MEDS: Micafungin 100 MG in Sodium Chloride 0.9% 100 ML IVPB SCH (17:47)
--- NOTE | 2018-09-18 17:47 | PRG ---
DATE OF SERVICE: 09/18/2018 SUBJECTIVE: The patient began having copious amounts of thick purulent drainage from her wound that was clogging up the wound VAC. The wound VAC was removed and she was changed to wet to dry dressings . She reports that her pain is no different than yesterday. No worse. PHYSICAL EXAMINATION: VITAL SIGNS: She is afebrile. Temperature 98.2, pulse 94, blood pressure 125/74. GENERAL: She is awake, alert, in minimal distress. ABDOMEN: The wound has two openings, one at the far upper aspect of the incision, one in the mid asp ect draining this thick greenish lópez drainage. We turned off the tube feedings, but for half a day, it did not change the volume of drainage. LABORATORY DATA: Her white count is 9.7, H&H 9 and 29, platelet count 284,000. Electrolytes are fin e. Her CO2 is 25, but her alkaline phosphatase jumped up to 406 from 143. ASSESSMENT: Wound drainage, rule out abscess. PLAN: We will check a CT scan of the abdomen. Repeat LFTs.
--- NOTE | 2018-09-18 19:14 | CT ---
CT ABDOMEN AND PELVIS WITH CONTRAST: HISTORY: A 53-year-old female with a history of purulent drainage of an abdominal wound. COMPARISON: 09/14/2018 and 08/24/2018 TECHNIQUE: IV and oral contrast were given. FINDINGS: Contrast enhanced CT images of the abdomen and pelvis demonstrate, again, a small, left-sided pleural effusion, not significantly changed since the previous exam. Some areas of atelectasis are seen in both lung bases. The liver and spleen are unremarkable. Previously noted intraabdominal fluid collection along the upper aspect of the abdominal cavity appea rs to now have calcified. This is unchanged since the previous comparison CT from 09/14/2018. A Dobhoff tube is in place. Radiopaque contrast is seen in the stomach, small bowel, and colon. No definite evidence of leakage seen. Some post surgical changes seen in the left upper quadrant of the abdomen. No evidence of rec urrent abscess or evidence of oral contrast leakage seen. The gallbladder has been surgically removed. Numerous bilateral renal calculi seen without evidence of renal obstruction. No definite evidence of renal parenchymal masses seen. The pancreas is unremarkable. No evidence of periaortic lymphadenopathy is seen. No dilated loops of small bowel or colon seen. IMPRESSION: No newly developed areas of gastrointestinal leak or newly developed intraperitoneal fluid collection s. POS: [facility]
[2018-09-18] MEDS: risperiDONE 1 MG TAB PO SCH (20:02)
[2018-09-19] MEDS: MEROPENEM 1 GM/50 ML 1 GM in Premix Bag 1 BAG IVPB SCH ×3 (00:26→17:25)
[2018-09-19] MEDS: Morphine 4 MG/ML VIAL IV PRN ×6 (00:50→22:41)
[2018-09-19] MEDS: traMADol HCl 50 MG TAB PO SCH ×4 (03:03→20:27)
[2018-09-19 06:02] LABS: #Basophils 0.1 thou/uL (0.0-0.2); #Eosinphils 0.4 thou/uL (0.0-0.7); #Lymphocytes 1.8 thou/uL (1.20-3.40); #Monocytes 1.3 thou/uL (0.11-0.59); #Neutrophils 7.2 thou/uL (1.40-6.50); %Basophils 0.7 % (0.0-1.0); %Eosinophils 3.4 % (0.0-10.0); %Lymphocytes 16.4 % (21.0-51.0); %Monocytes 12.5 % (0.0-10.0); %Neutrophils 67.1 % (42.0-75.0); Hemoglobin 9.4 g/dL (12.0-16.0); Mean Corpuscular HGB CONC 31.2 g/dL (32.0-36.0); Mean Corpuscular Hemoglobin 27.1 pg (27.0-31.0); Mean Platelet Volume 7.5 fL (7.4-10.4); Platelet Count 296 thou/uL (130-400); RBC Distribution Width 14.7 % (11.5-14.5); Red Blood Cell (RBC) Count 3.46 mill/uL (4.20-5.40); White Blood Cell (WBC) Count 10.7 thou/uL (4.8-10.8)
--- NOTE | 2018-09-19 07:43 | PRG ---
DATE OF SERVICE: 09/19/2018 SUBJECTIVE: Mr. Perdomo did well overnight. OBJECTIVE: VITAL SIGNS: Blood pressure 135/83, heart rate is 109, respiratory rate 24. He still has purulent d rainage from the wound. LUNGS: Clear. HEART: Regular rhythm. ABDOMEN: Nontender. She says she feels a little better with tramadol. LABORATORY DATA: White count is 10.7, hemoglobin 9.4, platelets 296. Sodium 135, potassium 3.9, chl oride 102, bicarbonate 26, BUN 16, creatinine 0.59 yesterday. IMPRESSION AND PLAN: 1. Enterocutaneous fistula. 2. Status post multiple abdominal procedures this admission. 3. Status post multiple weight loss surgeries prior to this admission. 4. Deconditioning. 5. Status post tracheostomy. Clinically, doing well with his speaking valve. She is actually laugh ing and smiling today for the first time. We will continue with current care in the Critical Care [facility].
[2018-09-19] MEDS: Pantoprazole 40 MG VIAL IVP SCH ×2 (09:23→20:27)
[2018-09-19] MEDS: Dextrose 5% in Water 1,000 ML IV SCH (10:33)
[2018-09-19 10:37] LABS: ALT (SGPT) 95 U/L (8-55); AST (SGOT) 45 U/L (5-34); Albumin 3.3 g/dL (3.5-5.0); Alkaline Phosphatase 564 U/L (40-150); Anion Gap 11 mmol/L (10-20); BUN (Urea Nitrogen) 17 mg/dL (9.8-20.1); Bilirubin, Direct 0.3 mg/dL (0.1-0.3); Bilirubin, Total 0.4 mg/dL (0.2-1.2); Calc. Creatinine Clearance 171 mL/min (70-130); Calcium 9.2 mg/dL (7.8-10.44); Carbon Dioxide 29 mmol/L (22-29); Chloride 100 mmol/L (98-107); Estimated GFR-MDRD Greater than 90; Globulin 3.2 g/dL (2.4-3.5); Glucose 120 mg/dL (70-105); Potassium 4.2 mmol/L (3.5-5.1); Protein, Total 6.5 g/dL (6.0-8.3); Sodium 136 mmol/L (136-145)
[2018-09-19] MEDS: Enoxaparin Sodium 40 MG/0.4 ML SYRINGE SC SCH (11:37)
--- NOTE | 2018-09-19 13:28 | PRG ---
DATE OF SERVICE: 09/19/2018 HISTORY OF PRESENT ILLNESS: The patient is able to speak with insert into trach collar. She reports she has a hazy memory of last week. Reports some back discomfort and some abdomen incision line dis comfort; however, is in high spirits with reports of getting up to a chair with physical therapy late r today. The patient and the patient's sister verbalized understanding regarding nursing staff stati ng Dr. Lea to see patient's upper wound later today under local anesthetic and see if any stitche s or inflaming area and need to be removed. VITAL SIGNS: Reviewed, temperature of 97.5, pulse of 102, respiratory rate of 24, oxygen saturation 94% on blow by 5 liters of oxygen over trach collar. LABORATORY DATA: White blood cell count 10.7, hemoglobin 9.4, platelet count of 296. Sodium 137, po tassium of 4.2, CO2 of 29, creatinine of 0.62, blood glucose is 120-110 over the last 12 hours. AST of 45, ALT of 95. Slight up trend over the last 2 days, alkaline phosphatase of 564, albumin 3.3, to dedrick bilirubin of 0.4. I reviewed CT abdomen with no signs of extravasation of contrast from gastrointestinal tract. PHYSICAL EXAMINATION: GENERAL: The patient is alert and oriented, in no acute distress. HEENT: Normocephalic, atraumatic. Extraocular movements are intact. The mucosa is moist. Dobbhoff tube in place left naris. Tracheostomy collar in place with blow by oxygen. HEART: Regular rate and rhythm at time of exam. No murmurs auscultated. LUNGS: Clear to auscultation bilaterally. No rubs or wheezes. Diminished breath sounds bilateral b ases. ABDOMEN: Positive bowel sounds, slightly tender, generalized. No rebound. EXTREMITIES: Lower extremities without cyanosis or edema. NEUROLOGIC: The patient is alert and oriented x2 to 3, somewhat difficulty with specific time, but d oes know where she is, who she is and the people at bedside. ASSESSMENT AND PLAN: 1. Deconditioning status post tracheostomy. 2. Anemia of chronic disease at this point. 3. Hypertension. 4. Cutaneous fistula. Per nursing staff, the patient tentatively may begin oral feeds with the help of speech therapy later today and moved to chair with physical therapy later today. Wound care and any fistula tract mainte nance per Dr. Lea. The patient is currently stable on blow by oxygen from a respiratory standpoi nt. Infection is well under control regarding urinary tract infection, at this point, likely resolve d. The patient remains on GI and DVT prophylaxis. Slow progress of reconditioning and transition to patient urinating and eating for herself, along with being able to perform transfers, which she marylu ot at this point in time. We will continue to follow.
[2018-09-19] MEDS ORDERED: Lidocaine 1% w/Epinephrine 1:100K 20 ML VIAL FS SCH (13:30)
[2018-09-19] MEDS: Ondansetron PF 4 MG/2 ML Vial IVP PRN ×2 (14:00→19:20)
--- NOTE | 2018-09-19 15:05 | PRG ---
DATE OF SERVICE: 09/19/2018 SUBJECTIVE: The patient has some discomfort in abdominal incision line. She is much more alert and responding well to physical therapy. OBJECTIVE: VITAL SIGNS: T-max of 98.1, blood pressure 130/90, pulse 107, respirations 22, O2 sat 96%. Negative pressure dressing noted and PICC line placement. HEENT: Ocular movements conjugate. She is very alert and follows commands. LUNGS: With symmetric clear breath sounds. HEART: S1, S2, regular rate. No S3, S4. ABDOMEN: Soft with no tenderness noted. She is able to move extremities on command. LABORATORY DATA AND IMAGING DATA: White cell count down to 10.7, hemoglobin 9.4, platelets 296 with 67% neutrophils. Sodium 136, creatinine 0.62, AST of 45, ALT 95, alkaline phosphatase is markedly up to 564, albumin 3.3, creatinine is at 0.62, albumin 3.3. Microbiology with Enterobacter cloacae, wh ich is the same bacteria she had originally earlier in August. Repeat CT of abdomen and pelvis done yesterday with no evidence of leak, no intraperitoneal fluid collection either. ASSESSMENT AND DISCUSSION: Gastric bypass with ulcer development in the remnant, subsequent resectio n with then inflammatory process with peritonitis and fluid collections which were drained. Then, sh e had some recrudescence of inflammatory process with some purulent drainage at the upper segment of the midline wound. Antimicrobials were restarted with prompt resolution of the inflammatory process. No clearcut leakage or abscess has been identified on imaging studies and plan is to continue with TPN and eventually try oral feedings again. Antimicrobial therapy to be continued for a few more day s.
[2018-09-19] MEDS: Micafungin 100 MG in Sodium Chloride 0.9% 100 ML IVPB SCH (17:24)
[2018-09-19] MEDS: Polyethylene Glycol 3350 17 GM Packet PER TUBE SCH (20:27)
[2018-09-19] MEDS: risperiDONE 1 MG TAB PO SCH (20:27)
[2018-09-20] MEDS: MEROPENEM 1 GM/50 ML 1 GM in Premix Bag 1 BAG IVPB SCH ×3 (00:39→16:49)
[2018-09-20] MEDS: Morphine 4 MG/ML VIAL IV PRN ×5 (01:03→20:53)
[2018-09-20] MEDS: traMADol HCl 50 MG TAB PO SCH ×4 (02:29→20:54)
[2018-09-20 06:31] LABS: ALT (SGPT) 55 U/L (8-55); AST (SGOT) 15 U/L (5-34); Albumin 3.2 g/dL (3.5-5.0); Alkaline Phosphatase 440 U/L (40-150); Anion Gap 10 mmol/L (10-20); BUN (Urea Nitrogen) 22 mg/dL (9.8-20.1); Bilirubin, Total 0.4 mg/dL (0.2-1.2); Calc. Creatinine Clearance 164 mL/min (70-130); Calcium 9.1 mg/dL (7.8-10.44); Carbon Dioxide 30 mmol/L (22-29); Chloride 99 mmol/L (98-107); Estimated GFR-MDRD Greater than 90; Globulin 3.3 g/dL (2.4-3.5); Glucose 143 mg/dL (70-105); Protein, Total 6.5 g/dL (6.0-8.3); Sodium 135 mmol/L (136-145)
[2018-09-20 06:38] LABS: Hemoglobin 9.4 g/dL (12.0-16.0); Mean Corpuscular HGB CONC 30.7 g/dL (32.0-36.0); Mean Corpuscular Hemoglobin 26.8 pg (27.0-31.0); Mean Corpuscular Volume 87.2 fL (78.0-98.0); Mean Platelet Volume 7.9 fL (7.4-10.4); Platelet Count 291 thou/uL (130-400); RBC Distribution Width 14.7 % (11.5-14.5); White Blood Cell (WBC) Count 9.1 thou/uL (4.8-10.8)
[2018-09-20 06:58] LABS: Band 1 % (5-11); Eosinophils 2 % (0-10); Hypochromia SLIGHT = 6-15 cells (100X) (0-5/hpf); Lymphocytes 19 % (21-51); MDiff Complete? YES; Monocytes 17 % (0-10); Neutrophil 61 % (42-75); PLT Morphology Comment Appears Adequate; Polychromasia SLIGHT = 2-3 cells (100X) (0-2/hpf)
--- NOTE | 2018-09-20 08:11 | PRG ---
DATE OF SERVICE: 09/20/2018 HISTORY OF PRESENT ILLNESS: No changes overnight. The patient worked with speech therapy and swallo wed 2 bites of applesauce without choking per patient. She was able to get up to chair with physical therapy is currently on wet to dry dressing changes to the abdomen, underwent a small wound explorat ion by Dr. Lea at bedside yesterday, per nursing staff possible wound VAC placement today and fur ther physical therapy efforts to get the patient to the chair again. VITAL SIGNS: Temperature of 98.3, heart rate of 98, blood pressure of 110/68, respiratory rate of 15 , oxygen saturation 96% on trach collar, not currently on blow by oxygen this morning. LABORATORY DATA: White blood cells of 9.1, hemoglobin 9.4, platelet count of 291. Sodium of 135, po tassium of 4.0, chloride of 30, BUN 22, creatinine of 0.64, blood glucose 140-120 in the last 16 hour s. AST and ALT normalized, alkaline phosphatase at 440, albumin of 3.2. PHYSICAL EXAMINATION: GENERAL: The patient is arousable, was sleeping in bed; however, quickly becomes oriented, responds to questions appropriately. HEENT: Head is normocephalic, atraumatic. Extraocular movements are intact. Sclerae are white. Do bbhoff tube in left naris. Trach collar in place with focalization plugged intact. No blow by oxyge n this a.m. LUNGS: Coarse bronchial breath sounds to the right side consistent with mucus plugging and secretion s, clear bases; however, somewhat diminished in sound. HEART: Regular rate and rhythm at time of exam. No murmurs auscultated. ABDOMEN: Protuberant, positive bowel sounds, slightly tender around the wound edges. Dressing intac t. EXTREMITIES: Lower extremities without cyanosis or edema, 2+ dorsalis pedis pulses bilaterally. NEUROLOGIC: The patient is alert and oriented x3, no focal deficits. Speech is normal through trach collar. ASSESSMENT AND PLAN: Deconditioning nearly resolved. Urinary tract infection and bacteremia, status post tracheostomy, not yet cleared for oral feeds secondary to prior surgical management of a GI ble ed with removal of gastric remnant from remote bariatric surgery site, hypertension, possible cutaneo us enteric fistula formation. Dr. Ozuna is managing antibiotics at this point in time. Continue leonie afungin and meropenem for blood culture and urine findings, however, the patient is stable on vitals and white blood cell counts likely nearing end of antibiotic courses. The patient is slowly progress ing with speech therapy for diet, but bulk of nutrition through Dobbhoff now that GI tract has been c leared from any extravasation and to wound, her wound seems to be a superficial totaling only. Defau lting management to Dr. Lea, possible wound VAC replacement today. The patient remains on proton pump inhibitor and Lovenox for GI and deep venous thrombosis prophylaxis. We will continue to gregory dunbar along. The immediate goals; progressing speech therapy, physical therapy for patient's eventual po ssible transfer home or to a penitentiary for continued rehab efforts.
[2018-09-20] MEDS: Polyethylene Glycol 3350 17 GM Packet PER TUBE SCH ×2 (11:32→20:55)
[2018-09-20] MEDS: Pantoprazole 40 MG VIAL IVP SCH ×2 (11:33→20:53)
[2018-09-20] MEDS: Enoxaparin Sodium 40 MG/0.4 ML SYRINGE SC SCH (11:33)
[2018-09-20] MEDS: Dextrose 5% in Water 1,000 ML IV SCH (11:35)
--- NOTE | 2018-09-20 12:21 | RAD ---
MODIFIED BARIUM SWALLOW IN THE PRESENCE OF A SPEECH THERAPIST: Date: 09/20/18 HISTORY: 53-year-old female with dysphagia, unspecified; feeding difficulties. FINDINGS: A tracheostomy tube and a nasogastric tube are present. No laryngeal penetration, aspiration, or pers istent pooling of contrast in the piriform sinuses or vallecula seen. Please see recommendations of the speech therapist for further management. POS: [facility]
--- NOTE | 2018-09-20 16:05 | PRG ---
DATE OF SERVICE: 09/20/2018 SUBJECTIVE: Ms. Perdomo remains stable. Dr. Lea left me a message that he did not feel at this point she had an enterocutaneous fistula and this was just pus draining out of soft tissue in her after abdominal wall. There has been no purulent drainage today per the nurse's report. OBJECTIVE: GENERAL: She is awake and alert. LUNGS: Clear. HEART: Regular rhythm. ABDOMEN: Soft. LABORATORY DATA: White count 9.1, hemoglobin 9.4, platelets 291. Electrolytes were unremarkable. I would not recommend downsizing her trach yet. She did have a swallowing evaluation that did not show any laryngeal penetration , aspiration or persistent pooling. I would leave her with a #6 fenestrated trach until she is out of bed more and beginning to ambulate. SABRAD
[2018-09-20] MEDS: risperiDONE 1 MG TAB PO SCH (20:55)
[2018-09-20] MEDS: Ondansetron PF 4 MG/2 ML Vial IVP PRN (21:05)
[2018-09-21] MEDS: MEROPENEM 1 GM/50 ML 1 GM in Premix Bag 1 BAG IVPB SCH (00:58)
[2018-09-21] MEDS: traMADol HCl 50 MG TAB PO SCH ×4 (04:09→20:20)
[2018-09-21 05:02] LABS: Hemoglobin 8.7 g/dL (12.0-16.0); Mean Corpuscular HGB CONC 30.9 g/dL (32.0-36.0); Mean Corpuscular Volume 87.4 fL (78.0-98.0); Mean Platelet Volume 8.4 fL (7.4-10.4); Platelet Count 261 thou/uL (130-400); RBC Distribution Width 14.4 % (11.5-14.5); Red Blood Cell (RBC) Count 3.24 mill/uL (4.20-5.40); White Blood Cell (WBC) Count 7.3 thou/uL (4.8-10.8)
[2018-09-21 05:21] LABS: ALT (SGPT) 39 U/L (8-55); AST (SGOT) 14 U/L (5-34); Albumin 3.1 g/dL (3.5-5.0); Alkaline Phosphatase 353 U/L (40-150); Anion Gap 11 mmol/L (10-20); BUN (Urea Nitrogen) 18 mg/dL (9.8-20.1); Bilirubin, Total 0.4 mg/dL (0.2-1.2); Calc. Creatinine Clearance 164 mL/min (70-130); Calcium 8.8 mg/dL (7.8-10.44); Carbon Dioxide 30 mmol/L (22-29); Chloride 95 mmol/L (98-107); Estimated GFR-MDRD Greater than 90; Glucose 293 mg/dL (70-105); Potassium 3.9 mmol/L (3.5-5.1); Protein, Total 6.1 g/dL (6.0-8.3); Sodium 132 mmol/L (136-145)
[2018-09-21 05:30] LABS: Band 2 % (5-11); Eosinophils 3 % (0-10); Lymphocytes 24 % (21-51); MDiff Complete? YES; Monocytes 18 % (0-10); Neutrophil 53 % (42-75); PLT Morphology Comment Appears Adequate
--- NOTE | 2018-09-21 08:32 | PRG ---
DATE OF SERVICE: 09/21/2018 HISTORY OF PRESENT ILLNESS: The patient successfully underwent a barium swallow yesterday and tolera cyndie 2 bites of chicken last night and we will continue to have diet trials. Currently main substance fed through a Dobbhoff tube. Patient currently tolerating. The patient replaced on wound VAC after exploration locally of wound by Dr. Lea, has largely been cleared with multiple CAT scans and co ntrast studies for any communication with abdomen cavity at this point in time. The patient has been attempting to transfer with PT to a chair, still requiring significant assistance. The patient has no acute complaints, able to speak through a tracheostomy collar now with plug in place, requiring bl ow by oxygen. Per physical therapy's last note, the patient was able to stand only for 30 seconds wi th a gait belt and hug technique. The patient maintains more than moderate assist for supine to sit as goal #2 for physical therapy. VITAL SIGNS: Pulse of 110, respiratory rate of 16, oxygen saturation 98% on room air. LABORATORY: White blood cell count 7.3, hemoglobin of 8.7, platelet count of 261. Sodium 132, potas sium of 3.9, CO2 of 30, creatinine of 0.64, blood glucose 148 to 293 range last 12 hours, alkaline ph osphatase trending down 353, ALT and AST normal. Albumin of 3.1. PHYSICAL EXAMINATION: GENERAL: The patient is alert and oriented, in no acute distress. HEENT: Normocephalic, atraumatic. Extraocular movements are intact. Sclerae are clear and white. Dobbhoff tube in the left naris. Trach collar with localization plug in place. NECK: Supple. HEART: Tachycardic without murmurs. LUNGS: Clear to auscultation bilaterally. No rubs or wheezes. ABDOMEN: Positive bowel sounds, slightly tender to her wound edges. Wound VAC in place. EXTREMITIES: Lower extremities without cyanosis or edema. NEUROLOGIC: The patient alert and oriented x3, no focal deficits. Speech is normal. ASSESSMENT AND PLAN: 1. Deconditioning status post tracheostomy. Remains tube feed dependent. 2. Anemia of chronic disease at this point, multifactorial earlier this admission. 3. Hypertension. 4. Abdominal wound with some localized coloring formation. The patient continued on antibiotics, wound care, physical therapy, speech therapy, progressing as ex pected at this point, given the fact that she is starting to transition towards normal diet and more therapy goals actively, may be a candidate floor status. We will default to Dr. Lea opinion of manjinder pemberton and its stability for transfer to IMCU or surgical floor. We will continue to follow along.
[2018-09-21] MEDS: Morphine 4 MG/ML VIAL IV PRN ×2 (09:03→19:30)
[2018-09-21] MEDS: Enoxaparin Sodium 40 MG/0.4 ML SYRINGE SC SCH (09:05)
[2018-09-21] MEDS: Polyethylene Glycol 3350 17 GM Packet PER TUBE SCH ×2 (09:06→20:22)
[2018-09-21] MEDS: Ondansetron PF 4 MG/2 ML Vial IVP PRN ×2 (09:08→17:27)
--- NOTE | 2018-09-21 09:39 | PRG ---
DATE OF SERVICE: 09/21/2018 Ms. Perdomo remains in the Intensive Care Unit. She is status post laparotomies on 08/19/2018 and for a bleeding gastric ulcer and subsequent staple line leak. She had a tracheostomy perfor med on 08/30/2018, 3 weeks ago. She still has a Dobhoff down from which she has been receiving nutri tion. She apparently has had a bowel movement in the past couple of days. Her tracheostomy has been capped for over a week now. She is speaking well and has started eating her mechanical soft diet. She is very limited in terms of her activity and is still working with physical therapy. She has no complaints at this time. She appears to be comfortable. She does remain on meropenem as she had Enterobacter cultured from up purulence from her abdominal wound. She had a tract of purulen ce just anterior to her fascia that the granulation tissue of her abdominal wound had sort of closed over. I had to open this back up to unroof this area, but it does not appear to be intra-abdominal a nd it does not appear to persist at this time. PHYSICAL EXAMINATION: VITAL SIGNS: She is afebrile. Her pulse is 110 currently. Blood pressure is 109/69. LUNGS: Clear to auscultation. ABDOMEN: Soft with normoactive bowel sounds and a wound VAC intact. LABORATORY STUDIES: Show that her white blood cell count is normal at 7.3 with a hemoglobin of 8.7, platelet count is 261. She has a normal differential. Chemistry panel reveals mild electrolyte abno rmalities. BUN and creatinine are normal. Glucose level is elevated between 130 and 290. Alkaline phosphatase was elevated as high as 560, but is trending back down at 353 currently. I am uncertain why this went up. Her albumin level is relatively stable at 3.1. ASSESSMENT: She is stable with no ongoing acute problems. Her GI tract appears to be functioning we ll. She is breathing well, requiring no additional assistance. Her primary problem is her severe de conditioning and her open abdominal wound. At this time, I will decrease her tube feeds as she is beginning to take more calories orally. I wou ld anticipate eventually removing her Dobbhoff and her diet will be entirely orally obtained. She is probably stable for transfer to the Intermediate Care Unit if this is okay with Dr. Mathur. She will need to continue physical therapy. I would anticipate discontinuing the meropenem in the near futur e as I believe that the infectious source has been unroofed and is being treated with wound care.
[2018-09-21] MEDS: Dextrose 5% in Water 1,000 ML IV SCH (12:16)
--- NOTE | 2018-09-21 17:29 | PRG ---
DATE OF SERVICE: 09/21/2018 SUBJECTIVE: Ms. Perdomo is stable. She is in no distress. She says her pain was a little better to day. OBJECTIVE: VITAL SIGNS: Stable. LUNGS: Clear. HEART: Regular rhythm. ABDOMEN: Soft. She is tentatively scheduled to move to the intermediate care unit today. LABORATORY DATA: White count 7.3, hemoglobin 8.7, platelets 261,000. Sodium 132, potassium 3.9, chl oride 95, bicarbonate 30, BUN 18, creatinine 0.64. IMPRESSION: Status post laparotomy for GI blood loss with multiple postop infectious issues and repea t abdominal washout, clinically stable at this time with her wound VAC.
[2018-09-21] MEDS: risperiDONE 1 MG TAB PO SCH (20:19)
[2018-09-22] MEDS: Ondansetron PF 4 MG/2 ML Vial IVP PRN ×2 (02:46→20:20)
[2018-09-22] MEDS: traMADol HCl 50 MG TAB PO SCH ×4 (02:46→20:12)
[2018-09-22] MEDS: Morphine 4 MG/ML VIAL IV PRN (02:46)
[2018-09-22] MEDS: Polyethylene Glycol 3350 17 GM Packet PER TUBE SCH ×2 (08:53→20:13)
[2018-09-22] MEDS: Enoxaparin Sodium 40 MG/0.4 ML SYRINGE SC SCH (08:54)
--- NOTE | 2018-09-22 11:18 | PRG ---
DATE OF SERVICE: 09/22/2018 Ms. Pedromo has been transferred from the Intensive Care Unit to the Intermediate Care Unit. She has no complaints. She still has a Dobbhoff tube down and her tube feeds are running at 30 mL per hour. She is tolerating her diet. She does not appear to be tolerating her diet well enough that we can remove her tube feeds; however. She denies any significant problems. PHYSICAL EXAMINATION: VITAL SIGNS: She is afebrile, pulse is 102, blood pressure 115/77. LUNGS: Clear to auscultation. ABDOMEN: Soft. Wound VAC is in place. There has been no puddling purulent material since I opened her wound a few days ago. LABORATORY STUDIES: There are no new labs today. ASSESSMENT: The patient is doing well following her 2 laparotomies and tracheostomy. Her tracheosto my has been capped for quite a while. Her only issues now are her inadequate oral intake and her sev ere deconditioning. I encouraged her to increase her oral intake, so that we may remove her Dobbhoff tube and rely solely on what she can eat. I will start her on a couple of cans of Ensure per day fo r this purpose. Hopefully, we can remove the Dobbhoff tube by tomorrow. Her other issues are severe deconditioning. I have encouraged her to cooperate with physical therapy. I have asked case manage ment to become involved so that we can identify a group home facility for transfer. She is on n o antibiotics and has no obvious infectious etiologies.
--- NOTE | 2018-09-22 13:29 | PRG ---
DATE OF SERVICE: 09/22/2018 HISTORY OF PRESENT ILLNESS: The patient transferred to the [facility]. Has not felt that she could tolera te further diet attempt secondary to everything being too intense in flavor, given her taste buds hav e reset. She has been tolerating popsicles multiple times with nursing staff over the last 16 hours. The patient continues to work with physical therapy making only small gain, still remains with a wo und VAC, Dobbhoff tube for majority of the patient's nutritional needs and Dobbins catheter. PHYSICAL EXAMINATION: VITAL SIGNS: Temperature of 98.3, pulse of 101, respiratory rate of 17, oxygen saturation 96% on massiel m air, blood pressure 116/77. GENERAL: The patient is alert and oriented, in no acute distress. HEENT: Head is normocephalic, atraumatic. Extraocular movements are intact. Sclerae are white. Do bbhoff tube in left nare and mucosa is moist. Tracheostomy with trach collar and localization plug i n place. HEART: Mildly tachycardic at the time of exam. No murmurs auscultated. LUNGS: Clear to auscultation bilaterally. No rubs or wheezes. ABDOMEN: Soft, positive bowel sounds. Tender around the wound VAC area. No rebound. EXTREMITIES: Lower extremities without cyanosis or edema. NEUROLOGIC: The patient is alert and oriented x2. Difficulty with date. Speech is normal. The pat ient is appropriate with questioning. LABORATORY DATA: White blood cell count 7.3, hemoglobin of 8.7 and platelet count of 261, it was yes terday's laboratory work. Glucose this morning of 130. ASSESSMENT AND PLAN: Deconditioning, abdomen wound, hypertension, status post tracheostomy. Still r emains tube feed dependent. Per Dr. Lea reports to help finalize the wound healing, continuing a ntibiotics at this point in time; however, likely it will be deescalated soon. The patient once full y advanced on diet will be weaned off tube feeds, but still requiring this for nutrition. Working [facility] speech therapy, physical therapy to advance diet and mobilize the patient. 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 The patient's blood pressure is controlled well on feed s. The patient has remained on sliding scale, Accu-Cheks remained on GI and DVT prophylaxis with Dalia enox and Protonix. The wound VAC in place for wound care at this point in time. We will continue to follow along.
--- NOTE | 2018-09-22 13:47 | RAD ---
ABDOMEN 1 VIEW: Date: 09/22/18 HISTORY: No recent bowel movement. FINDINGS/IMPRESSION: There is residual contrast in the rectosigmoid. The bowel gas pattern is unremarkable. There are dege nerative changes in the spine. Multiple phleboliths are seen in the pelvis. A urinary catheter is pre sent. POS: [facility]
--- NOTE | 2018-09-22 17:04 | PRG ---
DATE OF SERVICE: 09/22/2018 SUBJECTIVE: Ms. Perdomo had no complaints today. OBJECTIVE: VITAL SIGNS: Have been stable. She is afebrile. Heart rate is 110, respiratory rate 16, oximetry i s 94, blood pressure 118/85. LUNGS: Clear. HEART: Regular rhythm. ABDOMEN: Soft. She started to be enteral fed, tolerating this so far. Her feeding tube will be removed and we will allow her to take p.o. nutrition. We will continue supportive care. She has done well with a speaking valve on her tracheostomy.
[2018-09-22] MEDS: risperiDONE 1 MG TAB PO SCH (20:12)
[2018-09-23] MEDS: traMADol HCl 50 MG TAB PO SCH ×4 (03:18→20:25)
[2018-09-23] MEDS: Enoxaparin Sodium 40 MG/0.4 ML SYRINGE SC SCH (08:37)
[2018-09-23] MEDS: Polyethylene Glycol 3350 17 GM Packet PER TUBE SCH (08:38)
--- NOTE | 2018-09-23 09:51 | PRG ---
DATE OF SERVICE: 09/23/2018 SUBJECTIVE: Ms. Perdomo did well overnight. She is sitting in the bedside chair when I arrived this morning. OBJECTIVE: VITAL SIGNS: She is afebrile, heart rate is 105, respiratory rate 20, oximetry is 99% on room air, b lood pressure is 105/72. LUNGS: Clear. HEART: Regular rhythm. ABDOMEN: Soft. EXTREMITIES: Without asymmetry or edema. IMPRESSION: 1. Status post multiple abdominal procedures after presenting with gastrointestinal bleeding. 2. History of multiple weight loss surgeries in the past. 3. Soft tissue abscess in her anterior abdominal wall that has been drained. PLAN: She appears to be improving dramatically. She had a bowel movement this morning. She hates t he Ensure, so she did not really take in much yesterday, but she does like [employer] t drinks, we will try to get her some of that or something similar that is palatable, so we can remov e her Dobbhoff tube. When she is ambulating a little bit, we can downsize and cap her trach. She is actually surprisingly in no hurry to get rid of her trach. We will continue to follow.
[2018-09-23] MEDS: Morphine 4 MG/ML VIAL IV PRN ×2 (10:46→23:58)
[2018-09-23] MEDS: Ondansetron PF 4 MG/2 ML Vial IVP PRN (10:52)
--- NOTE | 2018-09-23 13:28 | PRG ---
DATE OF SERVICE: 09/23/2018 HISTORY OF PRESENT ILLNESS: Ms. Perdomo is resting comfortably in her bed in the intermediate care [facility]. She has no complaints. She is having difficulty taking very much food. She has, of course, steele d a gastric bypass and does have Dobbhoff, through which she is receiving tube feeds. She is a ble to swallow without difficulty and has no coughing or dysphagia. She notes that she has a somewha t poor appetite, though. She has had a couple of bowel movements in the last day. She does continue to take MiraLax. She continues to have wound care with her wound VAC and is apparently having no pr oblems with this currently. She denies pain. PHYSICAL EXAMINATION: VITAL SIGNS: On examination, she is afebrile. She remains somewhat tachycardic with a heart rate ab out 105. Vital signs are within normal limits, otherwise. LUNGS: Clear to auscultation. ABDOMEN: Soft and nontender. Midline incision is healing nicely with a wound VAC. The wound was no t inspected today. Bowel sounds are present and normoactive. EXTREMITIES: Unremarkable. ASSESSMENT: She is making appropriate progress. I will remove her Dobbhoff tube today and encourage oral intake over the weekend (today is Wednesday), hopefully stopping the tube feeds will improve her a ppetite and she will be able to maintain adequate fluid and nutritional intake. If this remains stab le and her wound looks good, then she may be appropriate for discharge to a correction facility .
--- NOTE | 2018-09-23 17:49 | PRG ---
DATE OF SERVICE: 09/23/2018 HISTORY OF PRESENT ILLNESS: The patient still reports having difficulty with memory, does report that she has gotten up to the bedside commode x2 with a mod assist from nursing staff, has successfully had Dobbins catheter removed, implants removed. Dobhoff NG tube later today with a titration of diet with protein shake supplement. We will see if the patient's appetite stimulate once tube feeds are removed, and the patient reports wound care slightly painful to abdomen site but has no issues with wound VAC once it has been settled, has no acute complaints. PHYSICAL EXAMINATION: VITAL SIGNS: Temperature of 98.6, pulse of 108, oxygen saturation 100% on room air with tracheostomy plugged, blood pressure 136/86. GENERAL: The patient is alert and oriented, no acute distress. HEENT: Normocephalic, atraumatic. Extraocular movements are intact. Sclerae are white. Oral mucosa is moist. Dobbhoff tube in place, left naris. Tracheostomy collar in place with vocalization plug. LUNGS: Clear to auscultation bilaterally, slightly diminished in the bases. HEART: Slightly tachycardic. No murmurs. ABDOMEN: Slightly tender around wound VAC. Positive bowel sounds. No rebound. EXTREMITIES: Lower extremities without cyanosis or edema. NEUROLOGIC: Alert and and oriented x2. No focal deficits with speech. The patient is responding appropriately to questioning. ASSESSMENT AND PLAN: Deconditioning, status post tracheostomy, status post exploratory laparotomy, hypertension, anemia of chronic disease. At this point, the patient is continuing physical therapy, speech therapy, transitioning off tube feeds, mobilization off of rectal tube and Dobbins catheter as described above. Follow up laboratory work periodically. Urine culture pending. Following removal of IV antibiotics and Dobbins catheter to ensure the patient is cleared of infection. We will continue to follow alongside surgery. The patient on deep venous thrombosis and gastrointestinal prophylaxis with PPI and Lovenox has completed a course of antibiotics, stable on wound VAC at this point in time. SHASHA
[2018-09-23] MEDS: risperiDONE 1 MG TAB PO SCH (21:47)
[2018-09-24] MEDS: Ondansetron PF 4 MG/2 ML Vial IVP PRN ×2 (00:05→09:23)
[2018-09-24] MEDS ORDERED: Sterile Water 10 ML VIAL IVP SCH (03:30)
[2018-09-24] MEDS ORDERED: Activase 2 MG VIAL CATH SCH (03:30)
[2018-09-24] MEDS: traMADol HCl 50 MG TAB PO SCH ×4 (03:36→20:20)
[2018-09-24] MEDS ORDERED: Activase 2 MG VIAL CATH PRN (04:00)
[2018-09-24 04:20] LABS: #Basophils 0.1 thou/uL (0.0-0.2); #Eosinphils 0.3 thou/uL (0.0-0.7); #Lymphocytes 1.6 thou/uL (1.20-3.40); #Monocytes 1.2 thou/uL (0.11-0.59); %Basophils 0.7 % (0.0-1.0); %Eosinophils 3.4 % (0.0-10.0); %Lymphocytes 19.6 % (21.0-51.0); %Monocytes 14.8 % (0.0-10.0); %Neutrophils 61.6 % (42.0-75.0); Hemoglobin 8.3 g/dL (12.0-16.0); Mean Corpuscular HGB CONC 31.1 g/dL (32.0-36.0); Mean Corpuscular Volume 86.6 fL (78.0-98.0); Mean Platelet Volume 7.8 fL (7.4-10.4); Platelet Count 311 thou/uL (130-400); RBC Distribution Width 14.5 % (11.5-14.5); Red Blood Cell (RBC) Count 3.09 mill/uL (4.20-5.40); White Blood Cell (WBC) Count 8.1 thou/uL (4.8-10.8)
[2018-09-24 04:39] LABS: ALT (SGPT) 22 U/L (8-55); AST (SGOT) 14 U/L (5-34); Albumin 3.3 g/dL (3.5-5.0); Alkaline Phosphatase 251 U/L (40-150); Anion Gap 10 mmol/L (10-20); BUN (Urea Nitrogen) 12 mg/dL (9.8-20.1); Bilirubin, Total 0.5 mg/dL (0.2-1.2); Calc. Creatinine Clearance 174 mL/min (70-130); Calcium 9.5 mg/dL (7.8-10.44); Carbon Dioxide 30 mmol/L (22-29); Chloride 100 mmol/L (98-107); Estimated GFR-MDRD Greater than 90; Globulin 3.2 g/dL (2.4-3.5); Glucose 124 mg/dL (70-105); Potassium 3.9 mmol/L (3.5-5.1); Protein, Total 6.5 g/dL (6.0-8.3); Sodium 136 mmol/L (136-145)
[2018-09-24] MEDS: Enoxaparin Sodium 40 MG/0.4 ML SYRINGE SC SCH (09:15)
[2018-09-24] MEDS: Polyethylene Glycol 3350 17 GM Packet PER TUBE SCH (09:16)
--- NOTE | 2018-09-24 13:37 | PRG ---
DATE OF SERVICE: 09/24/2018 SERVICE: Pulmonary Medicine. INTERVAL HISTORY: The patient is doing great from a respiratory standpoint. At this point, she christina es any current fevers, chills, nausea or vomiting. There are no significant overnight events. Her a ppetite is improving. She is having bowel movements and passing gas. PHYSICAL EXAMINATION: VITAL SIGNS: Afebrile, pulse 106, blood pressure 117/73, respirations 16, saturation 98% on room air . GENERAL: The patient is awake and alert, in no apparent distress. LUNGS: Excellent air entry. There is no prolonged expiratory phase or wheezing present. HEART: Normal rate, regular. ABDOMEN: Soft, nontender, nondistended. Bowel sounds are positive. MUSCULOSKELETAL: No cyanosis or clubbing. There is no pitting in the bilateral lower extremities. NEUROLOGIC: Grossly nonfocal. LABORATORY DATA: WBC 8.1, hemoglobin 8.3, platelets 311,000. Basic metabolic profile, and liver fun ction studies are essentially unremarkable. Alkaline phosphatase is trending downward to 251. Urine culture was previously growing Citrobacter. Fluid culture was growing Enterobacter cloacae. A urin e culture was subsequently growing Enterococcus. ASSESSMENT: 1. Severe sepsis, resolving. 2. Gross peritonitis. 3. Abdominal abscess. 4. Acute blood loss anemia secondary to gastrointestinal bleed. 5. Deconditioning, improving. DISCUSSION AND PLAN: The patient can be transitioned out of the IMCU to the surgical unit. We will have her continue working with physical therapy to regain lost strength. Pulmonary and Critical Care will continue to follow along while she remains inhouse for now.
--- NOTE | 2018-09-24 19:50 | PRG ---
DATE OF SERVICE: 09/24/2018 SUBJECTIVE: Analia Perdomo is a 53-year-old female being followed by Dr. Lea status post gastric bypass and exploratory laparotomy. Patient's diet was advanced yesterday. There were no acute over night events. Patient continues to complain of poor appetite. She endorses flatus and bowel movemen ts. PHYSICAL EXAMINATION: VITAL SIGNS: Temperature 98.4, pulse 106, respirations 16, O2 sat 98% on room air, blood pressure 11 7/73. GENERAL: Resting in bed in no acute distress. PULMONARY: Normal work of breathing. Symmetric rise. CARDIOVASCULAR: Tachycardic. ABDOMEN: Soft and nontender. Wound VAC is in place. MUSCULOSKELETAL: Moves all extremities x4. ASSESSMENT AND PLAN: Status post gastric bypass and exploratory laparotomy for bleeding gastric ulce r and subsequent staple line leak. Additionally, she is being treated for an abdominal wall abscess. We will continue to follow closely. Abdominal wound care with wound VAC changes per Wound Care tea m. Continue diet as tolerated. Antibiotics per Infectious Disease and Critical Care/primary team. Continue PT and OT. Plan of care was discussed with the patient at bedside and all questions were an swered at the time of this dictation. The patient was seen and evaluated with Dr. Draper.
[2018-09-24] MEDS: risperiDONE 1 MG TAB PO SCH (20:20)
[2018-09-25] MEDS: traMADol HCl 50 MG TAB PO SCH ×4 (03:58→21:26)
[2018-09-25] MEDS: Enoxaparin Sodium 40 MG/0.4 ML SYRINGE SC SCH (09:27)
[2018-09-25] MEDS: Polyethylene Glycol 3350 17 GM Packet PER TUBE SCH (09:27)
--- NOTE | 2018-09-25 13:29 | PRG ---
DATE OF SERVICE: 09/25/2018 SUBJECTIVE: This is a 53-year-old female followed by Dr. Lea status post gastric bypass and expl oratory laparotomy. There were no acute overnight events. The patient was transferred to the [facility] surgical floor. This morning, the patient states that her appetite remains somewhat poor, but waldo austin will be attempting to bring food that she may find more appealing. Bowels continue to work. OBJECTIVE: VITAL SIGNS: Temperature 97.7, pulse 98, respirations 16, O2 sat 97% on room air, blood pressure 120 /81. GENERAL: Resting in bed in no acute stress, tracheostomy capping in place. PULMONARY: Normal work of breathing. Symmetric rise. CARDIOVASCULAR: Regular rate and rhythm. GASTROINTESTINAL: Abdomen is soft, nontender, nondistended. Wound VAC in place. NEUROLOGIC: No focal deficit is noted. LABORATORY DATA: No new laboratory findings. ASSESSMENT AND PLAN: Status post gastric bypass and exploratory laparotomy for bleeding gastric ulce r and staple line leak. The patient continues to improve clinically. Continue PT and OT. Encourage p.o. intake. We would recommend inpatient rehabilitation as the patient has become significantly de conditioned during her prolonged hospital stay. Supportive care as ordered. Continue wound VAC santiago ges with wound care team. Plan of care was discussed with the patient at bedside and all questions w ere answered at the time of this dictation. The patient was seen and evaluated with Dr. Draper.
[2018-09-25] MEDS: Morphine 4 MG/ML VIAL IV PRN (13:41)
[2018-09-25] MEDS ORDERED: Sodium Chloride 0.9% 500 ML IV SCH (17:15)
--- NOTE | 2018-09-25 17:25 | PRG ---
DATE OF SERVICE: 09/25/2018 SERVICE: Pulmonary Medicine. INTERVAL HISTORY: The patient is breathing very comfortably. She denies any current chest pain, fev ers, chills, nausea, vomiting, diarrhea. Otherwise, there has been no overnight events. PHYSICAL EXAMINATION: VITAL SIGNS: Afebrile, pulse 86, blood pressure 122/78, respirations 18, saturation 96% on room air. GENERAL: The patient is awake and alert, in no apparent distress. LUNGS: Reduced air entry. There is a slightly prolonged expiratory phase. I do not appreciate any wheezing or crackles today. HEART: Normal rate, regular. ABDOMEN: Soft, nontender, nondistended. Bowel sounds are positive. MUSCULOSKELETAL: No cyanosis or clubbing. No pitting in the bilateral lower extremities. NEUROLOGIC: Grossly nonfocal. ASSESSMENT: 1. Acute hypoxic respiratory failure, resolved. 2. Severe sepsis, resolved. 3. Gross peritonitis and abdominal wall abscess, status post multiple surgeries. 4. Acute blood loss anemia secondary to gastrointestinal bleed. 5. Deconditioning, improving. DISCUSSION AND PLAN: The patient is doing absolutely fantastic from a respiratory standpoint. We wi ll likely be able to decannulate her in a short period of time. Pulmonary Critical Care will continu e to follow along while the patient remains in house, but from a purely respiratory perspective, she is stable for transition out.
[2018-09-25] MEDS: risperiDONE 1 MG TAB PO SCH (21:27)
[2018-09-25] MEDS: Melatonin 3 MG TAB PO SCH (21:27)
[2018-09-26] MEDS: diphenhydrAMINE 25 MG CAP PO PRN ×2 (00:37→20:35)
[2018-09-26] MEDS: traMADol HCl 50 MG TAB PO SCH ×4 (04:28→20:36)
[2018-09-26] MEDS ORDERED: Micafungin 150 MG in Sodium Chloride 0.9% 100 ML IVPB SCH (07:00)
[2018-09-26] MEDS ORDERED: Aluminum & Magnesium Hydroxide 60 ML, diphenhydrAMINE 150 MG, Lidocaine 2% Viscous Solu... SSW PRN (08:17)
[2018-09-26] MEDS: Enoxaparin Sodium 40 MG/0.4 ML SYRINGE SC SCH (08:21)
[2018-09-26] MEDS: Polyethylene Glycol 3350 17 GM Packet PER TUBE SCH (08:22)
[2018-09-26] MEDS: Morphine 4 MG/ML VIAL IV PRN (08:23)
[2018-09-26] MEDS ORDERED: Lidocaine 2% Viscous Solution 10 ML, Aluminum & Magnesium Hydroxide 30 ML SSW SCH (08:30)
--- NOTE | 2018-09-26 10:23 | PRG ---
DATE OF SERVICE: 09/26/2018 SUBJECTIVE: Ms. Perdomo has been moved to the surgical floor out of the intermediate care unit over the weekend. She is resting in bed and appears to be comfortable. She tells me that she has not don e very well in terms of eating because food seems to gag her. She has been told that she has thrush and this may be contributing to the bad taste within her mouth. She is now ambulating, has walked us ing the walker to the door. A culture of her urine that was obtained on 09/23/2018 revealed Enteroco ccus. Prior abdominal wound culture had shown Enterobacter. She has been started on ampicillin in r egard to this. OBJECTIVE: VITAL SIGNS: She is afebrile and has been so for a long time. Pulse is between 100-114, blood press ure is normal at 136/87. LUNGS: Clear to auscultation. ABDOMEN: Soft, nontender, nondistended. Bowel sounds are present and normoactive. LABORATORY STUDIES: There have been no recent labs for the past couple of days, but they were pretty unremarkable 2 days ago. ASSESSMENT AND PLAN: She continues to do well. She is swallowing pills now and I would like to swit ch her over to all oral medication. I will therefore switch her antibiotics, both her ampicillin and micafungin over to oral medications using Diflucan and Augmentin. She should only require a short c ourse of each of these. I will also give her a course of nystatin swish and swallow. Hopefully, her oral intake will improve. Her physical condition is already improving. She should be fine for white sfer to a shelter facility sometime this week.
[2018-09-26] MEDS: Acetaminophen 650 MG/20.3 ML UDCUP PER TUBE PRN (10:31)
[2018-09-26] MEDS ORDERED: Morphine 4 MG/ML VIAL ONE (10:39)
--- NOTE | 2018-09-26 10:52 | PRG ---
DATE OF SERVICE: 09/26/2018 HISTORY OF PRESENT ILLNESS: The patient states she has really struggled with tolerating oral intake since Dobhoff has been removed. States everything tastes too strongly to the point of triggering her gag reflex. She does just fine with water and has been cleared mechanically by speech therapy. Belinda arvizu reports that with reduced therapy services over the weekend, she feels like she has taken a step backwards on attempts at self transferring. The last physical therapy note stated that she was able to go a total of 12 feet in several moderate largely repeat courses to and from bedside commod e. Patient verbalizes understanding regarding findings of urinary tract infection. OBJECTIVE: VITAL SIGNS: Temperature of 98.7, pulse of 114, respiratory rate of 16, oxygen saturation 97% on massiel m air, blood pressure of 136/87. GENERAL: The patient is alert and oriented, in no acute distress. HEENT: Head is normocephalic, atraumatic. Extraocular movements are intact. Sclerae are white. No NG tube or Dobhoff tube in place. Oral mucosa is slightly dry, but no obvious thrush in mouth prese nt. No ulcerations. NECK: Supple, with tracheostomy collar with localization plug in place. LUNGS: Clear to auscultation bilaterally. No rubs or wheezes, slightly diminished in bases. HEART: Regular rate and rhythm at the time of exam. No murmurs were auscultated. ABDOMEN: Slightly tender nearing wound edges of wound VAC; however, bowel sounds are positive and ne gative rebound is present. EXTREMITIES: Lower extremities without cyanosis or edema. NEUROLOGIC: The patient is alert and oriented x3 today. No focal deficits. Speech is normal. LABORATORY DATA: Blood glucose this morning of 126. Review of microbiology culture status post christopher carlos of indwelling catheter showed 75 to 100,000 CFUs of Enterococcus faecalis. This was pansensitive and yeast species of 10-25,000. ASSESSMENT AND PLAN: 1. Deconditioning status post tracheostomy. 2. Urinary tract infection following indwelling catheter. 3. Anemia following blood loss, likely secondary to chronic condition at this point, status post exp loratory laparotomy with abdomen wound, hypertension, resolved respiratory failure, resolved sepsis, resolved metabolic encephalopathy, resolved peritonitis with a retroperitoneal abscess status post ba riatric surgery remotely. The patient remains on gastrointestinal and deep venous thrombosis prophyl axis. Gastrointestinal prophylaxis has been changed to oral rather than IV over the weekend given th e patient's new finding of urinary tract infection and also could be consideration for changes in wou nd. We will use ampicillin to help and likely will help with both urine and wound site. Given the fact that the patient's taste buds are not allowing her to tolerate diet, we will try GI cocktai l and/or Magic mouthwash additionally with additional course of micafungin. No culture report on yea st species that was grown out on first culture several weeks before. The patient has undergone 2 karl ts of micafungin in the past. If Magic mouthwash helps, we may deescalate to a swish and spit only. Hope is to promote more oral intake of nutrition and continue therapy services. The patient current ly be considered for inpatient rehabilitation transfer, insurance providing. We will continue to fol low.
[2018-09-26] MEDS ORDERED: Ampicillin 2 GM in Sodium Chloride 0.9% 100 ML IVPB SCH (12:00)
[2018-09-26] MEDS: Nystatin 500,000 UNITS/5 ML UDCUP SSW SCH ×3 (14:02→20:35)
[2018-09-26 14:23] VITALS: BMI 41.3
[2018-09-26] MEDS: Melatonin 3 MG TAB PO SCH (20:35)
[2018-09-26] MEDS: risperiDONE 1 MG TAB PO SCH (20:36)
[2018-09-26] MEDS: Amoxicillin/Potassium Clav 875 MG TAB PO SCH (20:36)
[2018-09-27] MEDS: traMADol HCl 50 MG TAB PO SCH ×4 (02:52→22:51)
[2018-09-27 06:43] LABS: ALT (SGPT) 19 U/L (8-55); AST (SGOT) 15 U/L (5-34); Albumin 3.2 g/dL (3.5-5.0); Alkaline Phosphatase 189 U/L (40-150); Anion Gap 14 mmol/L (10-20); BUN (Urea Nitrogen) 9 mg/dL (9.8-20.1); Bilirubin, Total 0.5 mg/dL (0.2-1.2); Calc. Creatinine Clearance 162 mL/min (70-130); Calcium 9.1 mg/dL (7.8-10.44); Carbon Dioxide 24 mmol/L (22-29); Chloride 99 mmol/L (98-107); Estimated GFR-MDRD Greater than 90; Globulin 3.4 g/dL (2.4-3.5); Glucose 95 mg/dL (70-105); Potassium 3.6 mmol/L (3.5-5.1); Protein, Total 6.6 g/dL (6.0-8.3); Sodium 133 mmol/L (136-145)
[2018-09-27 06:50] LABS: Band 10 % (5-11); Eosinophils 1 % (0-10); Hemoglobin 8.8 g/dL (12.0-16.0); Lymphocytes 19 % (21-51); MDiff Complete? YES; Mean Corpuscular HGB CONC 30.9 g/dL (32.0-36.0); Mean Corpuscular Hemoglobin 26.6 pg (27.0-31.0); Mean Corpuscular Volume 85.9 fL (78.0-98.0); Mean Platelet Volume 7.2 fL (7.4-10.4); Monocytes 12 % (0-10); Neutrophil 58 % (42-75); Platelet Count 418 thou/uL (130-400); RBC Distribution Width 14.6 % (11.5-14.5); White Blood Cell (WBC) Count 7.5 thou/uL (4.8-10.8)
[2018-09-27] MEDS: Nystatin 500,000 UNITS/5 ML UDCUP SSW SCH ×4 (09:33→20:28)
[2018-09-27] MEDS: Enoxaparin Sodium 40 MG/0.4 ML SYRINGE SC SCH (09:33)
[2018-09-27] MEDS: Fluconazole 100 MG TAB PO SCH (09:34)
[2018-09-27] MEDS: Amoxicillin/Potassium Clav 875 MG TAB PO SCH ×2 (09:34→20:29)
[2018-09-27] MEDS: Polyethylene Glycol 3350 17 GM Packet PER TUBE SCH (09:37)
--- NOTE | 2018-09-27 13:45 | PRG ---
DATE OF SERVICE: 09/27/2018. HISTORY OF PRESENT ILLNESS: The patient states that she took a GI cocktail/magic mouthwash yesterday and was able to tolerate much more diet, verbalized understanding that is currently ordered p.r.n. a nd she requested per meal as she feels this is helping her take more. Previously she has been unable to take adequate amounts of p.o. intake secondary to everything making her gag, be nauseous and be r eported to be too powerful in taste. The patient has no acute complaints. Wound VAC is in place. T he patient is working with physical therapy on mobilization. They are working on currently getting h er an adequate sized chair for bedside, so she can be propped up more than lying flat on her back. VITAL SIGNS: Temperature of 98.7, pulse is 97, respiratory rate of 16, oxygen saturation 94% on room air, blood pressure 149/85. LABORATORY DATA: White blood cell count of 7.5, hemoglobin 8.8, platelet count of 418, teen. Sodium 133, potassium 3.6, CO2 of 24, creatinine of 0.62, blood glucose of 95, albumin of 3.2, alkaline gabriele sphatase continuing to trend down to 189, total bilirubin of 0.5, AST and ALT 15 and 19 respectively. GENERAL: The patient is alert and oriented, in no acute distress. HEENT: Normocephalic, atraumatic. Extraocular movements are intact. Sclerae are white. Oral mucos a is moist. No signs of overt thrush. Tracheostomy collar in place with localization plug in place. LUNGS: Clear to auscultation bilaterally, diminished in bilateral bases. HEART: Regular rate and rhythm. No murmurs auscultated at the time of exam. ABDOMEN: Positive bowel sounds throughout, tender nearing wound VAC edges. No rebound is present. EXTREMITIES: Lower extremities without cyanosis or edema. NEUROLOGIC: The patient alert and oriented x3, no focal deficits. Speech is normal. ASSESSMENT AND PLAN: 1. Deconditioning status post tracheostomy, urinary tract infection, anemia of chronic disease with recent blood loss history. 2. Status post exploratory laparotomy x2 with removal of gastric remnant from prior remote bariatric surgery, Arsalan-en-Y. 3. Status post GI bleed. 4. Hypertension. 5. Resolved respiratory failure. 6. Resolved sepsis ruled including peritonitis and abscess formation. PLAN: Continue to work with therapy as above, working on potential placement with comp field case manager to gabriel reed. They will have to undertake a prior authorization prior to moving forward with any inpatient re hab or SNF placement as the patient's insurance only qualifies her for a correction placement. The patient would, however, I do much better with intensified therapy efforts. The patient was placed o n oral antibiotics, antifungals. I agree with this at this point in time. She is on Augmentin and f luconazole with nystatin swish and spit. It appears Magic mouthwash has helped the patient's appetit e to be tolerated. We will continue this p.r.n. for the interim future. Continue to follow along wh ile the patient is inpatient.
[2018-09-27] MEDS: Ferrous Sulfate 325 MG TAB PO SCH (18:12)
[2018-09-27] MEDS: Acetaminophen 500 MG TAB PO PRN (18:13)
[2018-09-27] MEDS: Morphine 2 MG/ML SYRINGE SLOW IVP PRN (20:28)
[2018-09-27] MEDS: Ondansetron PF 4 MG/2 ML Vial IVP PRN (20:28)
[2018-09-27] MEDS: risperiDONE 1 MG TAB PO SCH (20:29)
[2018-09-27] MEDS: Melatonin 3 MG TAB PO SCH (20:29)
[2018-09-28] MEDS: traMADol HCl 50 MG TAB PO SCH ×4 (00:08→20:08)
[2018-09-28 05:10] LABS: ALT (SGPT) 18 U/L (8-55); AST (SGOT) 13 U/L (5-34); Albumin 3.5 g/dL (3.5-5.0); Alkaline Phosphatase 191 U/L (40-150); Anion Gap 17 mmol/L (10-20); BUN (Urea Nitrogen) 7 mg/dL (9.8-20.1); Bilirubin, Total 0.6 mg/dL (0.2-1.2); Calc. Creatinine Clearance 148 mL/min (70-130); Calcium 9.6 mg/dL (7.8-10.44); Carbon Dioxide 24 mmol/L (22-29); Chloride 102 mmol/L (98-107); Estimated GFR-MDRD 90; Globulin 3.4 g/dL (2.4-3.5); Glucose 106 mg/dL (70-105); Potassium 3.8 mmol/L (3.5-5.1); Protein, Total 6.9 g/dL (6.0-8.3); Sodium 139 mmol/L (136-145)
[2018-09-28 05:24] LABS: Band 4 % (5-11); Hemoglobin 9.6 g/dL (12.0-16.0); Lymphocytes 16 % (21-51); MDiff Complete? YES; Mean Corpuscular HGB CONC 31.6 g/dL (32.0-36.0); Mean Corpuscular Volume 85.5 fL (78.0-98.0); Mean Platelet Volume 7.1 fL (7.4-10.4); Metamyelocyte 1 % (0-0); Monocytes 15 % (0-10); Neutrophil 64 % (42-75); Platelet Count 425 thou/uL (130-400); RBC Distribution Width 14.6 % (11.5-14.5); Red Blood Cell (RBC) Count 3.55 mill/uL (4.20-5.40); White Blood Cell (WBC) Count 7.3 thou/uL (4.8-10.8)
[2018-09-28] MEDS: Acetaminophen 500 MG TAB PO PRN (06:16)
--- NOTE | 2018-09-28 09:06 | PRG ---
DATE OF SERVICE: 09/28/2018 HISTORY OF PRESENT ILLNESS: Ms. Perdomo remains on the surgical floor. This morning, she complains of bladder related discomfort. This may be some form of bladder spasm. I am not certain why she wou ld have that at this point. She is eating better, bowel function is good and she is voiding. She steele s no other complaints. PHYSICAL EXAMINATION: VITAL SIGNS: She is afebrile, pulse is in the 90s, blood pressure is 137/80. LUNGS: Clear to auscultation. ABDOMEN: Benign with good bowel sounds. She has a wound VAC in her midline wound, which hopefully I will get to examine later today. LABORATORY STUDIES: Obtained again. It reveals a hemoglobin of 9.6, white blood cell count is laron l at 7.3. Her electrolytes are normal. Albumin is up to 3.5. In summary, she is stable with her current medications. She should be ready for discharge anytime to a jail facility. She will require ongoing wound care and physical therapy. Today, I rem esteban her size 6 tracheostomy and replaced this with the size 4 tracheostomy with the speech cap on it . I anticipate she will be discharged with this tracheostomy in place with plans on decannulated her in a couple of weeks. She will follow up with Dr. Mathur for this purpose.
[2018-09-28] MEDS: Enoxaparin Sodium 40 MG/0.4 ML SYRINGE SC SCH (09:55)
[2018-09-28] MEDS: Amoxicillin/Potassium Clav 875 MG TAB PO SCH ×2 (09:56→20:07)
[2018-09-28] MEDS: Fluconazole 100 MG TAB PO SCH (09:56)
[2018-09-28] MEDS: Multivitamin W/ Minerals 1 TAB PO SCH (09:56)
[2018-09-28] MEDS: Ferrous Sulfate 325 MG TAB PO SCH ×2 (09:56→17:51)
[2018-09-28] MEDS: Polyethylene Glycol 3350 17 GM Packet PER TUBE SCH (10:06)
[2018-09-28] MEDS: Nystatin 500,000 UNITS/5 ML UDCUP SSW SCH ×4 (10:06→20:07)
--- NOTE | 2018-09-28 12:21 | PRG ---
DATE OF SERVICE: 09/28/2018 Analia Perdomo looks amazing. She has a #4 trach in with a speaking valve on. PHYSICAL EXAMINATION: VITAL SIGNS: She is afebrile, heart rate 94, respiratory rate 20, oximetry is 98 on room air, blood pressure 157/94. LUNGS: Her lungs are clear. HEART: Regular rhythm. ABDOMEN: Soft. LABORATORY DATA: White count 7.3, hemoglobin 9.6, platelets 425. Sodium 139, potassium is 3.8, chlo ride 102, bicarbonate 24, BUN 7, creatinine 0.68. IMPRESSION: 1. Status post multiple abdominal procedures related to a presentation with gastrointestinal bleed. 2. Prolonged mechanical ventilation, now with a tracheostomy. I would anticipate that she can see me in 2-3 weeks after discharge when she is ambulatory and will d ecannulate her. She has mild reactive thrombocytosis. It is not really a concern at this time. Her encephalopathy h as resolved completely, so her Risperdal at bedtime can be stopped. She probably does not need to co ntinue with routine nebulizer treatments given that she is starting to ambulate. She is not having a ny issues with secretions. She will continue the deep venous thrombosis prophylaxis, antimicrobial therapy will be directed by Derek Lea. I have encouraged her to go down to the ICU and walk in and see the nurses, they will be amazed at her progress.
[2018-09-28] MEDS: Morphine 2 MG/ML SYRINGE SLOW IVP PRN (12:57)
--- NOTE | 2018-09-28 13:50 | PRG ---
DATE OF SERVICE: 09/28/2018 HISTORY OF PRESENT ILLNESS: The patient states that she has had significant suprapubic pain and pres sure. She verbalized understanding that she is being treated for her UTI with appropriate antibiotic s. This is roughly the 24-hour period following the bactericidal medication. Ordered a bladder scan to be performed, with post-void residual to be measured. Catheterization order for anything over in and out 500 mL given, reviewing nursing documentation. No post-void residual documented in nursing assessment this morning or any attempts for in and out catheterization. Reviewing case management no te, patient was not approved for inpatient rehabilitation. They have sent clinicals to SNFs that bridget arvizu has already picked prior, will be pending insurance approval further. PHYSICAL EXAMINATION: VITAL SIGNS: Temperature of 98.2, pulse of 94, respiratory rate of 20, oxygen saturation 98% on room air, blood pressure 157/94. GENERAL: The patient is alert and oriented, in mild distress, attempting to ambulate to the restroom with walker and nursing staff for assistance. The patient again states this is secondary to suprapu bic pain. Denies any difficulty breathing. HEENT: Head is normocephalic, atraumatic. Extraocular movements are intact. Sclerae are white. Tr acheostomy collar in place with localization plug in place. HEART: Regular rate and rhythm. No murmurs auscultated. LUNGS: Clear to auscultation bilaterally. No rubs or wheezes. ABDOMEN: Protuberant. Wound VAC in place. Slightly tender near wound VAC edges; however, no reboun d is present. EXTREMITIES: Lower extremities without cyanosis or edema. NEUROLOGIC: The patient is alert and oriented x3, no focal deficits. Speech is normal. No flank pa in or CVA tenderness. LABORATORY DATA: Sodium of 137, potassium of 3.8, creatinine of 0.68, albumin of 3.5, hemoglobin of 9.6, white blood cell count of 7.3, platelet count of 425. ASSESSMENT AND PLAN: Deconditioning, status post tracheostomy, urinary tract infection, anemia, stat us post exploratory laparotomy with wound VAC for secondary intention wound healing, hypertension. T he patient continued on Augmentin and fluconazole. She has been doing [facility] which is ordered p.r.n. We will follow up with nursing staff for postvoid residuals and any patient's pain likely secondary to bactericidal effects of penicillin with inflammatory process today , likely better urinary frequency profile tomorrow, but we will continue to follow. The patient wilder ins on gastrointestinal and deep vein thrombosis prophylaxis. Awaiting placement. Continuing physic al therapy and speech therapy.
[2018-09-28] MEDS: Melatonin 3 MG TAB PO SCH (20:06)
[2018-09-28] MEDS: diphenhydrAMINE 25 MG CAP PO PRN (20:10)
[2018-09-29] MEDS: traMADol HCl 50 MG TAB PO SCH ×4 (03:07→20:45)
--- NOTE | 2018-09-29 07:40 | PRG ---
DATE OF SERVICE: 09/29/2018 SUBJECTIVE: Ms. Perdomo is resting comfortably in a chair on the surgical floor. She is ambulating more with physical therapy. Yesterday, I decreased the size of her tracheostomy down to a #4. She i s complaining about this now and tells me that she has had increased coughing and increased problems with eating since her tracheostomy was downsized. I am not certain what this would be. She is still speaking appropriately. PHYSICAL EXAMINATION: VITAL SIGNS: She is afebrile. Vital signs are stable. GENERAL: Her exam is essentially unchanged. ABDOMEN: I did examine her abdominal incision yesterday. She has good granulation tissue through mo st of the wound. There is fascia and suture visible at the base of the wound, but certainly no evide nce of any dehiscence. A wound VAC was discontinued. LABORATORY DATA: There are no new labs from today. Yesterday's labs were stable. ASSESSMENT: The patient is still recovering from her laparotomies. She has remained very stable ove rall. She is continuing treatment of her thrush and of her urinary tract infection, but this will be short term. She is stable for discharge to a shelter facility at any time, but there is emeka arently problems with placement because of her insurance. Continue care for now. I will speak with Dr. Mathur regarding her tracheostomy and her concerns.
[2018-09-29] MEDS: Enoxaparin Sodium 40 MG/0.4 ML SYRINGE SC SCH (08:49)
[2018-09-29] MEDS: Ferrous Sulfate 325 MG TAB PO SCH ×2 (08:50→17:52)
[2018-09-29] MEDS: Amoxicillin/Potassium Clav 875 MG TAB PO SCH ×2 (08:50→20:45)
[2018-09-29] MEDS: Nystatin 500,000 UNITS/5 ML UDCUP SSW SCH ×4 (08:50→20:49)
[2018-09-29] MEDS: Fluconazole 100 MG TAB PO SCH (08:50)
[2018-09-29] MEDS: Multivitamin W/ Minerals 1 TAB PO SCH (08:50)
[2018-09-29] MEDS: Polyethylene Glycol 3350 17 GM Packet PER TUBE SCH (08:54)
--- NOTE | 2018-09-29 12:45 | PRG ---
DATE OF SERVICE: 09/29/2018 SUBJECTIVE: Analia Perdomo becoming more active. As she gets more active, she is coughing more with a tracheostomy and wants once her tracheostomy tube out. I think it is reasonable to remove it as s he is progressing nicely. The order has been entered. OBJECTIVE: She is afebrile, heart rate 92, respiratory rate is 18, oximetry is 98 on room air, blood pressure 104/71. Lungs, heart, and abdomen are unchanged. IMPRESSION: Respiratory failure associated with multiple abdominal procedures. She appears to be st able. PLAN: Tracheostomy will be removed, may make it easier to get her into a [facility] facility wi thout a tracheostomy.
[2018-09-29] MEDS ORDERED: Oxybutynin 5 MG TAB PO SCH (13:00)
--- NOTE | 2018-09-29 17:49 | PRG ---
DATE OF SERVICE: 09/29/2018 HISTORY OF PRESENT ILLNESS: The patient's bladder scans were less than 30 x2 yesterday. The patient continues to have episodes of possible bladder spasms. She has had some history of bladder spasms i n the past, but is not on medication outpatient basis prior to admission. The patient's appetite has picked up despite changing of the trach collar tube down and size. The patient still had irritation and a trach collar was removed at bedside. The patient with current flap covering the ostomy site o f tape and still able to vocalize with this at bedside today. The patient mobilized 72 feet yesterda y with physical therapy, pending placement with significant possibility after insurance denied PI for inpatient rehabilitation. OBJECTIVE: VITAL SIGNS: Temperature 98, pulse of 94, respiratory rate of 18, oxygen saturation 90% on room air, blood pressure 109/76. GENERAL: The patient is alert and oriented, no acute distress. HEENT: Normocephalic, atraumatic. Extraocular movements are intact. Sclerae are white. Oral mucos a is moist. NECK: With tape overlying removed. Trachea collar over ostomy site. LUNGS: Clear to auscultation bilaterally. No rubs or wheezes. ABDOMEN: Soft, nontender, positive bowel sounds throughout. HEART: Regular rate and rhythm. No murmurs auscultated. EXTREMITIES: Lower extremities without cyanosis or edema. NEUROLOGIC: Speech is normal. No focal deficits. The patient alert and oriented. ASSESSMENT AND PLAN: Deconditioning status post tracheostomy, urinary tract infection, anemia of chr onic disease status post exploratory laparotomy with abdomen wound, hypertension. The patient contin ui therapy services completing antibiotic course and antifungal course. On Lovenox for DVT prophyl axis, on Protonix for gastrointestinal prophylaxis. For bladder spasms, starting Ditropan. We will follow up with case management for disposition planning hopefully with SNF. We will continue to foll ow along.
[2018-09-29] MEDS: Melatonin 3 MG TAB PO SCH (20:44)
[2018-09-29] MEDS: diphenhydrAMINE 25 MG CAP PO PRN (20:48)
[2018-09-30] MEDS: traMADol HCl 50 MG TAB PO SCH ×3 (03:28→13:57)
--- NOTE | 2018-09-30 08:05 | PRG ---
DATE OF SERVICE: 09/30/2018 HISTORY OF PRESENT ILLNESS: The patient did not have significantly improved dysuria and bladder spas ms with Ditropan initiated yesterday, remains on Augmentin for vancomycin sensitive Enterococcus. Britney murphy has progressed well regarding vital signs and laboratory work and is at baseline progressing quickl y with therapy. Discussions with son, he has concerns about her going home if unable to go to SNF as they have 3 flights of stairs up to their home where he could help with her transition. The patient has no other acute complaints. PHYSICAL EXAMINATION: VITAL SIGNS: Temperature 97.8, pulse of 92, respiratory rate of 16, oxygen saturation 95% on room ai r, blood pressure 124/63. GENERAL: The patient is alert and oriented, in no acute distress. HEENT: Head is normocephalic, atraumatic. Extraocular movements are intact. Sclerae are white. Or al mucosa is moist. Tracheostomy removed with tape overlying ostomy site. The patient is able to vo calize with application of pressure to TAPE site. HEART: Regular rate and rhythm. No murmurs auscultated. LUNGS: Clear to auscultation bilaterally. No rubs or wheezes. ABDOMEN: Soft, nontender. Wound VAC in place in the midline; however. EXTREMITIES: Lower extremities without cyanosis or edema. NEUROLOGIC: The patient alert and oriented x3, no focal deficits. Speech is normal. ASSESSMENT AND PLAN: 1. Deconditioning. 2. Urinary tract infection. 3. Anemia of chronic disease status post exploratory laparotomy for removal of gastric remnant from resolved gastrointestinal bleed. 4. Hypertension, currently. With patient's weight loss is not currently requiring any medications. We will continue antibiotics, physical therapy, speech therapy, ostomy site care, abdomen wound care with wound VAC. 5. Continue while inpatient deep venous thrombosis prophylaxis with Lovenox, gastrointestinal prophy laxis with Protonix for at least the next 1-3 months. The patient is potentially awaiting placement with SNF. Will follow up with case management.
[2018-09-30] MEDS ORDERED: Oxybutynin 5 MG TAB PO SCH (09:00)
[2018-09-30] MEDS: Morphine 2 MG/ML SYRINGE SLOW IVP PRN (09:39)
[2018-09-30] MEDS: Multivitamin W/ Minerals 1 TAB PO SCH (09:40)
[2018-09-30] MEDS: Phenazopyridine HCl 97.5 MG TABLET PO SCH ×2 (09:40→13:57)
[2018-09-30] MEDS: Nystatin 500,000 UNITS/5 ML UDCUP SSW SCH ×2 (09:40→13:56)
[2018-09-30] MEDS: Amoxicillin/Potassium Clav 875 MG TAB PO SCH (09:40)
[2018-09-30] MEDS: Ferrous Sulfate 325 MG TAB PO SCH (09:40)
[2018-09-30] MEDS: Enoxaparin Sodium 40 MG/0.4 ML SYRINGE SC SCH (09:41)
[2018-09-30] MEDS: Polyethylene Glycol 3350 17 GM Packet PER TUBE SCH (09:41)
[2018-09-30] MEDS: Ondansetron PF 4 MG/2 ML Vial IVP PRN (09:47)
[2018-09-30 11:44] VITALS: BP 102/68; TEMP 98
--- NOTE | 2018-10-03 10:11 | DIS ---
DATE OF ADMISSION: 08/17/2018 DATE OF DISCHARGE: 09/30/2018 CHIEF COMPLAINT: Altered mental status, weakness, chronic abdomen pain. HOSPITAL COURSE: The patient found to have gastrointestinal bleeding while under observation with proton pump inhibitor on board. The patient acutely bled. This was post-evaluation with EGD by Dr. Blas on 08/18/2018. Dr. Lea took the patient back for exploratory laparotomy on . The patient was subsequently transferred to the ICU following removal of gastric remnant that was bleeding. She received multiple units of PRBCs. The patient is status post remote Arsalan-en-Y bariatric surgery procedure, complicating matters. Secondary and in postoperative period, the patient had led largely sedentary lifestyle, was already deconditioned, had chronic neuropathy. The patient given body habitus, deconditioning and poor nutrition was unable to be weaned off the ventilator, subsequently developed postoperative infection including abscess formation, peritonitis and sepsis. She was treated with IV antibiotics following consultation by Dr. Ozuna including coverage for fungus. Abscess was drained with Interventional Radiology procedure on 08/24/2018. The patient was taken back for repeat exploratory laparotomy by Dr. Lea on 08/26 to ensure bowel was clean. No further progression of peritonitis or abscess, additional drain placement. The patient had the fascia closed, but skin was left to heal with secondary intention with wound VAC. During this time , family discussions were made. I discussed that the patient is not progressing well regarding her intubation, unable to be weaned, progressing as expected on antibiotics. During the postoperative period, following a second exploratory laparotomy, the patient became anemic again. Systolic heart murmur was auscultated. An echocardiogram was performed on 08/28/2018 for additional evaluation with a normal ejection fraction and no valvular abnormalities. Diastolic dysfunction could not be ascertained due to quality of study in ICU with intubation. The patient had tracheostomy with Dr. Lea at bedside. Following first course of antibiotics, the patient was recultured on 09/12/2018 for urine, 09/15/2018 for wound and 09/06/2018 for stool. She had some diarrhea while on antibiotics; however, C. diff was negative. She was found to have positive catheter-associated urinary tract infection with Citrobacter. Wound showed Enterobacter. The patient was eventually weaned, which no longer septic and properly treated with antibiotics to [facility]. The patient remained on TPN or NG tube feeds until transition to IMCU. The patient subsequently had a wound infection and exploration of top portion of wound at bedside by Dr. Lea did not show any communication of any fistula formation; however, irritation with suture sites following proper treatment with second round of antibiotics for this and UTI. The patient improved significantly replaced on wound VAC. The patient's diarrhea improved following resolution of antibiotics after second course. The patient started therapy services and speech therapy services, made slow progress, barium swallow for oral intake assessment on 09/20/2018. The patient did not show any signs of aspiration. The patient struggled with liver profile foods, which she eventually tolerated on floor status with Magic Mouthwash and treatment of nystatin orally. The patient subsequently had some bladder spasms with second UTI found, which was treated with oral antibiotics at this time. The patient was weaned off tube feeds. All infections were cleared. No bleeding for quite some time. Trach collar was discontinued, and the patient was covered with tape and has been able to vocalize prior to discharge walking with therapy services to a restroom. The patient did not qualify for LTAC or inpatient rehabilitation, was qualified for SNF placement, was transitioned to SNF for continued therapy services. This can be in [facility]. The patient was discharged on 09/30/2018 to [place]. DISCHARGE MEDICATIONS: Included Prozac 20 mg, Augmentin 875-125 mg, ferrous sulfate 325 mg p.o. b.i.d., Magic Mouthwash 15 mL swish and spit p.r.n., melatonin 6 mg at bedtime, oxybutynin 10 mg daily, Protonix 40 mg twice daily, tramadol 50 mg p.r.n. q.8 or 6 h. DISCHARGE DIAGNOSES: Included physical deconditioning, status post tracheostomy , diarrhea, urinary tract infection catheter-associated x2, anemia of acute blood loss, followed by chronic disease. gastrointestinal bleed, upper resolution, exploratory laparotomy, status post gastric bypass remnant removal, hypertension, no longer needing home medications which were discontinued, resolved respiratory failure, resolved sepsis, resolved metabolic encephalopathy , resolution of tube feed dependency and TPN need, resolved peritonitis and abscess of retroperitoneal area, bladder spasms. DISCHARGE INSTRUCTIONS: Patient will follow up with myself, PCP within 7 days of discharge from SNF. DISCHARGE CONDITION: Good. REHABILITATION POTENTIAL: Good. DISCHARGE DIET: Regular with supplemental Ensure shakes. Encourage [employer] Breakfast supplements. Discharge therapy services, PT and speech nursing. Follow up with Dr. Lea within 1 month of discharge. Follow up with Dr. Mathur, Pulmonology within 1 month of discharge. SHASHA
== END 2018-09-30 15:55 | DRG 3 ==
LOC: ERS 08:58 → ERHOLD 11:15 → 2NO 15:01 → CCU 08-18 13:22 → IMCU/EMU 09-21 15:26 → SURG A 09-25 06:46
PROVIDERS: ADMIT Internal Medicine; ATTEND Internal Medicine
PROC: 0D598ZZ Destruction of Duodenum, Via Natural or Artificial Opening Endoscopic (ICD-10-PCS; 2018-08-18)
PROC: 0WJG0ZZ Inspection of Peritoneal Cavity, Open Approach (ICD-10-PCS; principal; 2018-08-19)
PROC: 5A1955Z Respiratory Ventilation, Greater than 96 Consecutive Hours (ICD-10-PCS; 2018-08-19)
PROC: 0DC64ZZ Extirpation of Matter from Stomach, Percutaneous Endoscopic Approach (ICD-10-PCS; 2018-08-19)
PROC: 05H533Z Insertion of Infusion Device into Right Subclavian Vein, Percutaneous Approach (ICD-10-PCS; 2018-08-19)
PROC: B546ZZA Ultrasonography of Right Subclavian Vein, Guidance (ICD-10-PCS; 2018-08-19)
PROC: 0DN64ZZ Release Stomach, Percutaneous Endoscopic Approach (ICD-10-PCS; 2018-08-25)
PROC: 0B113F4 Bypass Trachea to Cutaneous with Tracheostomy Device, Percutaneous Approach (ICD-10-PCS; 2018-08-30)
DX: K25.0 Acute gastric ulcer with hemorrhage (principal); A41.9 Sepsis, unspecified organism; J80 Acute respiratory distress syndrome; G93.41 Metabolic encephalopathy; K65.9 Peritonitis, unspecified; K65.1 Peritoneal abscess; D62 Acute posthemorrhagic anemia; Z68.41 Body mass index [BMI] 40.0-44.9, adult; N39.0 Urinary tract infection, site not specified; E66.9 Obesity, unspecified; Z98.84 Bariatric surgery status; I10 Essential (primary) hypertension; F32.9 Major depressive disorder, single episode, unspecified; Z79.899 Other long term (current) drug therapy; D47.3 Essential (hemorrhagic) thrombocythemia; R53.81 Other malaise; R19.7 Diarrhea, unspecified; E16.2 Hypoglycemia, unspecified; I50.9 Heart failure, unspecified; E83.42 Hypomagnesemia; Z96.652 Presence of left artificial knee joint; F41.9 Anxiety disorder, unspecified
CPT/HCPCS: 36415; 36416; 36430; 36569; 49060; 71045; 74018; 74022; 74177; 74230; 77012; 80048; 80053; 80061; 80202; 81001; 81003; 81015; 82150; 82248; 82274; 82533; 82553; 82805; 83690; 83735; 83880; 84100; 84134; 84484; 85025; 85384; 85610; 85730; 86850; 86880; 86900; 86901; 87040; 87070; 87077; 87086; 87186; 87205; 87324; 87449; 88307; 88312; 90471; 90686; 93005; 93306; 94002; 94003; 94640; 94760; 96361; 96365; 96366; 96374; A4216; A4217; A4218; C1729; C1751; C9113; G0008; G8978-GP-CL; G8978-GP-CN; G8979-GP-CJ; G8979-GP-CL; G8987-GO-CK; G8987-GO-CM; G8988-GO-CI; G8988-GO-CK; G8996-GN-CJ; G8996-GN-CN; G8997-GN-CI; G8997-GN-CL; J0131; J0290; J0360; J0694; J1100; J1120; J1170; J1265; J1644; J1650; J1815; J1940; J1956; J2001; J2060; J2185; J2248; J2250; J2270; J2405; J2704; J2920; J2997; J3010; J3370; J3475; J3480; J7050; J7120; J7620; P9016; P9045; P9047; S0028

== ENCOUNTER 2018-10-04 19:43 | Emergency (ER) | payer OTHER ==
[~2018-10-04 19:43] MED LIST changes: +ISOVUE-370 76%-LOCM 1 ML ONE; -Iopamidol 370 76% 100 ML VIAL ONE
[2018-10-04] MEDS ORDERED: Ondansetron PF 4 MG/2 ML Vial ONE (21:27)
[2018-10-04] MEDS ORDERED: Pantoprazole 40 MG VIAL ONE (21:27)
[2018-10-04 21:48] LABS: #Basophils 0.1 thou/uL (0.0-0.2); #Eosinphils 0.1 thou/uL (0.0-0.7); #Lymphocytes 1.7 thou/uL (1.20-3.40); #Neutrophils 6.5 thou/uL (1.40-6.50); %Basophils 0.8 % (0.0-1.0); %Lymphocytes 18.2 % (21.0-51.0); %Monocytes 10.1 % (0.0-10.0); %Neutrophils 69.9 % (42.0-75.0); Mean Corpuscular HGB CONC 30.5 g/dL (32.0-36.0); Mean Corpuscular Hemoglobin 25.4 pg (27.0-31.0); Mean Corpuscular Volume 83.3 fL (78.0-98.0); Mean Platelet Volume 7.7 fL (7.4-10.4); Platelet Count 599 thou/uL (130-400); RBC Distribution Width 14.7 % (11.5-14.5); Red Blood Cell (RBC) Count 3.93 mill/uL (4.20-5.40); White Blood Cell (WBC) Count 9.3 thou/uL (4.8-10.8)
[2018-10-04 22:02] LABS: ALT (SGPT) 22 U/L (8-55); AST (SGOT) 33 U/L (5-34); Albumin 3.5 g/dL (3.5-5.0); Alkaline Phosphatase 150 U/L (40-150); Anion Gap 16 mmol/L (10-20); BUN (Urea Nitrogen) 7 mg/dL (9.8-20.1); Bilirubin, Total 0.3 mg/dL (0.2-1.2); Calc. Creatinine Clearance 0 mL/min (70-130); Calcium 9.5 mg/dL (7.8-10.44); Carbon Dioxide 24 mmol/L (22-29); Chloride 103 mmol/L (98-107); Estimated GFR-MDRD 87; Globulin 4.3 g/dL (2.4-3.5); Glucose 120 mg/dL (70-105); Potassium 4.8 mmol/L (3.5-5.1); Protein, Total 7.8 g/dL (6.0-8.3); Sodium 138 mmol/L (136-145)
--- NOTE | 2018-10-04 22:03 | RAD ---
PORTABLE CHEST: 10/04/18 HISTORY: Cough. COMPARISON: 09/15/18. Poor inspiration. Heart size within normal range. Vascular and interstitial markings upper normal. No infiltrate or effusion. No evidence of significant interval change. IMPRESSION: No evidence of focal infiltrate. POS: [facility]
[2018-10-04 22:05] LABS: CKMB 0.4 ng/mL (0-6.6); Troponin I Less than 0.010 ng/mL (< 0.028)
--- NOTE | 2018-10-04 22:19 | CT ---
CT ABDOMEN AND PELVIS WITH CONTRAST: 10/04/18 Multiple axial tomograms obtained through the abdomen and pelvis with IV enhancement. INDICATIONS: Epigastric pain. Comparison made to CT abdomen and pelvis 09/18/18 and 09/14/18. FINDINGS: Images through the lung bases show a small left pleural effusion which is stable. Liver and spleen are unremarkable. There are postoperative changes involving the stomach. There are changes of gastric bypass with gastr ojejunostomy noted. There are inflammatory changes in the left upper quadrant extending under the left hemidiaphragm ante riorly. These are stable. There is no evidence of loculated fluid or abscess. Kidneys are unremarkabl e. There continues to be nonobstructing calculi in the upper collecting structures of both kidneys. T here is no evidence of ureteral calculus or hydronephrosis. The small bowel loops are normal caliber with no evidence of bowel obstruction. Stool throughout the colon. Aorta normal caliber. No evidence of fluid or abscess in the abdomen or pelvis. There appears to be an open midline incision with fluid and gas density within this incision extendin g through the anterior abdominal wall. Just posterior to this open incision is an irregularly shaped density which may represent packing material. This apparent foreign body density was present on the p rior studies and is unchanged. Other than the gas and fluid density within the incision, there is no underlying fluid or abscess collection. IMPRESSION: 1. There appears to be an open midline incision with gas and fluid density within this open inci du in the upper abdomen. There is radiodense material along the anterior abdominal wall at the site of this open incision in the upper abdomen possibly representing packing material, stable from prior exam. 2. Inflammatory change in the left upper quadrant is stable. 3. No acute intra-abdominal process or significant interval change. Left pleural effusion again noted. POS: [facility]
[2018-10-04] MEDS ORDERED: HYDROcodone/Acetaminophen 5/325 mg Tablet ONE (22:41)
[2018-10-04] MEDS ORDERED: Mag-Al 1200 mg/1200 mg/30 ML UDCUP ONE (22:41)
[2018-10-04] MEDS ORDERED: Lidocaine Viscous Sol 2% 15 ml UD Cup ONE (22:41)
[2018-10-04] MEDS ORDERED: Lorazepam 2 MG/ML VIAL ONE (23:20)
== END 2018-10-05 00:18 ==
LOC: ERS 19:43
DX: G89.18 Other acute postprocedural pain (principal); R10.13 Epigastric pain; I10 Essential (primary) hypertension; F32.9 Major depressive disorder, single episode, unspecified; Z79.899 Other long term (current) drug therapy
CPT/HCPCS: 71045; 74177; 80053; 82274; 82553; 84484; 85025; 93005; 96361; 96374; 96375; C9113; J2060; J2405

== ENCOUNTER 2018-10-11 09:48 | Outpatient (CLI) | payer OTHER ==
[~2018-10-11 09:48] MED LIST changes: -ISOVUE-370 76%-LOCM 1 ML ONE; +Sodium Chloride 0.9% 15 ML NEB ONE
== END 2018-10-11 09:49 | disposition home or self-care (01) ==
LOC: WCC 09:48
PROVIDERS: ATTEND Family Medicine
DX: T81.89XD Other complications of procedures, not elsewhere classified, subsequent encounter (principal)
CPT/HCPCS: 97605; A4218

== ENCOUNTER 2018-10-14 13:59 | Outpatient (CLI) | payer OTHER ==
--- NOTE | 2018-10-14 15:35 | RAD ---
2 VIEWS ABDOMEN: Date: 10/14/18 INDICATION: Wound VAC. COMPARISON: Prior exam dated 09/22/18 and 10/14/18. FINDINGS: There is a wound VAC involving the anterior abdominal wall. Bowel gas pattern is nonspecific. There a re vascular calcifications involving the abdominal aorta. Surgical clips are again seen within the ri ght upper quadrant of the abdomen. Scattered degenerative change is present. IMPRESSION: 1. Wound VAC involving the anterior upper abdomen. 2. Bowel gas pattern is nonspecific but without overt evidence of obstruction. POS: [facility]
--- NOTE | 2018-10-14 15:40 | RAD ---
TWO VIEWS OF THE ABDOMEN: 10/14/18 INDICATION: Intractable vomiting and nausea with wound vac. COMPARISON: Prior exam dated 09/22/18. FINDINGS: Bowel gas pattern is nonspecific but without evidence of obstruction. There is surgical clips within the right upper quadrant of the abdomen. There is postsurgical change in the left upper quadrant of t he abdomen likely related to prior gastric procedure. Previously seen contrast within the colon has been evacuated. There are multiple small suspecting nonobstructing calculi involving the right renal collecting system which is stable. Surgical mesh again seen within the lower midline of the abdomen. There was wound vac overlying the mid abdomen. There are numerous phleboliths in the lower pelvis. T here are scattered degenerative change. There are calcified granuloma in the left upper quadrant of t he abdomen. IMPRESSION: 1. Stable bilateral nephrolithiasis. 2. Bowel gas pattern is unobstructed. POS: [facility]
== END 2018-10-14 14:00 | disposition home or self-care (01) ==
LOC: WCC 13:59 → RAD 14:00
PROVIDERS: ATTEND Family Medicine
DX: R11.2 Nausea with vomiting, unspecified (principal); N20.0 Calculus of kidney
CPT/HCPCS: 74018; 74019; A4218

== ENCOUNTER 2018-10-17 10:47 | Outpatient (CLI) | payer OTHER ==
--- NOTE | 2018-10-17 14:42 | HP ---
HISTORY OF PRESENT ILLNESS: Ms. Analia Perdomo is a very pleasant 53-year-old accompanied by her son, who presents to the [facility] for evaluation of a midline abdominal wound subsequent to surgery for peritonitis with intraabdominal fluid collection on 08/25/[address] Valdemar Lea. 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 Negative pressure therapy was initiated at the time of surgery on 08/25/2018. The patient states that negative pressure therapy was continued for one week in [facility] upon the patient's discharge from [facility]. The patient states that upon her discharge from [facility], she has been receiving dressing changes here in the [facility]. PAST MEDICAL HISTORY: 1. Hypertension. 2. History of upper GI bleeding as per HPI. 3. History of anemia of chronic disease. PAST SURGICAL HISTORY: 1. Removal of spinal stimulator. 2. Appendectomy. 3. Cholecystectomy. 4. Gastric bypass. 5. . 6. Hysterectomy. 7. Left total knee replacement. 8. Bilateral foot surgery. 9. Vertical banded gastroplasty prior to gastric bypass. 10. Subtotal gastrectomy for bleeding gastric ulcer and gastric remnant from prior gastric bypass. 11. Surgery for peritonitis with intraabdominal fluid collection on 08/25/2018. 12. Tracheostomy with subsequent removal. MEDICATIONS: 1. Melatonin. 2. Multivitamin. 3. Ditropan. 4. Protonix. 5. Prozac. 6. Premarin. 7. Azo-Standard. 8. Ultram p.r.n. 9. Maalox p.r.n. ALLERGIES: NO KNOWN DIAGNOSED ALLERGIES. SOCIAL HISTORY: Social history is negative for tobacco or EtOH use. FAMILY HISTORY: Family history is significant for diabetes mellitus and coronary artery disease. The patient states that her father was diagnosed with diabetes mellitus and coronary artery disease. PHYSICAL EXAMINATION: VITAL SIGNS: Temperature 97.8, pulse 109, respirations 17, and blood pressure 128/69. GENERAL: This is a 53-year-old female sitting on chair in examination room, in no acute distress. HEENT: Normocephalic and atraumatic. NECK: No nuchal rigidity. CHEST: Clear to auscultation. CV: Regular rate and rhythm. ABDOMEN: Soft. A midline abdominal wound is present, which measures approximately 7.5 x 0.5 cm. Granulation tissue is present within the wound margins. Suture is also visible within the wound margins. No purulent drainage is associated with the wound. No erythema of the skin surrounding the wound is present. No maceration of the skin of the periwound is noted. EXTREMITIES: No clubbing or cyanosis. NEUROLOGIC: Grossly nonfocal. ASSESSMENT AND PLAN: 1. Midline abdominal wound as described above. Negative pressure therapy will be continued with dressing changes of the wound VAC here in the Wound Center. The patient states she has a followup appointment with Dr. Lea in the near future. I will see Ms. Perdomo again in two weeks. No antibiotics will be prescribed today based upon the appearance of the wound. 2. Hypertension. 3. History of upper gastrointestinal bleeding. 4. History of anemia of chronic disease. Job ID: [id number]
== END 2018-10-17 10:48 | disposition home or self-care (01) ==
LOC: WCC 10:47
PROVIDERS: ATTEND Family Medicine
DX: Z48.815 Encounter for surgical aftercare following surgery on the digestive system (principal); I10 Essential (primary) hypertension; Z98.890 Other specified postprocedural states; Z90.3 Acquired absence of stomach [part of]; Z87.19 Personal history of other diseases of the digestive system; Z86.2 Personal history of diseases of the blood and blood-forming organs and certain disorders involving the immune mechanism
CPT/HCPCS: A4218

== ENCOUNTER 2018-10-17 12:47 | Emergency (ER) | payer OTHER ==
[~2018-10-17 12:47] MED LIST changes: +Iopamidol 370 76% 100 ML VIAL ONE; -Sodium Chloride 0.9% 15 ML NEB ONE
[2018-10-17] MEDS ORDERED: Ondansetron PF 4 MG/2 ML Vial ONE ×2 (13:18→16:36)
[2018-10-17] MEDS ORDERED: Morphine 4 MG/ML VIAL ONE ×2 (13:18→16:31)
[2018-10-17 13:30] LABS: #Eosinphils 0.1 thou/uL (0.0-0.7); #Lymphocytes 1.7 thou/uL (1.20-3.40); #Monocytes 0.9 thou/uL (0.11-0.59); #Neutrophils 7.2 thou/uL (1.40-6.50); %Basophils 0.1 % (0.0-1.0); %Eosinophils 0.5 % (0.0-10.0); %Lymphocytes 17.3 % (21.0-51.0); %Monocytes 8.9 % (0.0-10.0); %Neutrophils 73.1 % (42.0-75.0); Hemoglobin 11.4 g/dL (12.0-16.0); Mean Corpuscular HGB CONC 31.5 g/dL (32.0-36.0); Mean Corpuscular Hemoglobin 26.4 pg (27.0-31.0); Mean Corpuscular Volume 83.9 fL (78.0-98.0); Mean Platelet Volume 7.9 fL (7.4-10.4); Platelet Count 423 thou/uL (130-400); RBC Distribution Width 16.6 % (11.5-14.5); White Blood Cell (WBC) Count 9.8 thou/uL (4.8-10.8)
[2018-10-17 13:49] LABS: ALT (SGPT) 13 U/L (8-55); AST (SGOT) 17 U/L (5-34); Albumin 3.4 g/dL (3.5-5.0); Alkaline Phosphatase 147 U/L (40-150); Anion Gap 15 mmol/L (10-20); BUN (Urea Nitrogen) 8 mg/dL (9.8-20.1); Bilirubin, Total 0.5 mg/dL (0.2-1.2); Calc. Creatinine Clearance 0 mL/min (70-130); Calcium 9.3 mg/dL (7.8-10.44); Carbon Dioxide 25 mmol/L (22-29); Chloride 99 mmol/L (98-107); Estimated GFR-MDRD 87; Glucose 102 mg/dL (70-105); Lipase 27 U/L (8-78); Potassium 3.2 mmol/L (3.5-5.1); Protein, Total 7.4 g/dL (6.0-8.3); Sodium 136 mmol/L (136-145)
[2018-10-17] MEDS ORDERED: Potassium Chloride 20 MEQ TAB ONE (16:31)
[2018-10-17 16:59] LABS: Bilirubin Negative (Negative); Blood, Urine Trace (Negative); Clarity CLEAR (Clear); Glucose, Urine (Dipstick) Negative (Negative); Leukocyte Small (Negative); Nitrite Negative (Negative); Protein, Urine (Dipstick) Negative (Neg-Trace); Specific Gravity, Urine 1.035 (1.002-1.036); pH, Urine 6.5 (5.0-9.0)
[2018-10-17 17:00] LABS: Bacteria/HPF None Seen HPF (None Seen)
[2018-10-17 17:01] LABS: Pathc Cast-AUWi Flag 3.92 (0-2.49)
[2018-10-17 17:25] LABS: Hyaline Casts/LPF 0-3 HYALINE CAST LPF (0-3 Hyaline); Other Casts/LPF None Seen LPF (0-3 Hyaline)
--- NOTE | 2018-10-17 17:26 | CT ---
CT ABDOMEN WITH CONTRAST CT PELVIS WITH CONTRAST: DATE: 10/17/18 TIME: 1534 HOURS HISTORY: 53-year-old female with generalized abdominal pain, nausea, and vomiting. COMPARISON: 10/04/18. FINDINGS: Again noted is the small to moderate unilateral left pleural effusion. Midline surgical wound soft ti ssue defect is noted ventral to the abdominal wall from upper to mid abdomen. The material within it, which may have been packing material, has been removed now. Directly deep to that, within the far ve ntral aspect of the peritoneal cavity in the upper abdomen, again noted is the irregularly shaped monique cific density structure which could represent surgical material, measuring approximately 1.5 x 1.5 x 5.5 cm. There is no pneumoperitoneum. Extensive fat stranding representing edema and/or hemorrhage involving a moderately large region in t he left upper quadrant of the abdominal cavity is again demonstrated. This could represent a phlegmon . There does not appear to be a definite organized abscess yet. Again noted is the very small volume stomach with multiple suture lines. There is distortion and trac tion upon the tail of the pancreas. The extensive inflammatory changes described above abuts the tail of the pancreas. The rest of the pancreas appears unremarkable. Again noted are the numerous calculi throughout the bilateral renal collecting systems, right greater than left. No hydronephrosis. No as ymmetry of the nephrograms. Diffusely low hepatic attenuation represents fatty liver. No biliary duct al dilation. Surgical clips in the gallbladder fossa. No signs of colonic diverticulitis. Absent uter us. No small bowel dilation. No free fluid within the pelvic cavity. No gross abnormality of urinary bladder identified. IMPRESSION: 1. Recent laparoscopic changes, and status post gastric bypass bariatric surgery. 2. Extensive, severe fat stranding in the left upper quadrant of the abdominal cavity, which could r epresent edema, unorganized hemorrhage, or phlegmon. The appearance is similar to that of 10/04/18. 3. High density structure at ventral upper peritoneal cavity just deep to the surgical wound may rep resent retained foreign body. 4. Bilateral nephrolithiasis. 5. Left pleural effusion. 6. Hepatic steatosis. 7. Status post cholecystectomy, appendectomy, and hysterectomy. 8. No major interval change in the appearance of the intra-abdominal and intrapelvic contents since 10/04/18. JNR POS: MICHELLE
== END 2018-10-17 17:28 | disposition home or self-care (01) ==
LOC: ERS 12:47
DX: R11.2 Nausea with vomiting, unspecified (principal); R10.12 Left upper quadrant pain; E87.6 Hypokalemia; I10 Essential (primary) hypertension; F32.9 Major depressive disorder, single episode, unspecified; Z79.899 Other long term (current) drug therapy
CPT/HCPCS: 74177; 80053; 81003; 81015; 83690; 85025; 96361; 96374; 96375; 96376; J2270; J2405

== ENCOUNTER 2018-10-19 11:21 | Outpatient (CLI) | payer OTHER ==
[2018-10-19] MEDS ORDERED: Sodium Chloride 0.9% 15 ML NEB ONE (14:13)
== END 2018-10-19 11:22 | disposition home or self-care (01) ==
LOC: WCC 11:21
PROVIDERS: ATTEND Family Medicine
DX: T81.89XD Other complications of procedures, not elsewhere classified, subsequent encounter (principal)
CPT/HCPCS: 97605; A4218

== ENCOUNTER 2018-10-21 14:17 | Outpatient (CLI) | payer OTHER ==
[2018-10-27] MEDS ORDERED: Sodium Chloride 0.9% 15 ML NEB ONE (13:58)
== END 2018-10-21 14:18 | disposition home or self-care (01) ==
LOC: WCC 14:17
PROVIDERS: ATTEND Family Medicine
DX: T81.89XD Other complications of procedures, not elsewhere classified, subsequent encounter (principal)
CPT/HCPCS: 97605

== ENCOUNTER 2018-10-26 09:55 | Inpatient (IN) | payer OTHER ==
[2018-10-26 11:27] VITALS: BMI 38.0
[2018-10-26 11:33] LABS: #Eosinphils 0.1 thou/uL (0.0-0.7); #Lymphocytes 1.2 thou/uL (1.20-3.40); #Monocytes 0.7 thou/uL (0.11-0.59); #Neutrophils 4.9 thou/uL (1.40-6.50); %Basophils 0.7 % (0.0-1.0); %Eosinophils 1.1 % (0.0-10.0); %Lymphocytes 17.5 % (21.0-51.0); %Monocytes 10.3 % (0.0-10.0); %Neutrophils 70.5 % (42.0-75.0); Mean Corpuscular Hemoglobin 26.3 pg (27.0-31.0); Mean Platelet Volume 8.3 fL (7.4-10.4); Platelet Count 369 thou/uL (130-400); RBC Distribution Width 17.5 % (11.5-14.5); Red Blood Cell (RBC) Count 4.93 mill/uL (4.20-5.40)
[2018-10-26 11:53] LABS: ALT (SGPT) Less than 7 U/L (8-55); AST (SGOT) 14 U/L (5-34); Albumin 3.3 g/dL (3.5-5.0); Alkaline Phosphatase 126 U/L (40-150); Anion Gap 19 mmol/L (10-20); BUN (Urea Nitrogen) 7 mg/dL (9.8-20.1); Bilirubin, Total 0.4 mg/dL (0.2-1.2); Calc. Creatinine Clearance 142 mL/min (70-130); Calcium 9.3 mg/dL (7.8-10.44); Carbon Dioxide 25 mmol/L (22-29); Chloride 99 mmol/L (98-107); Estimated GFR-MDRD Greater than 90; Glucose 90 mg/dL (70-105); Potassium 3.6 mmol/L (3.5-5.1); Protein, Total 7.3 g/dL (6.0-8.3); Sodium 139 mmol/L (136-145)
[2018-10-26] MEDS ORDERED: Morphine 2 MG/ML SYRINGE SLOW IVP PRN (12:15)
[2018-10-26] MEDS ORDERED: CEFAZOLIN 2 GM/50 ML-DEXTROSE 2 GM in Premix Bag 1 BAG IVPB SCH ×2 (12:30→12:45)
[2018-10-26] MEDS: Dextrose 5%-Lactated Ringers 1,000 ML IV SCH ×2 (12:39→18:19)
[2018-10-26] MEDS: traMADol HCl 50 MG TAB PO PRN ×2 (12:39→18:20)
[2018-10-26] MEDS: Ondansetron PF 4 MG/2 ML Vial IVP SCH ×2 (12:42→18:20)
--- NOTE | 2018-10-26 13:26 | RAD ---
ABDOMEN TWO VIEWS: CHEST ONE VIEW: HISTORY: Abdominal pain. COMPARISON: CT abdomen and pelvis from 10/17/2018. FINDINGS: There is a left basilar opacity and layering left effusion. There is suture material in the left upp er quadrant of the abdomen. Right upper quadrant surgical clips. Phleboliths in the pelvis. There are dilated loops of large and small bowel. None of the images are labeled as an upright view. IMPRESSION: 1. Left basilar opacity and layering effusion, concerning for underlying infection. 2. Bilateral renal calculi. 3. No evidence for bowel obstruction. POS: TPC
[2018-10-27] MEDS: Ondansetron PF 4 MG/2 ML Vial IVP SCH ×4 (00:09→18:19)
[2018-10-27] MEDS: traMADol HCl 50 MG TAB PO PRN ×3 (00:14→18:20)
[2018-10-27] MEDS: Dextrose 5%-Lactated Ringers 1,000 ML IV SCH ×5 (03:08→22:22)
--- NOTE | 2018-10-27 03:43 | HP ---
CHIEF COMPLAINT: Epigastric abdominal pain, nausea and vomiting. HISTORY OF PRESENT ILLNESS: The patient is a 53-year-old white female. She has a history of two prior bariatric operations. In August, she presented with bleeding from her gastric remnant. She required emergency laparotomy for subtotal gastrectomy with removal of the majority of her gastric remnant. She had significant blood loss and instability prior to the surgery. She unfortunately had a staple line leak that was treated about a week after her initial surgery (on August 25). She had a lengthy hospitalization after this. She has had a wound VAC for her abdominal wound. She complained of pain and went to the emergency room on October [address] scan was obtained, as well as laboratory studies. The laboratory studies were minimally abnormal. The CT scan also showed inflammatory changes, but no significant acute abnormality. There was a concern regarding a calcific density in the epigastrium just underneath the fascia. It was suggested that this may have been a retained foreign body from her surgery. The patient presented to my office today complaining of worsening abdominal pain, as well as nausea and vomiting and inability to tolerate significant oral intake. She was noted to be tachycardic in the office. I therefore recommended admission to the hospital for hydration with probable plan to proceed with a laparotomy to evaluate the calcific abnormality in the abdomen that may have been a retained foreign body. After her admission, I was able to review her plain abdominal film which I obtained today as well as her CT scans that she has had obtained since August. Two separate radiologists felt that it was unlikely that this was a retained foreign body and instead felt this was more likely to be calcified tissue within the abdomen, probably associated with fatty necrosis. Upon my evaluation of her in the hospital several hours after admission, it was noted that she was no longer tachycardic. Instead, she had entirely normal vital signs. She was afebrile with a pulse in the 70s and blood pressure of 118/73. PAST MEDICAL HISTORY: 1. Morbid obesity. 2. Hypertension. 3. Depression. 4. Neuropathy involving her feet. PAST SURGICAL HISTORY: 1. Appendectomy. 2. Cholecystectomy. 3. Open vertical banded gastroplasty in the . 4. Open Arsalan-en-Y gastric bypass in 2007 in [place]. 5. Hysterectomy. 6. Left total knee replacement. 7. Bilateral foot surgery. 8. Emergency laparotomy with removal of bleeding gastric remnant on August 18, 2018. 9. Emergency laparotomy for repair of pinpoint leak from gastric staple line on August 25. MEDICATIONS: Include, 1. Losartan. 2. Amlodipine. 3. Nortriptyline. 4. Meloxicam. 5. Gabapentin. 6. Fluoxetine. 7. Pantoprazole. 8. Tylenol No. 3. ALLERGIES: NO KNOWN DRUG ALLERGIES. PERSONAL AND SOCIAL HISTORY: She is with one child. Her son is present with her. She does not smoke nor does she drink alcohol. She does not work secondary to disability and her disability is apparently related to her neuropathy as well as back problems. REVIEW OF SYSTEMS: Otherwise unremarkable. FAMILY HISTORY: Noncontributory. PHYSICAL EXAMINATION: VITAL SIGNS: In office today, temperature 98.6, pulse 112, blood pressure 136/61 with a pain score of 8/10. GENERAL: She is well-developed, well-nourished, obese white female, resting in no acute distress. She is alert and oriented x3. HEAD, EYES, EARS, NOSE, AND THROAT: Unremarkable. NECK: Supple without mass or tenderness. LUNGS: Clear to auscultation throughout. CARDIAC: Regular rate and rhythm without murmur. ABDOMEN: Soft. She has an open wound in her upper midline incision with visible fascia and sutures at the base of this. The rest of her abdominal incision is healed in by secondary intention. Bowel sounds are present and normoactive. EXTREMITIES: Unremarkable. LABORATORY DATA: CBC reveals a white blood cell count of 7 with a hemoglobin of 13.0, platelet count of 369, and essentially a normal differential. Chemistry panel reveals normal electrolytes. BUN is 7, creatinine 0.65, glucose is normal at 90. Liver function tests are normal. Her albumin is slightly low at 3.3. X-rays; plain abdominal film as well as chest x-ray obtained. This reveals no evidence of epigastric calcific abnormality. I reviewed this with Radiology and it was felt that these findings were not typical of a retained surgical foreign body or sponge. The calcific abnormality is visualized on CT scan only and not on plain films. ASSESSMENT AND PLAN: The patient with epigastric abdominal pain and some degree of problems with oral intake. Her BUN and creatinine do not appear typical of dehydration. Her albumin is a little bit low, indicating that she is probably not eating appropriate volume of calories. I admitted her at this time with the intention of proceeding with laparotomy tomorrow to evaluate her abdomen. However, after discussion with Radiology, I doubt that this would be a fruitful exploration and instead would pose more risks to her than benefits. I therefore at this time would recommend holding off on surgery. She is already on a proton pump inhibitor, so it seem unlikely that her epigastric discomfort is related to an anastomotic ulcer. Nonetheless, we will ask Gastroenterology to evaluate her with me in regard to her nausea and vomiting. We may obtain an upper GI for further evaluation as well. Since I do not believe there is a foreign body, I am not certain why she has the degree of upper abdominal pain that she has or if there is anything to do about this. Job ID: [id number]
[2018-10-27 06:48] LABS: #Eosinphils 0.2 thou/uL (0.0-0.7); #Lymphocytes 1.1 thou/uL (1.20-3.40); #Monocytes 0.8 thou/uL (0.11-0.59); #Neutrophils 3.2 thou/uL (1.40-6.50); %Basophils 0.8 % (0.0-1.0); %Eosinophils 3.2 % (0.0-10.0); %Lymphocytes 21.3 % (21.0-51.0); %Monocytes 14.5 % (0.0-10.0); %Neutrophils 60.2 % (42.0-75.0); Hemoglobin 11.5 g/dL (12.0-16.0); Mean Corpuscular HGB CONC 30.9 g/dL (32.0-36.0); Mean Corpuscular Hemoglobin 26.5 pg (27.0-31.0); Mean Corpuscular Volume 85.6 fL (78.0-98.0); Mean Platelet Volume 8.6 fL (7.4-10.4); Platelet Count 350 thou/uL (130-400); RBC Distribution Width 17.3 % (11.5-14.5); Red Blood Cell (RBC) Count 4.33 mill/uL (4.20-5.40); White Blood Cell (WBC) Count 5.4 thou/uL (4.8-10.8)
[2018-10-27] MEDS ORDERED: Lidocaine 1% PF 5 ML VIAL ONE (09:34)
[2018-10-27] MEDS ORDERED: PROPOFOL 200 MG/20 ML VIAL ONE (09:34)
[2018-10-27] MEDS ORDERED: Ondansetron HCl/PF 4 MG/2 ML Vial IVP PRN (15:51)
[2018-10-27] MEDS ORDERED: Promethazine HCl 25 MG/ML VIAL IM PRN (15:51)
[2018-10-27] MEDS ORDERED: Promethazine HCl 25 MG/ML VIAL SLOW IVP PRN (15:51)
[2018-10-27] MEDS ORDERED: Fentanyl 100 MCG/2 ML VIAL ONE (15:54)
[2018-10-27] MEDS ORDERED: Fleet Enema 133 ML BOT PR ONE (17:00)
--- NOTE | 2018-10-27 17:07 | PRG ---
DATE OF SERVICE: 10/27/2018 SUBJECTIVE: Ms. Perdomo was admitted to the hospital yesterday for evaluation and treatment of abdominal pain with nausea and vomiting. She notes that she feels better after IV fluid hydration. Today, I have obtained a Gastroenterology consult. Dr. Sarah has seen the patient and plans to perform an upper GI endoscopy on her today. There is a concern that her discomfort and perhaps her nauseas were related to fairly severe constipation. The patient has no new complaints. OBJECTIVE: VITAL SIGNS: She is afebrile. Pulse is 84, blood pressure 121/70. LUNGS: Clear to auscultation. ABDOMEN: Soft and nontender with dressing intact. LABORATORY DATA: CBC is essentially normal with a white blood cell count of 5.4, hemoglobin of 11.5, and platelet count is 350. Differential is unremarkable. ASSESSMENT: The patient appears to be improved following admission, on IV fluid hydration. Certainly appreciate the gastroenterology input and assistance with management. If in fact, constipation is her significant underlying problem, then aggressive treatment of this will be appropriate following her upper endoscopy, assuming that it is normal. Job ID: [id number]
--- NOTE | 2018-10-27 22:02 | OP ---
DATE OF PROCEDURE: 10/27/2018 PROCEDURE PERFORMED: EGD (diagnostic). INDICATION FOR PROCEDURE: Mid-epigastric abdominal pain, nausea, and vomiting. DESCRIPTION OF PROCEDURE: After the risks and benefits of the procedure were explained to the patient including risks of bleeding, infection, perforation, reactions to anesthesia, aspiration and/or pain, informed consent was obtained. The patient was then taken to the endoscopy suite, where deep sedation was administered via propofol and Anesthesia support. Once adequate sedation was achieved, the standard gastroscope was introduced into the mouth with intubation of the esophagus, stomach and proximal small intestine with the findings listed below. The patient tolerated the procedure well with no immediate perioperative complications. After the procedure was completed, all equipment was removed from the patient, and the patient was transferred to PACU in satisfactory condition. FINDINGS: 1. Esophagus: Normal-appearing mucosa was seen in the proximal, mid and distal esophagus. There was no evidence of erosions, ulcerations, mass lesions, or active/recent bleeding. 2. Stomach: Surgical change consistent with a Arsalan-en-Y gastric bypass was seen upon entering the stomach. The afferent and efferent limbs were both identified with intubation of the efferent limb achieved to approximately 20 cm past the gastrojejunal anastomosis. Normal-appearing mucosa was seen in the efferent limb as well as normal-appearing mucosa seen in the afferent stump. Otherwise within the stomach, normal-appearing mucosa was seen in the gastric cardia, fundus, and remains of the body. There was no evidence of erosions, ulcerations, mass lesions or active/recent bleeding. The gastrojejunal anastomosis was also normal in appearance without any significant mucosal breakdown/ulceration. 3. Small intestine: Normal-appearing mucosa was seen in the efferent limb of the small intestine with no evidence of erosions, ulcerations, mass lesions or active/recent bleeding. Minimal narrowing of the efferent limb was noted just distal to the gastrojejunal anastomosis, but was easily traversed with the standard gastroscope. IMPRESSION: 1. Surgical change consistent with a Arsalan-en-Y gastric bypass with no abnormalities at the gastrojejunal anastomosis. 2. Mild narrowing of the proximal efferent limb, but unlikely to be causing significant obstruction. RECOMMENDATIONS: 1. We would place the patient on clear liquid diet and advance as tolerated per nausea and vomiting. 2. We would continue aggressive antiemetic support. 3. We would place the patient on naloxegol 25 mg daily given significant narcotic use related to abdominal wound incision site. We would place the patient on a bowel regimen including a one time dose of Fleet enema as well as MiraLax 17 g daily to facilitate having a bowel movement. 4. Pain control per primary team, but we would attempt to minimize narcotics as much as possible given significant constipation, which could generate increased nausea and vomiting as well. We will continue to follow. Please call with any questions. Job ID: [id number]
--- NOTE | 2018-10-27 22:22 | CON ---
DATE OF CONSULTATION: 10/27/2018 REASON FOR CONSULTATION: Nausea, vomiting, and midepigastric abdominal pain. CONSULTING PHYSICIAN: Valdemar Lea MD HISTORY OF PRESENT ILLNESS: The patient is a 53-year-old female with a past medical history of hypertension, depression, peripheral neuropathy, and morbid obesity, status post open Arsalan-en-Y gastric bypass, presenting with complaints of increased nausea, vomiting, and midepigastric abdominal pain. Per chart review, the patient was admitted to the hospital in August and found to have an ulceration within her gastric remnant that exhibited significant bleeding requiring emergent laparotomy and subtotal gastrectomy with removal of the gastric remnant at that time. Her blood loss was stabilized with no further episodes of bleeding since that time. However, since that surgery, she complains of increased nausea, vomiting, and midepigastric abdominal pain. Her abdominal pain is characterized as a sharp/stabbing type sensation located within the midepigastric region at the top of the open incision site (wound VAC is still in place), radiates all along the length of the actual incision and reaches a severity of 10/10. The midepigastric abdominal pain is increased with ingestion of either food or liquids, but did not exhibit any other clear exacerbating factors. Alleviating factors include administration of pain medications for which she is taking both Tylenol No.3 and tramadol as an outpatient. This has also been associated with increased nausea and vomiting, having approximately 1 to 2 episodes of discrete vomiting over the last 3 to 4 weeks usually associated with food intake. She denies any bloody emesis or further episodes of GI bleeding characterized as melena or hematochezia. Concerning her vomiting, it would occur within seconds of her actual ingestion of either solids or liquids and has only been minimally alleviated with the use of antiemetic medication. With this increased abdominal pain, nausea and vomiting, she was seen by Dr. Lea as an outpatient and with a CT scan obtained of the abdomen showing no significant acute abnormality, but there was a calcific density in the epigastric just underneath the fascia concerning for a possible retained foreign body. With that, she was ultimately admitted to [facility] for further evaluation. Of note, upon conferring with the patient, her last bowel movement was yesterday consisting of small hard pellets that were difficult to past requiring increased abdominal straining in order to facilitate defecation. Prior to that, she states that her last bowel movement was 5 to 7 days ago and had been having one solid bowel movement every 5 to 7 days since her prior surgery. She had taken magnesium citrate in the recent past with mild improvement of her symptoms, but still experiences increased abdominal bloating as well as increased straining in order to have a bowel movement. Currently, she denies any fevers, chills, dysphagia, odynophagia, weight loss, or diarrhea. REVIEW OF SYSTEMS: A 10-category review of systems was obtained with all responses negative except for the pertinent positives as listed in HPI. PAST MEDICAL HISTORY: As per HPI. PAST SURGICAL HISTORY: Appendectomy, cholecystectomy, open vertical banded gastroplasty (), open Arsalan-en-Y gastric bypass (2007), hysterectomy, left total knee replacement, bilateral foot surgery, emergent laparotomy with subtotal gastrectomy (August 2018), emergency laparotomy for repair of pinpoint leak from gastric staple line (August 2018). FAMILY HISTORY: Denies any GI malignancies. SOCIAL HISTORY: Denies any tobacco, alcohol, or illicit drug use. OUTPATIENT MEDICATIONS: Reviewed. ALLERGIES: NO KNOWN DRUG ALLERGIES. PHYSICAL EXAMINATION: VITAL SIGNS: Temperature 97.9, pulse 84, blood pressure 121/70, respiratory rate 16, saturating 94% on room air. GENERAL: The patient was lying in bed, in no acute distress. Alert and oriented x4. HEENT: No scleral icterus noted. NECK: Supple. No JVD noted. CARDIOVASCULAR: Regular rate and rhythm with no discernible murmurs, gallops, or rubs. RESPIRATORY: Clear to auscultation bilaterally with no discernible wheezes or rales. ABDOMEN: Soft with mild abdominal distention. She has an open wound in the upper midline incision with increased tenderness around the incision site itself. She also exhibited increased tenderness to palpation in the right lower quadrant. EXTREMITIES: No cyanosis, clubbing, or edema. LABORATORY DATA: CBC with a white blood cell count of 5.4, hemoglobin 11.5, hematocrit 37.1, platelets 350. Chemistry with a sodium of 139, potassium 3.6, chloride 99, CO2 25, BUN 7, creatinine 0.65, glucose 90, AST 14, ALT 7, alkaline phosphatase 126, total bilirubin 0.4. Imaging data: Acute abdominal series obtained on October 26, 2018 showed left basilar opacity and layering effusion concerning for possible infection and also showed bilateral renal calculi, but no evidence of bowel obstruction. However, it did show some mildly dilated loops of both large and small bowel. CT of the abdomen and pelvis obtained on October 17, 2018, showed recent laparoscopic changes consistent with a gastric bypass bariatric surgery. It also showed extensive severe fat stranding in the left upper quadrant of the abdominal cavity representing edema, hemorrhage, or possible phlegmon, but unchanged from CT obtained on October 04, 2018. There was also a high-density structure at the ventral upper peritoneal cavity just deep to the surgical wound, which may represent a retained foreign body and also showed bilateral nephrolithiasis, left pleural effusion, hepatic steatosis, and surgical change from cholecystectomy, appendectomy, and hysterectomy. ASSESSMENT AND PLAN: The patient is a 53-year-old female with past medical history of hypertension, depression, peripheral neuropathy, and morbid obesity, status post open Arsalan-en-Y gastric bypass and more recently hospitalized for acute blood loss related to an ulceration within the gastric remnant, now status post subtotal gastrectomy of that remnant, presenting with increased nausea, vomiting, and abdominal pain since the surgery. Nausea and vomiting. The patient is presenting with increased nausea and vomiting present since her most recent surgery in August 2018 with the subtotal gastrectomy and further leak from the surgical incision site. Her nausea and vomiting is characterized as having approximately 1 to 2 discrete episodes per day of non-bloody vomiting, usually associated with the intake of food with her emesis being sparked by either solid or liquid ingestion. This has only been minimally controlled with antiemetic medications. However, she also endorses significant constipation characterized as having approximately one solid bowel movement every 5 to 7 days with the consistency of stool consisting of hard to pass rock-like/pebble-like stools. She had attempted stool softeners, magnesium citrate in the recent past with only minimal relief of her symptoms with magnesium citrate. At this time, given her increased nausea and vomiting, significant constipation secondary to narcotic-induced constipation could be resulting in residual nausea and vomiting and creating the current constellation of symptoms. However, the differential could also include esophagitis, gastritis of the gastric pouch (the part remaining), peptic ulcer disease (less likely) anastomotic stricture or possible obstruction given the evidence of dilated loops of small and large bowel on imaging. RECOMMENDATIONS: 1. We would keep patient n.p.o. for now given increased nausea and vomiting in anticipation for procedure. 2. We will plan for EGD later today for intraluminal evaluation of the esophagus, gastric pouch and afferent and efferent intestinal limbs. 3. We would start the patient on Naloxegol 25 mg daily to reverse the effects of the opiate on the gut. 4. We would place the patient on MiraLAX 17 g daily, having the patient drink the solution slowly to avoid increased nausea and vomiting and to facilitate having a bowel movement. 5. We would consider tap water enema in order to break up harder stool in the rectum and facilitate defecation. We will continue to follow. Please call with any questions. Job ID: [id number]
[2018-10-28] MEDS: Ondansetron PF 4 MG/2 ML Vial IVP SCH ×4 (01:04→17:29)
[2018-10-28] MEDS: traMADol HCl 50 MG TAB PO PRN ×2 (01:06→21:43)
[2018-10-28] MEDS: Dextrose 5%-Lactated Ringers 1,000 ML IV SCH (06:39)
[2018-10-28] MEDS: Polyethylene Glycol 3350 17 GM Packet PO SCH (10:40)
[2018-10-28] MEDS ORDERED: Fleet Enema 133 ML BOT PR SCH (14:15)
[2018-10-28] MEDS ORDERED: Magnesium Citrate 300 ML BOT PO SCH (15:30)
[2018-10-28] MEDS ORDERED: Lidocaine 2% Jelly 5 ML TUBE TOP SCH (17:00)
[2018-10-28] MEDS ORDERED: Benzocaine 20% Spray 60 ML CAN FS SCH (17:00)
[2018-10-28] MEDS ORDERED: LIDOCAINE JELLY 2% FS SCH (17:15)
[2018-10-28] MEDS ORDERED: Clopidogrel Bisulfate 75 MG TAB ONE (18:20)
--- NOTE | 2018-10-28 19:58 | PRG ---
DATE OF SERVICE: 10/28/2018 REASON FOR CONSULTATION: Nausea, vomiting, and midepigastric abdominal pain, constipation. SUBJECTIVE: The patient states that she is having increased midepigastric abdominal pain while attempting to drink the MiraLAX earlier this morning. She did have 1 enema yesterday afternoon with a small bowel movement afterwards, but the stool consistency was very hard and pebble-like in nature. She has not had a bowel movement since then. Otherwise, she denies any overt vomiting since yesterday. Currently, denies any fevers, chills, diarrhea, dysphagia, or odynophagia. OBJECTIVE: VITAL SIGNS: Temperature 97.9, pulse 73, blood pressure 128/80, respiratory rate 18, and saturating 96% on room air. GENERAL: The patient is lying in bed, in mild distress. Alert and oriented x4. CARDIOVASCULAR: Regular rate and rhythm. RESPIRATORY: Clear to auscultation bilaterally. ABDOMEN: Soft with mild abdominal distention. Increased tenderness around the abdominal incision site as well as continued tenderness in the right lower quadrant. EXTREMITIES: No cyanosis, clubbing, or edema. LABORATORY DATA: No studies are available for review. IMAGING DATA: No current GI imaging is available for review. EGD obtained on October 27, 2018, showed surgical change within the stomach consistent with a Arsalan-en-Y gastric bypass. There were no abnormalities seen during the upper endoscopy with no evidence of erosions, ulcerations, mass, lesions, or active/recent bleeding. There was no evidence of stricture or stenosis in the efferent limb that could contribute to increased nausea and vomiting. ASSESSMENT AND PLAN: The patient is a 53-year-old female with past medical history of hypertension; depression; peripheral neuropathy; and morbid obesity, status post open Arsalan-en-Y gastric bypass and more recently, subtotal gastrectomy of the gastric remnant, presenting with nausea; vomiting; abdominal pain; and constipation. Nausea and vomiting/constipation. The patient is presenting with increased nausea and vomiting since her most recent surgery in August 2018, when she underwent subtotal gastrectomy of the gastric remnant as well as leak from her surgical incision site. However, over the last 24 hours, she has had alleviation of her nausea and vomiting, but continues to have increased midepigastric abdominal pain and significant constipation with only minimal amounts of stool evacuated with Fleet enema. She was subsequently placed on MiraLAX 1 capful daily with slow administration given her increased nausea and vomiting, and probable delayed colonic transit related to narcotic use secondary to her recent abdominal surgeries, but the Fleet enema was minimally successful in softening stool from below and evacuation of some stool at that time. At this point, the patient still has not had a decent bowel movement, which could then further increase her abdominal pain, nausea, and vomiting and what I think is currently contributing to her current constellation of symptoms. RECOMMENDATIONS: 1. Would place the patient on a clear liquid diet and advance diet very slowly given her increased nausea and vomiting. 2. Would continue naloxegol 25 mg daily to reverse the effects of opiates on the gut. 3. Would continue the patient on MiraLAX 17 g daily with instructions that the patient drink it slowly to avoid increased nausea and vomiting. 4. I will order a repeat Fleet enema today with instructions to retain the fluid as long as possible to facilitate softening of stool in the distal colon. We will continue to follow. Please call with any questions. Job ID: [id number]
--- NOTE | 2018-10-29 00:32 | PRG ---
DATE OF SERVICE: 10/28/2018 SUBJECTIVE: Ms. Perdomo remains on the surgical floor. This is hospital day #3 for her. She is admitted for a complaint regarding pain, nausea and vomiting. Dr. Hankins saw her and performed upper GI endoscopy yesterday without findings of abnormality. He felt that her symptoms were most likely consistent with fairly severe constipation, likely related to her narcotic use since her recent surgery in August. The patient was treated with enemas and laxatives. She has still had minimal bowel movement. I gave her another enema today and this did not reveal much in the way of stool either. She was started on MiraLAX, which she had a hard time taking. She tells me at this time that she is unable to keep anything down or whenever she tries to start drinking that it immediately feels like it is going to come up. Her abdomen seems to be benign and I am not certain why she has these issues with nausea and vomiting. OBJECTIVE: VITAL SIGNS: On examination, she is afebrile. Her pulse is normal in the 70s. She was upset after attempting to drink fluid, her heart rate goes up to 100. Blood pressure is normal at 123/70. LUNGS: Clear to auscultation. ABDOMEN: Soft. She has a well-healing wound in the upper abdomen. Bowel sounds are present and normoactive. LABORATORY DATA: She has had no laboratory studies today. Her CBC has been normal for the past couple of days and her metabolic panel was unremarkable at the time of admission. ASSESSMENT: The patient with unexplained nausea and vomiting. I will diminish her narcotic availability. I will order a Gastrografin small-bowel follow-through for tomorrow. She does not believe she will be able to drink the contrast and therefore I will have a nasogastric tube placed at the time of this study for contrast administration. If this goes through, then I would anticipate her discharge as early as tomorrow (Wednesday). The sitter should also help with her constipation. Job ID: [id number]
[2018-10-29] MEDS: Ondansetron PF 4 MG/2 ML Vial IVP SCH ×4 (00:52→17:36)
[2018-10-29] MEDS: Dextrose 5%-Lactated Ringers 1,000 ML IV SCH ×3 (03:04→17:35)
[2018-10-29] MEDS ORDERED: Lidocaine 2% Jelly 5 ML TUBE TOP SCH (08:00)
[2018-10-29] MEDS ORDERED: Benzocaine 20% Spray 60 ML CAN FS SCH (08:00)
[2018-10-29] MEDS: traMADol HCl 50 MG TAB PO PRN ×3 (08:15→20:02)
[2018-10-29] MEDS: Polyethylene Glycol 3350 17 GM Packet PO SCH (09:06)
--- NOTE | 2018-10-29 09:17 | PRG ---
DATE OF SERVICE: 10/29/2018 SUBJECTIVE: Ms. Perdomo just had NG tube placed and she is uncomfortable. She did not have a bowel movement overnight. OBJECTIVE: VITAL SIGNS: Blood pressure 126/81, pulse 89, respirations 18. She is afebrile. Voiding regularly. ABDOMEN: Soft, nontender, nondistended. ASSESSMENT: History of bleeding from gastric remnant, status post resection, then leak, then repair, now with pain, found to have increased stool in her colon as a potential source of that, but laxatives not working thus far. PLAN: Gastrografin small-bowel follow-through today. Job ID: [id number]
--- NOTE | 2018-10-29 11:17 | RAD ---
RADIOGRAPH SMALL BOWEL SERIES: Date: 10/29/18 HISTORY: 53-year-old female with abdominal pain, nausea, and emesis. TECHNIQUE: Gastrografin was injected through the existing NG tube. Serial overhead radiographs were obtained up to 1 hour. FINDINGS: Suture lines around small volume stomach. Cholecystectomy clips in the right upper quadrant. The Diane rografin contrast rapidly progresses through multiple nondilated small bowel loops. Ascending colon p artially opacified by 30 minutes. Descending colon partially opacified by 45 minutes. IMPRESSION: 1. No small bowel obstruction. 2. Status post bariatric surgery. 3. Status post cholecystectomy. POS: [facility]
--- NOTE | 2018-10-29 18:41 | PRG ---
DATE OF SERVICE: 10/29/2018 REASON FOR CONSULTATION: Nausea, vomiting, midepigastric abdominal pain, and constipation. SUBJECTIVE: The patient underwent small-bowel follow-through earlier today with Gastrografin instilled through her NG tube for her increased nausea and vomiting. After the study, she was able to have approximately 3 liquid bowel movements and has not had any further episodes of nausea or vomiting since. However, she does continue to have mild nausea on examination today in addition to minimal abdominal pain. Otherwise, she denies any fevers, chills, dysphagia, or odynophagia. OBJECTIVE: VITAL SIGNS: Temperature 98, pulse 78, blood pressure 121/80, respiratory rate 18, saturating 95% on room air. GENERAL: The patient is lying in bed, in no acute distress. Alert and oriented x4. CARDIOVASCULAR: Regular rate and rhythm. RESPIRATORY: Clear to auscultation bilaterally. ABDOMEN: Soft with mild abdominal distention, tenderness around the abdominal incision site as well as continued tenderness in the right lower quadrant. EXTREMITIES: No cyanosis, clubbing, or edema. LABORATORY DATA: No studies are available for review. IMAGING DATA: A small-bowel follow-through was obtained on October 29, 2018, which showed no evidence of small-bowel obstruction as well as postsurgical change from bariatric surgery and cholecystectomy. ASSESSMENT AND PLAN: The patient is a 53-year-old female with past medical history of hypertension, depression, peripheral neuropathy, and morbid obesity, status post Arsalan-en-Y gastric bypass and more recently subtotal gastrectomy of the gastric remnant, presenting with nausea, vomiting, abdominal pain, and constipation. Nausea and vomiting/constipation: The patient is presenting with increased nausea and vomiting since her surgery in August 2018, where she underwent subtotal gastrectomy of the gastric remnant. Since that time, she had been having chronic nausea and vomiting that was only moderately alleviated with antiemetic medication. She underwent EGD on October 27, 2018, which showed surgical change within the stomach consistent with a Arsalan-en-Y gastric bypass, but no other abnormalities were seen during that examination. With having 3 bowel movements today after the Gastrografin study, she does have some mild alleviation of her nausea and vomiting, but it is unclear as to how much at this time. Given her current constellation of the symptoms, it still sounds like her abdominal pain, nausea, and vomiting may be related more toward constipation and inability to pass adequate bowel movements, especially with [id number] decrease in her nausea and vomiting with having 3 bowel movements today. RECOMMENDATIONS: 1. Would continue current diet and advance as tolerated. 2. Continue naloxegol 25 mg daily as well as MiraLAX 17 g daily. 3. We will continue to monitor. We will continue to follow. Please call with any questions. Job ID: [id number]
[2018-10-30] MEDS: Ondansetron PF 4 MG/2 ML Vial IVP SCH ×2 (00:05→07:21)
[2018-10-30] MEDS: Dextrose 5%-Lactated Ringers 1,000 ML IV SCH (01:45)
[2018-10-30] MEDS: traMADol HCl 50 MG TAB PO PRN (04:07)
[2018-10-30 07:56] VITALS: BP 129/81; TEMP 98.2
[2018-10-30] MEDS: Polyethylene Glycol 3350 17 GM Packet PO SCH (08:04)
--- NOTE | 2018-10-30 09:25 | DIS ---
DATE OF ADMISSION: 10/26/2018 DATE OF DISCHARGE: 10/30/2018 ADMITTING DIAGNOSES: 1. Nausea, vomiting, readmission, status post gastric remnant resection for bleeding. 2. Hypertension. 3. Depression. 4. Neuropathy. DISCHARGE DIAGNOSES: 1. Nausea, vomiting, readmission, status post gastric remnant resection for bleeding. 2. Hypertension. 3. Depression. 4. Neuropathy. PROCEDURE: Esophagogastroduodenoscopy by Dr. Sarah that shows no obvious abnormality in her upper GI tract. Gastrografin small bowel follow-through that shows no obstruction. CONDITION ON DISCHARGE: Improved. STAFF: Valdemar Lea MD HOSPITAL COURSE: On 10/30, the patient is doing well. She had multiple bowel movements after her small-bowel follow-through. Her nausea is improved somewhat. She wants to go home. She is going to go home. She is going to resume her diet as before. I sent over prescription for Zofran non-dissolvable to the [facility]. Follow up with Dr. Lea in 2 weeks. Job ID: [id number]
== END 2018-10-30 10:05 | disposition home or self-care (01) | DRG 392 ==
LOC: SURG B 10:07
PROVIDERS: ADMIT Specialist; ATTEND Specialist
PROC: 0DJ08ZZ Inspection of Upper Intestinal Tract, Via Natural or Artificial Opening Endoscopic (ICD-10-PCS; principal; 2018-10-27)
DX: K59.00 Constipation, unspecified (principal); R10.9 Unspecified abdominal pain; E66.01 Morbid (severe) obesity due to excess calories; Z68.38 Body mass index [BMI] 38.0-38.9, adult; G62.9 Polyneuropathy, unspecified; F32.9 Major depressive disorder, single episode, unspecified; Z90.3 Acquired absence of stomach [part of]
CPT/HCPCS: 36415; 74022; 74250; 80053; 85025; G8978-GP-CJ; G8979-GP-CJ; G8980-GP-CJ; J2001; J2270; J2405; J2704; J3010

== ENCOUNTER 2018-11-17 13:20 | Emergency (ER) | payer OTHER ==
[2018-11-17] MEDS ORDERED: diphenhydrAMINE 50 MG/ML VIAL ONE (13:42)
[2018-11-17] MEDS ORDERED: Metoclopramide HCl 10 MG/2 ML VIAL ONE (13:42)
[2018-11-17] MEDS ORDERED: Pantoprazole 40 MG VIAL ONE (13:42)
[2018-11-17 14:14] LABS: #Lymphocytes 1.3 thou/uL (1.20-3.40); #Monocytes 0.9 thou/uL (0.11-0.59); #Neutrophils 5.8 thou/uL (1.40-6.50); %Basophils 0.4 % (0.0-1.0); %Eosinophils 0.4 % (0.0-10.0); %Lymphocytes 16.5 % (21.0-51.0); %Monocytes 10.7 % (0.0-10.0); Hemoglobin 12.2 g/dL (12.0-16.0); Mean Corpuscular HGB CONC 30.8 g/dL (32.0-36.0); Mean Corpuscular Hemoglobin 25.9 pg (27.0-31.0); Mean Corpuscular Volume 83.9 fL (78.0-98.0); Mean Platelet Volume 7.8 fL (7.4-10.4); Platelet Count 431 thou/uL (130-400); RBC Distribution Width 17.8 % (11.5-14.5); Red Blood Cell (RBC) Count 4.71 mill/uL (4.20-5.40)
[2018-11-17 14:28] LABS: ALT (SGPT) 12 U/L (8-55); AST (SGOT) 18 U/L (5-34); Albumin 3.1 g/dL (3.5-5.0); Alkaline Phosphatase 130 U/L (40-150); Anion Gap 21 mmol/L (10-20); BUN (Urea Nitrogen) 6 mg/dL (9.8-20.1); Bilirubin, Total 0.6 mg/dL (0.2-1.2); CK (CPK) 11 U/L (29-168); Calc. Creatinine Clearance 0 mL/min (70-130); Calcium 9.2 mg/dL (7.8-10.44); Carbon Dioxide 22 mmol/L (22-29); Chloride 97 mmol/L (98-107); Estimated GFR-MDRD 86; Globulin 4.2 g/dL (2.4-3.5); Glucose 91 mg/dL (70-105); Potassium 3.2 mmol/L (3.5-5.1); Protein, Total 7.3 g/dL (6.0-8.3); Sodium 137 mmol/L (136-145)
[2018-11-17] MEDS ORDERED: Potassium Chloride 20 MEQ TAB ONE (14:48)
[2018-11-17] MEDS ORDERED: Ondansetron PF 4 MG/2 ML Vial ONE (14:48)
== END 2018-11-17 16:09 | disposition home or self-care (01) ==
LOC: ERS 13:20
DX: E86.0 Dehydration (principal); I10 Essential (primary) hypertension; F32.9 Major depressive disorder, single episode, unspecified; Z79.899 Other long term (current) drug therapy
CPT/HCPCS: 80053; 82550; 84484; 85025; 93005; 96365; 96375; C9113; J1200; J2405; J2765

== ENCOUNTER 2018-11-17 13:32 | Outpatient (CLI) | payer OTHER ==
[2018-11-17] MEDS ORDERED: Sodium Chloride 0.9% 15 ML NEB ONE (15:00)
== END 2018-11-17 13:33 | disposition home or self-care (01) ==
LOC: WCC 13:32
PROVIDERS: ATTEND Family Medicine
DX: T81.89XD Other complications of procedures, not elsewhere classified, subsequent encounter (principal)
CPT/HCPCS: 97606; A4218

== ENCOUNTER 2018-11-21 15:31 | Outpatient (CLI) | payer OTHER ==
[~2018-11-21 15:31] MED LIST changes: -Iopamidol 370 76% 100 ML VIAL ONE; +Lidocaine 4% Topical Sol 50 ML BOT ONE; +Sodium Chloride 0.9% 15 ML NEB ONE
== END 2018-11-21 15:32 | disposition home or self-care (01) ==
LOC: WCC 15:31
PROVIDERS: ATTEND Family Medicine
DX: T81.89XD Other complications of procedures, not elsewhere classified, subsequent encounter (principal)
CPT/HCPCS: 97605; A4218; J2001

== ENCOUNTER 2018-11-24 15:52 | Outpatient (CLI) | payer OTHER ==
--- NOTE | 2018-11-24 17:25 | PRG ---
DATE OF SERVICE: HISTORY: Ms. Analia Perdomo is a very pleasant 53-year-old accompanied by her son, who presents [facility] for evaluation of a midline abdominal wound subsequent to surgery for peritonitis with intraabdominal fluid collection on 08/25/[address] Valdemar Lea. 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 Negative pressure therapy was initiated at the time of surgery on 08/25/2018. The patient stated that negative pressure therapy was continued for one week in [facility] upon the patient's discharge from [facility]. The patient stated that upon her discharge from [facility], she received dressing changes in the [facility]. Since the patient's visit on 10/17/2018, Ms. Perdomo states that her abdominal wound was opened in the office by Dr. Lea and negative pressure therapy which had been discontinued was resumed. PHYSICAL EXAMINATION: VITAL SIGNS: Temperature 97.5, pulse 127, respirations 20, blood pressure 114/89. ABDOMEN: Soft. A midline abdominal wound is present, which measures approximately 11.7 x 1.7 cm. Granulation tissue is present within the wound margins. Suture is also visible within the wound margins. No purulent drainage is associated with the wound. No erythema of the skin surrounding the wound is present. No maceration of the skin of the periwound is noted. ASSESSMENT AND PLAN: 1. Midline abdominal wound as described above. Negative pressure therapy will be continued with dressing changes of the wound VAC here in the [facility]. The patient reports discomfort of her abdominal wound in the standing position after negative pressure therapy was resumed. The patient has been reassured that no signs of infection of her abdominal wound are noted on exam today. I will see Ms. Perdomo again in 2 weeks. 2. Hypertension. 3. History of upper gastrointestinal bleeding. 4. History of anemia of chronic disease. Job ID: [id number]
[2018-11-25] MEDS ORDERED: Sodium Chloride 0.9% 15 ML NEB ONE (07:14)
[2018-11-25] MEDS ORDERED: Lidocaine 2% Jelly 5 ML TUBE ONE (07:14)
== END 2018-11-24 15:53 | disposition home or self-care (01) ==
LOC: WCC 15:52
PROVIDERS: ATTEND Family Medicine
DX: T81.89XD Other complications of procedures, not elsewhere classified, subsequent encounter (principal); I10 Essential (primary) hypertension; D63.8 Anemia in other chronic diseases classified elsewhere
CPT/HCPCS: 97602

== ENCOUNTER 2018-11-28 15:01 | Inpatient (IN) | payer OTHER ==
[2018-11-28 15:44] LABS: #Basophils 0.1 thou/uL (0.0-0.2); #Lymphocytes 1.6 thou/uL (1.20-3.40); #Monocytes 1.1 thou/uL (0.11-0.59); #Neutrophils 8.4 thou/uL (1.40-6.50); %Basophils 0.7 % (0.0-1.0); %Eosinophils 0.4 % (0.0-10.0); %Lymphocytes 14.1 % (21.0-51.0); %Monocytes 10.1 % (0.0-10.0); %Neutrophils 74.7 % (42.0-75.0); Hemoglobin 14.1 g/dL (12.0-16.0); Mean Corpuscular HGB CONC 31.3 g/dL (32.0-36.0); Mean Corpuscular Volume 86.4 fL (78.0-98.0); Mean Platelet Volume 7.5 fL (7.4-10.4); Platelet Count 454 thou/uL (130-400); RBC Distribution Width 19.2 % (11.5-14.5); Red Blood Cell (RBC) Count 5.21 mill/uL (4.20-5.40); White Blood Cell (WBC) Count 11.2 thou/uL (4.8-10.8)
[2018-11-28 15:58] LABS: Anion Gap 21 mmol/L (10-20); Bilirubin, Total 0.6 mg/dL (0.2-1.2); Carbon Dioxide 16 mmol/L (22-29); Chloride 101 mmol/L (98-107); Glucose 112 mg/dL (70-105); Potassium 4.2 mmol/L (3.5-5.1); Sodium 134 mmol/L (136-145)
[2018-11-28 16:11] LABS: ALT (SGPT) 18 U/L (8-55); AST (SGOT) 23 U/L (5-34); Alkaline Phosphatase 154 U/L (40-150); BUN (Urea Nitrogen) 9 mg/dL (9.8-20.1); Calc. Creatinine Clearance 0 mL/min (70-130); Estimated GFR-MDRD 83; Lipase 14 U/L (8-78)
[2018-11-28] MEDS ORDERED: Ondansetron ODT 4 MG TAB PO PRN (19:22)
[2018-11-28] MEDS ORDERED: Temazepam 15 MG CAP PO PRN (19:22)
[2018-11-28] MEDS ORDERED: Calcium Carbonate 500 MG ChewTAB PO PRN (19:22)
[2018-11-28] MEDS ORDERED: Acetaminophen 650 MG Suppository PR PRN (19:22)
[2018-11-28] MEDS ORDERED: Ondansetron PF 4 MG/2 ML Vial ONE (20:00)
[2018-11-28] MEDS: Pantoprazole 40 MG VIAL IVP SCH (21:06)
[2018-11-28] MEDS: Acetaminophen 500 MG TAB PO PRN (21:07)
[2018-11-28] MEDS: Oxybutynin 5 MG TAB PO SCH (21:07)
[2018-11-28] MEDS: Melatonin 3 MG TAB PO SCH (21:09)
[2018-11-28] MEDS: D5 1/2 NS w/20 mEq KCL 1,000 ML IV SCH (21:15)
--- NOTE | 2018-11-29 03:08 | HP ---
PRIMARY CARE PHYSICIAN: The patient's PCP is myself, Dr. Boni Keys. CHIEF COMPLAINT: Dehydration. HISTORY OF PRESENT ILLNESS: The patient has struggled since protracted ICU admission requiring prolonged intubation and tracheostomy, which was then taken down and repeat laparotomy, which has left the patient with a wound VAC over ex lap incision, which is a poor wound healing secondary to the patient's inability to maintain oral intake. The patient has reported that she is taking 2 liters of water daily; however, she is throwing up multiple bouts of emesis every single day, unable to keep down any food in the last week per memory other than 2 bites of chicken noodle soup. The patient has had noted continued wound dehiscence and has been placed back on wound VAC by General Surgery with Dr. Lea. Evaluation with Gastroenterology has been reported for patient to be unfruitful and recommendations for possible jejunostomy tube recommended to the patient. The patient does not follow up with Dr. Lea since these recommendations. The patient is status post bariatric surgery with removal of gastric remnant that bled causing hospitalization as described above and ex-lap with multiple abscesses and sepsis. The patient currently lives with son, is ambulatory; however, reports intractable nausea and vomiting with repeated trips to the emergency department for IV rehydration. More formal review of past medical, social, and surgical history includes status post bariatric surgery, osteoarthritis of both knees, chronic pain syndrome, prior opioid dependence, major depression, essential hypertension, fatty liver, vitamin B12 deficiency, degenerative disk disease of lumbar, bladder spasms, constipation, and malnutrition. HOME MEDICATIONS: 1. Tramadol 50 mg 2 tabs twice a day. 2. Zofran 10 mg disintegrating tablet q.6 hours. 3. Nortriptyline 75 mg once daily at bedtime. 4. Promethazine 12.5 mg one tab p.o. q.8 hours. 5. Lactulose 15 mL twice daily for constipation. 6. Pantoprazole 40 mg twice daily. 7. Fluoxetine 20 mg once daily. 8. Acetaminophen 2 tabs 500 mg q.6 hours p.r.n. pain. 9. Oxybutynin 5 mg one tab p.o. b.i.d. PAST SURGICAL HISTORY: The patient with prior ex-lap x2 with resection of gastric remnant, abdomen washout, 08/2018. Prior spinal cord nerve stimulator removed 02/2018, prior tarsal tunnel release in 2013, spinal cord stimulator placement in 2015, tonsillectomy, appendectomy, , deviated septum repair, repeat, hysterectomy, left knee arthroscopy, liver biopsy, cholecystectomy, and gastric bypass. SOCIAL HISTORY: Nonsmoker. . Lives with son. REVIEW OF SYSTEMS: Today, no fevers, no chills. Positive fatigue. No cough. No congestion. Positive nausea. Positive emesis. Denies blood. Denies current diarrhea. Positive abdomen pain. Wound VAC in place over abdomen. No lower extremity edema. The patient denies syncopal episodes. Denies headaches. Denies chest pain or shortness of breath. PHYSICAL EXAMINATION: GENERAL: The patient is alert, oriented, in no acute distress. HEAD: Normocephalic, atraumatic. Extraocular movements are intact. Oral mucosa is currently moist following IV bolus in the emergency department. NECK: Supple with well-healed tracheostomy scar. HEART: Regular rate and rhythm at the time of exam. No murmurs auscultated. LUNGS: Clear to auscultation bilaterally. No rubs or wheezes. ABDOMEN: With wound VAC in place. Slightly tender at around wound VAC. No rebound or guarding. Positive bowel sounds. EXTREMITIES: Lower extremities without cyanosis or edema. NEUROLOGIC: The patient is alert and oriented x3. No focal deficits. Speech is normal. ASSESSMENT AND PLAN: Dehydration. Intractable Nausea/Vomiting Moderate protein malnutrition Abdomen wound s/p bariatric surgery and gastric remnant removal from GI bleed Depression GERD Deconditioning We will continue IV coverage and hold the patient n.p.o. at midnight in case any procedure warranted. As the patient has not had a consultation with Dr. Lea, it is unclear if the patient is a candidate for J-tube. We will leave this up to Dr. Lea' team tomorrow. Regardless, however, the patient has been struggling with appropriate protein nutrition. We will consult Case Management for any help with getting any formula decided upon. Consult Dietary for any recommendations on calorie nutritional counts and protein for wound healing. We will consult walking program to ambulate the patient. We will attempt to avoid narcotics as best as possible as these may be constipating the patient causing further nausea and vomiting, we will cover Zofran or other Phenergan as the patient has been to undergo some sedation lately to knock out nausea. We will continue to cover for p.r.n. insomnia. Continue Protonix b.i.d. Avoid NSAID use from recent GI bleed, removal of gastric remnant that caused last hospitalization 3 months ago. We will continue with SSRI. We will hold amitriptyline at this point in time. We will follow up on a.m. labs and continue to follow while inpatient. Job ID: [id number] MTDD
[2018-11-29] MEDS: D5 1/2 NS w/20 mEq KCL 1,000 ML IV SCH ×3 (04:29→20:41)
[2018-11-29 07:46] LABS: INR-International Normal Ratio 1.1; Prothrombin Time 14.3 SEC (12.0-14.7)
[2018-11-29] MEDS: Ondansetron PF 4 MG/2 ML Vial IVP PRN ×3 (07:53→20:50)
[2018-11-29 07:54] LABS: #Eosinphils 0.2 thou/uL (0.0-0.7); #Lymphocytes 1.8 thou/uL (1.20-3.40); #Monocytes 0.9 thou/uL (0.11-0.59); #Neutrophils 3.1 thou/uL (1.40-6.50); %Basophils 0.6 % (0.0-1.0); %Eosinophils 3.1 % (0.0-10.0); %Lymphocytes 30.3 % (21.0-51.0); %Monocytes 14.3 % (0.0-10.0); %Neutrophils 51.7 % (42.0-75.0); ALT (SGPT) 11 U/L (8-55); AST (SGOT) 13 U/L (5-34); Albumin 2.4 g/dL (3.5-5.0); Alkaline Phosphatase 118 U/L (40-150); Anion Gap 13 mmol/L (10-20); BUN (Urea Nitrogen) 5 mg/dL (9.8-20.1); Bilirubin, Total 0.5 mg/dL (0.2-1.2); Calc. Creatinine Clearance 146 mL/min (70-130); Calcium 8.2 mg/dL (7.8-10.44); Carbon Dioxide 24 mmol/L (22-29); Chloride 105 mmol/L (98-107); Estimated GFR-MDRD Greater than 90; Globulin 3.3 g/dL (2.4-3.5); Glucose 103 mg/dL (70-105); Mean Corpuscular HGB CONC 30.1 g/dL (32.0-36.0); Mean Corpuscular Hemoglobin 25.5 pg (27.0-31.0); Mean Corpuscular Volume 84.6 fL (78.0-98.0); Mean Platelet Volume 7.7 fL (7.4-10.4); Platelet Count 399 thou/uL (130-400); Potassium 3.5 mmol/L (3.5-5.1); Protein, Total 5.7 g/dL (6.0-8.3); Sodium 138 mmol/L (136-145)
[2018-11-29] MEDS: Acetaminophen 500 MG TAB PO PRN ×3 (08:01→20:50)
[2018-11-29] MEDS: FLUoxetine HCl 20 MG CAP PO SCH (08:02)
[2018-11-29] MEDS: Oxybutynin 5 MG TAB PO SCH ×2 (08:02→20:39)
[2018-11-29] MEDS: Pantoprazole 40 MG VIAL IVP SCH ×2 (08:02→20:39)
[2018-11-29] MEDS: Multivitamin W/ Minerals 1 TAB PO SCH (08:02)
[2018-11-29] MEDS ORDERED: Prevnar 13-Val Conj/PF 0.5 ML SYRINGE IM ONE (09:00)
[2018-11-29 11:58] VITALS: BMI 36.6
[2018-11-29] MEDS ORDERED: Lidocaine 2% Viscous Solution 10 ML, Aluminum & Magnesium Hydroxide 30 ML SSW SCH (17:45)
--- NOTE | 2018-11-29 19:54 | RAD ---
RADIOGRAPH ABDOMEN ONE VIEW 11/29/18 at 6:55 p.m. HISTORY: 53-year-old female status post Dobhoff tube placement. FINDINGS: There is a Dobhoff feeding tube with distal tip approximating 8.5 cm distal to the esophagogastric ju nction, in the expected location of the proximal to mid body of the stomach. There is a suture line a djacent to this at the medial aspect of the left upper quadrant. There are cholecystectomy clips. The re are bilateral renal calculi. IMPRESSION: Dobhoff feeding tube distal tip overlies the expected location of the proximal stomach. POS: [facility]
[2018-11-29] MEDS: Melatonin 3 MG TAB PO SCH (20:50)
--- NOTE | 2018-11-29 22:55 | PRG ---
DATE OF SERVICE: 11/29/2018 HISTORY OF PRESENT ILLNESS: The patient is evaluated by Surgery, recommended for Dobhoff tube placement with tube feeds until the patient's protein status is much improved. I agree with speaking with Dr. Lea, the patient likely would not heal very well from a J-tube at this point in time given that the patient has really struggled with her laparotomy incision line and remains on wound VAC. Albumin remains low and following hydration, more consistent with severe protein malnutrition. The patient essentially at this point has failure to thrive without much movement, unable to tolerate any food and tolerating barely enough liquid; however, once throwing up, is becoming dehydrated. The patient continues to have some tachycardia on the floor today. The patient verbalized understanding regarding discontinuation of narcotics in attempt to alleviate any sources of the constipation as well as any withdrawal nausea effects. Attempting to readjust the patient's medications including discontinue Phenergan and amitriptyline to simplify regimen and reduce side effects, may consider reduction of serotonin as one side effect of that is nausea as well if the patient continues to have nausea in the future. PHYSICAL EXAMINATION: VITAL SIGNS: Review of vital signs; temperature of 98.1, pulse of 114, respiratory rate of 18, oxygen saturation 100% on room air, blood pressure 129/85. GENERAL: The patient is alert and oriented. No acute distress. HEENT: Head is normocephalic, atraumatic. Extraocular movements are intact. Oral mucosa is moist. HEART: Tachycardic, but regular rhythm. LUNGS: Clear to auscultation bilaterally. No rubs or wheezes. ABDOMEN: With wound VAC in place, tender around. No rebound or guarding. EXTREMITIES: Lower extremities without cyanosis or edema. NEUROLOGIC: The patient is alert and oriented x3. No focal deficits. Speech is normal. LABORATORY WORK: White blood cell count of 6.0, hemoglobin 11.0, MCV of 84, platelet count of 399. Pre-albumin of 11, albumin of 2.4, sodium 138, potassium of 3.5, CO2 of 24, creatinine of 0.61. Abdomen x-ray following Dobhoff placement shows tip extending to the prior location of proximal stomach. ASSESSMENT AND PLAN: Severe protein malnutrition, deconditioning, intractable nausea and vomiting, constipation, unable to tolerate oral at this point in time. Follow up on Dobhoff placement and initiation of any tube feeds. We will check for residuals alongside the General Surgery and once the patient is tolerating adequate feeds per dietary recommendations for wound healing, we would look at transitioning the patient back home. The patient verbalized understanding regarding discontinuation of several of her medications to simplify any drug-drug interactions or narcotic complications. We will continue with Tylenol only at this point in time. Once Dobhoff tube had been cleared, we will discontinue IV fluids. Since the patient refused walking program, Dr. Lea talked with her about the need to get out and has consulted physical therapy for additional evaluation. We will follow up on CT abdomen and pelvis, which will give additional information for any potential future J-tube placement or any additional complications unforeseen at this point in time. We will continue to monitor the patient, moving to inpatient status as likely titration of feeds will take longer than 24 hours here. Job ID: [id number]
--- NOTE | 2018-11-30 00:29 | CON ---
DATE OF CONSULTATION: CONSULTING PHYSICIAN: Boni Keys MD REASON FOR CONSULTATION: Nausea and vomiting, malnutrition. HISTORY OF PRESENT ILLNESS: This patient is an unfortunate 53-year-old white female, who is well known to myself. 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 She had been transfused with many units of blood prior to this transfusion. She had an ulcer high in the fundus of her previously retained/bypassed stomach. Unfortunately, she leaked from her gastric staple line and required an emergency laparotomy to repair the staple line leak. This was performed on August 25, and this was her last abdominal surgery. She had peritonitis at the time of this surgery. She then required a lengthy period of time to recover, most of which was spent in the intensive care unit. She eventually required a tracheostomy on August 30. She eventually was able to wean off the ventilator and was discharged home. She continued to have problems after discharge, complaining of problems with nausea and vomiting. I readmitted her to the hospital on August 26 secondary to her complaint of upper abdominal pain with nausea and vomiting. There was a concern regarding calcification underlying her wound in the upper abdomen that was felt by one radiologist to potentially represent a foreign body, but evaluation with several others revealed that this does not appear to be a foreign body. She seemed to progress appropriately well in the hospital, and although there was no specific intervention other than a Gastrografin small-bowel follow-through (that revealed no evidence of obstruction), she seemed to do better and was tolerating her diet and was discharged home. On subsequent followup with myself, she continues to complain of pain as well as nausea and vomiting, although were not certain why. Her upper abdominal wound from her surgery on August 24 has still not healed and she still has a wound VAC to this. She has still been taking tramadol at home in spite of the fact that her last surgery was 3 months ago. She tells me that she is having bowel movements. She does not believe she is getting any significant protein nutrition at home. She presented to the hospital yesterday and was admitted by her primary care physician, Dr. Keys. I have asked to see her in consultation for further ideas regarding her current situation. I had referred her to see her network solutions architect, Dr. Barclay, who has no further recommendations. He suggested the possibility of an enteral feeding tube, which in her case would be a jejunostomy. Of note, Dr. Barclay's colleague, Dr. Sarah performed an upper GI endoscopy on October 27 with no abnormal findings. Of note, her CBC from today shows a hemoglobin of 11 with a white blood cell count of 6, normal differential and normal platelet count. Her chemistry profile reveals normal electrolytes. Her albumin is depressed at 2.4, and her pre-albumin is depressed at 11. Otherwise, all findings are normal. PAST MEDICAL HISTORY: 1. Morbid obesity. 2. Hypertension. 3. Depression. 4. Neuropathy involving her feet. 5. Some form of chronic pain syndrome with apparently a prior history of opioid dependence. 6. Degenerative lumbar disk disease. HOME MEDICATIONS: 1. She is apparently taking tramadol at home. 2. Zofran. 3. Nortriptyline. 4. Promethazine. 5. Lactulose. 6. Pantoprazole. 7. Loxitane. 8. Oxybutynin. SURGICAL HISTORY: 1. Appendectomy. 2. Cholecystectomy. 3. Open vertical banded gastroplasty in . 4. Open Arsalan-en-Y gastric bypass in 2007 in [place]. 5. Hysterectomy. 6. Left total knee replacement. 7. Bilateral foot surgery. 8. Emergency laparotomy with removal of bleeding gastric remnant on August 18, 2018. 9. Emergency laparotomy for repair of pinpoint leak from gastric staple line on August 25. 10. Tracheostomy on August 30. ALLERGIES: NO KNOWN DRUG ALLERGIES. PERSONAL AND SOCIAL HISTORY: She is with one child. She lives with her son. She does not smoke or drink alcohol. She does not work secondary to disability. She tells me that she really can't walk because she is too weak. REVIEW OF SYSTEMS: Otherwise unremarkable. FAMILY HISTORY: Noncontributory. PHYSICAL EXAMINATION: VITAL SIGNS: She is afebrile. Pulse is between 91 and 118. Blood pressure is 129/85, and oxygen saturation is 100%. GENERAL: She is resting in bed and appears comfortable, but she tells me that she feels "sick" and feels nauseated. HEAD, EYES, EARS, NOSE, AND THROAT: Unremarkable. NECK: Supple. LUNGS: Clear to auscultation. CARDIAC: Regular rhythm, but tachycardic. ABDOMEN: Soft, nontender, and nondistended with normoactive bowel sounds. She has a wound VAC present in her midline upper abdominal incision. EXTREMITIES: Unremarkable. LABORATORY DATA: Labs are as referenced above. ASSESSMENT: The patient who has nausea and/or vomiting for an unknown reason following her surgery three months ago. At the time of that surgery, nothing was done to any of the enteral tract involving her gastric pouch, her Arsalan limb or any of the outflow segment of her intestines. A small-bowel follow-through that was obtained last month when she was hospitalized was entirely normal, showing normal caliber bowel and quick transit of contrast. She is having bowel movements. It is therefore entirely uncertain why she can't eat in a normal fashion. Nonetheless, she complains of nausea and vomiting and is clearly not eating appropriately, and now is hypoalbuminemic. Suggestion has been made for a jejunostomy feeding tube. Unfortunately, in her, this is not an easy proposition. This will require a laparotomy through her wound that has still not healed from her last surgery. This will also require mobilization of intestines in the abdomen that had peritonitis at the time of her last surgery. Additionally, she has a short segment of bowel secondary to her gastric bypass and this will have to be negotiated. Finally, she has protein malnutrition, which makes her a higher risk for surgical healing. For this reason, I would recommend that a Dobhoff tube to be placed and we feed her using this until her nutritional status is improved. I will repeat her CT scan to ensure there is no abnormality, but I doubt anything will be found. Physical Therapy will be consulted to help her with increasing her activity as she is currently just lying in bed. She understands all these recommendations. Job ID: [id number]
[2018-11-30] MEDS: Ondansetron PF 4 MG/2 ML Vial IVP PRN ×2 (02:35→08:57)
[2018-11-30] MEDS: D5 1/2 NS w/20 mEq KCL 1,000 ML IV SCH ×3 (04:54→20:43)
[2018-11-30 07:24] LABS: #Basophils 0.1 thou/uL (0.0-0.2); #Eosinphils 0.1 thou/uL (0.0-0.7); #Lymphocytes 1.4 thou/uL (1.20-3.40); #Monocytes 0.9 thou/uL (0.11-0.59); #Neutrophils 3.8 thou/uL (1.40-6.50); %Basophils 0.8 % (0.0-1.0); %Eosinophils 1.4 % (0.0-10.0); %Lymphocytes 22.1 % (21.0-51.0); %Monocytes 14.6 % (0.0-10.0); %Neutrophils 61.1 % (42.0-75.0); Hemoglobin 11.5 g/dL (12.0-16.0); Mean Corpuscular HGB CONC 31.3 g/dL (32.0-36.0); Mean Corpuscular Hemoglobin 26.5 pg (27.0-31.0); Mean Corpuscular Volume 84.8 fL (78.0-98.0); Mean Platelet Volume 7.6 fL (7.4-10.4); Platelet Count 398 thou/uL (130-400); RBC Distribution Width 19.2 % (11.5-14.5); Red Blood Cell (RBC) Count 4.34 mill/uL (4.20-5.40); White Blood Cell (WBC) Count 6.3 thou/uL (4.8-10.8)
[2018-11-30 07:41] LABS: ALT (SGPT) 32 U/L (8-55); AST (SGOT) 48 U/L (5-34); Albumin 2.5 g/dL (3.5-5.0); Alkaline Phosphatase 126 U/L (40-150); Anion Gap 10 mmol/L (10-20); BUN (Urea Nitrogen) Less than 4 mg/dL (9.8-20.1); Bilirubin, Total 0.6 mg/dL (0.2-1.2); Calc. Creatinine Clearance 146 mL/min (70-130); Calcium 8.5 mg/dL (7.8-10.44); Carbon Dioxide 24 mmol/L (22-29); Chloride 109 mmol/L (98-107); Estimated GFR-MDRD Greater than 90; Globulin 3.5 g/dL (2.4-3.5); Glucose 119 mg/dL (70-105); Potassium 3.6 mmol/L (3.5-5.1); Sodium 139 mmol/L (136-145)
--- NOTE | 2018-11-30 08:05 | RAD ---
ABDOMEN FRONTAL VIEW KUB: COMPARISON: Previous day. INDICATION: Evaluation of Dobbhoff feeding tube. FINDINGS: There is a Dobbhoff feeding tube with metallic stylette traversing to the lateral aspect of the left upper quadrant. There is persistent air-filled, distended bowel of the abdomen. Elevation of the ri ght hemidiaphragm. No additional significant interval change. IMPRESSION: Enteric catheter traverses the lateral aspect of the left upper quadrant. POS: [facility]
[2018-11-30] MEDS: Multivitamin W/ Minerals 1 TAB PO SCH (08:56)
[2018-11-30] MEDS: FLUoxetine HCl 20 MG CAP PO SCH (08:56)
[2018-11-30] MEDS: Oxybutynin 5 MG TAB PO SCH ×2 (08:56→20:41)
[2018-11-30] MEDS: Pantoprazole 40 MG VIAL IVP SCH ×2 (08:57→20:40)
--- NOTE | 2018-11-30 14:29 | CT ---
CT ABDOMEN AND PELVIS WITH IV AND ORAL CONTRAST: History: Abdominal pain. Nausea, vomiting. Recent surgery for ruptured gastric ulcer. Comparison: 10-17-18 FINDINGS: Small amount of left pleural fluid is similar in appearance to the prior study. Nasogastric tube is i n place. Post-operative changes of the gallbladder fossa and stomach are again demonstrated. Non-mass like soft tissue density at the anterior aspect of the left upper quadrant abutting the anterior mar gin of the spleen has become more focal than on the prior study and has the appearance of retraction of scar tissue associated with prior surgeries. Nonobstructive bilateral renal calculi are similar in appearance to the prior study. Oral contrast has extended to the right lower quadrant nondilated small bowel. No extraluminal contra st material is apparent. Urinary bladder is unremarkable. Degenerative changes of the lumbar spine. U terus not visualized and presumed surgically absent. IMPRESSION: 1. Post-operative change of the bowel. No evidence of obstruction or leak. 2. Nasogastric tube in good radiographic position. 3. Nonobstructing bilateral renal calculi appear stable. 4. Left pleural effusion, stable. POS: [facility]
[2018-11-30] MEDS: SODIUM CHLORIDE IVPB SCH (15:09)
[2018-11-30] MEDS: MICAFUNGIN IVPB SCH (15:09)
[2018-11-30] MEDS: ADMIXTURE FEE IVPB SCH (15:09)
[2018-11-30] MEDS ORDERED: D5 1/2 NS w/20 mEq KCL 1,000 ML IV SCH (19:00)
[2018-11-30] MEDS ORDERED: Polyethylene Glycol 3350 17 GM Packet PER TUBE SCH (19:30)
[2018-11-30] MEDS ORDERED: Sodium Bicarbonate Tab 325 MG TAB PER TUBE PRN (20:12)
[2018-11-30] MEDS ORDERED: Pancrelipase DR 12000 1 CAP FS PRN (20:12)
[2018-11-30] MEDS ORDERED: Morphine 4 MG/ML VIAL SLOW IVP PRN (20:14)
[2018-11-30] MEDS: Metoprolol Tartrate 25 MG TAB PO SCH (20:41)
[2018-11-30] MEDS: Melatonin 3 MG TAB PO SCH (20:42)
--- NOTE | 2018-11-30 21:04 | PRG ---
DATE OF SERVICE: 11/30/2018 SUBJECTIVE: Ms. Perdomo is hospital day #3 of her admission for persistent nausea with malnutrition. Dobbhoff tube was successfully placed yesterday and tube feeds were initiated overnight. She has tolerated this. She does give one episode of vomiting last night, but is otherwise tolerating her tube feeds. She tells me she had several bowel movements yesterday as well. CT scan was obtained with contrast given per Dobbhoff and this shows no evidence of bowel obstruction with contrast passing appropriately. She complains of pain associated with her upper abdominal wound with wound VAC dressing changes for reasons that are not certain. This wound has been present for 3 months and most open wounds are nonpainful within a week or two after I have initiated dressing changes. PHYSICAL EXAMINATION: VITAL SIGNS: On examination, she is afebrile. Pulse is between 98 and 110 and blood pressure is 129/73. LUNGS: Clear to auscultation. ABDOMEN: Soft and nontender with normal bowel sounds. EXTREMITIES: Unremarkable. SKIN: Wound VAC is present in her upper abdominal incision. LABORATORY DATA: CBC is normal today with no change from yesterday with a white blood cell count of 6.3 and hemoglobin of 11.5, and a normal differential. Her chemistry profile reveals her electrolytes are more or less okay, although her chloride level has gone up. Her albumin is stable at 2.5. ASSESSMENT: The patient seems to be progressing appropriately. I am hopeful that with the Dobbhoff tube in that. We will be able to provide appropriate nutrition for her. I think it is a paramount importance that we avoid narcotics as there is a good chance that these are what is causing her nausea, her vomiting, and her bowel dysfunction. I will initiate daily MiraLAX as well. Once we get her up to appropriate tube feeds and all else seems to be well, I would anticipate her discharge home with continued tube feeds at home. I am not certain what sort of resources we will have for home tube feeds and since she has had a gastric bypass, I am not sure this will be able to tolerate bolus tube feeds without a tube feed pump. Job ID: [id number]
--- NOTE | 2018-11-30 21:39 | PRG ---
DATE OF SERVICE: 11/30/2018 HISTORY OF PRESENT ILLNESS: The patient states she did have 1-2 bouts of emesis even while on just sips and chips with meds, successfully had Dobhoff NG tube placement. Per nursing staff, the patient, when the tube was moved or initiation of any sort of contrast or feeds, had initial episodes of dry heaves and nausea, but once flow rate was established in slow pace, the patient's nausea and dry heaves improved. The patient has no other acute complaints other than discomfort to nasal passage with tube in place. PHYSICAL EXAMINATION: VITAL SIGNS: Review of vital signs: Temperature of 98.0, pulse of 110, respiratory rate of 18, oxygen saturation 99% on room air, blood pressure 129/73. GENERAL: The patient is alert, oriented, in no acute distress. HEENT: Head is normocephalic, atraumatic. Extraocular movements are intact. Dobhoff tube to right nare. Oral mucosa is moist. NECK: Supple. HEART: Tachycardic. Regular rhythm. No murmurs auscultated. LUNGS: Clear to auscultation bilaterally. No rubs or wheezes. ABDOMEN: Soft. Tenderness around wound VAC without rebound or guarding. EXTREMITIES: Lower extremities are without cyanosis or edema. NEUROLOGIC: The patient is alert and oriented x3. No focal deficits. Speech is normal. DIAGNOSTIC STUDIES: Potassium of 3.6, sodium 139, creatinine of 0.61, albumin of 2.5, white blood cell count of 6.3, neutrophil percent of 61, hemoglobin 11.5. Abdomen and pelvis CT confirms left-sided pleural effusions, stable placement of Dobhoff NG tube, nonobstructing bilateral renal calculi, and multiple postoperative changes without any evidence of leak of contrast or air. ASSESSMENT AND PLAN: Severe protein malnutrition, intractable nausea and vomiting, open abdomen wound, tachycardia. With help of General Surgery, continuous tube feeds have been started. Request per Case Management for pump and feeds have been placed. The patient has been titrated down on IV fluids now that tube feeds have been started. We will attempt to cover for tachycardia with metoprolol and monitor for blood pressures. We will continue with physical therapy and walking program for mobilization. The patient states she only walked to the door x1 today and continues to be fatigued. We will follow up on effusion with a chest x-ray tomorrow morning with left lateral decubitus and check on BMP; however, likely cause of effusion, low albumin with third spacing. Given the patient's light gag reflex and the patient's prior colonization with fungus and poor nutrition, we will swab the patient's throat for both bacteria and fungal cultures, and follow up. In the meantime, we will cover with micafungin to see if it improves the patient's threshold for feeds. Job ID: [id number]
[2018-12-01 07:10] LABS: #Basophils 0.1 thou/uL (0.0-0.2); #Eosinphils 0.1 thou/uL (0.0-0.7); #Lymphocytes 1.2 thou/uL (1.20-3.40); #Neutrophils 4.5 thou/uL (1.40-6.50); %Lymphocytes 17.2 % (21.0-51.0); %Monocytes 14.6 % (0.0-10.0); %Neutrophils 65.2 % (42.0-75.0); Hemoglobin 10.8 g/dL (12.0-16.0); Mean Corpuscular HGB CONC 30.6 g/dL (32.0-36.0); Mean Corpuscular Hemoglobin 26.1 pg (27.0-31.0); Mean Corpuscular Volume 85.3 fL (78.0-98.0); Mean Platelet Volume 7.7 fL (7.4-10.4); Platelet Count 365 thou/uL (130-400); RBC Distribution Width 19.4 % (11.5-14.5); Red Blood Cell (RBC) Count 4.13 mill/uL (4.20-5.40); White Blood Cell (WBC) Count 6.8 thou/uL (4.8-10.8)
[2018-12-01 07:32] LABS: ALT (SGPT) 40 U/L (8-55); AST (SGOT) 46 U/L (5-34); Albumin 2.2 g/dL (3.5-5.0); Alkaline Phosphatase 116 U/L (40-150); Anion Gap 12 mmol/L (10-20); BUN (Urea Nitrogen) Less than 4 mg/dL (9.8-20.1); Bilirubin, Total 0.5 mg/dL (0.2-1.2); Calc. Creatinine Clearance 135 mL/min (70-130); Calcium 8.3 mg/dL (7.8-10.44); Carbon Dioxide 22 mmol/L (22-29); Chloride 108 mmol/L (98-107); Estimated GFR-MDRD Greater than 90; Globulin 3.1 g/dL (2.4-3.5); Glucose 137 mg/dL (70-105); Potassium 4.4 mmol/L (3.5-5.1); Protein, Total 5.3 g/dL (6.0-8.3); Sodium 138 mmol/L (136-145)
[2018-12-01] MEDS: Acetaminophen 500 MG TAB PO PRN ×2 (09:38→15:29)
[2018-12-01] MEDS: Oxybutynin 5 MG TAB PO SCH ×2 (09:39→21:31)
[2018-12-01] MEDS: Multivitamin W/ Minerals 1 TAB PO SCH (09:39)
[2018-12-01] MEDS: FLUoxetine HCl 20 MG CAP PO SCH (09:39)
[2018-12-01] MEDS: Polyethylene Glycol 3350 17 GM Packet PER TUBE SCH (09:39)
[2018-12-01] MEDS: Metoprolol Tartrate 25 MG TAB PO SCH ×2 (09:39→21:32)
[2018-12-01] MEDS: Ondansetron PF 4 MG/2 ML Vial IVP PRN ×2 (09:40→15:16)
[2018-12-01] MEDS: Pantoprazole 40 MG VIAL IVP SCH (09:40)
--- NOTE | 2018-12-01 10:42 | RAD ---
CHEST 2 VIEWS: Date: 12/01/18 HISTORY: Dyspnea. Pleural effusion. FINDINGS: Cardiac silhouette is unremarkable. Pulmonary vasculature accentuated by shallow inspiration. Mediast inum is midline with a small amount of arterial calcification. Blunting of the left lateral costophre misael angle is consistent with a small amount of left pleural fluid. No evidence of pneumothorax. Feedi ng tube descends to the abdomen. IMPRESSION: Small left pleural effusion. POS: [facility]
--- NOTE | 2018-12-01 10:43 | RAD ---
CHEST ONE VIEW ABDOMEN ONE VIEW: History: Pleural effusion. Nasogastric tube placement. FINDINGS: Small amount of fluid layers within the dependent left side of the chest. Small amount of contrast material within the bowel. Tip of the feeding catheter overlies the gastric body. IMPRESSION: 1. Small left pleural effusion. 2. Feeding tube tip overlies the stomach. POS: [facility]
[2018-12-01] MEDS: ADMIXTURE FEE IVPB SCH (15:16)
[2018-12-01] MEDS: MICAFUNGIN IVPB SCH (15:16)
[2018-12-01] MEDS: SODIUM CHLORIDE IVPB SCH (15:16)
[2018-12-01] MEDS: D5 1/2 NS w/20 mEq KCL 1,000 ML IV SCH (16:05)
--- NOTE | 2018-12-01 18:01 | PRG ---
DATE OF SERVICE: 12/01/2018 HISTORY OF PRESENT ILLNESS: Initial throat swab came back with Staph aureus with susceptibilities pending. The patient was colonized with multiple bacteria and fungus from ICU admission prior, however none grew out Staph. The patient with nursing staff noted to have extremely sensitive gag reflex, has been started on antifungals already prior to positive Staph aureus, throat swab sent out for fungal culture is pending. The patient is tolerating continuous tube feeds so far and has been titrated to clear liquid diet by Dr. Lea. IV fluids have been titrated down to TKO or near TKO levels. The patient was able to get up and shower today, but is extremely tired following that, as far as activity level goes, she still remains significantly debilitated. PHYSICAL EXAMINATION: VITAL SIGNS: On review of vital signs: temperature of 98.0, pulse of 112, respiratory rate of 20, oxygen saturation 97% on room air, and blood pressure 108/74. GENERAL: The patient is alert, oriented, in no acute distress. HEENT: Head is normocephalic and atraumatic. Extraocular movements are intact. Dobhoff tube in place in right nare. Oral mucosa is moist. NECK: Supple. HEART: Tachycardic, regular rate. No murmurs auscultated. LUNGS: Clear to auscultation bilaterally. No rubs or wheezes. ABDOMEN: Soft and nontender. Peripheral tenderness around wound VAC is positive. No rebound or guarding. EXTREMITIES: Lower extremities are without cyanosis or edema. NEUROLOGIC: The patient is alert and oriented x3. No focal deficits. Speech is normal. LABORATORY WORK: White blood cell count of 6.8, hemoglobin of 10.8, platelet count of 365, neutrophil count of 65.2. Sodium of 138, potassium of 4.4, CO2 of 22, creatinine of 0.66. BNP of 86 and albumin of 2.2. ASSESSMENT AND PLAN: Deconditioning, abdomen wound, pleural effusion, severe protein malnutrition, staph infection of oral mucosa, especially with Staph aureus, initiated the patient on Bactrim at this point in time until susceptibilities have returned as the patient is not septic. Continue micafungin for the time being and may consider transition to nystatin swish and swallow and swish and spit. We will follow up on fungal culture. Monitor the patient's tachycardia, did start the patient on low-dose beta juany with some minimal improvement, but still remains tachycardic. The patient is continued on wound VAC care. Regarding her nutrition and intractable nausea and vomiting, the patient was started on continuous tube feeds and Case Management consulted for pump and feeding materials. The patient remains consulted with Physical Therapy to work on mobilization. We will follow up on throat culture with susceptibilities when not available and will follow up on Case Management's attempts to get a proper equipment. We will speak with the patient if appropriate for half-way versus return to home with support with son. Job ID: [id number]
[2018-12-01] MEDS: Melatonin 3 MG TAB PO SCH (21:32)
[2018-12-01] MEDS: Sulfameth/Trimethoprim DS 800-160mg TAB PO SCH (21:33)
[2018-12-02] MEDS: Ondansetron PF 4 MG/2 ML Vial IVP PRN ×2 (04:32→12:28)
[2018-12-02 07:32] LABS: Anion Gap 15 mmol/L (10-20); BUN (Urea Nitrogen) 5 mg/dL (9.8-20.1); Calc. Creatinine Clearance 151 mL/min (70-130); Calcium 8.4 mg/dL (7.8-10.44); Carbon Dioxide 21 mmol/L (22-29); Chloride 109 mmol/L (98-107); Estimated GFR-MDRD Greater than 90; Glucose 123 mg/dL (70-105); Potassium 4.6 mmol/L (3.5-5.1); Sodium 140 mmol/L (136-145)
[2018-12-02] MEDS: Polyethylene Glycol 3350 17 GM Packet PER TUBE SCH (09:16)
[2018-12-02] MEDS: Metoprolol Tartrate 25 MG TAB PO SCH ×2 (09:17→20:01)
[2018-12-02] MEDS: FLUoxetine HCl 20 MG CAP PO SCH (09:17)
[2018-12-02] MEDS: Sulfameth/Trimethoprim DS 800-160mg TAB PO SCH ×2 (09:18→20:02)
[2018-12-02] MEDS: Multivitamin W/ Minerals 1 TAB PO SCH (09:18)
[2018-12-02] MEDS: Oxybutynin 5 MG TAB PO SCH ×2 (09:18→20:01)
--- NOTE | 2018-12-02 09:27 | PRG ---
DATE OF SERVICE: 12/02/2018 SUBJECTIVE: Ms. Perdomo is hospital day #5 for evaluation and treatment of nausea, vomiting, and malnutrition. As with prior evaluation, no definitive etiology of her problems has been discerned. Her CT scan was unremarkable. Tube feeds were initiated and she is tolerating full volume tube feeds (55 mL/h). She is getting both lactulose and MiraLAX and having regular bowel movements. She has been off all of her pain medication since she was admitted and today feels better than she has during this hospitalization. OBJECTIVE: VITAL SIGNS: On examination, she is afebrile. Pulse is 88 to 98. Blood pressure is 116/81. LUNGS: Clear to auscultation. ABDOMEN: Soft. Wound VAC is intact. LABORATORY DATA: Her basic metabolic panel shows minor electrolyte abnormalities. CBC was not repeated. It was normal yesterday. ASSESSMENT AND PLAN: The patient with continued recovery from her prior open abdominal surgery 3 months ago. It is possible that much of her problems at home has been related to her narcotic use and that she is improving currently because she is not on narcotics. It does not make any particular sense that she can tolerate full volume tube feeds, but she cannot eat on her own perhaps her narcotics are related to this, however. At this point, she requires continued wound VAC for wound care. I will try to see her wound with the Wound Care Team today. For now, I would plan on discharging her home with continued tube feeds. Unfortunately, since she has had a gastric bypass, she will not be a good candidate for bolus tube feeds and instead will need continuous tube feeds. It is my hope that as her nutritional status improves and she gets stronger, that we will not need to place a feeding jejunostomy as this represents a major surgery for her. We would probably set her back all over again. She may be discharged home at any time from a surgery standpoint. If she is still here on Wednesday, then I will see her again at that time. Job ID: [id number]
[2018-12-02] MEDS: SODIUM CHLORIDE IVPB SCH (15:52)
[2018-12-02] MEDS: ADMIXTURE FEE IVPB SCH (15:52)
[2018-12-02] MEDS: MICAFUNGIN IVPB SCH (15:52)
--- NOTE | 2018-12-02 18:40 | PRG ---
DATE OF SERVICE: 12/02/2018 Vital signs this morning temperature of 98.2, pulse of 98, respiratory rate of 18, oxygen saturation 95% on room air, and blood pressure 116/81. Creatinine of 0.59, sodium 140, and potassium of 4.6. Staph aureus sensitive to Bactrim, resistant to piperacillin and amoxicillin. Fungal culture pending. The patient states that she continues to have high gag reflex; however, this has been aided by warming of any fluids swallowed rather than cold liquids. She has been reported to be tolerating her tube feeds at a continuous rate of 55 mL/h. She has been increased to clear liquids. Dr. Lea has been working on the patient's bowel regimen. The patient has continued to work with physical therapy. Today, the patient walked at approximately 140 feet with rolling walker. Lives on second-story of son's home currently, but once there, everything is on the same level. PHYSICAL EXAMINATION: GENERAL: The patient is alert, oriented, no acute distress. HEENT: Head, normocephalic and atraumatic. Extraocular movements are intact. Sclerae are white. Oral mucosa is moist. NG Dobhoff tube to right naris intact. HEART: Still tachycardic, but regular rhythm. No murmurs. LUNGS: Clear to auscultation bilaterally. No rubs or wheezes. ABDOMEN: With wound VAC in place anteriorly. LOWER EXTREMITIES: Without cyanosis or edema. The patient is alert and oriented x3. No focal deficits. Speech is normal. ASSESSMENT AND PLAN: Following cessation of narcotics, improvement of bowel regimen and treatment of infection with nourishment via continuous tube feeds, the patient has been tolerated liquids fairly well without need for Phenergan, which she had been relying on previously, has increasing efforts with physical therapy as she was motivated to not return to assisted, but still has not walked over 200 feet yet. The patient is tolerating Toprol, being covered with micafungin and Bactrim for staph infection and pending fungal swab return. The patient has wound VAC for abdomen wound. The patient's dehydration is currently resolved. Intractable nausea and vomiting, currently resolved. Constipation, currently resolved. Continued on proton pump inhibitor for gastroesophageal reflux disease. The patient with gastrointestinal bleed, prior avoiding NSAIDs. Continue to avoid narcotics. Continuing the patient's SSRI for depression mood. We will continue to follow. Periodic chest x-rays for the patient's pleural effusion, currently remaining stable. Case Management has been able to fax a referral letter to home health agency regarding DME equipment needs for continuous tube feeds and formula and a hear back from them likely will occur next Wednesday to Wednesday. We will continue to encourage the patient to increase physical therapy efforts, otherwise we will have to look at placement to assisted. Job ID: [id number]
[2018-12-02] MEDS: Melatonin 3 MG TAB PO SCH (20:02)
[2018-12-03] MEDS: Metoprolol Tartrate 25 MG TAB PO SCH ×2 (08:24→20:13)
[2018-12-03] MEDS: Multivitamin W/ Minerals 1 TAB PO SCH (08:24)
[2018-12-03] MEDS: FLUoxetine HCl 20 MG CAP PO SCH (08:24)
[2018-12-03] MEDS: Oxybutynin 5 MG TAB PO SCH ×2 (08:25→20:13)
[2018-12-03] MEDS: Sulfameth/Trimethoprim DS 800-160mg TAB PO SCH ×2 (08:25→20:13)
[2018-12-03] MEDS: Polyethylene Glycol 3350 17 GM Packet PER TUBE SCH (08:25)
[2018-12-03] MEDS: Ondansetron PF 4 MG/2 ML Vial IVP PRN (08:27)
--- NOTE | 2018-12-03 11:11 | EKG ---
Test Reason : Blood Pressure : / mmHG Vent. Rate : 127 BPM Atrial Rate : 127 BPM P-R Int : 000 ms QRS Dur : 086 ms QT Int : 418 ms P-R-T Axes : 000 021 072 degrees QTc Int : 607 ms Sinus tachycardia with short MS Nonspecific ST and T wave abnormality Abnormal ECG Confirmed by KASSIDY BERMAN ([id number]), industrial editor BONNIE PENA ([id number]) on 12/03/2018 11:11:04 AM Referred By: Confirmed By:KASSIDY BERMAN
--- NOTE | 2018-12-03 14:16 | PRG ---
DATE OF SERVICE: 12/03/2018 PRIMARY CARE PHYSICIAN: Dr. Keys. SUBJECTIVE: The patient today is stable. Less nausea. OBJECTIVE: VITAL SIGNS: Afebrile, pulse 88, respirations 16, and BP is 107/74. LUNGS: Clear. HEART: S1 and S2. No rubs, murmurs, or gallops. ABDOMEN: Tube feeds running in. ASSESSMENT AND PLAN: Narcotic-induced gastrointestinal motility reduction requiring continuous tube feeds. Narcotics were continued to be held, will be recommended to be held for the foreseeable future. Still waiting on home health to arrange the tube feeding pump at home. Otherwise, maintain current course in the hospital. Job ID: [id number]
[2018-12-03] MEDS: Acetaminophen 500 MG TAB PO PRN (14:48)
[2018-12-03] MEDS: SODIUM CHLORIDE IVPB SCH ×2 (14:49→16:24)
[2018-12-03] MEDS: ADMIXTURE FEE IVPB SCH ×2 (14:49→16:24)
[2018-12-03] MEDS: MICAFUNGIN IVPB SCH ×2 (14:49→16:24)
[2018-12-03] MEDS: Fluconazole 100 MG TAB PER TUBE SCH (18:14)
[2018-12-03] MEDS: Melatonin 3 MG TAB PO SCH (20:14)
[2018-12-04] MEDS: Polyethylene Glycol 3350 17 GM Packet PER TUBE SCH (08:48)
[2018-12-04] MEDS: Acetaminophen 500 MG TAB PO PRN (08:48)
[2018-12-04] MEDS: Oxybutynin 5 MG TAB PO SCH ×2 (09:24→20:42)
[2018-12-04] MEDS: Multivitamin W/ Minerals 1 TAB PO SCH (09:24)
[2018-12-04] MEDS: FLUoxetine HCl 20 MG CAP PO SCH (09:24)
[2018-12-04] MEDS: Metoprolol Tartrate 25 MG TAB PO SCH ×2 (09:24→20:42)
[2018-12-04] MEDS: Sulfameth/Trimethoprim DS 800-160mg TAB PO SCH ×2 (09:25→20:42)
--- NOTE | 2018-12-04 12:03 | PRG ---
DATE OF SERVICE: 12/04/2018 SUBJECTIVE: Today, the patient is asking for something a little bit more substantial than clear liquids. She understands she still waiting for the home health company to get the pump for her nasogastric tube feeds. She stated she has had a bowel movement. Her last BM was almost day and half to two days ago. It is fairly formed. She denies any discomfort at this time. Vitals are stable. She is afebrile. OBJECTIVE: Exam is essentially unchanged. LUNGS: Clear to auscultation bilaterally. HEART: Plus S1 and S2 with no rubs, murmurs, or gallops. ABDOMEN: Soft, obese, and nontender. Midline wound is still healing with a wound VAC in place. 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 Plan is to go home with home health. Followup is made available. Job ID: [id number]
[2018-12-04] MEDS: Fluconazole 100 MG TAB PER TUBE SCH (18:05)
[2018-12-04] MEDS: Melatonin 3 MG TAB PO SCH (20:42)
[2018-12-05] MEDS: FLUoxetine HCl 20 MG CAP PO SCH (08:57)
[2018-12-05] MEDS: Metoprolol Tartrate 25 MG TAB PO SCH ×2 (08:57→20:34)
[2018-12-05] MEDS: Polyethylene Glycol 3350 17 GM Packet PER TUBE SCH (08:58)
[2018-12-05] MEDS: Sulfameth/Trimethoprim DS 800-160mg TAB PO SCH ×2 (08:58→20:35)
[2018-12-05] MEDS: Multivitamin W/ Minerals 1 TAB PO SCH (08:58)
[2018-12-05] MEDS: Oxybutynin 5 MG TAB PO SCH ×2 (08:58→20:34)
[2018-12-05 09:10] LABS: Fungus Stain Final report (.)
--- NOTE | 2018-12-05 10:12 | RAD ---
PA AND LATERAL VIEWS OF CHEST: Date: 12/05/18 HISTORY: Pleural effusion. FINDINGS/IMPRESSION: The heart size is normal. There is a feeding tube in the stomach. There is elevation of the right hem idiaphragm. No focal areas of consolidation or large effusions are seen. A tiny left pleural effusion may be present. POS: [facility]
[2018-12-05] MEDS: Acetaminophen 500 MG TAB PO PRN ×2 (14:17→20:38)
[2018-12-05] MEDS: Fluconazole 100 MG TAB PER TUBE SCH (17:11)
[2018-12-05] MEDS: Melatonin 3 MG TAB PO SCH (20:34)
[2018-12-05] MEDS: Cepastat Lozenges 1 LOZ PO PRN (21:09)
--- NOTE | 2018-12-05 23:13 | PRG ---
DATE OF SERVICE: 12/05/2018 HISTORY OF PRESENT ILLNESS: The patient successfully underwent wound VAC exchange today, is tolerating 55 mL/h of continuous tube feeds, tolerating clear liquids , has not thrown up in the last 24 hours, ambulating over 500 feet in total with 2 breaks with Physical Therapy. Case management is working on tube feed pump_ today. The patient may be possibly ready for discharge in the next 1 to 2 days to continue on DME set up and tube feeds. The patient was transitioned to oral antifungals and continues on Bactrim for Staph aureus found on prior culture. States she is slowly regaining some energy and has no new complaints. Verbalized understanding regarding slow resolution of pleural effusion. PHYSICAL EXAMINATION: VITAL SIGNS: Review of vital signs, temperature of 97.6, pulse 81, respiratory rate 12, oxygen saturation 96% on room air, blood pressure 116/80. GENERAL: The patient is alert and oriented, in no acute distress. HEENT: Head is normocephalic, atraumatic. Extraocular movements are intact. Sclerae are white. Dobhoff tube in right naris. Oral mucosa is moist. NECK: Supple. HEART: Regular rate and rhythm. No murmurs auscultated. LUNGS: Clear to auscultation bilaterally. No rubs or wheezes. ABDOMEN: Soft, nontender on the periphery. Wound VAC in place. No rebound or guarding. EXTREMITIES: Lower extremities with trace pitting edema. No cyanosis present. NEUROLOGIC: The patient is alert and oriented x3. No focal deficits. Speech is normal. ASSESSMENT AND PLAN: Deconditioning, protein malnutrition, abdominal wound. Tube feed reliant. Intractable nausea and vomiting, constipation. The patient states that her bowel movements have with increased MiraLAX and lactulose over the last several days. We will continue to follow progress. Continue Bactrim with a goal of 7-10 day treatment, as well as with fluconazole. We will follow up with Case Management in the morning for DME setup and discharge home with home health nursing, physical therapy, and wound care. Job ID: [id number] [facility]
[2018-12-06 06:44] LABS: #Basophils 0.1 thou/uL (0.0-0.2); #Eosinphils 0.1 thou/uL (0.0-0.7); #Monocytes 1.1 thou/uL (0.11-0.59); %Basophils 1.2 % (0.0-1.0); %Eosinophils 1.7 % (0.0-10.0); %Lymphocytes 23.8 % (21.0-51.0); %Monocytes 12.8 % (0.0-10.0); %Neutrophils 60.5 % (42.0-75.0); Mean Corpuscular Hemoglobin 26.7 pg (27.0-31.0); Mean Corpuscular Volume 85.8 fL (78.0-98.0); Mean Platelet Volume 7.9 fL (7.4-10.4); Platelet Count 379 thou/uL (130-400); RBC Distribution Width 19.2 % (11.5-14.5); Red Blood Cell (RBC) Count 4.49 mill/uL (4.20-5.40); White Blood Cell (WBC) Count 8.2 thou/uL (4.8-10.8)
[2018-12-06 06:59] LABS: ALT (SGPT) 19 U/L (8-55); AST (SGOT) 19 U/L (5-34); Albumin 2.8 g/dL (3.5-5.0); Alkaline Phosphatase 155 U/L (40-150); Anion Gap 14 mmol/L (10-20); BUN (Urea Nitrogen) 14 mg/dL (9.8-20.1); Bilirubin, Total 0.3 mg/dL (0.2-1.2); Calc. Creatinine Clearance 112 mL/min (70-130); Carbon Dioxide 25 mmol/L (22-29); Chloride 102 mmol/L (98-107); Estimated GFR-MDRD 75; Globulin 3.9 g/dL (2.4-3.5); Glucose 128 mg/dL (70-105); Potassium 4.9 mmol/L (3.5-5.1); Protein, Total 6.7 g/dL (6.0-8.3); Sodium 136 mmol/L (136-145)
[2018-12-06] MEDS: Metoprolol Tartrate 25 MG TAB PO SCH ×2 (08:46→21:22)
[2018-12-06] MEDS: Sulfameth/Trimethoprim DS 800-160mg TAB PO SCH ×2 (08:46→21:22)
[2018-12-06] MEDS: Cepastat Lozenges 1 LOZ PO PRN (08:47)
[2018-12-06] MEDS: Multivitamin W/ Minerals 1 TAB PO SCH (08:47)
[2018-12-06] MEDS: Docusate Sodium 100 MG/10 ML UDCUP PO SCH ×2 (08:48→21:24)
[2018-12-06] MEDS: Acetaminophen 500 MG TAB PO PRN (09:25)
[2018-12-06] MEDS: FLUoxetine HCl 20 MG CAP PO SCH (09:26)
[2018-12-06] MEDS: Oxybutynin 5 MG TAB PO SCH ×2 (10:06→21:22)
--- NOTE | 2018-12-06 16:54 | PRG ---
DATE OF SERVICE: 12/06/2018 SUBJECTIVE: Ms. Perdomo remains in the hospital on the medical floor. This is hospital day number 8 in treatment of her nausea. She has been tolerating full-strength tube feeds for several days now. She remains hospitalized awaiting a tube feed pump for home use. She continues to have wound care for an open abdominal wound (which is still unhealed after over 3 months of wound care). She has no specific complaints other than she notes that her nose is a little sore. She still has pain with the dressing changes to her abdomen (which is very unusual). She tells me her bowels are moving regularly, and she is currently not taking either her MiraLAX or lactulose. OBJECTIVE: VITAL SIGNS: On examination, she is afebrile. Vital signs are normal. ABDOMEN: Benign. LABORATORY DATA: Her CBC is normal with a hemoglobin of 12, and white blood cell count of 8. Her electrolytes are normal. Her albumin is up from 2.2 last week, up to 2.8 today. ASSESSMENT AND PLAN: The patient with nausea, but she tolerates full-strength tube feeds. She has had studies of her gastric pouch, both endoscopically and with contrast, both of which revealed no abnormalities. I am uncertain why she has the nausea, if she can tolerate full tube feeds. I was informed that she has been requesting medications per feeding tube. I strongly recommend against this. She should begin taking her medications orally. The patient was tired of clear liquids and asked if she could advance her diet and I advanced her up to a soft regular diet. My hopes are that in some fashion problems related to her prior narcotic use, some degree of constipation, and her malnutrition were contributing to her nausea and that as we treat these various problems that her nausea issues will resolve. The more I think about it, the more I believe that a surgical feeding jejunostomy would be a significant problem for her. I would therefore recommend continued tube feeds using the Dobhoff until she can tolerate enough calories orally that she does not need that anymore. Hopefully that will be within the next couple of weeks. She, of course, remains cleared from Surgery standpoint for discharge, and I will see her back in my office in a couple of weeks. Job ID: [id number]
[2018-12-06] MEDS ORDERED: Fluconazole 100 MG TAB PO SCH (18:00)
[2018-12-06] MEDS: Fluconazole 100 MG TAB PER TUBE SCH (20:01)
--- NOTE | 2018-12-06 20:21 | PRG ---
DATE OF SERVICE: 12/06/2018 HISTORY OF PRESENT ILLNESS: The patient remains waiting for home health nursing , PT, feeding pump, and tube supplies. Reports no acute changes. She is tolerating tube feeds well, tolerating oral liquids. Last 24 hours, the patient had approximately 720 mL in starting some oral medication. I had few episodes of diarrhea, which has slowed down since decreasing of laxatives. She has reported no fevers, no cough, no gag reflex when using tube flushes as long as water is warm. LABORATORY DATA: White blood cell count 8.2, hemoglobin of 12, neutrophil percent of 60.5. Sodium of 136, potassium of 4.9, creatinine of 0.8, albumin slightly increased to 2.8, blood glucose 123 to 128 last 12 hours. PHYSICAL EXAMINATION: GENERAL: The patient is alert and oriented, in no acute distress. HEENT: Head, normocephalic and atraumatic. Extraocular movements are intact. Sclerae white. Oral mucosa is moist. Nasal tube to the right nare in place. ABDOMEN: Wound VAC to central abdomen wound intact with positive bowel sounds throughout. HEART: Regular rate and rhythm at time of exam. No murmurs auscultated. LUNGS: Equal to auscultation bilaterally and clear. No wheezes. Extremities: Lower extremities without cyanosis, clubbing, or edema. NEUROLOGIC: The patient is alert and oriented x3. No focal deficits. Speech is normal. ASSESSMENT AND PLAN: Intractable nausea and vomiting with severe protein malnutrition and deconditioning. Continuing physical therapy, tube feeds per Dobhoff. Given the patient's abdomen wound from catastrophic abdomen, continuing wound VAC under Dr. Lea' care. The patient nearing end of course of fluconazole and Bactrim for Staph aureus current. Fungal culture is pending, however, initial stain report is negative. The patient has been tolerating beta juany regarding blood pressure. We will decrease laxatives to stool softeners. Now, the patient has been off narcotics and evaluate stools further for any need to return of laxatives. Per Dr. Lea' recommendation, the patient has been a lot to titrate mechanically soft regular diet as she started to feel hunger now and has tired of clear liquids. Once Case Management has set up home health with nursing wound care, physical therapy, pump and tube feed supplies and feeds, the patient will be ready for discharge. No word from Case Management today, title 19 was sent yesterday for supplies. Job ID: [id number] MTDD
[2018-12-06] MEDS: Melatonin 3 MG TAB PO SCH (21:23)
[2018-12-07] MEDS: Docusate Sodium 100 MG/10 ML UDCUP PO SCH (09:21)
[2018-12-07] MEDS: FLUoxetine HCl 20 MG CAP PO SCH (09:21)
[2018-12-07] MEDS: Multivitamin W/ Minerals 1 TAB PO SCH (09:22)
[2018-12-07] MEDS: Oxybutynin 5 MG TAB PO SCH (09:22)
[2018-12-07] MEDS: Metoprolol Tartrate 25 MG TAB PO SCH (09:23)
[2018-12-07] MEDS: Sulfameth/Trimethoprim DS 800-160mg TAB PO SCH (09:23)
--- NOTE | 2018-12-07 09:36 | PRG ---
DATE OF SERVICE: 12/07/2018 SUBJECTIVE: Ms. Perdomo is hospital day #10 following admission for nausea, vomiting, and malnutrition. She has had a Dobbhoff down now for probably about a week. When I entered her room today, she requested/demanded removal of the Dobbhoff tube. She tells me that it is causing her pain in her nose, her ears, and her teeth. She has somewhat of a sore throat. I had a lengthy conversation with her and told her that most patients are able to tolerate this soft feeding tube for a lengthy period of time. I felt that she had made significant progress during the past week. Her vital signs have normalized. Her bowel function has normalized and her protein levels are trending upwards. Nonetheless, she is insistent that the tube be removed and at her request, I asked her nurse to do so. I again emphasized to her that I think that her problems were threefold when she came in. I think she had some degree of malnutrition, some degree of constipation and all of this was exacerbated by her pain medication that she was taking at home. Once the tube is out of her nose, there is no longer any point in her being here in the hospital. I believe she is safe for discharge home at any time. I recommend that she take MiraLAX once per day to avoid problems with constipation. I instructed her to take at least 2 cans of nutritional supplement per day in addition to her diet that she can tolerate otherwise. Otherwise, will again run into protein malnutrition. I instructed her to continue to ambulate daily several times per day, so that we do not lose the benefits that she has had from Physical Therapy thus far. Hopefully avoiding pain medication, avoiding constipation, and continued to take adequate amounts of protein will lead to resolution of her underlying problems. She will continue to require wound care. I will see her back in 2 weeks to follow up on her wound and her progress. I will make sure that all of this is communicated to Dr. Keys as well. Job ID: [id number]
[2018-12-07 12:19] VITALS: BP 130/83; TEMP 98.2
--- NOTE | 2018-12-08 15:25 | DIS ---
DATE OF ADMISSION: 11/28/2018 DATE OF DISCHARGE: 12/07/2018 CHIEF COMPLAINT: Intractable nausea and vomiting with dehydration. HISTORY OF PRESENT ILLNESS: Last August, the patient spent a month and a half in the ICU after a catastrophic abdomen. The patient had bariatric surgery and was taking chronic NSAIDs for chronic arthritis and neuropathy pains, was covered with proton pump inhibitor; however, subsequently had a massive GI bleed, required ex lap with removal of gastric remnant and the patient has subsequently developed abscess of the abdomen with peritonitis for which she had prolonged intubation and had a tracheostomy tube placed and was subsequently removed prior to patient's discharge. The patient was unable to have the wound fully closed with repeat ex lap for infectious causes. The patient made slow progress and was [facility] as patient's insurance did not pay for inpatient rehab or correction facility. The patient had a [facility] stay at [facility] and was discharged home with no home health. Son was trained on how to change wound VAC to the patient's anterior wound, abdomen and the patient subsequently nearly immediately reported bouts of nausea, vomiting with constipation following patient taking nausea medication as well as pain medication for wound care of tramadol. The patient was titrated on multiple laxatives including lactulose, MiraLAX etc., without much effect for constipation. Tried on Zofran and Phenergan for nausea and vomiting; however, patient started repeatedly going to Emergency Department for rehydration following discharge. Emergency room visit 10/04, 10/17, 11/17, 11/28 for tachycardia, abdominal pain, nausea, vomiting, and dehydration. Given recurrent nature and bounce backs, the patient was kept inpatient this time. Given the fact the patient was unable to tolerate proper nutrition, the patient was found to have severe protein malnutrition, albumin as low as 2.2, prealbumin of 11. Following our IV rehydration on admit, Dobhoff catheter was placed under the care of Dr. Lea' team and tube feeds were initiated at 55 mL continuous per hour, which patient tolerated very well. She was withheld from amitriptyline, Phenergan, and narcotics while inpatient and had no further episodes emesis. She did have strong gag reflex, especially to temperature profiles. Throat swab was performed with negative fungal stain culture still pending. Staph aureus with resistance to amoxicillin and Pipracil was found in the patient's throat. She was treated with Bactrim, was also treated with antifungal micafungin until her IV failed and was transitioned to fluconazole. The patient was found to have a fungal infection on last admission in the abdomen wound. The patient subsequently felt like she was smelling better and had better taste of food following treatment of infection. However, patient quickly became agitated with tube in her nose and original plan for home health physical therapy, nursing for wound care and for monitoring of tube feeds with 55 hours of continuous feeds were halted as patient refused to keep tube in and threaten to pull it out, if Dr. Lea and myself did not order it discontinued. Dr. Lea talked to patient at bedside to try to encourage her not to remove tube, but she said she was not going to have the tube in anymore. She had only tolerated a few ounces of mechanically soft diet prior to wanting her tube out. The patient had been tolerating 2 L of fluid prior to admission; however, was having multiple bouts of emesis that caused her dehydration prior. Since she had had medication changes and had no further nausea and vomiting, Dr. Lea and I felt she would be appropriate for discharge home per her request under strong protest that, if she is nonparticipatory in therapy services or with attempts at hydration and nourishment she will likely bounce back to the emergency room. Again, we will try to follow through with boost or Ensure prescription to local pharmacy. We will contact with son who is primary caregiver who she lives with to picker tender helper new medications and formula for supplemental feeds and see if home health nursing can be established with the patient for continued monitoring. DISCHARGE MEDICATIONS: Include: 1. Pantoprazole 40 mg twice daily. 2. Multivitamin 1 tab daily. 3. Lopressor 12.5 mg twice daily. 4. Melatonin 6 mg at bedtime. 5. Prozac 40 mg once daily. 6. Docusate sodium 100 mg twice daily. 7. Acetaminophen 1000 mg q.6 hours p.r.n. pain. 8. Oxybutynin 10 mg one tab p.o. b.i.d. 9. Viscous lidocaine topical p.r.n. pain, sore throat. 10. Discontinuation of amitriptyline and Phenergan, will be rendered refill of Zofran on a as needed basis, but so far, patient has not needed it for discharge. DISCHARGE INSTRUCTIONS: 1. Discharge to home with home health. 2. Physical therapy, nursing, wound care under son's care. 3. The patient is currently ambulatory in spurts of 100 to 150 feet x4 with therapy through services with a rolling walker. DISCHARGE CONDITION: Guarded. DISCHARGE DIET: 1. Titrate to regular as able. 2. Small amounts frequently. 3. Supplemental shakes t.i.d. to start. FOLLOWUP: 1. On patient's nutrition. 2. Outpatient with myself, Dr. Boni Keys in approximately [address] Lea in approximately 3 to 4 weeks. DIAGNOSES: Include: 1. Resolved dehydration. 2. Resolved intractable nausea and vomiting. 3. Resolved constipation. 4. Continued physical deconditioning. 5. Abdominal wound with wound VAC. 6. Improved pleural effusion. 7. Severe protein malnutrition. 8. Gastroesophageal reflux disease. 9. Depression. 10. Staphylococcus aureus infection, resolved. 11. Tachycardia, resolved following treatment with antibiotics, IV hydration and beta juany. Job ID: [id number]
== END 2018-12-07 14:24 | disposition home health service (06) | DRG 640 ==
LOC: ERS 15:01 → OBSVTOIN 17:22 → ERHOLD 17:22 → T4-A 20:36
PROVIDERS: ADMIT Family Medicine; ATTEND Family Medicine
PROC: 0DH67UZ Insertion of Feeding Device into Stomach, Via Natural or Artificial Opening (ICD-10-PCS; principal; 2018-11-29)
DX: E86.0 Dehydration (principal); E43 Unspecified severe protein-calorie malnutrition; T81.31XA Disruption of external operation (surgical) wound, not elsewhere classified, initial encounter; J90 Pleural effusion, not elsewhere classified; K30 Functional dyspepsia; T40.605A Adverse effect of unspecified narcotics, initial encounter; J02.8 Acute pharyngitis due to other specified organisms; B95.61 Methicillin susceptible Staphylococcus aureus infection as the cause of diseases classified elsewhere; G89.4 Chronic pain syndrome; K21.9 Gastro-esophageal reflux disease without esophagitis; M51.36 Other intervertebral disc degeneration, lumbar region; I10 Essential (primary) hypertension; K59.00 Constipation, unspecified; G62.9 Polyneuropathy, unspecified; R00.0 Tachycardia, unspecified; F32.9 Major depressive disorder, single episode, unspecified; Z16.11 Resistance to penicillins; Z98.84 Bariatric surgery status; Z68.36 Body mass index [BMI] 36.0-36.9, adult; Y83.8 Other surgical procedures as the cause of abnormal reaction of the patient, or of later complication, without mention of misadventure at the time of the procedure
CPT/HCPCS: 36415; 36416; 71045; 71046; 74018; 74177; 80048; 80053; 83690; 83880; 84134; 85025; 85610; 86850; 86900; 86901; 87070; 87077; 87102; 87186; 87206; 93005; 93010; 94760; 96361; 96374; 97605; A4218; C9113; J2001; J2248; J2270; J2405; J7050

== ENCOUNTER 2018-12-09 14:16 | Outpatient (CLI) | payer OTHER | END 2018-12-09 14:17 | disposition home or self-care (01) | LOC: WCC 14:16 | PROVIDERS: ATTEND Family Medicine | DX: T81.89XD Other complications of procedures, not elsewhere classified, subsequent encounter (principal) | CPT/HCPCS: 97606; A4218 ==

== ENCOUNTER 2018-12-12 14:52 | Outpatient (CLI) | payer OTHER ==
[2018-12-12] MEDS ORDERED: Lidocaine 4% Topical Sol 50 ML BOT ONE (15:00)
[2018-12-12] MEDS ORDERED: Sodium Chloride 0.9% 15 ML NEB ONE (15:00)
== END 2018-12-12 14:53 | disposition home or self-care (01) ==
LOC: WCC 14:52
PROVIDERS: ATTEND Family Medicine
DX: T81.89XD Other complications of procedures, not elsewhere classified, subsequent encounter (principal)
CPT/HCPCS: 97605; A4218

== ENCOUNTER 2018-12-15 12:55 | Outpatient (CLI) | payer OTHER ==
[2018-12-15] MEDS ORDERED: Lidocaine 4% Topical Sol 50 ML BOT ONE (15:00)
[2018-12-15] MEDS ORDERED: Sodium Chloride 0.9% 15 ML NEB ONE (15:00)
== END 2018-12-15 12:56 | disposition home or self-care (01) ==
LOC: WCC 12:55
PROVIDERS: ATTEND Family Medicine
DX: T81.89XD Other complications of procedures, not elsewhere classified, subsequent encounter (principal)
CPT/HCPCS: 36415; 80053; 85025; 87070; 97605; A4218

== ENCOUNTER 2018-12-19 15:08 | Outpatient (CLI) | payer OTHER ==
--- NOTE | 2018-12-19 17:09 | PRG ---
DATE OF SERVICE: 12/19/2018 SUBJECTIVE: Ms. Analia Munoz is a very pleasant 53-year-old accompanied by her son, who presents to the Wound Center for evaluation of a midline abdominal wound subsequent to surgery for peritonitis with intra-abdominal fluid collection on 08/25/[address] Valdemar Lea. 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 Negative pressure therapy was initiated at the time of surgery on 08/25/2018. The patient stated that negative pressure therapy was continued for one week in [facility] upon the patient's discharge from [facility]. The patient stated that upon her discharge from [facility], she received dressing changes in the [facility]. The abdominal wound was subsequently opened in the office by Dr. Lea in October of 2018 and negative pressure therapy, which had been discontinued was resumed. OBJECTIVE: VITAL SIGNS: Temperature 97.7, pulse 115, respirations 22, and blood pressure 136/66. ABDOMEN: Soft. A midline abdominal wound is present, which measures approximately 6.0 x 1.0 cm. The dimensions of the wound at the time of the patient's visit on 11/24/2018 were approximately 11.7 x 1.7 cm. Granulation tissue is present within the wound margins. No purulent drainage is associated with the wound. No erythema of the skin surrounding the wound is present. No maceration of the skin of the periwound is noted. ASSESSMENT AND PLAN: 1. Midline abdominal wound as described above. Negative pressure therapy will be continued with dressing changes of the wound VAC here in the Wound Center. Again, the patient reports discomfort of her abdominal wound in the standing position after the resumption of negative pressure therapy. Again, the patient has been reassured that no signs of infection of her abdominal wound are noted on today's exam. The patient has a followup appointment with Dr. Lea in 1 week. I will see Ms. Perdomo again in 2 weeks. 2. Hypertension. 3. History of upper gastrointestinal bleeding. 4. History of anemia of chronic disease. Job ID: [id number]
== END 2018-12-19 15:09 | disposition home or self-care (01) ==
LOC: WCC 15:08
PROVIDERS: ATTEND Family Medicine
DX: T81.89XD Other complications of procedures, not elsewhere classified, subsequent encounter (principal); I10 Essential (primary) hypertension; Z87.19 Personal history of other diseases of the digestive system; Z86.2 Personal history of diseases of the blood and blood-forming organs and certain disorders involving the immune mechanism
CPT/HCPCS: 97602; A4218

== ENCOUNTER 2018-12-22 15:48 | Outpatient (CLI) | payer OTHER ==
[2018-12-22] MEDS ORDERED: Sodium Chloride 0.9% 15 ML NEB ONE (16:17)
== END 2018-12-22 15:49 | disposition home or self-care (01) ==
LOC: WCC 15:48
PROVIDERS: ATTEND Family Medicine
DX: T81.89XD Other complications of procedures, not elsewhere classified, subsequent encounter (principal)
CPT/HCPCS: 97605; A4218

== ENCOUNTER 2018-12-26 15:03 | Outpatient (CLI) | payer OTHER | END 2018-12-26 15:04 | disposition home or self-care (01) | LOC: WCC 15:03 | PROVIDERS: ATTEND Family Medicine | DX: T81.89XD Other complications of procedures, not elsewhere classified, subsequent encounter (principal) | CPT/HCPCS: 97605; A4218 ==

== ENCOUNTER 2018-12-28 15:29 | Outpatient (CLI) | payer OTHER | END 2018-12-28 15:30 | disposition home or self-care (01) | LOC: WCC 15:29 | PROVIDERS: ATTEND Family Medicine | DX: T81.89XD Other complications of procedures, not elsewhere classified, subsequent encounter (principal) | CPT/HCPCS: 97605 ==

== ENCOUNTER 2018-12-30 13:48 | Outpatient (CLI) | payer OTHER ==
[2018-12-30] MEDS ORDERED: Sodium Chloride 0.9% 15 ML NEB ONE (15:00)
[2018-12-30] MEDS ORDERED: Lidocaine 4% Topical Sol 50 ML BOT ONE (15:00)
== END 2018-12-30 13:49 | disposition home or self-care (01) ==
LOC: WCC 13:48
PROVIDERS: ATTEND Family Medicine
DX: T81.89XD Other complications of procedures, not elsewhere classified, subsequent encounter (principal)
CPT/HCPCS: 97605; A4218

== ENCOUNTER 2019-01-02 14:49 | Outpatient (CLI) | payer OTHER ==
--- NOTE | 2019-01-02 16:42 | PRG ---
DATE OF SERVICE: 01/02/2019 HISTORY: Ms. Analia Perdomo is a very pleasant 53-year-old accompanied by her son, who presents to the Wound Center for evaluation of a midline abdominal wound subsequent to surgery for peritonitis with intraabdominal fluid collection on 08/25/2018, by Dr. Valdemar Lea. 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 Negative pressure therapy was initiated at the time of surgery on 08/25/2018. The patient stated that negative pressure therapy was continued for 1 week in [facility] upon the patient's discharge from [facility]. The patient stated that upon her discharge from [facility], she received dressing changes in the [facility]. The abdominal wound was subsequently opened in the office by Dr. Lea in October of 2018, and negative pressure therapy, which had been discontinued was resumed. Since the patient's visit to the Wound Center on 12/19/2018, Ms. Perdomo states that she was seen by Dr. Lea and the superior portion of the abdominal wound opened in the office by Dr. Lea. PHYSICAL EXAMINATION: VITAL SIGNS: Temperature 98.1, pulse 85, respirations 16, and blood pressure 134/66. ABDOMEN: Soft. A midline abdominal wound is present, which measures approximately 8.5 x 0.8 cm. The dimensions of the wound at the time of the patient's visit on 12/19/2018 were approximately 6.0 x 1.0 cm. Granulation tissue is present within the wound margins. No purulent drainage is associated with the wound. No erythema of the skin surrounding the wound is present. No maceration of the skin of the periwound is noted. ASSESSMENT AND PLAN: 1. Midline abdominal wound as described above. Negative pressure therapy will be continued with dressing changes of the wound VAC here in the Wound Center. The patient has a followup appointment with Dr. Lea in 2 weeks. I will see Ms. Perdomo again in 4 weeks. 2. Hypertension. 3. History of upper gastrointestinal bleeding. 4. History of anemia of chronic disease. Job ID: [id number]
[2019-01-02] MEDS ORDERED: Lidocaine 4% Topical Sol 50 ML BOT ONE (18:48)
[2019-01-02] MEDS ORDERED: Sodium Chloride 0.9% 15 ML NEB ONE (18:48)
== END 2019-01-02 14:50 | disposition home or self-care (01) ==
LOC: WCC 14:49
PROVIDERS: ATTEND Family Medicine
DX: T81.89XD Other complications of procedures, not elsewhere classified, subsequent encounter (principal); I10 Essential (primary) hypertension; Z87.19 Personal history of other diseases of the digestive system; Z86.2 Personal history of diseases of the blood and blood-forming organs and certain disorders involving the immune mechanism
CPT/HCPCS: 97605; A4218

== ENCOUNTER 2019-01-05 14:54 | Outpatient (CLI) | payer OTHER ==
[2019-01-05] MEDS ORDERED: Lidocaine 4% Topical Sol 50 ML BOT ONE (19:10)
[2019-01-05] MEDS ORDERED: Sodium Chloride 0.9% 15 ML NEB ONE (19:10)
== END 2019-01-05 14:55 | disposition home or self-care (01) ==
LOC: WCC 14:54
PROVIDERS: ATTEND Family Medicine
DX: T81.89XD Other complications of procedures, not elsewhere classified, subsequent encounter (principal)
CPT/HCPCS: 97605; A4218

== ENCOUNTER 2019-01-09 15:29 | Outpatient (CLI) | payer OTHER | END 2019-01-09 15:30 | disposition home or self-care (01) | LOC: WCC 15:29 | PROVIDERS: ATTEND Family Medicine | DX: T81.89XD Other complications of procedures, not elsewhere classified, subsequent encounter (principal) | CPT/HCPCS: 97605; A4218 ==

== ENCOUNTER 2019-01-12 15:44 | Outpatient (CLI) | payer OTHER ==
[~2019-01-12 15:44] MED LIST changes: -Sodium Chloride 0.9% 15 ML NEB ONE
== END 2019-01-12 15:45 | disposition home or self-care (01) ==
LOC: WCC 15:44
PROVIDERS: ATTEND Family Medicine
DX: T81.89XD Other complications of procedures, not elsewhere classified, subsequent encounter (principal)
CPT/HCPCS: 97605

== ENCOUNTER 2019-01-16 16:01 | Outpatient (CLI) | payer OTHER ==
[~2019-01-16 16:01] MED LIST changes: -Lidocaine 4% Topical Sol 50 ML BOT ONE; +Sodium Chloride 0.9% 15 ML NEB ONE
== END 2019-01-16 16:02 | disposition home or self-care (01) ==
LOC: WCC 16:01
PROVIDERS: ATTEND Family Medicine
DX: T81.89XD Other complications of procedures, not elsewhere classified, subsequent encounter (principal)
CPT/HCPCS: 87070; 97605; A4218

== ENCOUNTER 2019-01-19 15:20 | Outpatient (CLI) | payer OTHER ==
[2019-01-19] MEDS ORDERED: Sodium Chloride 0.9% 15 ML NEB ONE (19:47)
== END 2019-01-19 15:21 | disposition home or self-care (01) ==
LOC: WCC 15:20
PROVIDERS: ATTEND Family Medicine
DX: T81.89XD Other complications of procedures, not elsewhere classified, subsequent encounter (principal)
CPT/HCPCS: 97605; A4218

== ENCOUNTER 2019-01-23 15:21 | Outpatient (CLI) | payer OTHER ==
[2019-01-23] MEDS ORDERED: Sodium Chloride 0.9% 15 ML NEB ONE (17:53)
== END 2019-01-23 15:22 | disposition home or self-care (01) ==
LOC: WCC 15:21
PROVIDERS: ATTEND Family Medicine
DX: T81.89XD Other complications of procedures, not elsewhere classified, subsequent encounter (principal)
CPT/HCPCS: 97605; A4218

== ENCOUNTER 2019-01-26 15:18 | Outpatient (CLI) | payer OTHER | END 2019-01-26 15:19 | disposition home or self-care (01) | LOC: WCC 15:18 | PROVIDERS: ATTEND Family Medicine | DX: T81.89XD Other complications of procedures, not elsewhere classified, subsequent encounter (principal) | CPT/HCPCS: 97605; A4218 ==

== ENCOUNTER 2019-01-30 14:48 | Outpatient (CLI) | payer OTHER ==
--- NOTE | 2019-01-30 15:57 | PRG ---
DATE OF SERVICE: 01/30/2019 HISTORY: Ms. Analia Perdomo is a very pleasant 53-year-old accompanied by her son, who presents to the Wound Center for evaluation of a midline abdominal wound subsequent to surgery for peritonitis with intraabdominal fluid collection on 08/25/[address] Valdemar Lea. 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 Negative pressure therapy was initiated at the time of surgery on 08/25/2018. The patient stated that negative pressure therapy was continued for one week in [facility] upon the patient's discharge from [facility]. The patient stated that upon her discharge from [facility], she received dressing changes in the [facility]. The abdominal wound was subsequently opened in the office by Dr. Lea in October of 2018 and negative pressure therapy which had been discontinued was resumed. After the patient's visit to the Wound Center on 12/19/2018, Ms. Perdomo stated she was seen by Dr. Lea and the superior portion of the abdominal wound opened in the office again by Dr. Lea. PHYSICAL EXAMINATION: VITAL SIGNS: Temperature 97.6, pulse 85, respirations 18, blood pressure 138/64. ABDOMEN: Soft. A midline abdominal wound is present which measures approximately 5.0 x 0.7 cm. The dimensions of the wound at the time of the patient's visit on 01/02/2019 were approximately 8.5 x 0.8 cm. Granulation tissue is present within the wound margins. No purulent drainage is associated with the wound. No cellulitis of the anterior abdominal wall is appreciated. No maceration of the skin of the periwound is noted. A tunnel at the 12 o'clock position is present and is approximately 4 cm in length. ASSESSMENT AND PLAN: 1. Midline abdominal wound as described above. Negative pressure therapy will be continued with dressing changes of the wound VAC here in the Wound Center. The patient has a followup appointment with Dr. Lea in 2 days. I will see Ms. Perdomo again in 3 weeks. 2. Hypertension. 3. History of upper gastrointestinal bleeding. 4. History of anemia of chronic disease. Job ID: [id number]
[2019-01-30] MEDS ORDERED: Sodium Chloride 0.9% 15 ML NEB ONE (18:00)
== END 2019-01-30 14:49 | disposition home or self-care (01) ==
LOC: WCC 14:48
PROVIDERS: ATTEND Family Medicine
DX: T81.89XD Other complications of procedures, not elsewhere classified, subsequent encounter (principal); I10 Essential (primary) hypertension; Z87.19 Personal history of other diseases of the digestive system; Z86.2 Personal history of diseases of the blood and blood-forming organs and certain disorders involving the immune mechanism
CPT/HCPCS: 97605; A4218

== ENCOUNTER 2019-02-02 15:18 | Outpatient (CLI) | payer OTHER ==
[2019-02-02] MEDS ORDERED: Sodium Chloride 0.9% 15 ML NEB ONE (20:06)
== END 2019-02-02 15:19 | disposition home or self-care (01) ==
LOC: WCC 15:18
PROVIDERS: ATTEND Family Medicine
DX: T81.89XD Other complications of procedures, not elsewhere classified, subsequent encounter (principal)
CPT/HCPCS: 97605; A4218

== ENCOUNTER 2019-02-06 15:12 | Outpatient (CLI) | payer OTHER ==
[2019-02-06] MEDS ORDERED: Sodium Chloride 0.9% 15 ML NEB ONE (18:00)
[2019-02-06] MEDS ORDERED: Lidocaine 4% Topical Sol 50 ML BOT ONE (18:00)
== END 2019-02-06 15:13 | disposition home or self-care (01) ==
LOC: WCC 15:12
PROVIDERS: ATTEND Family Medicine
DX: T81.89XD Other complications of procedures, not elsewhere classified, subsequent encounter (principal)
CPT/HCPCS: A4218

== ENCOUNTER 2019-02-13 14:56 | Outpatient (CLI) | payer OTHER ==
[2019-02-13] MEDS ORDERED: Sodium Chloride 0.9% 15 ML NEB ONE (18:00)
== END 2019-02-13 14:57 | disposition home or self-care (01) ==
LOC: WCC 14:56
PROVIDERS: ATTEND Family Medicine
DX: T81.89XD Other complications of procedures, not elsewhere classified, subsequent encounter (principal)
CPT/HCPCS: 97605; A4218

== ENCOUNTER 2019-02-20 15:44 | Outpatient (CLI) | payer OTHER ==
--- NOTE | 2019-02-20 15:52 | PRG ---
DATE OF SERVICE: 02/20/2019 HISTORY OF PRESENT ILLNESS: Ms. Analia Perdomo is a very pleasant 53-year-old accompanied by her son, who [facility] for evaluation of a midline abdominal wound subsequent to surgery for peritonitis with intraabdominal fluid collection on 08/25/[address] Valdemar Lea. 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 Since the patient's visit to the [facility] on 01/30/2019, Ms. Perdomo was seen by Dr. Lea and negative pressure therapy discontinued. The patient is now receiving wet-to-dry dressing changes as per Dr. Lea. PHYSICAL EXAMINATION: VITAL SIGNS: Temperature 97.9, pulse 80, blood pressure 139/71. ABDOMEN: Soft. A midline abdominal wound is present, which measures approximately 5.5 x 0.8 cm. Granulation tissue is present within the wound margins. No purulent drainage is associated with the wound. No cellulitis of the anterior abdominal wall is appreciated. No maceration of the skin of the periwound is noted. No tunnel at the 12 o'clock position is present as was present at the time of the patient's visit on 01/30/2019. ASSESSMENT AND PLAN: 1. Midline abdominal wound as described above. Wet-to-dry dressing changes as per Dr. Lea will be continued on a daily basis after cleansing and irrigation. The patient has a followup appointment with Dr. Lea in 2 weeks. I will see Ms. Perdomo again in 3 weeks. 2. Hypertension. 3. History of upper gastrointestinal bleeding. 4. History of anemia of chronic disease. Job ID: [id number]
[2019-02-20] MEDS ORDERED: Sodium Chloride 0.9% 15 ML NEB ONE (18:00)
== END 2019-02-20 15:45 | disposition home or self-care (01) ==
LOC: WCC 15:44
PROVIDERS: ATTEND Family Medicine
DX: T81.89XD Other complications of procedures, not elsewhere classified, subsequent encounter (principal); I10 Essential (primary) hypertension; Z87.19 Personal history of other diseases of the digestive system; Z86.2 Personal history of diseases of the blood and blood-forming organs and certain disorders involving the immune mechanism
CPT/HCPCS: 97602; A4218

== ENCOUNTER 2020-03-17 12:30 | Observation (INO) | payer OTHER ==
--- NOTE | 2020-03-17 12:58 | RAD ---
RADIOGRAPH CHEST 2 VIEWS: DATE: 03/17/2020 HISTORY: 55-year-old female with chest pain FINDINGS: There is no airspace density, pulmonary edema, pleural effusion, pneumothorax, or cardiomegaly. Chron ically elevated right hemidiaphragm. IMPRESSION: No acute cardiopulmonary findings.
[2020-03-17 13:42] LABS: Hemoglobin 12.8 g/dL (12.0-16.0); Mean Corpuscular HGB CONC 32.9 g/dL (32.0-36.0); Mean Corpuscular Hemoglobin 30.5 pg (27.0-31.0); Mean Corpuscular Volume 92.7 fL (78.0-98.0); Mean Platelet Volume 8.5 fL (7.4-10.4); Platelet Count 249 thou/uL (130-400); RBC Distribution Width 12.5 % (11.5-14.5); Red Blood Cell (RBC) Count 4.21 mill/uL (4.20-5.40); White Blood Cell (WBC) Count 6.7 thou/uL (4.8-10.8)
[2020-03-17 14:00] LABS: Band 3 % (5-11); Eosinophils 2 % (0-10); Lymphocytes 30 % (21-51); MDiff Complete? YES; Monocytes 5 % (0-10); Neutrophil 59 % (42-75); Platelet Morphology Comment Appears Adequate; RBC Morphology Normal
[2020-03-17 14:03] LABS: ALT (SGPT) 10 U/L (8-55); AST (SGOT) 14 U/L (5-34); Albumin 4.2 g/dL (3.5-5.0); Alkaline Phosphatase 100 U/L (40-110); Anion Gap 14 mmol/L (10-20); BUN (Urea Nitrogen) 17 mg/dL (9.8-20.1); Bilirubin, Total 0.5 mg/dL (0.2-1.2); CK (CPK) 50 U/L (29-168); Calc. Creatinine Clearance 0 mL/min (70-130); Calcium 9.4 mg/dL (7.8-10.44); Carbon Dioxide 22 mmol/L (22-29); Chloride 104 mmol/L (98-107); Estimated GFR-MDRD 46; Globulin 3.2 g/dL (2.4-3.5); Glucose 89 mg/dL (70-105); Potassium 4.3 mmol/L (3.5-5.1); Protein, Total 7.4 g/dL (6.0-8.3); Sodium 136 mmol/L (136-145)
[2020-03-17] MEDS ORDERED: Aspirin Chewable 81 MG TAB ONE (14:42)
[2020-03-17 14:58] LABS: Bilirubin Negative (Negative); Blood, Urine Negative (Negative); Clarity Clear (Clear); Glucose, Urine (Dipstick) Normal (Negative); Leukocyte 75 Leu/uL (Negative); Nitrite Negative (Negative); Protein, Urine (Dipstick) Negative (Neg-Trace); RBC/HPF 0-3 HPF (0-3); Squamous Epithelial 0-3 HPF (0-3); Urobilinogen Normal mg/dL (Less than 2)
[2020-03-17 15:06] LABS: Bacteria/HPF Rare-Few HPF (None Seen)
[2020-03-17] MEDS ORDERED: cefTRIAXone\\ROCEPHIN 1 GM VIAL ONE (15:42)
[2020-03-17 17:34] LABS: Troponin I Less than 0.010 ng/mL (< 0.028)
[2020-03-17] MEDS ORDERED: Ondansetron ODT 4 MG TAB SL PRN (17:45)
[2020-03-17] MEDS ORDERED: Acetaminophen 325 MG TAB PO PRN ×2 (17:45→18:23)
[2020-03-17] MEDS ORDERED: Ondansetron PF 4 MG/2 ML Vial IVP PRN (17:45)
[2020-03-17 18:05] VITALS: BMI 40.1
[2020-03-17] MEDS ORDERED: Nitroglycerin 0.4 MG TAB (25 Tab Bottle) PO PRN (18:23)
[2020-03-17] MEDS ORDERED: Ondansetron ODT 4 MG TAB PO PRN (18:23)
[2020-03-17] MEDS ORDERED: Sodium Chloride 0.9% 1,000 ML IV SCH (18:45)
--- NOTE | 2020-03-17 19:46 | HP ---
CHIEF COMPLAINT: Chest pain. HISTORY OF PRESENT ILLNESS: This is a 55-year-old female with history of hypertension, perforated ulcer with significant complications back in 2018, for which she required a trach that was subsequently removed; history of gastric bypass; chronic nerve pain and damage, who presents to the emergency room today with a complaint of chest pain. The patient reports that first episode was nine days ago that she described a sensation of "a ton of bricks on my chest" that was radiating across her chest. She states that it was brief, lasting about 2 minutes, denies any precipitating or relieving factors. She has chronic nausea and shortness of breath and states there was no change in either of these. She called her primary care provider, Dr. Keys, who instructed her to go to urgent care. While there, she was seen, discussed that she was also having dysuria and suprapubic pain and she was diagnosed with UTI and treated with 3 days of an unknown antibiotic. The patient reports after that evaluation and later the same day, she had a second episode of the same chest pressure/pain that radiated to her left shoulder. This was also brief in nature. The patient again had the same symptoms yesterday, described as chest pain and pressure that radiated to her left shoulder, and states that lasted approximately 1 minute. The patient decided to come to the emergency room today because of the complaints of dizziness that she describes as spinning, when she stands up, that requires few minutes until she can move. She also states that her heart rate and blood pressure have been "not right" stating that both are low. At home, she is on metoprolol and losartan, and she was instructed to stop those by her primary care provider. She also complains of persistent UTI symptoms. In the emergency room, the patient received 1 g of ceftriaxone, 324 mg of aspirin, and hospitalist called for admission. ALLERGIES: NO KNOWN DRUG ALLERGIES. CURRENT MEDICATIONS: Reconciled with the list that was provided by her son. 1. Tylenol 1000 mg every 6 hours as needed. 2. Vitamin B12 of 1000 mcg every other week. 3. Premarin 0.625 mg three weeks on, one week off. 4. Famotidine 40 mg at bedtime. 5. Fluoxetine 40 mg daily. 6. Gabapentin 400 mg twice daily and 800 mg at bedtime. 7. Lisinopril 10 mg daily. 8. Loratadine 10 mg daily. 9. Metoprolol 25 mg b.i.d. 10. Nortriptyline 75 mg daily. 11. Oxybutynin 5 mg b.i.d. PAST MEDICAL HISTORY: 1. Left foot nerve damage. 2. Allergic rhinitis. 3. Hypertension. 4. History of gastric ulcer and perforation. 5. 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 PAST SURGICAL HISTORY: 1. Gastric bypass. 2. Appendectomy. 3. Cholecystectomy. 4. Hysterectomy. 5. Left knee replacement. 6. Tonsillectomy. 7. What is described as a gastric perforation, complicated surgery, for which the patient had received a tracheostomy that was subsequently removed as well as a wound VAC for her abdomen. 8. Hernia repair. 9. Benign tumor removed. 10. Deviated septum surgery. SOCIAL HISTORY: The patient lives with her son, Balta, who is her surrogate decision maker. She is a full code. She denies alcohol or tobacco. FAMILY HISTORY: Significant for dad, who had an OR in his 60s and at age 73. REVIEW OF SYSTEMS: Positive in multiple areas; 1. Nausea, chronic, that is not treated. 2. Shortness of breath that is chronic. 3. Dizziness over the past week that she describes as the room spinning when she is standing up. 4. Subjective fevers and chills. 5. Suprapubic pain and urinary hesitancy that she associates with UTI. 6. Constipation. 7. Left-sided abdominal pain that has been going on for few years since the complicated surgery in 2018, 8. facial numbness for the past few weeks, for which she reports talking with Dr. Keys and a plan for an outpatient workup. Negative: dysuria and hematuria. All remaining review of systems are reviewed and negative. PHYSICAL EXAMINATION: VITAL SIGNS: Blood pressure 142/66, pulse 54, respirations 16, sat 98% on room air, and temp 98.3. GENERAL: Awake, alert, responsive, in no apparent distress. Able to speak in full sentences. HEENT: Her pupils are equal and round. No scleral icterus. Oral mucosa is pink and moist. NECK: Supple, nontender. LYMPHATICS: No palpable cervical or supraclavicular lymphadenopathy. There is a well-healed tracheostomy scar. LUNGS: Clear to auscultation bilateral with good air movement. HEART: Normal S1 and S2. Regular rate and rhythm. No significant murmur. ABDOMEN: Soft. Nontender, nondistended. Present bowel sounds. Well-healed surgical scars. EXTREMITIES: No clubbing, cyanosis, or edema. SKIN: No visible rashes. NEURO: No focal deficits. PSYCH: Appears euthymic. VASCULAR: 2+ dorsalis pedis pulses bilateral. LABORATORY DATA: Labs reviewed today, CBC; 6.7, 12.8, 39.1, and 249. Renal panel; 136, 4.3, 104, 22, 17, 1.2, 89. Calcium 9.4. T bilirubin 0.5, AST 14, ALT 10, and alkaline phosphatase 100. Troponin x2 is negative. Urinalysis shows present leukocyte esterase and 4 to 6 white blood cells. EKG; sinus rhythm, normal axis, normal intervals, no ST changes. IMAGING DATA: Chest x-ray is personally reviewed. No acute cardiopulmonary findings. IMPRESSION: 1. Atypical chest pain in a patient with hypertension. 2. Sinus bradycardia on beta-juany therapy. 3. Urinary tract infection. 4. Dizziness with reports of low heart rate and blood pressure at home. 5. History of gastric ulcer, gastric bypass, perforated ulcer, and multiple chronic gastrointestinal symptoms associated with it. 5. Chronic left foot pain secondary to nerve damage. 6. Memory changes post complicated surgery. PLAN: 1. Observation status. 2. Monitoring on telemetry, we will stop her metoprolol given the bradycardia. We will also stop the lisinopril given the report of low blood pressure at home. 3. We will hydrate with a liter of IV fluids and check orthostatics. 4. Start a PPI as her symptoms may be GI in nature, especially given the history of gastric ulcers. 5. P.r.n. Zofran. 6. A pharmacologic nuclear stress test and given the nerve damage in her left foot, we will also order an echocardiogram. 7. The patient did receive aspirin today, we will hold on further aspirin for now given the history of both gastric bypass as well as gastric ulcers. 8. Anticipated length of stay is 24 hours for the evaluation. 9. If the evaluation is negative, anticipate that patient can follow up with her primary care provider to further continue the workup for the other positives as noted above, which are the abdominal pain, facial numbness, constipation, chronic nausea, and shortness of breath. 10. We will continue the Rocephin IV and obtain urine culture. 11. DVT prophylaxis. The patient is ambulatory. 12. GI prophylaxis, not indicated. Starting a PPI to see if that helps with her symptoms. 13. Code status is full. Surrogate decision maker is the patient's son. 14. Reviewed the plan of care with the patient, who demonstrates understanding and agrees. No questions or further needs at end of evaluation. Job ID: [id number] MTDD
[2020-03-17] MEDS ORDERED: Gabapentin 400 MG CAP PO SCH ×2 (21:00)
[2020-03-17] MEDS: Oxybutynin 5 MG TAB PO SCH (21:18)
[2020-03-18 05:58] LABS: Anion Gap 13 mmol/L (10-20); BUN (Urea Nitrogen) 15 mg/dL (9.8-20.1); Calc. Creatinine Clearance 88 mL/min (70-130); Calcium 8.6 mg/dL (7.8-10.44); Carbon Dioxide 20 mmol/L (22-29); Cardiac Risk 2.1 (Less than 4.5); Chloride 110 mmol/L (98-107); Cholesterol 166 mg/dl (< 200 Desired); Estimated GFR-MDRD 52; Glucose 84 mg/dL (70-105); HDL Cholesterol 78 mg/dL (>60 Neg Risk); LDL Cholesterol, Calculated 70 mg/dL; Potassium 4.3 mmol/L (3.5-5.1); Sodium 139 mmol/L (136-145); Triglycerides 89 mg/dL (Less than 150)
[2020-03-18] MEDS ORDERED: Nortriptyline HCl 25 MG CAP PO SCH ×2 (09:00→21:00)
[2020-03-18] MEDS ORDERED: FLUoxetine HCl 20 MG CAP PO SCH (09:00)
[2020-03-18] MEDS ORDERED: Gabapentin 400 MG CAP PO SCH ×2 (09:00→13:00)
[2020-03-18] MEDS ORDERED: ADENOSINE 60 MG/20 ML VIAL ONE (09:15)
[2020-03-18] MEDS: Oxybutynin 5 MG TAB PO SCH (11:20)
--- NOTE | 2020-03-18 11:58 | NM ---
RADIONUCLIDE STRESS ONLY MYOCARDIAL PERFUSION SCAN WITH CT ATTENUATION CORRECTION AND SPECT IMAGING LEFT VENTRICULAR WALL MOTION EVALUATION AND EJECTION FRACTION: HISTORY: Chest pain. FINDINGS: Homogeneous uptake of radiotracer throughout the left ventricular myocardium. No focal perf usion defect. QGS analysis of gated SPECT imaging shows no focal wall motion abnormalities. Ejection fraction calcu lated at 78%. IMPRESSION : Normal myocardial perfusion scan. Normal LVEF. Transcribed Date/Time: 03/18/2020 12:31 PM
[2020-03-18 15:48] VITALS: BP 144/69; TEMP 98.4
[2020-03-18] MEDS ORDERED: cefTRIAXone\\ROCEPHIN 1 GM in Sodium Chloride 0.9% 100 ML IVPB SCH (16:00)
--- NOTE | 2020-03-19 05:50 | DIS ---
DATE OF ADMISSION: 03/17/2020 DATE OF DISCHARGE: 03/18/2020 PROCEDURES PERFORMED: 1. Echocardiogram which is normal. 2. Pharmacologic nuclear stress test, normal. Medications were reconciled at discharge. NEW MEDICATIONS: 1. Omeprazole 40 mg daily, prescription for 30 tablets. 2. Cefdinir 300 mg b.i.d. for 3 days starting tomorrow March 19. MEDICATIONS DISCONTINUED: 1. Famotidine, this was replaced by omeprazole. 2. Metoprolol tartrate discontinued, because pulse was in the 50s. 3. Lisinopril, discontinued because blood pressure was in the 110s systolic. MEDICATIONS TO CONTINUE: 1. Acetaminophen 1000 mg every 6 hours as needed. 2. Vitamin B12 injections 1000 mcg monthly. 3. Premarin 0.625 daily three weeks on, one week off. 4. Fluoxetine 40 mg daily. 5. Gabapentin 400 mg in the morning carlos in the afternoon and 800 mg at night. 6. Loratadine 10 mg daily. 7. Nortriptyline 75 mg daily. 8. Oxybutynin 5 mg b.i.d. FINAL DIAGNOSES: 1. Atypical intermittent chest pain, negative cardiac evaluation. 2. Urinary tract infection. SECONDARY DIAGNOSES: 1. Chronic nausea, vomiting, abdominal pain with history of gastric ulcer perforation. 2. Hypertension, although normotensive here. 3. Memory problems. 4. Allergic rhinitis. 5. Neuropathy of the left foot and pain. HISTORY OF PRESENT ILLNESS: Ms. Perdomo is a 55-year-old female with the above medical problems, who presented to the emergency room with intermittent atypical chest pain and pressure. She had approximately 3 episodes of substernal chest pressure a few of which radiated to her left arm. She has chronic nausea and shortness of breath, is unaware of if there were changes in this. She also complained of UTI symptoms despite treatment recently with 3 days of an unknown antibiotic. In the emergency room, given her history of hypertension, the patient was admitted for further evaluation. HOSPITAL COURSE: The patient was monitored on telemetry and maintained a sinus rhythm with a rate at the 60s and 70s. Due to the bradycardia, the metoprolol was discontinued on arrival. Her blood pressure was monitored and stayed in the 110 systolic, and lisinopril was not needed or used while here. Her cholesterol was checked and is normal. The patient underwent echocardiogram today that is normal. Ejection fraction, some mild valvular regurgitation. She also underwent pharmacologic stress test that is normal. Her complete cardiac workup has been negative. For UTI, she was treated with Rocephin and will be discharged with cefdinir to complete a 5 day total course. She will need follow up in the outpatient setting. The patient has a history of gastric ulcer and bleed, and she takes famotidine at home. I started her on a PPI in case her symptoms are either gastric or esophageal in nature. She will follow up with her primary care provider to discuss the symptoms further. The patient is overall doing well. She has had a negative cardiac evaluation and she meets criteria for discharge to home. PHYSICAL EXAMINATION: VITAL SIGNS: On day of discharge, temp 98.2, pulse 85, respirations 18, sat 100 % on room air, blood pressure 121/60 with a range since soon after admission of 111/ 62 to 121/60. GENERAL: Awake, alert, responsive, in no apparent distress. Able to speak in full sentences. LUNGS: Clear to auscultation bilateral. HEART: Normal S1, S2. Regular rate and rhythm. No significant murmur. ABDOMEN: Soft. Present bowel sounds. Nontender, nondistended. EXTREMITIES: No pitting edema. VILLALTA FINDINGS AND TEST RESULTS: Renal panel today 139, 4.3, 110, 20, 15, 1.08, 84. Triglycerides 89, cholesterol 166, LDL 70, HDL 78. Troponin x2 negative. Urinalysis showed present leuk esterase, 4 to 6 white blood cells. Urine culture shows a small amount of normal skin veda. IMAGIN. Echocardiogram shows an EF of 60% to 65%, mild MR and TR. 2. Pharmacologic nuclear stress test, normal with an EF calculated at 78%. 3. Chest x-ray on March 17, no acute cardiopulmonary findings. DIET: Heart healthy. ACTIVITY: As tolerated. FOLLOWUP: 1. With Dr. Keys this next week to review this hospitalization and the symptoms you had. Also to discuss the medications that were discontinued here, which are the metoprolol due to bradycardia with the rate in the 50s (off metoprolol the heart rate was 60-70's). The lisinopril was stopped due to normal blood pressure in the 110s systolic. The patient will check her blood pressure and pulse at home and bring them in to her appointment. DISCHARGE DISPOSITION: Home. CODE STATUS: Full. I reviewed with patient this hospitalization, the importance of followup, the negative cardiac evaluation, and the seek care precautions. She demonstrates understanding. TIME SPENT: Total time coordinating discharge is 30 minutes. Job ID: [id number] MTDD
== END 2020-03-18 16:56 | disposition home or self-care (01) ==
LOC: ERS 12:30 → 2SE 16:39
PROVIDERS: ADMIT Family Medicine; ATTEND Family Medicine
DX: R07.89 Other chest pain (principal); N39.0 Urinary tract infection, site not specified; G62.9 Polyneuropathy, unspecified; I10 Essential (primary) hypertension; J30.9 Allergic rhinitis, unspecified; R00.1 Bradycardia, unspecified; R42 Dizziness and giddiness; Z79.899 Other long term (current) drug therapy
CPT/HCPCS: 36415; 36416; 71045; 78452; 80048; 80053; 80061; 81003; 81015; 82550; 83690; 84484; 85025; 87086; 93005; 93017; 93306; 96361; 96365; 96366; A9500; G0378; J0153; J0696; J3490

== ENCOUNTER → 2020-04-15 | Outpatient (CLI) | payer OTHER ==
[2020-04-15 18:47] LABS: SARS-CoV-2 MS2 Positive; SARS-CoV-2 N Gene Negative; SARS-CoV-2 S Gene Negative; SARS-CoV-2 orf1ab Negative
== END ==
LOC: LAB 11:49
PROVIDERS: ATTEND Internal Medicine
DX: Z01.812 Encounter for preprocedural laboratory examination (principal); Z11.59 Encounter for screening for other viral diseases
CPT/HCPCS: 87635; U0003

== ENCOUNTER 2020-04-17 08:27 | Outpatient (CLI) | payer OTHER ==
[2020-04-17] MEDS ORDERED: MD-Gastroview 120 ML BOT ONE (11:54)
--- NOTE | 2020-04-17 12:09 | RAD ---
EXAM: XR UGI Air Con W/Small Bowel PROVIDED CLINICAL HISTORY: Nausea and vomiting. History of gastric bypass procedure. COMPARISON: None FINDINGS: Drain Tile Press Operator view of the abdomen demonstrates surgical clips overlying the right upper quadrant with radiopa que suture material overlying the left upper quadrant. There are calcifications seen overlying the renal shadows bilaterally compatible with bilateral renal calculi. There is a calcification seen jose cent to the L1 vertebral body shown to represent a vascular calcification on prior CT exam. However, there is a calcification seen adjacent to the transverse process of the L2 vertebral body wh ich was not identified on the prior CT exam. A ureteral calculus could not be excluded based on this exam. A moderate amount retained fecal material is seen throughout the colon. There is mild elevation right hemidiaphragm. The patient was unable to tolerate contrast by mouth in a decubitus position for evaluation of primar y esophageal peristalsis secondary to nausea. Mild tertiary contractions are present. Esophagus has a normal appearance without focal area of narrowing. Gastrografin was administered initially followed by administration of thin liquid barium. Postoperative changes related to gastric bypass procedure are seen. Contrast promptly extends into loops of small bowel. Loops of small bowel are normal in monique iber. The approximate transit time of contrast through the small bowel is 30 minutes. A 2 hour delayed image was also performed without significant additional contrast extending into the colon. Ag ain, there is a moderate amount of retained fecal material seen within the colon predominantly involving the transverse colon. Surgical clips overlie the pelvis with multiple calcifications also overlying the pelvis likely relat ed to phleboliths. IMPRESSION: 1. Postoperative changes related to gastric bypass procedure. There is no obstruction at the level of the gastroenteric anastomosis. Gastric pouch is mildly prominent. Contrast does extend into the small bowel without evidence of obstruction. 2. Approximate transit time of contrast through the small bowel is 30 minutes. 3. Evidence of constipation. 4. Bilateral renal calculi with calcification seen adjacent to the left L2 transverse process which i s difficult to further localize on this exam. A ureteral calculus could not be entirely excluded. CT scan abdomen be warranted for further evaluation depending on clinical concern.
== END 2020-04-17 08:28 | disposition home or self-care (01) ==
LOC: RAD 08:27
PROVIDERS: ATTEND Internal Medicine
DX: R11.2 Nausea with vomiting, unspecified (principal); N20.0 Calculus of kidney; K59.00 Constipation, unspecified; M89.8X8 Other specified disorders of bone, other site; Z98.84 Bariatric surgery status
CPT/HCPCS: 74246; Q9963

== ENCOUNTER 2020-04-25 08:39 | Outpatient (CLI) | payer OTHER ==
--- NOTE | 2020-04-25 13:30 | ULT ---
BILATERAL RENAL ULTRASOUND COMPLETE: 04/25/20 HISTORY: Urinary tract infection. Right kidney measures 10.2 x 4.5 x 4.8 cm. Left kidney measures 1.0 x 6.1 x 5.9 cm. No renal hydronephrosis. Bilateral renal hyperdensities with more prominent shadowing on the left ricco e, evidence for bilateral nonobstructing renal calculi. There is very slight fullness of the left upper renal collecting system. Urinary bladder appears unre markable. Right ureteral jet is demonstrated but no left ureteral jet is demonstrated. IMPRESSION: Bilateral renal calculi. Very slight fullness of the left upper renal collecting system. If there is concern for left sided ureteral calculus, follow-up noncontrast CT scan is suggested for further evaluation. POS: GURDEEP
== END 2020-04-25 08:40 | disposition home or self-care (01) ==
LOC: BICULT 08:39
PROVIDERS: ATTEND Family Medicine
DX: N39.0 Urinary tract infection, site not specified (principal); N20.0 Calculus of kidney; N28.89 Other specified disorders of kidney and ureter
CPT/HCPCS: 76770

== ENCOUNTER 2020-05-02 12:29 | Outpatient (CLI) | payer OTHER ==
--- NOTE | 2020-05-02 17:10 | CT ---
CT ABDOMEN AND PELVIS WITH AND WITHOUT IV CONTRAST: 05/02/20 HISTORY: 55-year-old female with hematuria, kidney stones, COMPARISON: 11/30/18. FINDINGS: The lung bases are unremarkable. There are postoperative changes of cholecystectomy, appendectomy, hy sterectomy and gastric bypass surgery. The liver, spleen, pancreas, and adrenal glands are normal. No free air, free fluid or lymphadenopathy is seen in the abdomen or pelvis. The small bowel loops are not abnormally dilated. There are vascular calcifications without evidence of aneurysmal dilatation o f the abdominal aorta. There are degenerative changes in the spine. There are bilateral renal calculi. The largest on the right is in the renal pelvis measuring 15 mm an d the left measures about 5 mm. There is left sided hydroureteronephrosis due to a 5 mm left ureteral calculus at L2-3 level. There are also a couple of tiny 2 mm calculi in the dependent portions of th e dilated left proximal ureter. Postcontrast images demonstrate no evidence of renal mass. There is n ormal excretion of contrast into the right ureter and urinary bladder. There is some contrast excreti on into the dependent portion of the dilated calyces on the left. No calculi is seen in the urinary b ladder. IMPRESSION: 1. 5 mm obstructing left ureteral calculus at L2-3 level. 2. Bilateral renal calculi. 3. Tiny calculi in the left proximal ureter. POS: AH
== END 2020-05-02 12:30 | disposition home or self-care (01) ==
LOC: SCSCT 12:29
PROVIDERS: ATTEND Urology
DX: N20.2 Calculus of kidney with calculus of ureter (principal); R31.29 Other microscopic hematuria
CPT/HCPCS: 74178

== ENCOUNTER 2020-05-03 06:39 | Outpatient (CLI) | payer OTHER ==
[2020-05-03 14:03] LABS: Hemoglobin 12.6 g/dL (12.0-16.0); Mean Corpuscular HGB CONC 32.1 g/dL (32.0-36.0); Mean Corpuscular Hemoglobin 29.9 pg (27.0-31.0); Mean Corpuscular Volume 92.9 fL (78.0-98.0); Mean Platelet Volume 9.4 fL (7.4-10.4); Platelet Count 267 thou/uL (130-400); RBC Distribution Width 12.6 % (11.5-14.5); Red Blood Cell (RBC) Count 4.22 mill/uL (4.20-5.40); White Blood Cell (WBC) Count 6.4 thou/uL (4.8-10.8)
[2020-05-03 14:23] LABS: Anion Gap 18 mmol/L (10-20); BUN (Urea Nitrogen) 16 mg/dL (9.8-20.1); Calc. Creatinine Clearance 0 mL/min (70-130); Calcium 9.3 mg/dL (7.8-10.44); Carbon Dioxide 21 mmol/L (22-29); Chloride 105 mmol/L (98-107); Estimated GFR-MDRD 44; Glucose 78 mg/dL (70-105); Potassium 5.4 mmol/L (3.5-5.1); Sodium 139 mmol/L (136-145)
[2020-05-03 14:25] LABS: PTT 28.9 sec (22.9-36.1); Prothrombin Time 13.2 sec (12.0-14.7)
[2020-05-04 11:35] LABS: SARS-CoV-2 MS2 Positive; SARS-CoV-2 N Gene Negative; SARS-CoV-2 S Gene Negative; SARS-CoV-2 orf1ab Negative
== END 2020-05-03 06:40 | disposition home or self-care (01) ==
LOC: LABBT 06:39
PROVIDERS: ATTEND Urology
DX: Z01.818 Encounter for other preprocedural examination (principal); Z11.59 Encounter for screening for other viral diseases; N20.0 Calculus of kidney
CPT/HCPCS: 80048; 85027; 85610; 85730; 87635; U0003

== ENCOUNTER 2020-05-08 06:53 | Day surgery (SDC) | payer OTHER ==
[2020-05-03 08:54] VITALS: BMI 40.0
[2020-05-08] MEDS ORDERED: Levofloxacin 500 mg/D5W 100 ml Premix Bag ONE (08:23)
--- NOTE | 2020-05-08 08:37 | RAD ---
EXAM: Single view of the abdomen HISTORY: Renal calculi COMPARISON: CT abdomen/pelvis 05/02/2020 FINDINGS: Single view of the abdomen shows a nonspecific, nonobstructive bowel gas pattern. Calcifica tions are seen projecting over both kidneys measuring up to 1.3 cm in size. There is a 6 mm calcification adjacent to the left L2 transverse process which represents the ureteral calcification seen on CT. The bones are unremarkable. Cholecystectomy clips are seen. IMPRESSION: 1. Left ureteral calcification 2. Bilateral renal calcifications
[2020-05-08] MEDS ORDERED: Fentanyl 100 MCG/2 ML VIAL ONE ×3 (09:52→12:35)
[2020-05-08] MEDS ORDERED: SUGAMMADEX SODIUM 200 MG/2 ML VIAL ONE (09:52)
[2020-05-08] MEDS ORDERED: Midazolam HCl 2 mg/2 ml Vial ONE (09:52)
[2020-05-08] MEDS ORDERED: Lidocaine 2% Jelly 5 ML TUBE ONE (10:34)
[2020-05-08] MEDS ORDERED: PROPOFOL 200 MG/20 ML VIAL ONE (11:01)
[2020-05-08] MEDS ORDERED: diphenhydrAMINE 50 MG/ML VIAL ONE (11:01)
[2020-05-08] MEDS ORDERED: Rocuronium Bromide 10 MG/ML (10ML VIAL) ONE (11:01)
[2020-05-08] MEDS ORDERED: Dexamethasone 20 MG/5 ML VIAL ONE (11:01)
[2020-05-08] MEDS ORDERED: EPHEDRINE 25 MG/5 ML SYRINGE ONE (11:01)
[2020-05-08] MEDS ORDERED: Ondansetron PF 4 MG/2 ML Vial ONE (11:01)
--- NOTE | 2020-05-08 12:00 | RAD ---
EXAM: Retrograde IVP HISTORY: Kidney stones COMPARISON: None FINDINGS/IMPRESSION: Limited intraoperative fluoroscopic views of the retrograde IVP were submitted f or interpretation. Callus cages are seen projecting over both renal shadows. There is no evidence of hydronephrosis. No obvious filling defects are seen. Bilateral ureteral stents are seen on the la st image in good position.
[2020-05-08] MEDS ORDERED: Phenazopyridine HCl 97.5 MG TABLET ONE (12:07)
[2020-05-08] MEDS ORDERED: Oxybutynin 5 MG TAB ONE (12:07)
[2020-05-08] MEDS ORDERED: Morphine 2 MG/ML SYRINGE ONE ×2 (13:00→13:16)
--- NOTE | 2020-05-08 14:27 | OP ---
DATE OF PROCEDURE: 05/08/2020 PRIMARY CARE PHYSICIAN: Boni Keys MD PREOPERATIVE DIAGNOSES: 1. A 55-year-old female with history of chronic lower back pain with history of bilateral renal calculi. 2. Right renal calculi x4: Upper pole 5 to 6 mm, renal pelvis 1.4 cm x 6 mm, right mid pole 5 to 6 mm, right lower pole 1.3 cm x 7 mm. 3. Left L2-L3 ureteral calculi 6 mm, left renal calculi x2: 5 to 6 mm in the mid to lower pole, 5 to 6 mm in the upper pole. 4. Left ureteral calculi impacted. POSTOPERATIVE DIAGNOSES: 1. A 55-year-old female with history of chronic lower back pain with history of bilateral renal calculi. 2. Right renal calculi x4: Upper pole 5 to 6 mm, renal pelvis 1.4 cm x 6 mm, right mid pole 5 to 6 mm, right lower pole 1.3 cm x 7 mm. 3. Left L2-L3 ureteral calculi 6 mm, left renal calculi x2: 5 to 6 mm in the mid to lower pole, 5 to 6 mm in the upper pole. 4. Left ureteral calculi impacted. PROCEDURES PERFORMED: Cystoscopy, bilateral retrograde pyelogram, bilateral 6 x 26 double-J ureteral stent, right dilation of intramural ureter, right ureteroscopy , laser lithotripsy of multiple large dense renal calculi, modifier 22 due to extensive stone burden. Postoperative diagnosis: Left ureteral calculi, likely impacted a stent was difficult to pass Multiple right renal stone burden consistent with CT. dense renal calculi ANESTHESIA: General. DISPOSITION: To recovery room in stable condition. SPECIMENS: None. INDICATIONS FOR PROCEDURE AND HISTORY: Ms. Perdomo is a 55-year-old G2, P3 disabled female with history of chronic back pain with frequency, urgency, currently on oxybutynin 5 mg one p.o. b.i.d. She has chronic back pain, this has been present per patient about 2 to [address] demonstrated left hydronephrosis, multiple bilateral renal calculi dimensions as above. She presents today for ureteral stent placement, laser lithotripsy. I informed the patient as there was a large stone in the renal pelvis, with likely intermittent obstruction that can persist. She was advised regarding bilateral stent placement and she has been fully informed regarding stage intervention given her body habitus, stone nidus, number and density of the stone. Risks and complications of the procedure have been discussed with her in detail including, but not limited to, bleeding, pain, infection, injury to adjacent organs, urosepsis, ureteral renal kidney injury, and planned secondary procedure has been discussed with her in detail. All questions answered to her satisfaction and she desired to proceed. DESCRIPTION OF PROCEDURE: After an informed consent was signed, the patient was taken to the operating room, placed in a dorsal lithotomy position with the genital area prepped and draped in the usual surgical sterile fashion. A 21-Polish cystoscope was utilized for cystoscopy, which demonstrated normal bladder mucosa. The UOs identified in normal orthotopic position. A left retrograde pyelogram was performed demonstrating a filling defect in the radiopaque density at the level of L2-L3 consistent with the CT scan demonstrating left ureteral calculi. There was moderate hydronephrosis. High-grade obstruction was noted as we were barely able to get contrast into the upper collecting system. We attempted to place a 0.035 Sensor wire multiple times, however, the stone appeared to be impacted and we had difficulty passing a wire. I did transition to a 0.35 angled Sensor wire and this too we had difficulty passing. With negotiation with further contrast study, I was able to negotiate the angle wire proximal to the stone and passed the open-ended catheter just proximal to the stone. We were subsequently able to successfully place a 0.035 Sensor wire into the left upper kidney. However, with manipulation of the wire, we did see a fine streak of contrast extravasation around the stone. With the 6 x 26 double-J ureteral stent, contrast extravasation resolved and the stent was confirmed to be within the left collecting system. At this time, we did transition to a right retrograde pyelogram. An open-ended catheter was utilized to intubate the right UO and a retrograde pyelogram demonstrated normal ureter and a large stone nidus was seen on the KUB perioperatively consistent with the CT. Again, noted was a large renal pelvic stone, however, she had no hydronephrosis. As the stone was intermittently likely causing intermittent obstruction, she had been fully informed regarding right ureteral stent. A 0.035 Sensor wire was placed into the right upper kidney. As I am not approaching her left ureteral calculi due to extravasation of contrast, stone impacted nature, treatment pursued regard multiple large right renal calculi. With the working wire of 0.035 Sensor wire into the right upper collecting system, we dilated the right distal intramural ureter with a [employer] 12-Polish 4-cm balloon dilator at the intramural ureter. Subsequently, we were able to pass a 10-Polish dual-lumen access sheath into the level of the proximal ureter and a second safety wire of 0.035 Super Stiff wire was then placed into the right collecting system. At this time, we had gently attempted to pass 11/13-Polish 28 cm navigator, however, this did not pass into the proximal ureter, therefore I did not engage further. I passed the flexible ureteroscope, disposable camera through the working Super Stiff wire and this did pass into the right renal pelvis without significant issues. There were large right renal stone consistent with the CT scan. Using 273 micron ball-tip laser fiber, we laser lithotripsies all the five stones. However, given the large stone nidus, number in size, stone nidus remains. Energy of the laser lithotripsy was anywhere from 1.2 to 1.5, indicating the stone was very dense in nature. We did make progress laser lithotripsing her stone nidus and some of the stone debris was seen on fluoroscopy as stone debris. I surveyed the ureter, which demonstrated no evidence of ureteral mucosa trauma or stone debris of concern. A 6 x 26 double-J ureteral stent was passed into the right collecting system and appropriate placement was confirmed. She tolerated the procedure well and transported to the recovery room in stable condition. She is discharged with ciprofloxacin 500 mg one p.o. b.i.d. for 7 days, tramadol #30 of 50 mg one to two p.o. q.6 hours p.r.n., Azo p.r.n., Colace p.r.n. She is on oxybutynin 5 mg, we will have the patient increase to t.i.d. p.r.n. bladder spasm. A KUB order has been provided in a written prescription. She is to follow up with me on May 10 at 9:45 in the morning, with KUB around 8:00 a.m. Pending review of KUB, she will be counseled regarding staged bilateral ureteroscopy and laser lithotripsy. Job ID: [id number] [id number]
[2020-05-08] MEDS ORDERED: HYDROcodone/Acetaminophen 5/325 mg Tablet ONE (14:48)
== END 2020-05-08 15:39 | disposition home or self-care (01) ==
LOC: SDC 06:53
PROVIDERS: ATTEND Urology
PROC: 0T768DZ Dilation of Right Ureter with Intraluminal Device, Via Natural or Artificial Opening Endoscopic (ICD-10-PCS; principal; 2020-05-08)
PROC: 0TC38ZZ Extirpation of Matter from Right Kidney Pelvis, Via Natural or Artificial Opening Endoscopic (ICD-10-PCS; principal; 2020-05-08)
DX: N13.2 Hydronephrosis with renal and ureteral calculous obstruction (principal); R31.29 Other microscopic hematuria; I10 Essential (primary) hypertension; F32.9 Major depressive disorder, single episode, unspecified; G89.29 Other chronic pain; M54.9 Dorsalgia, unspecified; Z79.899 Other long term (current) drug therapy
CPT/HCPCS: 74018; 74420; J1100; J1200; J1956; J2250; J2270; J2405; J2704; J3010

== ENCOUNTER 2020-05-10 07:59 | Outpatient (CLI) | payer OTHER ==
--- NOTE | 2020-05-10 08:36 | RAD ---
EXAM: Single view of the abdomen HISTORY: Renal calculi COMPARISON: 05/08/2020 FINDINGS: Single view of the abdomen shows a nonspecific, nonobstructive bowel gas pattern. There are bilateral double-J ureteral stents. Calcifications are seen projecting over both kidneys. These appear fragmented compared to the prior examination. The bones are unremarkable. An anastomotic stap le line is seen within bowel in the right abdomen. IMPRESSION: Bilateral ureteral stents and nephrolithiasis
== END 2020-05-10 08:00 | disposition home or self-care (01) ==
LOC: RAD 07:59
PROVIDERS: ATTEND Urology
DX: N20.0 Calculus of kidney (principal); Z96.0 Presence of urogenital implants
CPT/HCPCS: 74018

== ENCOUNTER 2020-05-10 10:42 | Outpatient (CLI) | payer OTHER ==
[2020-05-10 14:09] LABS: PTT 25.8 sec (22.9-36.1); Prothrombin Time 13.4 sec (12.0-14.7)
[2020-05-10 14:11] LABS: #Basophils 0.1 thou/uL (0.0-0.2); #Eosinphils 0.3 thou/uL (0.0-0.7); #Lymphocytes 2.3 thou/uL (1.20-3.40); #Monocytes 1.3 thou/uL (0.11-0.59); #Neutrophils 6.3 thou/uL (1.40-6.50); %Basophils 0.6 % (0.0-1.0); %Eosinophils 2.7 % (0.0-10.0); %Lymphocytes 22.3 % (21.0-51.0); %Neutrophils 61.4 % (42.0-75.0); Mean Corpuscular HGB CONC 32.2 g/dL (32.0-36.0); Mean Corpuscular Hemoglobin 30.2 pg (27.0-31.0); Mean Platelet Volume 9.6 fL (7.4-10.4); Platelet Count 233 thou/uL (130-400); RBC Distribution Width 12.4 % (11.5-14.5); Red Blood Cell (RBC) Count 3.97 mill/uL (4.20-5.40); White Blood Cell (WBC) Count 10.3 thou/uL (4.8-10.8)
[2020-05-10 15:04] LABS: Anion Gap 16 mmol/L (10-20); BUN (Urea Nitrogen) 14 mg/dL (9.8-20.1); Calc. Creatinine Clearance 0 mL/min (70-130); Calcium 9.3 mg/dL (7.8-10.44); Carbon Dioxide 25 mmol/L (22-29); Chloride 105 mmol/L (98-107); Estimated GFR-MDRD 35; Glucose 75 mg/dL (70-105); Potassium 4.8 mmol/L (3.5-5.1); Sodium 141 mmol/L (136-145)
[2020-05-11 13:17] LABS: SARS-CoV-2 MS2 Positive; SARS-CoV-2 N Gene Negative; SARS-CoV-2 S Gene Negative; SARS-CoV-2 orf1ab Negative
== END 2020-05-10 10:43 | disposition home or self-care (01) ==
LOC: LABBT 10:42
PROVIDERS: ATTEND Urology
DX: Z01.812 Encounter for preprocedural laboratory examination (principal); Z11.59 Encounter for screening for other viral diseases; N20.2 Calculus of kidney with calculus of ureter; I10 Essential (primary) hypertension; R31.29 Other microscopic hematuria; N13.39 Other hydronephrosis; R11.0 Nausea
CPT/HCPCS: 87635; U0003

== ENCOUNTER 2020-05-15 06:48 | Day surgery (SDC) | payer OTHER ==
[2020-05-13 10:10] VITALS: BMI 40.0
[2020-05-15] MEDS ORDERED: cefTRIAXone\\ROCEPHIN 2 GM VIAL ONE (07:06)
[2020-05-15] MEDS ORDERED: Sodium Chloride 0.9% 100 ML ONE (07:07)
[2020-05-15] MEDS ORDERED: Iopamidol 15 ML ONE (07:09)
--- NOTE | 2020-05-15 07:55 | RAD ---
Abdomen one view HISTORY: Renal stones. Preop. COMPARISON: 05/10/2020. FINDINGS: Gas and stool throughout the colon and rectum. Postoperative changes of the upper abdomen a gain demonstrated. Small metallic density overlying the midline at the L1-2 level is demonstrated. Bilateral ureteral stents remain in place calcifications projecting over each kidney and the left ure ter are unchanged in position. Multiple phleboliths also overlie the pelvis. IMPRESSION : Nephrolithiasis, ureteral lithiasis. Stable exam. Bilateral ureteral stents.
[2020-05-15] MEDS ORDERED: Famotidine/PF 20 mg/2ml Vial ONE ×2 (08:02→08:13)
[2020-05-15] MEDS ORDERED: Scopolamine 1.5 mg/72 hour Patch ONE (08:02)
[2020-05-15] MEDS ORDERED: Fentanyl 100 MCG/2 ML VIAL ONE ×3 (08:02→11:36)
[2020-05-15] MEDS ORDERED: Ondansetron PF 4 MG/2 ML Vial ONE ×2 (08:02→09:15)
[2020-05-15] MEDS ORDERED: PROPOFOL 200 MG/20 ML VIAL ONE (09:15)
[2020-05-15] MEDS ORDERED: Rocuronium Bromide 10 MG/ML (10ML VIAL) ONE (09:15)
[2020-05-15] MEDS ORDERED: Glycopyrrolate 0.2 MG/ML 5 ML SYRINGE ONE (09:15)
[2020-05-15] MEDS ORDERED: Dexamethasone 20 MG/5 ML VIAL ONE (09:15)
[2020-05-15] MEDS ORDERED: PHENYLEPHRINE-NS 100 MCG/ML 10 ML SYRINGE ONE (09:15)
[2020-05-15] MEDS ORDERED: Lidocaine 1% PF 5 ML VIAL ONE (09:15)
[2020-05-15] MEDS ORDERED: EPHEDRINE 25 MG/5 ML SYRINGE ONE (09:15)
[2020-05-15] MEDS ORDERED: B & O ONE (10:38)
--- NOTE | 2020-05-15 11:13 | RAD ---
EXAM: XR IVP Retrograde PROVIDED CLINICAL HISTORY: Bilateral ureteral stent exchange. COMPARISON: 05/08/2020 FINDINGS/IMPRESSION: Initial image demonstrates right ureteral stent in place with guidewire present in the left ureter an d left renal collecting system. There is suggested filling defect and prominence of the proximal left ureter which may be site of renal calculus noted on prior CT exam on 05/02/2020. Final image demo nstrates a double pigtail ureteral stents in place. Multiple calcifications overlie the pelvis shown to represent multiple phleboliths on prior CT exam. Correlation with intraoperative findings is recommended.
[2020-05-15] MEDS ORDERED: Oxybutynin 5 MG TAB ONE (11:35)
[2020-05-15] MEDS ORDERED: Phenazopyridine HCl 97.5 MG TABLET ONE (11:35)
[2020-05-15] MEDS ORDERED: HYDROcodone/Acetaminophen 5/325 mg Tablet ONE (12:16)
--- NOTE | 2020-05-15 18:03 | OP ---
DATE OF PROCEDURE: 05/15/2020 PRIMARY CARE PHYSICIAN: Boni Keys MD PREOPERATIVE DIAGNOSES: 1. A 55-year-old morbidly obese female with history of chronic back pain, bilateral renal calculi. 2. Right renal calculi x4: 5 to 6 mm upper pole, renal pelvic 1.4 cm x 6 mm, right mid pole 6 mm, right lower pole 1.3 cm x 7 mm. 3. Left proximal 6-mm ureteral calculi, high-grade obstruction, ureteroscopy demonstrating impacted imbedded ureteral calculi. 4. Left renal calculi x2, 6 mm in the mid to lower pole, 6 mm in the upper pole. POSTOPERATIVE DIAGNOSES: 1. A 55-year-old morbidly obese female with history of chronic back pain, bilateral renal calculi. 2. Right renal calculi x4: 5 to 6 mm upper pole, renal pelvic 1.4 cm x 6 mm, right mid pole 6 mm, right lower pole 1.3 cm x 7 mm. 3. Left proximal 6-mm ureteral calculi, high-grade obstruction, ureteroscopy demonstrating impacted imbedded ureteral calculi. 4. Left renal calculi x2, 6 mm in the mid to lower pole, 6 mm in the upper pole. PROCEDURES PERFORMED: Cystoscopy, bilateral retrograde pyelogram, left 6 x 28 double-J ureteral stent with distal tail in situ, right 6 x 26 double-J ureteral stent, right distal intramural dilatation, bilateral ureteroscopy, bilateral laser lithotripsy of multiple ureteral renal calculi, bilateral basket extraction of multiple stones, Modifier 22 due to extensive stone burden, dense nature of calculi, impacted left ureteral calculi INTRAOPERATIVE FINDINGS: 1. Multiple right ureteral stones fragmented. 2. Right renal stones with significant progress, residual stone nidus in the upper mid and lower pole further fragmented. 3. Left ureteral stone is impacted, with mucosal overgrowth. 4. Right mid and upper pole renal calculi as above. 5. Stone moiety, on laser lithotripsy, requiring high energy consistent with very dense calculi, likely calcium phosphate. SPECIMEN: Stone for chemical analysis. INDICATIONS FOR PROCEDURE AND HISTORY: Ms. Perdomo is a 55-year-old morbidly obese female with history of chronic back pain with frequency, urgency, and chronic suprapubic discomfort. Workup demonstrated multiple bilateral renal calculi with large dimensions as above with left hydronephrosis. She previously underwent left ureteral stent placement, stent was very challenging to place. The stone was impacted in nature and it was very difficult to place a left ureteral stent. Therefore, the left ureteral and renal calculi was not able to be treated at that time. We were able to make some progress in the right stone burden, and she presents today for bilateral ureteroscopy and laser lithotripsy. She was fully informed regarding possibility of stage intervention of one side of the stone burden being treated in a staged manner, she requested to have bilateral stone burden treated at the same time, so that we may make some progress, and be more efficient. She was fully informed regarding alternative options of treating in tandem, however, fully informed that due to her stone nidus density and her body habitus and numerous stones in nature, informed the patient regarding likely staged intervention given her bilateral stone burden. Risks and complications of the procedure were reviewed with her in detail including, but not limited to, bleeding, pain, infection, injury to adjacent organs, urosepsis, ureteral renal bladder injury, stricture formation. All questions answered to her satisfaction and she desired to proceed. DESCRIPTION OF PROCEDURE: After an informed consent was signed, the patient was taken to the operating room, placed in a dorsal lithotomy position with the genital area prepped and draped in the usual surgical sterile fashion. A 21-Slovak cystoscope was utilized for cystoscopy, which demonstrated bilateral ureteral stents in good position. There was no evidence of bladder calculi. We removed the left ureteral stent first, a 0.035 Sensor wire was placed into the left upper pole. We then passed a dual-lumen access sheath to the level of the stone. The stone was somewhat difficult to engage proximally with a second wire, however, the Super Stiff wire was gently negotiated into the left upper pole. An 11/13-Slovak x 28 navigator was gently passed to the level of the stone. There was some resistance, however , we were able to pass this atraumatically to the level of the stone. Flexible ureteroscope was advanced to the level of the stone, which demonstrated significant bullous edema surrounding the stone consistent with embedded impacted stone. There was a submucosal course of the wire at the level of the stone. Using 200 micron both regular tip laser fiber at energy of 1.6 joules, we laser lithotripsied the stone into multiple fragments. As the stone was very dense in nature, it did not dust, it fragmented into multiple pieces and we basket extracted the stone debris. Care was taken not to cause further ureteral mucosa trauma. The wire was in visualization at all times. At the end of treating the left ureteral calculi, the stone was cleared and the debris cleared as well with a basket extraction through the sheath. The mucosa appeared to be having significant bullous edema consistent with an impacted high-grade ureteral obstruction. I was able to get into the true ureteral lumen without any issues and the scope advanced to the level of the kidney. Stones were found in the upper pole and mid to lower pole. The mid to lower pole calculi demonstrated that it was somewhat difficult to engage given the angle. Therefore, using a basket, we moved the stone into the upper pole. Using the laser fiber, we fragmented the stone into multiple tiny pieces. Basket extraction of the stone debris was performed and what was left was a minute dust-like stone debris. We did make significant clearance of the left ureteral renal stone burden. What remains are likely dust-like fragments, which she should pass. We again surveyed the ureter with the wire confirmed to be in a good position with no evidence of mucosal trauma. The ureter was surveyed distally without significant issues of concern. A 6 x 28 double-J ureteral stent was placed into the left collecting system. She has a high positioning kidney in the left and a long infundibulum in the upper pole. On the contralateral side, we moved and transitioned. The right ureteral stent was removed to level of the meatus and a 0.035 Sensor wire was placed into the right upper pole. A wire was placed into place. At this time, I surveyed the ureter with the rigid ureteroscope as we laser lithotripsied large multiple stone burden on previous endeavor. There were multiple stone debris in the right ureter, which we cleared with basket extraction. With the ureter cleared, to the level of the proximal ureter, a second safety wire with a 10-Slovak dual-lumen access sheath was passed. Although, the 10-Slovak dual-lumen access sheath passed without significant issues, I had difficult time passing 11/13-Slovak navigator. I did not forcibly engage, as there was some resistance, we balloon dilated the right distal ureter sequentially with a 4 cm 12-Slovak balloon. Despite dilatation, the access sheath would not pass easily. Therefore, the ureteroscope was advanced over the Super Stiff wire and access into the right upper collecting system. Surveying of the calyx of the right upper pole demonstrated that we did make significant progress with laser lithotripsy of her large stone burden on the right. There were residual fragmented debris in the right upper pole, mid posterior, and lower pole. Using 273 micron ball-tip laser fiber, I further dustied the stones into multiple tiny fragments. As I did not have a navigator in place, decision was made to dust the stone as much as we could. Using dust setting at 1.6 joules, we laser lithotripsied the stone into multiple tiny fragments. Most of the stone debris was in the right upper pole posterior. At the end of the procedure, what remained were dust-like debris, which I anticipate she should pass. The ureter was surveyed, demonstrating no evidence of further residual ureteral calculi of concern. No defect in the ureter was noted. A 6 x 26 double-J ureteral stent was placed on the right side and she tolerated the procedure well. She does complain of suprapubic pain, although this was present before surgery. She has an indwelling ureteral stent. Therefore, I did provide her refill on her previous medication of [place] 5/325, #30, she may continue her tramadol, which was also refilled. Oxybutynin 15 mg one p.o. daily, Azo p.r.n., Zofran p.r.n., and ciprofloxacin until stent removal was reviewed. Given the impacted stone and the large stone debris treated on the right side, I would like to leave the stent in for least 2 weeks. She will see me on May 30 at 8:00 a.m. for cysto, stent pull. She will obtain a CT, BMP on May 29, one day prior to her appointment with me in office. Job ID: [id number] [facility]
== END 2020-05-15 13:41 | disposition home or self-care (01) ==
LOC: SDC 06:48
PROVIDERS: ATTEND Urology
PROC: 0TC48ZZ Extirpation of Matter from Left Kidney Pelvis, Via Natural or Artificial Opening Endoscopic (ICD-10-PCS; principal; 2020-05-15)
PROC: 0TC68ZZ Extirpation of Matter from Right Ureter, Via Natural or Artificial Opening Endoscopic (ICD-10-PCS; principal; 2020-05-15)
PROC: 0T788DZ Dilation of Bilateral Ureters with Intraluminal Device, Via Natural or Artificial Opening Endoscopic (ICD-10-PCS; principal; 2020-05-15)
PROC: 0TC38ZZ Extirpation of Matter from Right Kidney Pelvis, Via Natural or Artificial Opening Endoscopic (ICD-10-PCS; principal; 2020-05-15)
PROC: 0TC78ZZ Extirpation of Matter from Left Ureter, Via Natural or Artificial Opening Endoscopic (ICD-10-PCS; principal; 2020-05-15)
DX: N13.2 Hydronephrosis with renal and ureteral calculous obstruction (principal); R31.29 Other microscopic hematuria; I10 Essential (primary) hypertension; F32.9 Major depressive disorder, single episode, unspecified; E66.01 Morbid (severe) obesity due to excess calories; Z68.41 Body mass index [BMI] 40.0-44.9, adult; Z79.899 Other long term (current) drug therapy
CPT/HCPCS: 74018; 74420; 82365; 88300; J0696; J1100; J2001; J2405; J2704; J3010; J3490; Q9967; S0028

== ENCOUNTER 2020-05-29 07:49 | Outpatient (CLI) | payer OTHER ==
[2020-05-29] MEDS ORDERED: Iopamidol-370 76% 500 ML 1 ML ONE (09:23)
--- NOTE | 2020-05-29 10:49 | CT ---
CT ABDOMEN AND PELVIS WITH AND WITHOUT IV CONTRAST: Date: 05/29/2020 HISTORY: Microhematuria. Renal stones. Stents. Left flank pain. COMPARISON: 05/02/2020. FINDINGS: The lung bases are stable. Postop changes of cholecystectomy, appendectomy, hysterectomy, and gastric bypass surgery are again seen. No free air, free fluid, or lymphadenopathy noted in the abdomen or p joanne. The small bowel loops are not abnormally dilated. There are vascular calcifications without ev idence of aneurysmal dilatation of the abdominal aorta. There are degenerative changes in the spine. Interval placement of bilateral ureteral calculi has occurred. Bilateral renal calculi are present, m easuring up to 3.0 mm on either side. No calculi seen in the ureters or the urinary bladder. No hydro ureteronephrosis seen on either side. Postcontrast images demonstrate no evidence of renal mass. Ther e is normal excretion of contrast into the ureters and the urinary bladder. IMPRESSION: Bilateral renal calculi and bilateral ureteral stents without evidence of high grade obstruction. POS: DIANADI
== END 2020-05-29 07:50 | disposition home or self-care (01) ==
LOC: BICCT 07:49
PROVIDERS: ATTEND Urology
DX: N20.0 Calculus of kidney (principal); R31.29 Other microscopic hematuria; Z96.0 Presence of urogenital implants; Z00.00 Encounter for general adult medical examination without abnormal findings
CPT/HCPCS: 36415; 74178; 80053; 80061; 81001; 84443; 85025; 87086

== ENCOUNTER 2020-08-19 13:35 | Outpatient (CLI) | payer OTHER ==
--- NOTE | 2020-08-19 15:44 | ULT ---
BILATERAL RENAL ULTRASOUND COMPLETE: HISTORY: Renal lithiasis. Previous hematuria. COMPARISON: CT 05/29/2020 bilateral renal ultrasound complete. FINDINGS: The right kidney measures 9.2 x 4.7 x 4.3 cm. The left kidney measures 9.5 x 4.1 x 4.1 cm. There are shadowing echogenic foci within the lower pole right kidney. In the left kidney there are some echogenic foci but without definitive shadowing. Urinary bladder appears unremarkable. Left ur eteral jet is seen. The right ureteral jet is not seen. Previously noted stents have been removed. IMPRESSION: 1. No evidence for renal hydronephrosis. Evidence for probable bilateral nonobstructing renal calcu li. 2. Renal stents have been removed. 3. Left ureteral jet is demonstrated, right ureteral jet is not seen. POS: RRE
--- NOTE | 2020-08-19 16:07 | RAD ---
ABDOMEN ONE VIEW: History: Microscopic hematuria. Comparison: 05-15-2020 FINDINGS: Evidence for a possible nonobstructing left renal calculus. Both kidneys are somewhat obscured by gas and fecal material in the colon. Previously noted ureteral stents have been removed. No overt ureter al calculus. IMPRESSION: Probable faint bilateral renal calculi. Ureteral stents have been removed. No overt ureteral calculus . Extensive calcified pelvic phleboliths. POS: RRE
== END 2020-08-19 13:36 | disposition home or self-care (01) ==
LOC: BICULT 13:35
PROVIDERS: ATTEND Urology
DX: N20.0 Calculus of kidney (principal); R31.29 Other microscopic hematuria; I87.8 Other specified disorders of veins
CPT/HCPCS: 74018; 76770

== ENCOUNTER 2020-08-28 12:07 | Emergency (ER) | payer OTHER ==
[2020-08-28 13:13] LABS: Bilirubin Negative (Negative); Blood, Urine Negative (Negative); Clarity Clear (Clear); Glucose, Urine (Dipstick) Normal (Negative); Ketone, Urine Negative (Negative); Leukocyte 25 Leu/uL (Negative); Nitrite Negative (Negative); Protein, Urine (Dipstick) Negative (Neg-Trace); RBC/HPF 0-3 HPF (0-3); Specific Gravity, Urine 1.008 (1.002-1.036); Squamous Epithelial 0-3 HPF (0-3); Urobilinogen Normal mg/dL (Less than 2); pH, Urine 6.5 (5.0-9.0)
[2020-08-28 13:19] LABS: Bacteria/HPF 1+ HPF (None Seen)
--- NOTE | 2020-08-28 13:36 | CT ---
CT ABDOMEN AND PELVIS WITHOUT IV CONTRAST: 08/28/20 INDICATIONS: Left flank pain. History of kidney stones. COMPARISON: Comparison made to CT abdomen and pelvis 05/29/20. Lung bases clear. Liver, spleen, pancreas unremarkable. Postoperative changes involving the stomach with evidence of ga stric bypass type procedure. Post cholecystectomy change. Review of the urinary tract shows no eviden ce of hydronephrosis. There are numerous nonobstructing calculi in the upper collecting structures of the right kidney. One or two nonobstructing calculi in the upper collecting structures of the left k idney. The ureters are normal caliber with no evidence of ureteral calculus or obstruction. The urina ry bladder is contracted and not well evaluated. Small bowel loops appear normal caliber. Postoperative suture is seen within the small bowel. Colon i s unremarkable with large volume stool throughout. The aorta is normal caliber. No adenopathy or free fluid. Urinary bladder mildly distended and unremarkable as visualized. IMPRESSION: Nonobstructing calculi in the upper collecting structures of both kidneys. No evidence of ureteral ca lculus or urinary obstruction. No acute process identified. POS: GURDEEP
--- NOTE | 2020-08-28 14:04 | RAD ---
Exam: Chest one view HISTORY:Chest pain. Left flank pain x2 weeks. History of renal calculi. Comparison: 03/17/2020 FINDINGS: Cardiac silhouette: Normal Aorta: Stable atherosclerosis Pulmonary vessels: Normal Costophrenic angles: Clear LUNGS: No masses or consolidation. Pneumothorax: None Osseous abnormalities: None IMPRESSION: No acute cardiopulmonary process.
[2020-08-28] MEDS ORDERED: Ondansetron ODT 4 MG TAB ONE (14:20)
[2020-08-28] MEDS ORDERED: Famotidine 20 MG TAB ONE (14:20)
[2020-08-28] MEDS ORDERED: Milk Of Magnesia 30 ML UDCUP ONE (14:20)
[2020-08-28] MEDS ORDERED: Lidocaine Viscous Sol 2% 15 ml UD Cup ONE (14:20)
[2020-08-28 14:25] LABS: #Basophils 0.1 thou/uL (0.0-0.2); #Eosinphils 0.2 thou/uL (0.0-0.7); #Lymphocytes 1.5 thou/uL (1.20-3.40); #Monocytes 0.6 thou/uL (0.11-0.59); #Neutrophils 3.7 thou/uL (1.40-6.50); %Eosinophils 2.8 % (0.0-10.0); %Lymphocytes 24.4 % (21.0-51.0); %Monocytes 9.3 % (0.0-10.0); %Neutrophils 62.4 % (42.0-75.0); Hemoglobin 12.7 g/dL (12.0-16.0); Mean Corpuscular HGB CONC 32.4 g/dL (32.0-36.0); Mean Corpuscular Hemoglobin 29.8 pg (27.0-31.0); Mean Corpuscular Volume 91.9 fL (78.0-98.0); Platelet Count 226 thou/uL (130-400); RBC Distribution Width 12.5 % (11.5-14.5); Red Blood Cell (RBC) Count 4.26 mill/uL (4.20-5.40); White Blood Cell (WBC) Count 5.9 thou/uL (4.8-10.8)
[2020-08-28 14:43] LABS: ALT (SGPT) 9 U/L (8-55); AST (SGOT) 15 U/L (5-34); Albumin 4.1 g/dL (3.5-5.0); Alkaline Phosphatase 91 U/L (40-110); Anion Gap 15 mmol/L (10-20); BUN (Urea Nitrogen) 17 mg/dL (9.8-20.1); Bilirubin, Total 0.4 mg/dL (0.2-1.2); Calc. Creatinine Clearance 0 mL/min (70-130); Calcium 9.5 mg/dL (7.8-10.44); Carbon Dioxide 23 mmol/L (22-29); Chloride 103 mmol/L (98-107); Estimated GFR-MDRD 54; Globulin 3.7 g/dL (2.4-3.5); Glucose 90 mg/dL (70-105); Lipase 29 U/L (8-78); Potassium 4.4 mmol/L (3.5-5.1); Protein, Total 7.8 g/dL (6.0-8.3); Sodium 137 mmol/L (136-145)
== END 2020-08-28 15:13 | disposition home or self-care (01) ==
LOC: ERS 12:07
DX: N39.0 Urinary tract infection, site not specified (principal); N20.2 Calculus of kidney with calculus of ureter; R11.2 Nausea with vomiting, unspecified; F32.9 Major depressive disorder, single episode, unspecified; Z79.899 Other long term (current) drug therapy
CPT/HCPCS: 36415; 71045; 74176; 80053; 81003; 81015; 83690; 85025; Q0162

== ENCOUNTER 2020-08-30 06:42 | Outpatient (CLI) | payer OTHER ==
[2020-08-30 10:45] LABS: INR-International Normal Ratio 0.9; Prothrombin Time 12.8 sec (12.0-14.7)
[2020-08-30 11:13] LABS: Hemoglobin 12.1 g/dL (12.0-16.0); Mean Corpuscular HGB CONC 31.5 g/dL (32.0-36.0); Mean Corpuscular Hemoglobin 29.3 pg (27.0-31.0); Mean Corpuscular Volume 92.8 fL (78.0-98.0); Mean Platelet Volume 9.6 fL (7.4-10.4); Platelet Count 227 thou/uL (130-400); RBC Distribution Width 12.6 % (11.5-14.5); Red Blood Cell (RBC) Count 4.14 mill/uL (4.20-5.40); White Blood Cell (WBC) Count 4.1 thou/uL (4.8-10.8)
[2020-08-30 13:17] LABS: Anion Gap 16 mmol/L (10-20); BUN (Urea Nitrogen) 14 mg/dL (9.8-20.1); Calc. Creatinine Clearance 0 mL/min (70-130); Calcium 9.3 mg/dL (7.8-10.44); Carbon Dioxide 21 mmol/L (22-29); Chloride 104 mmol/L (98-107); Estimated GFR-MDRD 46; Glucose 95 mg/dL (70-105); Potassium 4.8 mmol/L (3.5-5.1); Sodium 136 mmol/L (136-145)
[2020-08-30 17:21] LABS: SARS-CoV-2 MS2 Positive; SARS-CoV-2 N Gene Negative; SARS-CoV-2 S Gene Negative; SARS-CoV-2 by NAA Not Detected (NotDetected); SARS-CoV-2 orf1ab Negative
== END 2020-08-30 06:43 | disposition home or self-care (01) ==
LOC: LABBT 06:42
PROVIDERS: ATTEND Urology
DX: Z01.818 Encounter for other preprocedural examination (principal); N20.1 Calculus of ureter; Z20.828 Contact with and (suspected) exposure to other viral communicable diseases
CPT/HCPCS: 80048; 85027; 85610; 85730; 87635; 93005; 93010; U0003

== ENCOUNTER 2020-09-04 06:45 | Day surgery (SDC) | payer OTHER ==
[2020-09-03 09:53] VITALS: BMI 37.8
[2020-09-04] MEDS ORDERED: Levofloxacin 500 mg/D5W 100 ml Premix Bag ONE (07:54)
--- NOTE | 2020-09-04 08:49 | RAD ---
1 VIEW ABDOMEN: Date: 09/04/2020 COMPARISON: 08/19/2020. CORRELATION: Renal stone CT 08/28/2020. HISTORY: Microscopic hematuria. Left renal calculi. FINDINGS: There is a suture chain in the left upper quadrant and surgical clips in the right upper quadrant. St able density projects over the midline of the spine at the L1-L2 level. Nonspecific bowel gas. Scattered fecal material is noted throughout the colon. The previously noted r enal calculi are obscured due to bowel gas. There does appear to be a right renal calculus measuring 0.6 cm. The previously identified left renal calculus is difficult to appreciate. Note, there is an a dditional suture chain in the right lower quadrant. There does appear to be a left ureteral calculus, just to the left of the L1 vertebral body measuring approximately 0.6 cm. IMPRESSION: 1. Limited evaluation of the left and right renal calculi due to overlying bowel gas and fecal mater ial. 2. Left ureteral calculus. POS: OFF
[2020-09-04] MEDS ORDERED: Iothalamate Meglumine 60% 50 ML VIAL FS ONE (09:06)
[2020-09-04] MEDS ORDERED: Fentanyl 100 MCG/2 ML VIAL ONE ×3 (09:12→10:58)
[2020-09-04] MEDS ORDERED: PHENYLEPHRINE-NS 100 MCG/ML 10 ML SYRINGE ONE (09:16)
[2020-09-04] MEDS ORDERED: EPHEDRINE 25 MG/5 ML SYRINGE ONE (09:16)
[2020-09-04] MEDS ORDERED: Lidocaine 1% PF 5 ML VIAL ONE (09:16)
[2020-09-04] MEDS ORDERED: Ondansetron PF 4 MG/2 ML Vial ONE (09:16)
[2020-09-04] MEDS ORDERED: Dexamethasone 20 MG/5 ML VIAL ONE (09:16)
[2020-09-04] MEDS ORDERED: Rocuronium Bromide 10 MG/ML (10ML VIAL) ONE (09:16)
[2020-09-04] MEDS ORDERED: PROPOFOL 200 MG/20 ML VIAL ONE (09:16)
[2020-09-04] MEDS ORDERED: Ketorolac Tromethamine 30 MG/ML VIAL ONE ×2 (09:16→10:17)
[2020-09-04] MEDS ORDERED: SUGAMMADEX SODIUM 200 MG/2 ML VIAL ONE (09:57)
--- NOTE | 2020-09-04 10:14 | RAD ---
EXAM: Retrograde IVP HISTORY: Ureteral stent for ureteral calcification COMPARISON: 05/15/[address] abdomen/pelvis 08/28/2020 FINDINGS/IMPRESSION: Limited intraoperative fluoroscopic views of the retrograde IVP were submitted f or interpretation. There is no evidence of hydronephrosis. No obvious filling defects are seen. Lithotripsy instruments are seen placed on some images. The last image shows a ureteral stent in good position.
[2020-09-04] MEDS ORDERED: Phenazopyridine HCl 100 MG TAB ONE (10:32)
[2020-09-04] MEDS ORDERED: Midazolam HCl 2 mg/2 ml Vial ONE (10:47)
--- NOTE | 2020-09-04 12:19 | OP ---
DATE OF PROCEDURE: 09/04/2020 PREOPERATIVE DIAGNOSES: 1. A 55-year-old female with history of recurrent kidney stone. 2. Left flank pain with recent CT demonstrating left ureteral calculi measuring about 3 to 4 mm with no significant hydronephrosis: Left lower pole punctate renal lithiasis. 3. Right renal stone burden: 6 mm upper and lower pole, mid pole 3 mm, multiple punctate right renal calculi. POSTOPERATIVE DIAGNOSES: 1. A 55-year-old female with history of recurrent kidney stone. 2. Left flank pain with recent CT demonstrating left ureteral calculi measuring about 3 to 4 mm with no significant hydronephrosis: Left lower pole punctate renal lithiasis. 3. Right renal stone burden: 6 mm upper and lower pole, mid pole 3 mm, multiple punctate right renal calculi. PROCEDURES PERFORMED: Cystoscopy, left retrograde pyelogram, balloon dilatation of the left distal ureter, flexible ureteroscopy, pyeloscopy, laser lithotripsy of ureteral calculi, basket extraction of stone, 6 x 28 stent. ANESTHESIA: General. COMPLICATIONS: None apparent. DISPOSITION: To recovery room in stable condition. SPECIMEN: Stone fragments for chemical analysis. INDICATIONS FOR PROCEDURE AND HISTORY: Ms. Perdomo is a 55-year-old morbidly obese female with history of chronic back pain, has history of recurrent kidney stone with bilateral stone burden. She underwent bilateral ureteral stone treatment in the past with improvement, she presents with recurrent kidney stone, left flank pain. I informed the patient that her left proximal ureteral calculi is small in caliber. Therefore, advised regarding medical expulsion therapy. However, due to persistent discomfort, she desires to proceed with treatment. Risks and complications of the procedure were reviewed with her in detail including, but not limited to, bleeding, pain, infection, injury to adjacent organs, urosepsis, ureteral stricture formation, ureteral/renal kidney injury reviewed. All questions answered to her satisfaction. She desired to proceed. DESCRIPTION OF PROCEDURE: After an informed consent was signed, the patient taken to the operating room, placed in dorsal lithotomy position with the genital area prepped and draped in the usual surgical sterile fashion. A 21-Togolese cystoscope was utilized for cystoscopy, which demonstrated normal bladder mucosa. The UO was identified in normal orthotopic position. An open-ended catheter was utilized for retrograde pyelogram and there was a small filling defect in the proximal ureter at the level of L2 consistent with the CT. No significant hydronephrosis. A 0.035 Sensor wire was placed into the left upper pole. Subsequently, we dilated the intramural ureter with a 4 cm 12-Togolese balloon dilator at the distal ureter. 10-Togolese dual-lumen access sheath was passed to the level of the mid ureter and a second safety wire SuperStiff was placed into the left upper pole. At this time, a 12 x 14-Togolese navigator was placed to the level of the stone and we were able to easily visualize the stone as a navigator was just distal to this. She previously had an impacted ureteral stone in this region, there was no gross stricture in this region. Using a 200 micron laser fiber at 1.0 joules, we laser lithotripsied the stone. Some of the stone may have migrated into the renal kidney; therefore, after we cleared the ureter, we performed the ureteroscopy, pyeloscopy. There was some stone nidus in the lower pole, which was basket extracted. This was about 3 to 4 mm fragmented debris. There were some Blayne's plaques that we laser lithotripsied off the calyceal mucosa and dusted. Her calyceal morphology is consistent with Blayne's plaques consistent with recurrent stone former. The ureter was then surveyed, which demonstrated no evidence of mucosa injury of concern or ureteral stricture. No further stone nidus was seen. The navigator was completely removed and over the safety wire, 6 x 28 double-J ureteral stent was passed into the left kidney and distal tail was left in situ. Bladder was completely emptied and she tolerated the procedure well. She will follow up with me next for cysto, left stent pull. Subsequently, we will proceed with staged right ureteroscopy as she has a high stone burden on the right, which she elects to treat at a later time. Postop medications sent to the patient's pharmacy. She will see me in the next for cysto, stent pull under local. Job ID: [id number]
== END 2020-09-04 13:05 | disposition home or self-care (01) ==
LOC: SDC 06:45
PROVIDERS: ATTEND Urology
PROC: 0T778DZ Dilation of Left Ureter with Intraluminal Device, Via Natural or Artificial Opening Endoscopic (ICD-10-PCS; principal; 2020-09-04)
PROC: 0TC78ZZ Extirpation of Matter from Left Ureter, Via Natural or Artificial Opening Endoscopic (ICD-10-PCS; principal; 2020-09-04)
DX: N20.2 Calculus of kidney with calculus of ureter (principal); I10 Essential (primary) hypertension; G90.50 Complex regional pain syndrome I, unspecified; F32.9 Major depressive disorder, single episode, unspecified; R31.29 Other microscopic hematuria; Z79.899 Other long term (current) drug therapy
CPT/HCPCS: 74018; 74420; 82365; 88300; J1100; J1885; J1956; J2250; J2405; J2704; J3010